=== PATIENT | male | born 1955 | race Caucasian/White ===

== ENCOUNTER 2017-11-07 16:39 | Emergency (ER) | payer MEDICAID ==
[~2017-11-07 16:39] MED LIST: IBUP-14 PO; PANT40TA25 PO
[2017-11-07 17:06] LABS: BASOPHILS % (AUTO) 0.4 % (0.0-5.0); HEMATOCRIT 43.7 % (42-54); LYMPHOCYTES % (AUTO) 9.2 % (21.0-51.0); MEAN CORPUSCULAR HEMOGLOBIN 29.5 pg (27.0-33.0); MEAN CORPUSCULAR HGB CONC 33.7 g/dL (32.0-36.0); MEAN CORPUSCULAR VOLUME 87.6 fL (79-99); MONOCYTES % (AUTO) 2.8 % (3.0-13.0); NEUTROPHILS % (AUTO) 87.6 % (40.0-77.0); PLATELET COUNT (AUTO) 276 K/uL (130-400); RED BLOOD CELL COUNT(AUTO) 4.99 MIL/uL (4.50-6.20); RED CELL DISTRIBUTION WIDTH 14.1 % (11.0-15.5); WHITE BLOOD COUNT (AUTO) 12.1 K/uL (4.8-10.8)
[2017-11-07 17:16] LABS: CARBON DIOXIDE 28 mmol/L (21-32); CHLORIDE 98 mmol/L (101-111); CREATININE 0.9 mg/dL (0.5-1.5); GLOMERULAR FILTR. RATE CALC 91 mL/min (>60); GLUCOSE,RANDOM 142 mg/dL (70-105); POTASSIUM 3.6 mmol/L (3.5-5.1); SODIUM SERUM 136 mmol/L (136-145); UREA NITROGEN, BLOOD 13 mg/dL (7-18)
[2017-11-07] MEDS ORDERED: ONDANSETRON HCL 4 MG/2 ML VIAL ONE ×2 (17:18→19:45)
[2017-11-07] MEDS ORDERED: KETOROLAC TROMETHAMINE 30MG/ML ONE (17:19)
[2017-11-07 17:24] LABS: ALANINE AMINOTRANSFERASE 19 U/L (12-78); ALBUMIN 4.1 g/dL (3.5-5.0); AMYLASE 35 U/L (25-115); ASPARTATE AMINOTRANSFERASE 16 U/L (10-37); BILIRUBIN,TOTAL 0.3 mg/dL (0.2-1.0); LIPASE 79 U/L (114-286)
[2017-11-07 17:27] LABS: ALCOHOL, BLOOD < 3 mg/dL (0-10)
[2017-11-07] MEDS ORDERED: TRAMADOL HCL 50 MG TABLET ONE (19:45)
[2017-11-07 20:07] LABS: APPEARANCE,URINE Clear (CLEAR); BILIRUBIN,URINE Negative (NEGATIVE); COLOR,URINE Yellow (YELLOW); GLUCOSE, URINE (UA) 250 mg/dL (NEGATIVE); KETONES,URINE 40 mg/dL (NEGATIVE); LEUKOCYTE ESTERASE ,URINE Negative (NEGATIVE); NITRATE,URINE Negative (NEGATIVE); OCCULT BLOOD,URINE Negative (NEGATIVE); PROTEIN,URINE POS 2+ (NEGATIVE); UROBILINOGEN,URINE 0.2 mg/dL (0.2-1.0)
[2017-11-07 20:13] LABS: AMPHET/METH SCREEN,URINE NEGATIVE (NEGATIVE); BARBITURATE SCREEN, URINE NEGATIVE (NEGATIVE); BENZODIAZEPINES SCREEN,URINE NEGATIVE (NEGATIVE); CANNABINOID SCREEN,URINE POSITIVE (NEGATIVE); COCAINE SCREEN,URINE NEGATIVE (NEGATIVE); OPIATE SCREEN,URINE NEGATIVE (NEGATIVE); PHENCYCLIDINE SCREEN,URINE NEGATIVE (NEGATIVE)
[2017-11-07 20:14] LABS: BACTERIA,URINE None Seen /HPF (None Seen); RBC,URINE None Seen /HPF (0-1); WBC,URINE 0-1 /HPF (0-1)
[2017-11-07] MEDS ORDERED: HYOSCYAMINE SULFATE 0.125 MG TAB.SUBL SL ONE (20:20)
[2017-11-07] MEDS ORDERED: LEVOFLOXACIN 500 MG TABLET ONE (20:27)
== END 2017-11-07 20:36 | disposition home or self-care (01) ==
LOC: EDH 16:39
DX: A09 Infectious gastroenteritis and colitis, unspecified (principal); R10.84 Generalized abdominal pain; M54.5 Low back pain; I25.10 Atherosclerotic heart disease of native coronary artery without angina pectoris; Z90.49 Acquired absence of other specified parts of digestive tract
CPT/HCPCS: 36415; 51702; 74176; 80053; 80305; 81001; 82150; 82948; 83690; 85025; 87088; 96374; 96375; 96376; 99285; G0480; J1885; J2405 ×2

== ENCOUNTER 2019-08-05 20:43 | Inpatient (IN) | payer MEDICAID ==
[~2019-08-05] VITALS: Ht 170.2 cm; Wt 59.2 kg
[2019-08-05] MEDS ORDERED: ONDANSETRON HCL 4 MG/2 ML VIAL ONE (21:05)
[2019-08-05] MEDS ORDERED: SODIUM CHLORIDE 0.9% 1000ML 1,000 ML IV ONE (21:06)
[2019-08-05 21:10] LABS: BASOPHILS % (AUTO) 1.1 % (0.0-5.0); HEMATOCRIT 46.6 % (42-54); LYMPHOCYTES % (AUTO) 7.5 % (21.0-51.0); MEAN CORPUSCULAR HEMOGLOBIN 29.4 pg (27.0-33.0); MEAN CORPUSCULAR HGB CONC 33.6 g/dL (32.0-36.0); MEAN CORPUSCULAR VOLUME 87.5 fL (79-99); NEUTROPHILS % (AUTO) 88.4 % (40.0-77.0); PLATELET COUNT (AUTO) 241 K/uL (130-400); RED BLOOD CELL COUNT(AUTO) 5.32 MIL/uL (4.50-6.20); RED CELL DISTRIBUTION WIDTH 14.7 % (11.0-15.5)
[2019-08-05 21:21] LABS: POTASSIUM 4.2 mmol/L (3.5-5.1)
[2019-08-05 21:22] LABS: INR 0.92 (0.85-1.15); PROTHROMBIN TIME 9.7 SEC (9.6-11.6)
[2019-08-05 21:25] LABS: ALBUMIN 4.6 g/dL (3.5-5.0); BILIRUBIN,TOTAL 0.4 mg/dL (0.2-1.0)
[2019-08-05] MEDS ORDERED: MORPHINE SULFATE 2 MG/ML 1ML SYG ONE ×2 (21:39→22:08)
[2019-08-05] MEDS ORDERED: ZOSYN 3.375GM+NS 50ML 50 ML IV ONE (22:18)
[2019-08-05 22:33] LABS: APPEARANCE,URINE Cloudy (CLEAR); BILIRUBIN,URINE Small (NEGATIVE); COLOR,URINE Dark Yellow (YELLOW); GLUCOSE, URINE (UA) TRACE mg/dL (NEGATIVE); KETONES,URINE 15 mg/dL (NEGATIVE); LEUKOCYTE ESTERASE ,URINE Negative (NEGATIVE); NITRATE,URINE Negative (NEGATIVE); OCCULT BLOOD,URINE Negative (NEGATIVE); PROTEIN,URINE 300 mg/dL (NEGATIVE)
[2019-08-05 22:49] LABS: AMORPHOUS SEDIMENT,UR Moderate /LPF (None Seen); BACTERIA,URINE None Seen /HPF (None Seen); RBC,URINE None Seen /HPF (0-1); SQUAMOUS EPITHELIAL CELL,UR Few /HPF (0-2); WBC,URINE None Seen /HPF (0-1)
[2019-08-05] MEDS: SODIUM CHLORIDE 0.9% 1000ML 1,000 ML IV SCH (23:41)
[2019-08-05] MEDS ORDERED: ONDANSETRON HCL 4 MG/2 ML VIAL IV PRN (23:45)
[2019-08-05] MEDS ORDERED: LACTULOSE 20 GM/30 ML UDCUP PO PRN (23:45)
[2019-08-05] MEDS ORDERED: ACETAMINOPHEN 325 MG TAB PO PRN ×2 (23:45)
[2019-08-05] MEDS ORDERED: MORPHINE SULFATE 4 MG/1ML SYG IV PRN (23:45)
[2019-08-05] MEDS ORDERED: MAG HYDROX/AL HYDROX/SIMETH ES 30 ML SUSP UDCUP PO PRN (23:45)
[2019-08-06] VITALS: BP 154/80
[2019-08-06] MEDS ORDERED: ONDANSETRON HCL 4 MG/2 ML VIAL ONE (00:02)
[2019-08-06] MEDS ORDERED: FAMOTIDINE/PF 20 MG/2 ML VIAL IV ONE (00:03)
[2019-08-06] MEDS ORDERED: SODIUM CHLORIDE 0.9% 1000ML 1,000 ML IV ONE (00:03)
[2019-08-06] MEDS ORDERED: METRONIDAZOLE 500MG/100ML BAG 100 ML ONE (00:03)
--- NOTE | 2019-08-06 00:40 | NUR ---
ADMISSION NOTE: Admitted to floor via stretcher from ER. AOX3. Placed in bed comfortably. VS checked and recorded. Assessment done. ( See CPOE flow chart for full assessment) Pt. feels weak and irritable when questions asked. Plan of care initiated. Monitored and observed for any unusualities. Still feels pain at this time but manageable. Has FC, irish 16 attached to urobag draining a cloudy yellowish colored urine. Distress not noted.
[2019-08-06 01:27] LABS: AMPHET/METH SCREEN,URINE NEGATIVE (NEGATIVE); BARBITURATE SCREEN, URINE NEGATIVE (NEGATIVE); BENZODIAZEPINES SCREEN,URINE NEGATIVE (NEGATIVE); CANNABINOID SCREEN,URINE POSITIVE (NEGATIVE); COCAINE SCREEN,URINE NEGATIVE (NEGATIVE); OPIATE SCREEN,URINE POSITIVE (NEGATIVE); PHENCYCLIDINE SCREEN,URINE NEGATIVE (NEGATIVE)
[2019-08-06] MEDS ORDERED: PROMETHAZINE HCL 25 MG/ML 1ML AMPULE IM SCH (03:30)
[2019-08-06] MEDS: ZOSYN 3.375GM+NS 50ML 50 ML IV SCH ×3 (05:14→22:06)
[2019-08-06 06:16] LABS: BASOPHILS % (AUTO) 0.5 % (0.0-5.0); EOSINOPHILS % (AUTO) 0.3 % (0.0-8.0); HEMATOCRIT 41.6 % (42-54); LYMPHOCYTES % (AUTO) 7.9 % (21.0-51.0); MEAN CORPUSCULAR HEMOGLOBIN 28.9 pg (27.0-33.0); MEAN CORPUSCULAR HGB CONC 33.3 g/dL (32.0-36.0); MEAN CORPUSCULAR VOLUME 86.6 fL (79-99); NEUTROPHILS % (AUTO) 87.3 % (40.0-77.0); PLATELET COUNT (AUTO) 195 K/uL (130-400); RED CELL DISTRIBUTION WIDTH 14.9 % (11.0-15.5); WHITE BLOOD COUNT (AUTO) 20.3 K/uL (4.8-10.8)
[2019-08-06 06:28] LABS: CREATININE 1.3 mg/dL (0.5-1.5); POTASSIUM 4.2 mmol/L (3.5-5.1)
[2019-08-06] MEDS ORDERED: MORPHINE SULFATE 2 MG/ML 1ML SYG IVP PRN (07:45)
[2019-08-06 08:12] VITALS: BP 92/65
[2019-08-06] MEDS ORDERED: FLU VACC QS2019-20 36MOS UP/PF 60 MCG/0.5 ML ML IM ONE (09:00)
[2019-08-06] MEDS: TAMSULOSIN HCL 0.4 MG CAP.ER.24H PO SCH (10:14)
[2019-08-06] MEDS: FAMOTIDINE/PF 20 MG/2 ML VIAL IV SCH (10:14)
[2019-08-06] MEDS: ENOXAPARIN SODIUM 40 MG/0.4 ML SYRINGE SQ SCH (10:16)
[2019-08-06] MEDS: LIDOCAINE 5% TOPICAL PATCH TP SCH (10:17)
[2019-08-06] MEDS: METRONIDAZOLE 500MG/100ML BAG 100 ML IV SCH ×3 (10:17→16:00)
--- NOTE | 2019-08-06 11:23 | NUR ---
DCP CM met with pt discussed dc plans. Pt is independent prior to admission, lives at home alone. Denies any equipments/services. Feels safe to go back home, still works and drives, friend Gene able to assist with transportation as necessary. DC plan to home once stable. CM to cont to follow up. Addendum: 08/06/19 at 1124 by VENUS PERKINS LVN CM Amended: Links added.
[2019-08-06 12:10] VITALS: BP 89/58
[2019-08-06] MEDS ORDERED: VANCOMYCIN PROTOCOL PER PHARMACY IV SCH (12:30)
[2019-08-06] MEDS: VANCOMYCIN 1GM+NS 250ML 250 ML IV SCH (13:50)
[2019-08-06] MEDS: SODIUM CHLORIDE 0.9% 1000ML 1,000 ML IV SCH ×3 (13:51→22:06)
--- NOTE | 2019-08-06 15:40 | NUR ---
LIVES ALONE Sw met with pt who lives alone and states he is an adult and can do for himself. Pt denies need for any referral or intervention at this time
[2019-08-06 16:40] VITALS: BP 101/68
[2019-08-06 19:23] VITALS: BP 105/70
[2019-08-06 23:25] VITALS: BP 101/66
[2019-08-07] MEDS: METRONIDAZOLE 500MG/100ML BAG 100 ML IV SCH ×3 (00:48→16:37)
[2019-08-07 04:04] VITALS: BP 123/78
[2019-08-07] MEDS: ZOSYN 3.375GM+NS 50ML 50 ML IV SCH ×3 (05:54→22:08)
[2019-08-07 06:10] LABS: BASOPHILS % (AUTO) 0.8 % (0.0-5.0); EOSINOPHILS % (AUTO) 0.6 % (0.0-8.0); HEMATOCRIT 35.9 % (42-54); LYMPHOCYTES % (AUTO) 26.3 % (21.0-51.0); MEAN CORPUSCULAR HEMOGLOBIN 29.5 pg (27.0-33.0); MEAN CORPUSCULAR HGB CONC 33.2 g/dL (32.0-36.0); MEAN CORPUSCULAR VOLUME 88.7 fL (79-99); MONOCYTES % (AUTO) 7.4 % (3.0-13.0); NEUTROPHILS % (AUTO) 64.9 % (40.0-77.0); PLATELET COUNT (AUTO) 157 K/uL (130-400); RED BLOOD CELL COUNT(AUTO) 4.05 MIL/uL (4.50-6.20); RED CELL DISTRIBUTION WIDTH 15.3 % (11.0-15.5); WHITE BLOOD COUNT (AUTO) 11.5 K/uL (4.8-10.8)
[2019-08-07 06:13] LABS: CREATININE 1.2 mg/dL (0.5-1.5); POTASSIUM 3.8 mmol/L (3.5-5.1)
[2019-08-07] MEDS ORDERED: IPRATROPIUM/ALBUTEROL SULFATE 3 ML SOLUTION IH ONE (06:28)
[2019-08-07] MEDS ORDERED: IPRATROPIUM/ALBUTEROL SULFATE 3 ML SOLUTION IH SCH (06:30)
[2019-08-07] MEDS ORDERED: GUAIFENESIN-DM 200/20 MG 10 ML PO SCH (06:30)
--- NOTE | 2019-08-07 06:30 | NUR ---
Frequent cough / inspiratory and expiratory wheezing during auscultation: Reported to hospitalist (CASSIUS Rossi ) thru phone with ff orders: 1.Duoneb IH now and q6hrs 2. Robitussin 10 ml po now and q6hrs RT staff notified. Orders carried out.
[2019-08-07 07:30] VITALS: BP 152/101
[2019-08-07] MEDS: SODIUM CHLORIDE 0.9% 1000ML 1,000 ML IV SCH ×3 (07:41→22:08)
[2019-08-07] MEDS: FLU VACC QUAD 2019-20(6MOS UP) 60 MCG/0.5 ML VIAL IM SCH ×2 (09:00→10:38)
[2019-08-07] MEDS ORDERED: HYDROCODONE/ACETAMINOPHEN 5/325 MG TAB PO PRN (10:00)
[2019-08-07] MEDS ORDERED: TRAMADOL HCL 50 MG TABLET PO PRN (10:00)
[2019-08-07] MEDS ORDERED: LACTOBACILLUS RHAMNOSUS GG 1 EACH CAP.SPRINK PO SCH (10:15)
[2019-08-07] MEDS ORDERED: LEVOFLOXACIN 500 MG TABLET PO SCH (10:15)
[2019-08-07] MEDS: FAMOTIDINE/PF 20 MG/2 ML VIAL IV SCH (10:21)
[2019-08-07] MEDS: TAMSULOSIN HCL 0.4 MG CAP.ER.24H PO SCH (10:22)
[2019-08-07] MEDS: ENOXAPARIN SODIUM 40 MG/0.4 ML SYRINGE SQ SCH (10:22)
[2019-08-07] MEDS: LIDOCAINE 5% TOPICAL PATCH TP SCH (10:23)
[2019-08-07 11:00] VITALS: BP 103/72
[2019-08-07] MEDS: IPRATROPIUM/ALBUTEROL SULFATE 3 ML SOLUTION IH SCH ×3 (11:16→23:18)
[2019-08-07] MEDS: VANCOMYCIN 1GM+NS 250ML 250 ML IV SCH (12:06)
[2019-08-07] MEDS ORDERED: DICYCLOMINE HCL 10 MG/5 ML ML PO SCH (12:15)
[2019-08-07] MEDS ORDERED: DICYCLOMINE HCL 20 MG TAB PO PRN (12:15)
[2019-08-07] MEDS ORDERED: GUAIFENESIN-DM 200/20 MG 10 ML PO PRN (12:30)
[2019-08-07] MEDS ORDERED: LORAZEPAM 0.5 MG TABLET PO SCH (13:00)
[2019-08-07] MEDS: LACTOBACILLUS RHAMNOSUS GG 1 EACH CAP.SPRINK PO SCH ×2 (14:26→22:08)
[2019-08-07] MEDS ORDERED: MORPHINE SULFATE 2 MG/ML 1ML SYG ONE (16:13)
[2019-08-07] MEDS ORDERED: MORPHINE SULFATE 2 MG/ML 1ML SYG IVP PRN (16:15)
[2019-08-07 19:18] VITALS: BP 109/67
[2019-08-08] VITALS (7 sets, daily range): BP systolic 109–155; BP diastolic 68–81
[2019-08-08] MEDS: METRONIDAZOLE 500MG/100ML BAG 100 ML IV SCH ×3 (01:07→16:43)
[2019-08-08 04:34] LABS: BASOPHILS % (AUTO) 0.7 % (0.0-5.0); EOSINOPHILS % (AUTO) 1.3 % (0.0-8.0); HEMATOCRIT 32.8 % (42-54); LYMPHOCYTES % (AUTO) 24.8 % (21.0-51.0); MEAN CORPUSCULAR HGB CONC 34.3 g/dL (32.0-36.0); MEAN CORPUSCULAR VOLUME 87.6 fL (79-99); MONOCYTES % (AUTO) 7.6 % (3.0-13.0); NEUTROPHILS % (AUTO) 65.6 % (40.0-77.0); PLATELET COUNT (AUTO) 161 K/uL (130-400); RED BLOOD CELL COUNT(AUTO) 3.75 MIL/uL (4.50-6.20); RED CELL DISTRIBUTION WIDTH 14.7 % (11.0-15.5); WHITE BLOOD COUNT (AUTO) 9.1 K/uL (4.8-10.8)
[2019-08-08 04:55] LABS: POTASSIUM 3.3 mmol/L (3.5-5.1)
[2019-08-08] MEDS ORDERED: LIDOCAINE HCL-MPF 1% 2ML VIAL IV PRN (05:15)
[2019-08-08] MEDS ORDERED: POTASSIUM CHLORIDE 10% ELIXIR 20 MEQ/15 ML UDCUP PO PRN (05:15)
[2019-08-08] MEDS ORDERED: POTASSIUM CHLORIDE 20MEQ/100ML 100 ML IV PRN (05:15)
[2019-08-08] MEDS: IPRATROPIUM/ALBUTEROL SULFATE 3 ML SOLUTION IH SCH ×4 (06:28→23:05)
[2019-08-08] MEDS: ZOSYN 3.375GM+NS 50ML 50 ML IV SCH ×3 (06:35→21:10)
[2019-08-08] MEDS: POTASSIUM CHLORIDE 20 MEQ ERTAB PO PRN ×3 (06:36→13:30)
[2019-08-08] MEDS: SODIUM CHLORIDE 0.9% 1000ML 1,000 ML IV SCH (06:38)
[2019-08-08] MEDS: FAMOTIDINE/PF 20 MG/2 ML VIAL IV SCH (08:37)
[2019-08-08] MEDS: TAMSULOSIN HCL 0.4 MG CAP.ER.24H PO SCH (08:37)
[2019-08-08] MEDS: ENOXAPARIN SODIUM 40 MG/0.4 ML SYRINGE SQ SCH (08:37)
[2019-08-08] MEDS: LACTOBACILLUS RHAMNOSUS GG 1 EACH CAP.SPRINK PO SCH ×3 (08:37→21:03)
[2019-08-08] MEDS: LIDOCAINE 5% TOPICAL PATCH TP SCH (08:38)
[2019-08-08] MEDS: VANCOMYCIN 1GM+NS 250ML 250 ML IV SCH (13:12)
--- NOTE | 2019-08-08 13:53 | NUR ---
Pt up and walking around the pods with no difficulty, tolerated walking well, no SOB noted, VS stable, nursing will continue to monitor.
[2019-08-08] MEDS: FAMOTIDINE 20MG TAB 20 MG TAB PO SCH (21:03)
[2019-08-09] VITALS (7 sets, daily range): BP systolic 102–139; BP diastolic 42–108
[2019-08-09] MEDS: METRONIDAZOLE 500MG/100ML BAG 100 ML IV SCH ×2 (00:25→08:00)
[2019-08-09] MEDS: IPRATROPIUM/ALBUTEROL SULFATE 3 ML SOLUTION IH SCH ×2 (06:15→11:04)
[2019-08-09] MEDS: ZOSYN 3.375GM+NS 50ML 50 ML IV SCH (06:27)
[2019-08-09 07:06] LABS: BASOPHILS % (AUTO) 0.7 % (0.0-5.0); EOSINOPHILS % (AUTO) 1.8 % (0.0-8.0); HEMATOCRIT 36.8 % (42-54); LYMPHOCYTES % (AUTO) 21.7 % (21.0-51.0); MEAN CORPUSCULAR HEMOGLOBIN 29.8 pg (27.0-33.0); MEAN CORPUSCULAR HGB CONC 33.8 g/dL (32.0-36.0); MEAN CORPUSCULAR VOLUME 88.1 fL (79-99); MONOCYTES % (AUTO) 8.7 % (3.0-13.0); NEUTROPHILS % (AUTO) 67.1 % (40.0-77.0); PLATELET COUNT (AUTO) 174 K/uL (130-400); RED BLOOD CELL COUNT(AUTO) 4.18 MIL/uL (4.50-6.20); RED CELL DISTRIBUTION WIDTH 14.9 % (11.0-15.5); WHITE BLOOD COUNT (AUTO) 8.3 K/uL (4.8-10.8)
[2019-08-09] MEDS ORDERED: FLU VACC QS2019-20 36MOS UP/PF 60 MCG/0.5 ML ML IM ONE (10:00)
[2019-08-09] MEDS: FLU VACC QS2019-20 36MOS UP/PF 60 MCG/0.5 ML ML IM SCH ×2 (10:15→11:08)
[2019-08-09] MEDS ORDERED: METR-172 PO ×2 (10:26→13:21)
[2019-08-09] MEDS ORDERED: LEVO500T89 PO ×2 (10:26→13:21)
[2019-08-09] MEDS ORDERED: METRONIDAZOLE 500 MG TABLET PO SCH (10:30)
[2019-08-09] MEDS ORDERED: LEVOFLOXACIN 500 MG TABLET PO SCH (10:30)
[2019-08-09] MEDS ORDERED: POTASSIUM CHLORIDE 10% ELIXIR 20 MEQ/15 ML UDCUP PO SCH (10:45)
[2019-08-09] MEDS: LACTOBACILLUS RHAMNOSUS GG 1 EACH CAP.SPRINK PO SCH (10:59)
[2019-08-09] MEDS: FAMOTIDINE 20MG TAB 20 MG TAB PO SCH (10:59)
[2019-08-09] MEDS: ENOXAPARIN SODIUM 40 MG/0.4 ML SYRINGE SQ SCH (11:07)
[2019-08-09] MEDS: LIDOCAINE 5% TOPICAL PATCH TP SCH (11:08)
[2019-08-09] MEDS: TAMSULOSIN HCL 0.4 MG CAP.ER.24H PO SCH (11:09)
--- NOTE | 2019-08-09 12:30 | NUR ---
FLU VACCINE NOT GIVEN. ADMINISTERED BY ANOTHER NURSE 2 DAYS AGO.
== END 2019-08-09 13:30 | disposition home or self-care (01) | DRG 720 ==
LOC: EDH 20:43 → EDHIP 20:44 → OBSVTOIN 20:44 → 3BH 08-06 00:06
PROVIDERS: ADMIT Internal Medicine; ATTEND Internal Medicine
DX: A41.9 Sepsis, unspecified organism (principal); N17.0 Acute kidney failure with tubular necrosis; T83.84XA Pain due to genitourinary prosthetic devices, implants and grafts, initial encounter; K57.92 Diverticulitis of intestine, part unspecified, without perforation or abscess without bleeding; G89.29 Other chronic pain; R33.9 Retention of urine, unspecified; K52.9 Noninfective gastroenteritis and colitis, unspecified; M19.90 Unspecified osteoarthritis, unspecified site; Z90.49 Acquired absence of other specified parts of digestive tract; F17.200 Nicotine dependence, unspecified, uncomplicated; N20.0 Calculus of kidney; Y84.6 Urinary catheterization as the cause of abnormal reaction of the patient, or of later complication, without mention of misadventure at the time of the procedure; Z82.49 Family history of ischemic heart disease and other diseases of the circulatory system
CPT/HCPCS: 36415; 71045; 72148; 74176; 76700; 80048; 80053; 80305; 81001; 82270; 82550; 83605; 83690; 84484; 85025; 85610; 85730; 86677; 87088; 93005; 94640; 94664; G0378; J1650; J2270; J2405; J2543; J3370; J3490; J7030; Q2035; Q2036

== ENCOUNTER 2019-09-17 15:27 | Emergency (ER) | payer MEDICAID ==
[~2019-09-17 15:27] MED LIST changes: +LEVO500T89 PO; +METR-172 PO; -PANT40TA25 PO
[2019-09-17 15:48] LABS: BASOPHILS % (AUTO) 0.5 % (0.0-5.0); EOSINOPHILS % (AUTO) 0.1 % (0.0-8.0); HEMATOCRIT 53.1 % (42-54); LYMPHOCYTES % (AUTO) 8.2 % (21.0-51.0); MEAN CORPUSCULAR HEMOGLOBIN 29.2 pg (27.0-33.0); MEAN CORPUSCULAR HGB CONC 33.1 g/dL (32.0-36.0); MEAN CORPUSCULAR VOLUME 88.1 fL (79-99); MONOCYTES % (AUTO) 3.1 % (3.0-13.0); NEUTROPHILS % (AUTO) 88.1 % (40.0-77.0); PLATELET COUNT (AUTO) 259 K/uL (130-400); RED BLOOD CELL COUNT(AUTO) 6.03 MIL/uL (4.50-6.20); RED CELL DISTRIBUTION WIDTH 14.9 % (11.0-15.5); WHITE BLOOD COUNT (AUTO) 20.8 K/uL (4.8-10.8)
[2019-09-17] MEDS ORDERED: MORPHINE SULFATE 4 MG/1ML SYG ONE (15:48)
[2019-09-17] MEDS ORDERED: ONDANSETRON HCL 4 MG/2 ML VIAL ONE ×2 (15:48→15:52)
[2019-09-17] MEDS ORDERED: HYOSCYAMINE SULFATE 0.125 MG TAB.SUBL SL ONE (15:52)
[2019-09-17 16:04] LABS: CREATININE 1.2 mg/dL (0.5-1.5); POTASSIUM 4.4 mmol/L (3.5-5.1)
[2019-09-17 16:19] LABS: ALBUMIN 3.9 g/dL (3.5-5.0); BILIRUBIN,TOTAL 0.3 mg/dL (0.2-1.0); TOTAL PROTEIN, SERUM 7.6 g/dL (6.0-8.3)
[2019-09-17 17:17] LABS: APPEARANCE,URINE CLEAR (CLEAR); BILIRUBIN,URINE SMALL (NEGATIVE); COLOR,URINE YELLOW (YELLOW); GLUCOSE, URINE (UA) NEGATIVE (NEGATIVE); KETONES,URINE 15 mg/dL (NEGATIVE); LEUKOCYTE ESTERASE ,URINE NEGATIVE (NEGATIVE); NITRATE,URINE NEGATIVE (NEGATIVE); OCCULT BLOOD,URINE NEGATIVE (NEGATIVE); PH,URINE 5.5 (5.0-8.0); PROTEIN,URINE 100 mg/dL (NEGATIVE); UROBILINOGEN,URINE 0.2 mg/dL (0.2-1.0)
[2019-09-17 17:25] LABS: AMPHET/METH SCREEN,URINE NEGATIVE (NEGATIVE); BARBITURATE SCREEN, URINE NEGATIVE (NEGATIVE); BENZODIAZEPINES SCREEN,URINE NEGATIVE (NEGATIVE); CANNABINOID SCREEN,URINE POSITIVE (NEGATIVE); COCAINE SCREEN,URINE NEGATIVE (NEGATIVE); OPIATE SCREEN,URINE NEGATIVE (NEGATIVE); PHENCYCLIDINE SCREEN,URINE NEGATIVE (NEGATIVE)
[2019-09-17 17:42] LABS: BACTERIA,URINE Few /HPF (None Seen); RBC,URINE 0-1 /HPF (0-1); SQUAMOUS EPITHELIAL CELL,UR Few /HPF (0-2)
[2019-09-17 17:44] LABS: OTHER CRYSTALS,URINE SODIUM URATES 1+ /LPF (None Seen); URIC ACID CRYSTALS,URINE Rare /LPF (None Seen)
== END 2019-09-17 18:12 | disposition home or self-care (01) ==
LOC: EDH 15:27
DX: R10.9 Unspecified abdominal pain (principal); M19.90 Unspecified osteoarthritis, unspecified site; J20.9 Acute bronchitis, unspecified; Z72.0 Tobacco use
CPT/HCPCS: 36415; 74176; 80053; 80305; 81001; 82150; 83690; 84484; 85025; 93005; 96374; 96375; 99285; G0480; J2270; J2405 ×2

== ENCOUNTER 2019-10-02 08:59 | Emergency (ER) | payer MEDICAID ==
[2019-10-02 09:31] LABS: BASOPHILS % (AUTO) 0.1 % (0.0-5.0); HEMATOCRIT 47.2 % (42-54); LYMPHOCYTES % (AUTO) 11.2 % (21.0-51.0); MEAN CORPUSCULAR HGB CONC 33.3 g/dL (32.0-36.0); MEAN CORPUSCULAR VOLUME 87.2 fL (79-99); MONOCYTES % (AUTO) 3.6 % (3.0-13.0); NEUTROPHILS % (AUTO) 84.8 % (40.0-77.0); PLATELET COUNT (AUTO) 296 K/uL (130-400); RED BLOOD CELL COUNT(AUTO) 5.41 MIL/uL (4.50-6.20); RED CELL DISTRIBUTION WIDTH 14.5 % (11.0-15.5); WHITE BLOOD COUNT (AUTO) 14.3 K/uL (4.8-10.8)
[2019-10-02] MEDS ORDERED: ONDANSETRON HCL 4 MG/2 ML VIAL ONE (09:36)
[2019-10-02] MEDS ORDERED: LORAZEPAM 2 MG/ML 1 ML VIAL ONE (09:37)
[2019-10-02] MEDS ORDERED: SODIUM CHLORIDE 0.9% 1000ML 1,000 ML IV ONE (09:37)
[2019-10-02 09:39] LABS: INR 0.92 (0.85-1.15); PROTHROMBIN TIME 9.7 SEC (9.6-11.6)
[2019-10-02 09:43] LABS: ALBUMIN 4.4 g/dL (3.5-5.0); BILIRUBIN,TOTAL 0.3 mg/dL (0.2-1.0); TOTAL PROTEIN, SERUM 7.5 g/dL (6.0-8.3)
== END 2019-10-02 11:42 | disposition home or self-care (01) ==
LOC: EDH 08:59
DX: F12.29 Cannabis dependence with unspecified cannabis-induced disorder (principal); R11.10 Vomiting, unspecified; M19.90 Unspecified osteoarthritis, unspecified site; Z90.49 Acquired absence of other specified parts of digestive tract; Z98.890 Other specified postprocedural states
CPT/HCPCS: 36415; 71045; 74018; 80053; 82550; 83605; 83690; 84484; 85025; 85610; 85730; 87804 ×2; 93005; 96361; 96374; 96375; 99285; J2060; J2405; J7030

== ENCOUNTER 2019-11-19 06:09 | Day surgery (SDC) | payer MEDICAID ==
[2019-11-17 09:18] VITALS: BP 92/60
[2019-11-17 09:24] LABS: BASOPHILS % (AUTO) 0.7 % (0.0-5.0); EOSINOPHILS % (AUTO) 4.2 % (0.0-8.0); HEMATOCRIT 41.3 % (42-54); LYMPHOCYTES % (AUTO) 24.3 % (21.0-51.0); MEAN CORPUSCULAR HEMOGLOBIN 28.7 pg (27.0-33.0); MEAN CORPUSCULAR HGB CONC 33.2 g/dL (32.0-36.0); MEAN CORPUSCULAR VOLUME 86.6 fL (79-99); MONOCYTES % (AUTO) 8.2 % (3.0-13.0); NEUTROPHILS % (AUTO) 62.3 % (40.0-77.0); PLATELET COUNT (AUTO) 229 K/uL (130-400); RED BLOOD CELL COUNT(AUTO) 4.77 MIL/uL (4.50-6.20); RED CELL DISTRIBUTION WIDTH 13.3 % (11.0-15.5); WHITE BLOOD COUNT (AUTO) 12.4 K/uL (4.8-10.8)
[2019-11-17 09:37] LABS: CREATININE 1.1 mg/dL (0.5-1.5); INR 0.95 (0.85-1.15); PARTIAL THROMBOPLASTIN TIME 25.1 SEC (26.3-35.5)
[2019-11-17 09:50] LABS: APPEARANCE,URINE Clear (CLEAR); BILIRUBIN,URINE Negative (NEGATIVE); COLOR,URINE Yellow (YELLOW); GLUCOSE, URINE (UA) Negative (NEGATIVE); KETONES,URINE Negative (NEGATIVE); LEUKOCYTE ESTERASE ,URINE Negative (NEGATIVE); NITRATE,URINE Negative (NEGATIVE); OCCULT BLOOD,URINE Negative (NEGATIVE); PH,URINE 5.5 (5.0-8.0); PROTEIN,URINE Negative (NEGATIVE)
--- NOTE | 2019-11-18 14:15 | NUR ---
RE: ABNORMAL LABS REPORTED ABNORMAL LABS TO BISI MOREIRA (WBC 12.4, BUN 30, CREAT 1.1). RECEIVED ORDERS TO REPEAT CBC IN AM.
[2019-11-19] VITALS (18 sets, daily range): BP systolic 87–118; BP diastolic 58–81
[~2019-11-19] VITALS: Ht 168.9 cm; Wt 63.8 kg
[~2019-11-19 06:09] MED LIST changes: +AEC81 PO; +ATOR10 PO; -IBUP-14 PO; +ISOS30TA6 PO; -LEVO500T89 PO; +LISI-617 PO; +METO25TA6 PO; -METR-172 PO; +NITR0.4T50 SL; +TICA90TA PO; +VARE1TAB22 PO
[2019-11-19] MEDS ORDERED: SODIUM CHLORIDE 0.9% 1000ML 1,000 ML IV ONE (06:25)
[2019-11-19 06:30] LABS: BASOPHILS % (AUTO) 0.7 % (0.0-5.0); EOSINOPHILS % (AUTO) 4.6 % (0.0-8.0); LYMPHOCYTES % (AUTO) 13.6 % (21.0-51.0); MEAN CORPUSCULAR HEMOGLOBIN 28.8 pg (27.0-33.0); MEAN CORPUSCULAR HGB CONC 33.1 g/dL (32.0-36.0); MONOCYTES % (AUTO) 6.6 % (3.0-13.0); PLATELET COUNT (AUTO) 232 K/uL (130-400); RED BLOOD CELL COUNT(AUTO) 4.83 MIL/uL (4.50-6.20); RED CELL DISTRIBUTION WIDTH 13.3 % (11.0-15.5); WHITE BLOOD COUNT (AUTO) 15.5 K/uL (4.8-10.8)
[2019-11-19] MEDS ORDERED: BIVALIRUDIN 250 MG/VIAL IV ONE (07:14)
[2019-11-19] MEDS ORDERED: MIDAZOLAM HCL 1 MG/ML 2ML VIAL ONE (07:14)
[2019-11-19] MEDS ORDERED: LIDOCAINE HCL 2% 20ML ONE (07:15)
[2019-11-19] MEDS ORDERED: IOHEXOL-350 50ML VIAL IV ONE (07:16)
[2019-11-19] MEDS ORDERED: IOHEXOL 350 MG/ML 100ML INFUS..BTL IV ONE (07:16)
[2019-11-19] MEDS ORDERED: NITROGLYCERIN 2 MG/VIAL VIAL IV ONE (07:17)
[2019-11-19] MEDS ORDERED: FENTANYL CITRATE PF 50 MCG/1 ML 2ML VIAL ONE (07:18)
[2019-11-19] MEDS ORDERED: SODIUM CHLORIDE 0.9% 1000ML 1,000 ML IV SCH (08:26)
[2019-11-19] MEDS ORDERED: NITROGLYCERIN 0.4 MG SL TAB SL PRN (08:30)
[2019-11-19] MEDS ORDERED: GLUCAGON 1MG KIT 1 MG ML IM PRN (08:30)
[2019-11-19] MEDS ORDERED: ACETAMINOPHEN-CODEINE 300/30MG TAB PO PRN (08:30)
[2019-11-19] MEDS ORDERED: DEXTROSE 50%-WATER 50 ML DISP.SYRIN IV PRN (08:30)
[2019-11-19] MEDS ORDERED: ATROPINE SULFATE 0.1 MG/ML 10 ML SYG IVP ONE (09:25)
[2019-11-19] MEDS ORDERED: FENTANYL CITRATE PF 50 MCG/1 ML 2ML VIAL IVP SCH (11:00)
--- NOTE | 2019-11-19 16:35 | NUR ---
DC PT DC HOME WITH FAMILY NO DISTRESS NOTED. PT DENIED ANY PAIN OR DISCOMFORTS
== END 2019-11-19 16:35 | disposition home or self-care (01) ==
LOC: DAH 06:09
PROVIDERS: ATTEND Internal Medicine Cardiovascular Disease
DX: I25.118 Atherosclerotic heart disease of native coronary artery with other forms of angina pectoris (principal); I21.4 Non-ST elevation (NSTEMI) myocardial infarction; I11.0 Hypertensive heart disease with heart failure; I50.23 Acute on chronic systolic (congestive) heart failure; J44.9 Chronic obstructive pulmonary disease, unspecified; F41.9 Anxiety disorder, unspecified; F32.9 Major depressive disorder, single episode, unspecified; F17.210 Nicotine dependence, cigarettes, uncomplicated; E78.5 Hyperlipidemia, unspecified
CPT/HCPCS: 36415 ×2; 71045; 80048; 81003; 85025 ×2; 85610; 85730; 93005; 93454; A4215; A4216; A4221; A4222; A4223 ×3; A4606; A4663; C1725 ×2; C1769; C1876; C1887; C1894 ×2; C9600; J0583; J1644; J2250; J3010 ×2; J3490 ×2; J7030; Q9965; Q9967; 99156; 99157; J0461

== ENCOUNTER 2019-12-05 22:22 | Observation (INO) | payer MEDICAID ==
[~2019-12-05] VITALS: Ht 170.2 cm; Wt 64.0 kg
[~2019-12-05 22:22] MED LIST changes: -LISI-617 PO
[2019-12-05] MEDS ORDERED: DiphenhydrAMINE HCL 50 MG/ML VIAL ONE (22:47)
[2019-12-05] MEDS ORDERED: METOCLOPRAMIDE 10 MG/2 ML VIAL ONE (22:47)
[2019-12-05 22:48] LABS: BASOPHILS % (AUTO) 0.5 % (0.0-5.0); EOSINOPHILS % (AUTO) 1.2 % (0.0-8.0); HEMATOCRIT 39.8 % (42-54); LYMPHOCYTES % (AUTO) 10.8 % (21.0-51.0); MEAN CORPUSCULAR HEMOGLOBIN 28.2 pg (27.0-33.0); MEAN CORPUSCULAR HGB CONC 32.9 g/dL (32.0-36.0); MEAN CORPUSCULAR VOLUME 85.6 fL (79-99); MONOCYTES % (AUTO) 4.2 % (3.0-13.0); PLATELET COUNT (AUTO) 289 K/uL (130-400); RED BLOOD CELL COUNT(AUTO) 4.65 MIL/uL (4.50-6.20); RED CELL DISTRIBUTION WIDTH 13.9 % (11.0-15.5); WHITE BLOOD COUNT (AUTO) 14.7 K/uL (4.8-10.8)
[2019-12-05] MEDS ORDERED: SODIUM CHLORIDE 0.9% 1000ML 1,000 ML IV ONE (22:49)
[2019-12-05] MEDS ORDERED: FAMOTIDINE/PF 20 MG/2 ML VIAL IV ONE (22:49)
[2019-12-05 23:14] LABS: POTASSIUM 3.7 mmol/L (3.5-5.1)
[2019-12-05 23:19] LABS: ALBUMIN 4.3 g/dL (3.5-5.0); BILIRUBIN,TOTAL 0.3 mg/dL (0.2-1.0); TOTAL PROTEIN, SERUM 7.8 g/dL (6.0-8.3)
[2019-12-06 01:16] LABS: BASOPHILS % (AUTO) 0.5 % (0.0-5.0); EOSINOPHILS % (AUTO) 0.2 % (0.0-8.0); HEMATOCRIT 38.1 % (42-54); LYMPHOCYTES % (AUTO) 9.6 % (21.0-51.0); MEAN CORPUSCULAR HEMOGLOBIN 28.4 pg (27.0-33.0); MEAN CORPUSCULAR HGB CONC 33.3 g/dL (32.0-36.0); MEAN CORPUSCULAR VOLUME 85.2 fL (79-99); MONOCYTES % (AUTO) 2.7 % (3.0-13.0); NEUTROPHILS % (AUTO) 86.7 % (40.0-77.0); PLATELET COUNT (AUTO) 289 K/uL (130-400); RED BLOOD CELL COUNT(AUTO) 4.47 MIL/uL (4.50-6.20); RED CELL DISTRIBUTION WIDTH 13.7 % (11.0-15.5); WHITE BLOOD COUNT (AUTO) 12.3 K/uL (4.8-10.8)
[2019-12-06] MEDS ORDERED: ONDANSETRON HCL 4 MG/2 ML VIAL IV PRN (01:30)
[2019-12-06] MEDS: CEFTRIAXONE SODIUM 1 GM IV SCH (01:30)
[2019-12-06] MEDS ORDERED: MORPHINE SULFATE 2 MG/ML 1ML SYG IV PRN (01:30)
[2019-12-06] MEDS ORDERED: LACTULOSE 20 GM/30 ML UDCUP PO PRN (01:30)
[2019-12-06] MEDS ORDERED: ACETAMINOPHEN 325 MG TAB PO PRN ×2 (01:30)
[2019-12-06] MEDS ORDERED: ONDANSETRON HCL 4 MG/2 ML VIAL ONE (01:36)
[2019-12-06 01:54] LABS: BILIRUBIN,URINE Negative (NEGATIVE); COLOR,URINE Yellow (YELLOW); GLUCOSE, URINE (UA) Negative (NEGATIVE); KETONES,URINE 40 mg/dL (NEGATIVE); LEUKOCYTE ESTERASE ,URINE Negative (NEGATIVE); NITRATE,URINE Negative (NEGATIVE); OCCULT BLOOD,URINE Negative (NEGATIVE); PH,URINE 7.5 (5.0-8.0); PROTEIN,URINE Negative (NEGATIVE); UROBILINOGEN,URINE 0.2 mg/dL (0.2-1.0)
[2019-12-06 01:56] LABS: APPEARANCE,URINE CLEAR (CLEAR)
[2019-12-06] MEDS ORDERED: SODIUM CHLORIDE 0.9% 50 ML IV ONE (02:14)
[2019-12-06] MEDS ORDERED: CEFTRIAXONE SODIUM 1 GM ONE (02:14)
--- NOTE | 2019-12-06 02:45 | NUR ---
WOUND CARE RIGHT FOREARM/ELBOW SKIN TEAR X2 , MEDIALLY LOCATED ,MEASURING 2X2 AND 2.5CM ,CLEANSED WITH NS ,BETADINE S FATUMA , COVERED WITH BANDAID, . PT STATED SUSTAINED INJURY WHEN HE FELL AT HOME/ Addendum: 12/07/19 at 0712 by CLAUDY PATEL RN RN Amended: Links added.
[2019-12-06 02:50] VITALS: BP 143/96
[2019-12-06 03:00] LABS: AMPHET/METH SCREEN,URINE NEGATIVE (NEGATIVE); BARBITURATE SCREEN, URINE NEGATIVE (NEGATIVE); BENZODIAZEPINES SCREEN,URINE NEGATIVE (NEGATIVE); CANNABINOID SCREEN,URINE POSITIVE (NEGATIVE); COCAINE SCREEN,URINE NEGATIVE (NEGATIVE); OPIATE SCREEN,URINE NEGATIVE (NEGATIVE); PHENCYCLIDINE SCREEN,URINE NEGATIVE (NEGATIVE)
[2019-12-06 08:00] VITALS: BP 144/84
[2019-12-06] MEDS: ENOXAPARIN SODIUM 40 MG/0.4 ML SYRINGE SQ SCH (09:07)
[2019-12-06] MEDS: FAMOTIDINE 20MG TAB 20 MG TAB PO SCH ×2 (09:07→22:01)
[2019-12-06 11:46] VITALS: BP 157/100
[2019-12-06] MEDS ORDERED: HYDROCODONE/ACETAMINOPHEN 5/325 MG TAB PO PRN (14:45)
[2019-12-06] MEDS ORDERED: KETOROLAC TROMETHAMINE 30MG/ML ONE (14:54)
[2019-12-06] MEDS ORDERED: KETOROLAC TROMETHAMINE 30MG/ML IM PRN (15:00)
[2019-12-06 16:00] VITALS: BP 148/92
--- NOTE | 2019-12-06 19:17 | NUR ---
D/C PLAN CM spoke to pt regarding d/c planning. Pt lives alone. Daughter named Pinky is his provider. States she assists with transportation as needed. Pt states he stays with daughter when feeling ill. Denies having any home health services. Pt has nebulizer at home. CM offered short term snf/rehab as possible d/c option. Pt declined. Plan is to return home. CM to f/u. Addendum: 12/06/19 at 9 by NATHALIA ONTIVEROS CM Amended: Links added.
[2019-12-06 19:27] VITALS: BP 99/59
[2019-12-06] MEDS ORDERED: KETOROLAC TROMETHAMINE 30MG/ML IV PRN (21:00)
[2019-12-06] MEDS ORDERED: LISI-617 PO (22:24)
[2019-12-06 23:49] VITALS: BP 105/72
[2019-12-07] MEDS: CEFTRIAXONE SODIUM 1 GM IV SCH (01:05)
[2019-12-07 03:58] VITALS: BP 105/73
[2019-12-07 06:14] LABS: EOSINOPHILS % (AUTO) 2.5 % (0.0-8.0); HEMATOCRIT 38.8 % (42-54); LYMPHOCYTES % (AUTO) 36.3 % (21.0-51.0); MEAN CORPUSCULAR HEMOGLOBIN 28.6 pg (27.0-33.0); MEAN CORPUSCULAR HGB CONC 33.5 g/dL (32.0-36.0); MEAN CORPUSCULAR VOLUME 85.5 fL (79-99); MONOCYTES % (AUTO) 9.8 % (3.0-13.0); NEUTROPHILS % (AUTO) 50.3 % (40.0-77.0); PLATELET COUNT (AUTO) 263 K/uL (130-400); RED BLOOD CELL COUNT(AUTO) 4.54 MIL/uL (4.50-6.20); RED CELL DISTRIBUTION WIDTH 13.8 % (11.0-15.5); WHITE BLOOD COUNT (AUTO) 7.7 K/uL (4.8-10.8)
[2019-12-07 06:31] LABS: CREATININE 1.2 mg/dL (0.5-1.5); POTASSIUM 3.7 mmol/L (3.5-5.1)
[2019-12-07 08:00] VITALS: BP 115/74
[2019-12-07] MEDS: FAMOTIDINE 20MG TAB 20 MG TAB PO SCH (08:28)
[2019-12-07] MEDS: ENOXAPARIN SODIUM 40 MG/0.4 ML SYRINGE SQ SCH (08:29)
[2019-12-07] MEDS ORDERED: ACET1TAB12 PO (09:37)
[2019-12-07] MEDS ORDERED: AMOX-429 PO (09:37)
[2019-12-07] MEDS ORDERED: ACETAMINOPHEN-CODEINE 300/30MG TAB PO PRN (09:45)
[2019-12-07] MEDS ORDERED: ACETAMINOPHEN-CODEINE 300/30MG TAB PO SCH (09:45)
--- NOTE | 2019-12-07 10:25 | NUR ---
DISCHARGE DISCHARGE INSTRUCTIONS GIVEN TO PATIENT, VERBALIZED UNDERSTANDING. BEING SENT HOME WITH PRESCRIPTIONS FOR TYLENOL #3 AND AUGMENTIN. IV DISCONTINUED. TELEPAK REMOVED. LIST OF FAMILY CARE DOCTORS PROVIDED TO PATIENT.
== END 2019-12-07 11:18 | disposition home or self-care (01) ==
LOC: EDH 22:22 → EDHIP 22:23 → 4DH 12-06 02:34
PROVIDERS: ADMIT Hospitalist; ATTEND Hospitalist
DX: I25.10 Atherosclerotic heart disease of native coronary artery without angina pectoris (principal); I50.9 Heart failure, unspecified; N10 Acute pyelonephritis; R11.2 Nausea with vomiting, unspecified; M19.90 Unspecified osteoarthritis, unspecified site; F12.90 Cannabis use, unspecified, uncomplicated; J44.9 Chronic obstructive pulmonary disease, unspecified; I25.2 Old myocardial infarction; F17.200 Nicotine dependence, unspecified, uncomplicated; Z90.49 Acquired absence of other specified parts of digestive tract; Z98.61 Coronary angioplasty status; Z79.82 Long term (current) use of aspirin; Z79.899 Other long term (current) drug therapy
CPT/HCPCS: 36415 ×3; 74176; 80048; 80053; 80305; 81003; 82550; 83605; 83690; 84484 ×2; 85025 ×3; 87040 ×2; 93005 ×2; 96372 ×2; 96374; 96375 ×2; 99285; G0378 ×34; J0696 ×2; J1200; J1650 ×2; J1885 ×2; J2405 ×2; J2765; J3490; J7030

== ENCOUNTER 2020-01-07 08:39 | Inpatient (IN) | payer MEDICAID ==
[~2020-01-07] VITALS: Ht 170.2 cm; Wt 59.0 kg
[~2020-01-07 08:39] MED LIST changes: +ACET1TAB12 PO; +AMOX-429 PO; +LISI-617 PO
[2020-01-07 09:08] LABS: BASOPHILS % (AUTO) 0.8 % (0.0-5.0); EOSINOPHILS % (AUTO) 3.3 % (0.0-8.0); LYMPHOCYTES % (AUTO) 12.9 % (21.0-51.0); MEAN CORPUSCULAR HEMOGLOBIN 28.8 pg (27.0-33.0); MEAN CORPUSCULAR HGB CONC 32.8 g/dL (32.0-36.0); MEAN CORPUSCULAR VOLUME 87.6 fL (79-99); MONOCYTES % (AUTO) 5.9 % (3.0-13.0); NEUTROPHILS % (AUTO) 76.7 % (40.0-77.0); PLATELET COUNT (AUTO) 245 K/uL (130-400); RED BLOOD CELL COUNT(AUTO) 4.45 MIL/uL (4.50-6.20); RED CELL DISTRIBUTION WIDTH 14.3 % (11.0-15.5); WHITE BLOOD COUNT (AUTO) 13.6 K/uL (4.8-10.8)
[2020-01-07] MEDS ORDERED: KETOROLAC TROMETHAMINE 15MG/ML ONE (09:16)
[2020-01-07] MEDS ORDERED: ONDANSETRON HCL 4 MG/2 ML VIAL ONE (09:16)
[2020-01-07] MEDS ORDERED: SODIUM CHLORIDE 0.9% 1000ML 1,000 ML IV ONE ×2 (09:16→13:18)
[2020-01-07 09:18] LABS: POTASSIUM 4.2 mmol/L (3.5-5.1)
[2020-01-07] MEDS ORDERED: IOHEXOL-350 75 ML VIAL IV ONE (09:21)
[2020-01-07 09:24] LABS: ALBUMIN 3.7 g/dL (3.5-5.0); BILIRUBIN,TOTAL 0.3 mg/dL (0.2-1.0); TOTAL PROTEIN, SERUM 7.2 g/dL (6.0-8.3)
[2020-01-07] MEDS ORDERED: MORPHINE SULFATE 4 MG/1ML SYG ONE (10:47)
[2020-01-07] MEDS ORDERED: LEVOFLOXACIN 750 MG/D5W 150 ML 150 ML ONE (11:15)
[2020-01-07] MEDS: SODIUM CHLORIDE 0.9% 1000ML 1,000 ML IV SCH ×2 (12:16→20:37)
[2020-01-07] MEDS ORDERED: MORPHINE SULFATE 2 MG/ML 1ML SYG IV PRN (12:30)
[2020-01-07] MEDS ORDERED: ONDANSETRON HCL 4 MG/2 ML VIAL IV PRN (12:30)
[2020-01-07] MEDS ORDERED: ACETAMINOPHEN 325 MG TAB PO PRN ×2 (12:30)
[2020-01-07] MEDS ORDERED: METRONIDAZOLE 500MG/100ML BAG 100 ML ONE (12:37)
[2020-01-07] MEDS ORDERED: MORPHINE SULFATE 2 MG/ML 1ML SYG ONE ×2 (13:18→18:40)
[2020-01-07] MEDS ORDERED: KETOROLAC TROMETHAMINE 30MG/ML IV PRN (13:45)
[2020-01-07] MEDS: METRONIDAZOLE 500 MG TABLET PO SCH ×2 (14:00→20:37)
[2020-01-07 14:20] VITALS: BP 105/64
[2020-01-07 20:17] VITALS: BP 159/88
[2020-01-07] MEDS: FAMOTIDINE/PF 20 MG/2 ML VIAL IV SCH (20:37)
[2020-01-08] MEDS ORDERED: LEVOFLOXACIN 500 MG/D5W 100 ML 100 ML IV SCH (02:15)
[2020-01-08 04:00] VITALS: BP 119/73
[2020-01-08 06:09] LABS: BASOPHILS % (AUTO) 0.4 % (0.0-5.0); HEMATOCRIT 35.4 % (42-54); LYMPHOCYTES % (AUTO) 25.1 % (21.0-51.0); MEAN CORPUSCULAR HEMOGLOBIN 28.3 pg (27.0-33.0); MEAN CORPUSCULAR HGB CONC 32.5 g/dL (32.0-36.0); MEAN CORPUSCULAR VOLUME 87.2 fL (79-99); MONOCYTES % (AUTO) 8.6 % (3.0-13.0); NEUTROPHILS % (AUTO) 64.6 % (40.0-77.0); PLATELET COUNT (AUTO) 196 K/uL (130-400); RED BLOOD CELL COUNT(AUTO) 4.06 MIL/uL (4.50-6.20); RED CELL DISTRIBUTION WIDTH 14.5 % (11.0-15.5); WHITE BLOOD COUNT (AUTO) 10.9 K/uL (4.8-10.8)
[2020-01-08] MEDS: MORPHINE SULFATE 2 MG/ML 1ML SYG IVP PRN ×3 (08:21→20:32)
[2020-01-08] MEDS: METRONIDAZOLE 500 MG TABLET PO SCH ×3 (08:21→20:31)
[2020-01-08] MEDS: FAMOTIDINE/PF 20 MG/2 ML VIAL IV SCH ×2 (08:21→20:31)
[2020-01-08] MEDS: SODIUM CHLORIDE 0.9% 1000ML 1,000 ML IV SCH ×2 (08:22→18:16)
[2020-01-08] MEDS: LEVOFLOXACIN 500 MG/D5W 100 ML 100 ML IV SCH (09:00)
[2020-01-08] MEDS ORDERED: LEVOFLOXACIN 750 MG/D5W 150 ML 150 ML IV SCH (09:00)
[2020-01-08 09:19] VITALS: BP 126/74
[2020-01-08 14:23] VITALS: BP 117/72
[2020-01-08] MEDS ORDERED: PEG 3350/NA SULF,BICARB,CL/KCL 4000 ML SOLN PO SCH (16:00)
[2020-01-08 17:12] VITALS: BP 131/72
[2020-01-08 20:20] VITALS: BP 131/78
[2020-01-09] VITALS (12 sets, daily range): BP systolic 100–140; BP diastolic 68–86
[2020-01-09] MEDS: SODIUM CHLORIDE 0.9% 1000ML 1,000 ML IV SCH ×2 (04:16→14:16)
[2020-01-09 04:58] LABS: BASOPHILS % (AUTO) 0.8 % (0.0-5.0); EOSINOPHILS % (AUTO) 3.6 % (0.0-8.0); LYMPHOCYTES % (AUTO) 29.9 % (21.0-51.0); MEAN CORPUSCULAR HEMOGLOBIN 29.4 pg (27.0-33.0); MEAN CORPUSCULAR HGB CONC 33.3 g/dL (32.0-36.0); MEAN CORPUSCULAR VOLUME 88.2 fL (79-99); MONOCYTES % (AUTO) 8.4 % (3.0-13.0); PLATELET COUNT (AUTO) 190 K/uL (130-400); RED BLOOD CELL COUNT(AUTO) 4.08 MIL/uL (4.50-6.20); RED CELL DISTRIBUTION WIDTH 14.4 % (11.0-15.5); WHITE BLOOD COUNT (AUTO) 8.9 K/uL (4.8-10.8)
[2020-01-09 05:01] LABS: ALBUMIN 3.4 g/dL (3.5-5.0); BILIRUBIN,TOTAL 0.4 mg/dL (0.2-1.0); POTASSIUM 3.7 mmol/L (3.5-5.1); TOTAL PROTEIN, SERUM 6.4 g/dL (6.0-8.3)
[2020-01-09] MEDS: MORPHINE SULFATE 2 MG/ML 1ML SYG IVP PRN (07:11)
[2020-01-09] MEDS: LEVOFLOXACIN 500 MG/D5W 100 ML 100 ML IV SCH (08:44)
[2020-01-09] MEDS: FAMOTIDINE/PF 20 MG/2 ML VIAL IV SCH ×2 (08:45→20:43)
[2020-01-09] MEDS: METRONIDAZOLE 500 MG TABLET PO SCH ×3 (08:49→20:42)
[2020-01-09] MEDS ORDERED: PROPOFOL 10 MG/ML 20ML VIAL IV ONE ×2 (11:07→11:10)
[2020-01-09] MEDS ORDERED: LIDOCAINE HCL-MPF 2% 5ML VIAL ONE (11:07)
[2020-01-09] MEDS ORDERED: LEVO500T2 PO (17:19)
[2020-01-09] MEDS ORDERED: METR500T PO (17:19)
--- NOTE | 2020-01-09 18:43 | NUR ---
CM NOTE MET W PATIENT FOR DC PLANNING. PATIENT LIVES ALONE, FRIEND APPEARS ON FACE SHEET AT FIRST CONTACT RITU BAI, AND WILL PROVIDE TRANSPORT, DAUGHTER IS OUT OF STATE. PATIENT STATES INDEPENDENT IN ADLS, USES A CANE , HOME HAS TWO STEPS, PT DRIVES NO MOBLITY ISSUES ALTHOUGH DOES STATE THAT HAS A LOT OF CHRONIC BACK PAIN THAT HE CNANOT GET TREATED- USES HEATING PADS AND NSAIDS BUT DOES NOT GET RELIEF. HERE FOR COLITIS AND BACK PAIN . DCP IS HOME. EXPRESSES DISSATISFACTION WITH HIS PRIMARY PHYSICIANS OUT OF THE HOSPITAL . CM TO FOLLOW Addendum: 01/09/20 at 1848 by BARRY ANTHONY RN CM Amended: Links added.
== END 2020-01-09 20:45 | disposition home or self-care (01) | DRG 248 ==
LOC: EDH 08:39 → EDHIP 08:40 → 4CH 14:06
PROVIDERS: ADMIT Hospitalist; ATTEND Hospitalist
PROC: 0DBB8ZX Excision of Ileum, Via Natural or Artificial Opening Endoscopic, Diagnostic (ICD-10-PCS; principal; 2020-01-09)
DX: A04.9 Bacterial intestinal infection, unspecified (principal); I50.9 Heart failure, unspecified; D64.9 Anemia, unspecified; K57.30 Diverticulosis of large intestine without perforation or abscess without bleeding; F17.210 Nicotine dependence, cigarettes, uncomplicated; F12.90 Cannabis use, unspecified, uncomplicated; I25.10 Atherosclerotic heart disease of native coronary artery without angina pectoris; I25.2 Old myocardial infarction; Z90.49 Acquired absence of other specified parts of digestive tract; Z82.49 Family history of ischemic heart disease and other diseases of the circulatory system
CPT/HCPCS: 36415; 45380; 74177; 80053; 83540; 83550; 83605; 83690; 84484; 85025; 87040; 93005; A4606; G0378; J1885; J1956; J2270; J2405; J2704; J3490; J7030; Q9967

== ENCOUNTER 2020-02-10 11:39 | Emergency (ER) | payer MEDICAID, OTHER ==
[~2020-02-10 11:39] MED LIST changes: -ACET1TAB12 PO; -AMOX-429 PO; +LEVO500T2 PO; +METR500T PO
[2020-02-10] MEDS ORDERED: SODIUM CHLORIDE 0.9% 1000ML 1,000 ML IV ONE (11:40)
[2020-02-10] MEDS ORDERED: ONDANSETRON HCL 4 MG/2 ML VIAL ONE ×2 (11:42→11:52)
[2020-02-10] MEDS ORDERED: FAMOTIDINE/PF 20 MG/2 ML VIAL IV ONE (12:07)
[2020-02-10 12:12] LABS: BASOPHILS % (AUTO) 0.2 % (0.0-5.0); HEMATOCRIT 42.4 % (42-54); LYMPHOCYTES % (AUTO) 12.7 % (21.0-51.0); MEAN CORPUSCULAR HEMOGLOBIN 28.6 pg (27.0-33.0); MEAN CORPUSCULAR HGB CONC 33.5 g/dL (32.0-36.0); MEAN CORPUSCULAR VOLUME 85.5 fL (79-99); MONOCYTES % (AUTO) 3.3 % (3.0-13.0); NEUTROPHILS % (AUTO) 83.4 % (40.0-77.0); PLATELET COUNT (AUTO) 266 K/uL (130-400); RED BLOOD CELL COUNT(AUTO) 4.96 MIL/uL (4.50-6.20); RED CELL DISTRIBUTION WIDTH 13.4 % (11.0-15.5)
[2020-02-10 12:27] LABS: INR 0.88 (0.85-1.15); PARTIAL THROMBOPLASTIN TIME 25.7 SEC (26.3-35.5); PROTHROMBIN TIME 9.6 SEC (9.6-11.6)
[2020-02-10 12:37] LABS: CREATININE 1.3 mg/dL (0.5-1.5); POTASSIUM 4.4 mmol/L (3.5-5.1)
[2020-02-10 12:41] LABS: ALBUMIN 4.9 g/dL (3.5-5.0); BILIRUBIN,TOTAL 0.3 mg/dL (0.2-1.0); TOTAL PROTEIN, SERUM 8.4 g/dL (6.0-8.3)
[2020-02-10] MEDS ORDERED: ASPIRIN 325 MG TABLET ONE (12:42)
[2020-02-10] MEDS ORDERED: MORPHINE SULFATE 4 MG/1ML SYG ONE (12:42)
[2020-02-10 12:51] LABS: APPEARANCE,URINE CLEAR (CLEAR); BILIRUBIN,URINE NEGATIVE (NEGATIVE); COLOR,URINE YELLOW (YELLOW); GLUCOSE, URINE (UA) NEGATIVE (NEGATIVE); KETONES,URINE 15 mg/dL (NEGATIVE); LEUKOCYTE ESTERASE ,URINE NEGATIVE (NEGATIVE); NITRATE,URINE NEGATIVE (NEGATIVE); OCCULT BLOOD,URINE NEGATIVE (NEGATIVE); PROTEIN,URINE 100 mg/dL (NEGATIVE); UROBILINOGEN,URINE 0.2 mg/dL (0.2-1.0)
[2020-02-10 12:52] LABS: B-TYPE NATRIURETIC PEPTIDE 177 pg/mL (0-100)
[2020-02-10 13:00] LABS: AMPHET/METH SCREEN,URINE NEGATIVE (NEGATIVE); BACTERIA,URINE None Seen /HPF (None Seen); BARBITURATE SCREEN, URINE NEGATIVE (NEGATIVE); BENZODIAZEPINES SCREEN,URINE NEGATIVE (NEGATIVE); CANNABINOID SCREEN,URINE POSITIVE (NEGATIVE); COCAINE SCREEN,URINE NEGATIVE (NEGATIVE); OPIATE SCREEN,URINE NEGATIVE (NEGATIVE); PHENCYCLIDINE SCREEN,URINE NEGATIVE (NEGATIVE); RBC,URINE 0-1 /HPF (0-1); SQUAMOUS EPITHELIAL CELL,UR 0-2 /HPF (0-2); WBC,URINE 0-1 /HPF (0-1)
== END 2020-02-10 17:08 | disposition home or self-care (01) ==
LOC: EDH 11:39
DX: R10.10 Upper abdominal pain, unspecified (principal); R07.89 Other chest pain; R11.2 Nausea with vomiting, unspecified; F12.90 Cannabis use, unspecified, uncomplicated; M19.90 Unspecified osteoarthritis, unspecified site; Z90.49 Acquired absence of other specified parts of digestive tract; Z72.0 Tobacco use
CPT/HCPCS: 36415; 71045; 74176; 80053; 80305; 81001; 82550; 83690; 83880; 84484 ×2; 85025; 85610; 85730; 93005 ×2; 96361; 96374; 96375; 99285; J2270; J2405 ×2; J3490; J7030

== ENCOUNTER 2020-03-28 13:04 | Inpatient (IN) | payer MEDICAID ==
[~2020-03-28] VITALS: Ht 170.2 cm; Wt 58.4 kg
[2020-03-28] MEDS ORDERED: KETOROLAC TROMETHAMINE 30MG/ML ONE (13:41)
[2020-03-28] MEDS ORDERED: ONDANSETRON HCL 4 MG/2 ML VIAL ONE (13:43)
[2020-03-28 13:59] LABS: BASOPHILS % (AUTO) 0.4 % (0.0-5.0); EOSINOPHILS % (AUTO) 0.9 % (0.0-8.0); LYMPHOCYTES % (AUTO) 18.5 % (21.0-51.0); MEAN CORPUSCULAR HEMOGLOBIN 29.1 pg (27.0-33.0); MEAN CORPUSCULAR HGB CONC 34.2 g/dL (32.0-36.0); MEAN CORPUSCULAR VOLUME 85.1 fL (79-99); MONOCYTES % (AUTO) 8.4 % (3.0-13.0); NEUTROPHILS % (AUTO) 71.2 % (40.0-77.0); PLATELET COUNT (AUTO) 257 K/uL (130-400); RED BLOOD CELL COUNT(AUTO) 5.05 MIL/uL (4.50-6.20); WHITE BLOOD COUNT (AUTO) 15.9 K/uL (4.8-10.8)
[2020-03-28 14:29] LABS: CREATININE 1.4 mg/dL (0.5-1.5); POTASSIUM 3.7 mmol/L (3.5-5.1)
[2020-03-28 14:35] LABS: ALBUMIN 4.5 g/dL (3.5-5.0); BILIRUBIN,TOTAL 0.6 mg/dL (0.2-1.0); TOTAL PROTEIN, SERUM 8.1 g/dL (6.0-8.3)
[2020-03-28] MEDS ORDERED: MORPHINE SULFATE 4 MG/1ML SYG ONE (14:44)
[2020-03-28] MEDS ORDERED: IOHEXOL 350 MG/ML 100ML INFUS..BTL IV ONE (15:57)
[2020-03-28] MEDS ORDERED: CEFTRIAXONE SODIUM 1 GM ONE (16:28)
[2020-03-28] MEDS ORDERED: HYDRALAZINE HCL 20 MG/ML VIAL IV PRN (16:30)
[2020-03-28] MEDS ORDERED: ONDANSETRON HCL 4 MG/2 ML VIAL IVP PRN (16:30)
[2020-03-28] MEDS ORDERED: ACETAMINOPHEN-CODEINE 300/30MG TAB PO PRN (16:30)
[2020-03-28] MEDS ORDERED: PHENAZOPYRIDINE HCL 200 MG TABLET PO SCH (16:45)
[2020-03-28] MEDS ORDERED: ALBUTEROL SULFATE 0.083% 2.5 MG/3 ML INH IH PRN (16:45)
[2020-03-28] MEDS: FAMOTIDINE/PF 20 MG/2 ML VIAL IV SCH (21:00)
[2020-03-28] MEDS: ZOSYN 3.375GM+NS 50ML 50 ML IV SCH (21:00)
[2020-03-28] MEDS ORDERED: MORPHINE SULFATE 2 MG/ML 1ML SYG ONE (21:56)
[2020-03-28 22:03] LABS: APPEARANCE,URINE Clear (CLEAR); BILIRUBIN,URINE Negative (NEGATIVE); COLOR,URINE Yellow (YELLOW); GLUCOSE, URINE (UA) Negative (NEGATIVE); KETONES,URINE 40 mg/dL (NEGATIVE); LEUKOCYTE ESTERASE ,URINE Negative (NEGATIVE); NITRATE,URINE Negative (NEGATIVE); OCCULT BLOOD,URINE Negative (NEGATIVE); PH,URINE 5.5 (5.0-8.0); PROTEIN,URINE Trace mg/dL (NEGATIVE)
[2020-03-28 22:13] LABS: AMPHET/METH SCREEN,URINE NEGATIVE (NEGATIVE); BARBITURATE SCREEN, URINE NEGATIVE (NEGATIVE); BENZODIAZEPINES SCREEN,URINE NEGATIVE (NEGATIVE); CANNABINOID SCREEN,URINE POSITIVE (NEGATIVE); COCAINE SCREEN,URINE NEGATIVE (NEGATIVE); OPIATE SCREEN,URINE POSITIVE (NEGATIVE); PHENCYCLIDINE SCREEN,URINE NEGATIVE (NEGATIVE)
[2020-03-28 22:17] LABS: BACTERIA,URINE Few /HPF (None Seen); RBC,URINE 0-1 /HPF (0-1); SQUAMOUS EPITHELIAL CELL,UR Rare /HPF (0-2)
[2020-03-28 22:18] LABS: MUCUS,URINE Rare LPF (None Seen); URIC ACID CRYSTALS,URINE Rare /LPF (None Seen)
[2020-03-29] MEDS ORDERED: ONDA-104 PO (00:14)
[2020-03-29 00:25] VITALS: BP 107/71
[2020-03-29] MEDS: TICAGRELOR 90 MG TABLET PO SCH ×3 (00:29→20:57)
[2020-03-29] MEDS: DEXTROSE 5%-LACTATED RINGERS 1,000 ML IV SCH ×3 (00:29→14:32)
[2020-03-29 05:21] VITALS: BP 104/65
[2020-03-29 05:32] LABS: BASOPHILS % (AUTO) 0.5 % (0.0-5.0); EOSINOPHILS % (AUTO) 0.7 % (0.0-8.0); HEMATOCRIT 36.9 % (42-54); LYMPHOCYTES % (AUTO) 30.3 % (21.0-51.0); MEAN CORPUSCULAR HEMOGLOBIN 28.8 pg (27.0-33.0); MEAN CORPUSCULAR HGB CONC 33.9 g/dL (32.0-36.0); MONOCYTES % (AUTO) 8.7 % (3.0-13.0); NEUTROPHILS % (AUTO) 59.4 % (40.0-77.0); PLATELET COUNT (AUTO) 222 K/uL (130-400); RED BLOOD CELL COUNT(AUTO) 4.34 MIL/uL (4.50-6.20); WHITE BLOOD COUNT (AUTO) 10.7 K/uL (4.8-10.8)
[2020-03-29 06:16] LABS: POTASSIUM 3.4 mmol/L (3.5-5.1)
[2020-03-29 07:30] VITALS: BP 103/69
[2020-03-29] MEDS: ZOSYN 3.375GM+NS 50ML 50 ML IV SCH ×2 (08:31→20:56)
[2020-03-29] MEDS: ASPIRIN 81MG TAB.CHEW PO SCH (08:31)
[2020-03-29] MEDS: FAMOTIDINE/PF 20 MG/2 ML VIAL IV SCH ×2 (08:31→20:56)
[2020-03-29] MEDS: ENOXAPARIN SODIUM 30 MG/0.3 ML SQ SCH (08:32)
[2020-03-29 11:00] VITALS: BP 124/70
[2020-03-29] MEDS ORDERED: CEFTRIAXONE SODIUM 1 GM IVP SCH (14:00)
--- NOTE | 2020-03-29 14:25 | NUR ---
DR HOLLAND CONSULTED FOR STENOSIS OF SMA, INTESTINAL ANGINA. LEFT MESSAGE WITH AMANDA. PENDING CB
[2020-03-29] MEDS ORDERED: POTASSIUM CHLORIDE 10% ELIXIR 20 MEQ/15 ML UDCUP PO ONE (14:30)
[2020-03-29 16:00] VITALS: BP 104/63
[2020-03-29] MEDS ORDERED: ISOSORBIDE MONO 30MG TAB SR PO SCH (16:00)
--- NOTE | 2020-03-29 17:00 | NUR ---
DC PLAN VISITED WITH PATIENT. PATIENT LIVES ALONE, INDEPENDENT ABLE TO PERFORM ADL'S. PATIENT HAS NO SERVICES. USES A CANE. PLAN IS TO DC HOME. Addendum: 03/29/20 at 1701 by ANICETO MACK RN CM Amended: Links added.
[2020-03-29] MEDS: MORPHINE SULFATE 2 MG/ML 1ML SYG IVP PRN (17:19)
[2020-03-29 20:00] VITALS: BP 94/60
[2020-03-30] VITALS (7 sets, daily range): BP systolic 91–132; BP diastolic 62–73
--- NOTE | 2020-03-30 07:45 | NUR ---
NOTE AAOX3. DENIES PAIN OR DISCOMFORT. NO DISTRESS OR SOB. BBS CLEAR. HAS COUGH AT TIMES BUT HE IS A HEAVY SMOKER. NO SOB REPORTED OR NOTED. CAME IN WITH C/O ABDOMINAL PAIN AFTER MEALS. CT SCAN SHOWED THICKENING OF URINARY BLADDER. POSSIBLE OUTLET OBSTRUCTION AND ENLARGED PROSTATE. PATIENT STARTED ON FLOMAX. 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 DR HOLLAND CARDIOLOGY WAS CONSULTED AND HE STARTED PATIENT ON IMDUR BUT WILL HAVE DR CALLAHAN, PATIENT'S PYROTECHNICIAN, COME IN TO SEE HIM TODAY. PATIENT REPORTED WORST HEADACHE EVER AND REFUSING TO TAKE ANOTHER DOSE OF IMDUR.
[2020-03-30] MEDS: DEXTROSE 5%-LACTATED RINGERS 1,000 ML IV SCH ×2 (08:30→21:50)
[2020-03-30] MEDS ORDERED: Vitamin B Complex/Vit C/Folic Acid PO SCH (09:00)
[2020-03-30] MEDS: FAMOTIDINE/PF 20 MG/2 ML VIAL IV SCH (10:19)
[2020-03-30] MEDS: TICAGRELOR 90 MG TABLET PO SCH ×2 (10:19→21:11)
[2020-03-30] MEDS: TAMSULOSIN HCL 0.4 MG CAP.ER.24H PO SCH (10:19)
[2020-03-30] MEDS: ZOSYN 3.375GM+NS 50ML 50 ML IV SCH ×2 (10:20→21:11)
[2020-03-30] MEDS: ENOXAPARIN SODIUM 30 MG/0.3 ML SQ SCH (10:20)
[2020-03-30] MEDS: ASPIRIN 81MG TAB.CHEW PO SCH (10:20)
--- NOTE | 2020-03-30 15:58 | NUR ---
NUTRITION EDUCATION RD provided Heart Healthy/Low Cholesterol Nutrition education as Pt reports eats diet high in processed foods. Pt admits to eating unhealthy foods for survival but willing to eat diet higher in fruits and vegetables. RD provided nutrition handout, Pt accepted and verbalized understanding. Addendum: 03/30/20 at [address] RD Amended: Links added.
--- NOTE | 2020-03-30 16:17 | NUR ---
RD NOTIFICATION Pt with Mesenteric ischemia. Pt tolerating Heart healthy diet order. Pt reports some Nausea, no vomiting, and able to keep food down. PO intake at time of visit was 100%. Pt also requesting Ensure TID. Pt reports decreased appetite possibly d/t depression and illness. Pt's has . Minimal help at home as daughter is . Pt reports eating a diet high in processed but he does like fruits and vegetables and willing to eat more. RD provided Heart Healthy/Low Cholesterol diet education. Pt with significant wt loss within 6 months. Tolerating and eating foods at this time. Recommend continue Heart Healthy Diet Order Recommend Ensure TID RD to continue to monitor. Please notify as additional nutrition concerns arise. Thank you. Addendum: 03/30/20 at [address] RD Amended: Links added.
--- NOTE | 2020-03-30 18:30 | NUR ---
NOTE DR CALLAHAN CAME IN TO SEE PATIENT. HE TRIED TO SCHEDULE ANGIOGRAM FOR TOMORROW BUT WAS NOT SUCCESSFUL TO GET A SPOT SO PROCEDURE WILL BE DONE SUNDAY.
[2020-03-30] MEDS: FAMOTIDINE 20MG TAB 20 MG TAB PO SCH (21:11)
[2020-03-31] MEDS ORDERED: TEMAZEPAM 7.5 MG CAPSULE PO ONE (00:39)
--- NOTE | 2020-03-31 00:40 | NUR ---
ROUNDS PATIENT AWAKE AND ALERT. VOICES ALL NEEDS. NO COMPLAINTS OF PAIN VOICED AT THIS TIME. VITALS STABLE. AFEBRILE. TOLERATING IVF WELL. NO NAUSEA OR VOMITING NOTED. PATIENT COMPLAINTS OF INSOMNIA. JEOVANY LUX CALLED AND AWARE. NEW ORDERS RECEIVED FOR RESTORIL 7.5MGT GIVEN PO PER ORDER. PATIENT TOLERATED WELL. FALL PRECAUTIONS IN PLACE. HOB ELEVATED. CALL LIGHT WITHIN REACH. WILL CONTINUE TO BE OBSERVED. Addendum: 03/31/20 at 0145 by ETHAN NICOLE RN RN Amended: Links added.
[2020-03-31] MEDS ORDERED: TEMAZEPAM 7.5 MG CAPSULE PO PRN (00:45)
[2020-03-31 03:30] VITALS: BP 107/70
[2020-03-31 07:30] VITALS: BP 128/80
[2020-03-31] MEDS: TICAGRELOR 90 MG TABLET PO SCH ×2 (08:28→19:47)
[2020-03-31] MEDS: FAMOTIDINE 20MG TAB 20 MG TAB PO SCH ×2 (08:28→19:47)
[2020-03-31] MEDS: TAMSULOSIN HCL 0.4 MG CAP.ER.24H PO SCH (08:28)
[2020-03-31] MEDS: ASPIRIN 81MG TAB.CHEW PO SCH (08:28)
[2020-03-31] MEDS: ZOSYN 3.375GM+NS 50ML 50 ML IV SCH ×2 (08:29→19:47)
[2020-03-31] MEDS: DEXTROSE 5%-LACTATED RINGERS 1,000 ML IV SCH (08:29)
[2020-03-31] MEDS: ENOXAPARIN SODIUM 30 MG/0.3 ML SQ SCH (08:29)
[2020-03-31 11:00] VITALS: BP 132/80
[2020-03-31] MEDS ORDERED: LIDOCAINE 5% TOPICAL PATCH TP SCH (12:30)
[2020-03-31] MEDS ORDERED: HYDROXYZINE HCL 25 MG TABLET PO PRN (14:30)
[2020-03-31 16:00] VITALS: BP 118/71
[2020-03-31 20:16] VITALS: BP 118/74
[2020-03-31] MEDS ORDERED: ATORVASTATIN CALCIUM 40 MG TABLET PO SCH (21:00)
[2020-03-31] MEDS: MORPHINE SULFATE 2 MG/ML 1ML SYG IVP PRN (22:06)
[2020-04-01] VITALS (11 sets, daily range): BP systolic 109–134; BP diastolic 61–82
[2020-04-01] MEDS: DEXTROSE 5%-LACTATED RINGERS 1,000 ML IV SCH (01:17)
[2020-04-01 05:00] LABS: BASOPHILS % (AUTO) 0.9 % (0.0-5.0); EOSINOPHILS % (AUTO) 6.5 % (0.0-8.0); MEAN CORPUSCULAR HGB CONC 33.6 g/dL (32.0-36.0); MEAN CORPUSCULAR VOLUME 86.3 fL (79-99); MONOCYTES % (AUTO) 9.6 % (3.0-13.0); NEUTROPHILS % (AUTO) 49.7 % (40.0-77.0); PLATELET COUNT (AUTO) 231 K/uL (130-400); RED BLOOD CELL COUNT(AUTO) 4.52 MIL/uL (4.50-6.20); RED CELL DISTRIBUTION WIDTH 13.2 % (11.0-15.5); WHITE BLOOD COUNT (AUTO) 8.8 K/uL (4.8-10.8)
[2020-04-01 05:16] LABS: INR 0.87 (0.85-1.15); PARTIAL THROMBOPLASTIN TIME 24.8 SEC (26.3-35.5); PROTHROMBIN TIME 9.4 SEC (9.6-11.6)
[2020-04-01 05:21] LABS: ALBUMIN 3.1 g/dL (3.5-5.0); BILIRUBIN,TOTAL 0.2 mg/dL (0.2-1.0); CREATININE 1.1 mg/dL (0.5-1.5); POTASSIUM 4.4 mmol/L (3.5-5.1); TOTAL PROTEIN, SERUM 6.3 g/dL (6.0-8.3)
[2020-04-01] MEDS: MORPHINE SULFATE 2 MG/ML 1ML SYG IVP PRN (05:49)
[2020-04-01] MEDS: TAMSULOSIN HCL 0.4 MG CAP.ER.24H PO SCH (08:01)
[2020-04-01] MEDS: ASPIRIN 81MG TAB.CHEW PO SCH (08:02)
[2020-04-01] MEDS: FAMOTIDINE 20MG TAB 20 MG TAB PO SCH (08:02)
[2020-04-01] MEDS: ENOXAPARIN SODIUM 30 MG/0.3 ML SQ SCH (08:02)
[2020-04-01] MEDS: TICAGRELOR 90 MG TABLET PO SCH (08:02)
[2020-04-01] MEDS: ZOSYN 3.375GM+NS 50ML 50 ML IV SCH (08:03)
[2020-04-01] MEDS ORDERED: FENTANYL CITRATE PF 50 MCG/1 ML 2ML VIAL ONE (09:53)
[2020-04-01] MEDS ORDERED: IODIXANOL 320 MG/ML 100 ML VIAL ONE (09:53)
[2020-04-01] MEDS ORDERED: MIDAZOLAM HCL 1 MG/ML 2ML VIAL ONE ×2 (09:53→11:22)
[2020-04-01] MEDS ORDERED: HEPARIN SODIUM 1000UNIT/ML 10ML VIAL ONE (09:53)
[2020-04-01] MEDS ORDERED: LIDOCAINE HCL 2% 20ML ONE ×2 (09:53→11:10)
[2020-04-01] MEDS ORDERED: NITROGLYCERIN 2 MG/VIAL VIAL IV ONE (09:54)
[2020-04-01] MEDS ORDERED: SODIUM CHLORIDE 0.9% 1000ML 1,000 ML IV SCH (11:38)
[2020-04-01] MEDS ORDERED: METOPROLOL TARTRATE 1 MG/ML 5ML VIAL IV PRN (11:45)
[2020-04-01] MEDS ORDERED: LIDOCAINE 5% TOPICAL PATCH TP SCH (14:00)
[2020-04-01] MEDS ORDERED: LIDOP TP (14:24)
--- NOTE | 2020-04-01 18:00 | NUR ---
discharge instruction provided to patient . no signs of bleed or swelling to groin incision site .. instructed to patient on importance to not do heavy lifting ,check site for bleed and swelling and color . also let him know in case of an emergency to chucho 911 or go to nearest er . per pt verbalized understanding
[2020-04-02] MEDS ORDERED: LIDOCAINE 5% TOPICAL PATCH TP SCH (09:00)
== END 2020-04-01 18:00 | disposition home or self-care (01) | DRG 463 ==
LOC: EDH 13:04 → EDHIP 13:05 → 3DH 22:25
PROVIDERS: ADMIT Internal Medicine; ATTEND Internal Medicine
PROC: B410YZZ Fluoroscopy of Abdominal Aorta using Other Contrast (ICD-10-PCS; principal; 2020-04-01)
PROC: B412YZZ Fluoroscopy of Hepatic Artery using Other Contrast (ICD-10-PCS; 2020-04-01)
PROC: B414YZZ Fluoroscopy of Superior Mesenteric Artery using Other Contrast (ICD-10-PCS; 2020-04-01)
PROC: B413YZZ Fluoroscopy of Splenic Arteries using Other Contrast (ICD-10-PCS; 2020-04-01)
PROC: B418YZZ Fluoroscopy of Bilateral Renal Arteries using Other Contrast (ICD-10-PCS; 2020-04-01)
DX: N30.90 Cystitis, unspecified without hematuria (principal); I77.4 Celiac artery compression syndrome; I50.9 Heart failure, unspecified; I11.0 Hypertensive heart disease with heart failure; E78.5 Hyperlipidemia, unspecified; R11.2 Nausea with vomiting, unspecified; I25.10 Atherosclerotic heart disease of native coronary artery without angina pectoris; E87.6 Hypokalemia; F17.200 Nicotine dependence, unspecified, uncomplicated; F41.8 Other specified anxiety disorders; G89.29 Other chronic pain; F12.20 Cannabis dependence, uncomplicated; M54.9 Dorsalgia, unspecified; J44.9 Chronic obstructive pulmonary disease, unspecified; Z82.49 Family history of ischemic heart disease and other diseases of the circulatory system; I25.2 Old myocardial infarction; Z95.5 Presence of coronary angioplasty implant and graft; Z90.49 Acquired absence of other specified parts of digestive tract
CPT/HCPCS: 36245; 36415; 71275; 74176; 75726; 80048; 80053; 80305; 81001; 82150; 83605; 83690; 84145; 84484; 85025; 85610; 85730; 87088; 93005; 93975; 94664; 99156; 99157; C1769; C1894; G0378; G0480; J0696; J1644; J1650; J1885; J2250; J2270; J2405; J2543; J3010; J3490; Q9967

== ENCOUNTER 2020-04-12 18:45 | Emergency (ER) | payer MEDICAID ==
[~2020-04-12 18:45] MED LIST changes: -LEVO500T2 PO; +LIDOP TP; -METR500T PO; +ONDA-104 PO
[2020-04-12 20:48] LABS: BASOPHILS % (AUTO) 0.9 % (0.0-5.0); EOSINOPHILS % (AUTO) 4.5 % (0.0-8.0); HEMATOCRIT 43.5 % (42-54); LYMPHOCYTES % (AUTO) 34.9 % (21.0-51.0); MEAN CORPUSCULAR HEMOGLOBIN 29.2 pg (27.0-33.0); MEAN CORPUSCULAR HGB CONC 33.3 g/dL (32.0-36.0); MEAN CORPUSCULAR VOLUME 87.5 fL (79-99); MONOCYTES % (AUTO) 7.2 % (3.0-13.0); NEUTROPHILS % (AUTO) 52.1 % (40.0-77.0); PLATELET COUNT (AUTO) 315 K/uL (130-400); RED BLOOD CELL COUNT(AUTO) 4.97 MIL/uL (4.50-6.20); RED CELL DISTRIBUTION WIDTH 13.7 % (11.0-15.5); WHITE BLOOD COUNT (AUTO) 11.1 K/uL (4.8-10.8)
[2020-04-12 21:07] LABS: ALBUMIN 4.2 g/dL (3.5-5.0); BILIRUBIN,TOTAL 0.2 mg/dL (0.2-1.0); CREATININE 1.1 mg/dL (0.5-1.5); POTASSIUM 5.1 mmol/L (3.5-5.1); TOTAL PROTEIN, SERUM 7.9 g/dL (6.0-8.3)
== END 2020-04-12 21:18 | disposition home or self-care (01) ==
LOC: EDH 18:45
DX: R51 Headache (principal); I25.10 Atherosclerotic heart disease of native coronary artery without angina pectoris; M19.90 Unspecified osteoarthritis, unspecified site; G43.909 Migraine, unspecified, not intractable, without status migrainosus; Z72.0 Tobacco use
CPT/HCPCS: 36415; 70450; 80053; 85025

== ENCOUNTER 2020-09-25 13:48 | Emergency (ER) | payer MEDICAID ==
[2020-09-25] MEDS ORDERED: SODIUM CHLORIDE 0.9% 1000ML 1,000 ML IV ONE (14:55)
[2020-09-25] MEDS ORDERED: MAG HYDROX/AL HYDROX/SIMETH ES 30 ML SUSP UDCUP ONE (14:55)
[2020-09-25] MEDS ORDERED: HALOPERIDOL LACTATE 5 MG/ML VIAL ONE (14:55)
[2020-09-25] MEDS ORDERED: DICYCLOMINE HCL 20 MG TAB ONE (14:57)
[2020-09-25] MEDS ORDERED: LORAZEPAM 2 MG/ML 1 ML VIAL ONE (14:58)
[2020-09-25 15:00] LABS: BASOPHILS % (AUTO) 0.3 % (0.0-5.0); EOSINOPHILS % (AUTO) 0.1 % (0.0-8.0); HEMATOCRIT 42.8 % (42-54); LYMPHOCYTES % (AUTO) 7.4 % (21.0-51.0); MEAN CORPUSCULAR HEMOGLOBIN 29.2 pg (27.0-33.0); MEAN CORPUSCULAR HGB CONC 33.2 g/dL (32.0-36.0); MEAN CORPUSCULAR VOLUME 88.1 fL (79-99); MONOCYTES % (AUTO) 2.4 % (3.0-13.0); NEUTROPHILS % (AUTO) 89.3 % (40.0-77.0); PLATELET COUNT (AUTO) 293 K/uL (130-400); RED BLOOD CELL COUNT(AUTO) 4.86 MIL/uL (4.50-6.20); RED CELL DISTRIBUTION WIDTH 12.9 % (11.0-15.5)
[2020-09-25 15:13] LABS: CREATININE 1.4 mg/dL (0.5-1.5); POTASSIUM 4.2 mmol/L (3.5-5.1)
[2020-09-25 15:18] LABS: ALBUMIN 4.8 g/dL (3.5-5.0); BILIRUBIN,TOTAL 0.2 mg/dL (0.2-1.0); TOTAL PROTEIN, SERUM 8.9 g/dL (6.0-8.3)
== END 2020-09-25 17:00 | disposition home or self-care (01) ==
LOC: EDH 13:48
DX: K29.00 Acute gastritis without bleeding (principal); M19.90 Unspecified osteoarthritis, unspecified site; G43.909 Migraine, unspecified, not intractable, without status migrainosus; Z72.0 Tobacco use
CPT/HCPCS: 36415; 71045; 74176; 80053; 83690; 84484; 85025; 93005; 96365; 96375; 99285; J1630; J2060; J7030

== ENCOUNTER 2020-12-19 18:00 | Emergency (ER) | payer MEDICAID ==
[~2020-12-19 18:00] MED LIST changes: -ISOS30TA6 PO; +ISOS30TA92 PO; -LISI-617 PO; +LISI-809 PO
[2020-12-19 18:31] LABS: BASOPHILS % (AUTO) 0.2 % (0.0-5.0); HEMATOCRIT 39.6 % (42-54); LYMPHOCYTES % (AUTO) 8.8 % (21.0-51.0); MEAN CORPUSCULAR HEMOGLOBIN 28.7 pg (27.0-33.0); MEAN CORPUSCULAR HGB CONC 33.1 g/dL (32.0-36.0); MEAN CORPUSCULAR VOLUME 86.7 fL (79-99); MONOCYTES % (AUTO) 3.1 % (3.0-13.0); NEUTROPHILS % (AUTO) 87.5 % (40.0-77.0); PLATELET COUNT (AUTO) 281 K/uL (130-400); RED BLOOD CELL COUNT(AUTO) 4.57 MIL/uL (4.50-6.20); RED CELL DISTRIBUTION WIDTH 13.9 % (11.0-15.5); WHITE BLOOD COUNT (AUTO) 16.3 K/uL (4.8-10.8)
[2020-12-19 18:43] LABS: CREATININE 1.2 mg/dL (0.5-1.5); POTASSIUM 4.3 mmol/L (3.5-5.1)
[2020-12-19] MEDS ORDERED: DiphenhydrAMINE HCL 50 MG/ML VIAL ONE (19:48)
[2020-12-19] MEDS ORDERED: HALOPERIDOL LACTATE 5 MG/ML VIAL ONE (19:48)
[2020-12-19] MEDS ORDERED: ONDANSETRON HCL 4 MG/2 ML VIAL ONE (19:48)
[2020-12-19] MEDS ORDERED: FAMOTIDINE/PF 20 MG/2 ML VIAL IV ONE (19:49)
[2020-12-19 20:10] LABS: ALBUMIN 4.2 g/dL (3.5-5.0); BILIRUBIN,TOTAL 0.3 mg/dL (0.2-1.0); TOTAL PROTEIN, SERUM 8.5 g/dL (6.0-8.3)
== END 2020-12-19 23:58 | disposition home or self-care (01) ==
LOC: EDH 18:00
DX: R10.84 Generalized abdominal pain (principal); E86.0 Dehydration; R11.2 Nausea with vomiting, unspecified; I25.10 Atherosclerotic heart disease of native coronary artery without angina pectoris; G43.909 Migraine, unspecified, not intractable, without status migrainosus; M19.90 Unspecified osteoarthritis, unspecified site; Z72.0 Tobacco use; Z90.49 Acquired absence of other specified parts of digestive tract
CPT/HCPCS: 36415; 74176; 80053; 82150; 82550; 83690; 84484; 85025; 93005; 96361; 96372; 96374; 96375; 99285; J1200; J1630; J2405; J3490; J7030

== ENCOUNTER 2020-12-27 20:20 | Inpatient (IN) | payer MEDICAID ==
[~2020-12-27] VITALS: Ht 170.2 cm; Wt 69.6 kg
[2020-12-27 20:50] LABS: BASOPHILS % (AUTO) 0.5 % (0.0-5.0); EOSINOPHILS % (AUTO) 0.9 % (0.0-8.0); HEMATOCRIT 38.6 % (42-54); MEAN CORPUSCULAR HEMOGLOBIN 28.9 pg (27.0-33.0); MEAN CORPUSCULAR HGB CONC 33.9 g/dL (32.0-36.0); MONOCYTES % (AUTO) 9.8 % (3.0-13.0); NEUTROPHILS % (AUTO) 65.1 % (40.0-77.0); PLATELET COUNT (AUTO) 280 K/uL (130-400); RED BLOOD CELL COUNT(AUTO) 4.54 MIL/uL (4.50-6.20); RED CELL DISTRIBUTION WIDTH 13.3 % (11.0-15.5); WHITE BLOOD COUNT (AUTO) 13.2 K/uL (4.8-10.8)
[2020-12-27 21:01] LABS: CREATININE 1.2 mg/dL (0.5-1.5); POTASSIUM 4.1 mmol/L (3.5-5.1)
[2020-12-27 21:11] LABS: ALBUMIN 4.1 g/dL (3.5-5.0); BILIRUBIN,TOTAL 0.4 mg/dL (0.2-1.0); TOTAL PROTEIN, SERUM 7.7 g/dL (6.0-8.3)
[2020-12-27] MEDS ORDERED: METOCLOPRAMIDE 10 MG/2 ML VIAL ONE (21:20)
[2020-12-27] MEDS ORDERED: HYDROMORPHONE HCL 0.5 MG/0.5 ML ML ONE (21:21)
[2020-12-27] MEDS ORDERED: SODIUM CHLORIDE 0.9% 500ML 500 ML IV ONE (21:22)
[2020-12-27] MEDS ORDERED: LACTULOSE 20 GM/30 ML UDCUP PO PRN (22:30)
[2020-12-27] MEDS ORDERED: ONDANSETRON HCL 4 MG/2 ML VIAL IV PRN (22:30)
[2020-12-27] MEDS ORDERED: MORPHINE SULFATE 2 MG/ML 1ML SYG IV PRN (22:30)
[2020-12-27] MEDS: SODIUM CHLORIDE 0.9% 1000ML 1,000 ML IV SCH (22:30)
[2020-12-27 22:56] LABS: ALCOHOL, BLOOD < 3 mg/dL (0-10); AMYLASE 141 U/L (25-115); CHOLESTEROL 123 mg/dL (<200); HDL CHOLESTEROL 97 mg/dL (29-71); LDL DIRECT 56 mg/dL (0-99); TRIGLYCERIDES 90 mg/dL (30-200)
[2020-12-27] MEDS ORDERED: SODIUM CHLORIDE 0.9% 1000ML 1,000 ML IV ONE (23:16)
[2020-12-28 04:00] VITALS: BP 141/89
[2020-12-28] MEDS: MORPHINE SULFATE 4 MG/1ML SYG IV PRN ×2 (04:12→09:02)
[2020-12-28 04:29] LABS: APPEARANCE,URINE Clear (CLEAR); BILIRUBIN,URINE Negative (NEGATIVE); COLOR,URINE Yellow (YELLOW); GLUCOSE, URINE (UA) Negative (NEGATIVE); KETONES,URINE Negative (NEGATIVE); LEUKOCYTE ESTERASE ,URINE Negative (NEGATIVE); NITRATE,URINE Negative (NEGATIVE); OCCULT BLOOD,URINE Negative (NEGATIVE); PROTEIN,URINE Negative (NEGATIVE); UROBILINOGEN,URINE 0.2 mg/dL (0.2-1.0)
[2020-12-28 04:37] LABS: AMPHET/METH SCREEN,URINE NEGATIVE (NEGATIVE); BARBITURATE SCREEN, URINE NEGATIVE (NEGATIVE); BENZODIAZEPINES SCREEN,URINE NEGATIVE (NEGATIVE); CANNABINOID SCREEN,URINE POSITIVE (NEGATIVE); COCAINE SCREEN,URINE NEGATIVE (NEGATIVE); OPIATE SCREEN,URINE NEGATIVE (NEGATIVE); PHENCYCLIDINE SCREEN,URINE NEGATIVE (NEGATIVE)
[2020-12-28 07:30] VITALS: BP 144/79
[2020-12-28] MEDS: SODIUM CHLORIDE 0.9% 1000ML 1,000 ML IV SCH ×2 (08:51→18:41)
[2020-12-28] MEDS: FAMOTIDINE/PF 20 MG/2 ML VIAL IV SCH ×2 (08:51→20:20)
[2020-12-28] MEDS: ENOXAPARIN SODIUM 40 MG/0.4 ML SYRINGE SQ SCH (08:52)
[2020-12-28 11:00] VITALS: BP 138/76
[2020-12-28 16:05] VITALS: BP 129/89
[2020-12-28 20:00] VITALS: BP 116/83
[2020-12-29] VITALS (7 sets, daily range): BP systolic 111–135; BP diastolic 72–86
[2020-12-29] MEDS: SODIUM CHLORIDE 0.9% 1000ML 1,000 ML IV SCH ×2 (03:22→07:39)
[2020-12-29 05:14] LABS: EOSINOPHILS % (AUTO) 3.2 % (0.0-8.0); HEMATOCRIT 35.9 % (42-54); LYMPHOCYTES % (AUTO) 23.5 % (21.0-51.0); MEAN CORPUSCULAR HEMOGLOBIN 28.6 pg (27.0-33.0); MEAN CORPUSCULAR HGB CONC 33.7 g/dL (32.0-36.0); MEAN CORPUSCULAR VOLUME 84.9 fL (79-99); MONOCYTES % (AUTO) 9.2 % (3.0-13.0); NEUTROPHILS % (AUTO) 62.5 % (40.0-77.0); PLATELET COUNT (AUTO) 258 K/uL (130-400); RED BLOOD CELL COUNT(AUTO) 4.23 MIL/uL (4.50-6.20); RED CELL DISTRIBUTION WIDTH 13.2 % (11.0-15.5); WHITE BLOOD COUNT (AUTO) 9.5 K/uL (4.8-10.8)
[2020-12-29 05:39] LABS: CREATININE 0.9 mg/dL (0.5-1.5); POTASSIUM 4.3 mmol/L (3.5-5.1)
[2020-12-29] MEDS: ENOXAPARIN SODIUM 40 MG/0.4 ML SYRINGE SQ SCH (09:54)
[2020-12-29] MEDS: FAMOTIDINE/PF 20 MG/2 ML VIAL IV SCH ×2 (09:54→21:00)
[2020-12-29] MEDS ORDERED: IOHEXOL-350 75 ML VIAL IV ONE (20:33)
[2020-12-29] MEDS: MORPHINE SULFATE 4 MG/1ML SYG IV PRN (21:00)
[2020-12-30] MEDS: SODIUM CHLORIDE 0.9% 1000ML 1,000 ML IV SCH (00:30)
[2020-12-30 03:45] VITALS: BP 118/73
[2020-12-30 06:06] LABS: CREATININE 0.9 mg/dL (0.5-1.5); PHOSPHORUS 3.1 mg/dL (2.5-4.9); POTASSIUM 3.7 mmol/L (3.5-5.1); THYROID STIMULATING HORMONE 2.81 uIU/mL (0.36-3.74); URIC ACID 4.6 mg/dL (2.6-7.2)
[2020-12-30 08:01] VITALS: BP 120/76
[2020-12-30] MEDS ORDERED: THIAMINE HCL 100 MG TABLET PO SCH (09:00)
[2020-12-30] MEDS ORDERED: Vitamin B Complex/Vit C/Folic Acid PO SCH (09:00)
[2020-12-30] MEDS: FAMOTIDINE/PF 20 MG/2 ML VIAL IV SCH (09:36)
[2020-12-30] MEDS: ENOXAPARIN SODIUM 40 MG/0.4 ML SYRINGE SQ SCH (09:37)
[2020-12-30] MEDS: MORPHINE SULFATE 4 MG/1ML SYG IV PRN (10:01)
[2020-12-30 11:35] VITALS: BP 125/71
== END 2020-12-30 16:33 | disposition home or self-care (01) | DRG 282 ==
LOC: EDH 20:20 → OBSVTOIN 20:21 → EDHIP 20:21 → INTOOBSV 20:21 → 3DH 12-28 03:25
PROVIDERS: ADMIT Internal Medicine; ATTEND Internal Medicine
DX: K85.90 Acute pancreatitis without necrosis or infection, unspecified (principal); E87.1 Hypo-osmolality and hyponatremia; N28.1 Cyst of kidney, acquired; E87.5 Hyperkalemia; I11.0 Hypertensive heart disease with heart failure; I25.10 Atherosclerotic heart disease of native coronary artery without angina pectoris; I50.9 Heart failure, unspecified; K59.00 Constipation, unspecified; N20.0 Calculus of kidney; G43.909 Migraine, unspecified, not intractable, without status migrainosus; F12.10 Cannabis abuse, uncomplicated; M19.90 Unspecified osteoarthritis, unspecified site; R33.9 Retention of urine, unspecified; I25.2 Old myocardial infarction; Z82.49 Family history of ischemic heart disease and other diseases of the circulatory system; Z87.442 Personal history of urinary calculi; Z90.49 Acquired absence of other specified parts of digestive tract
CPT/HCPCS: 36415; 71045; 74176; 74178; 76770; 80048; 80053; 80061; 80305; 81003; 82150; 83036; 83605; 83690; 83930; 83935; 84100; 84145; 84153; 84443; 84484; 84550; 85025; 86677; 93005; G0378; J1170; J1650; J2270; J2765; J3490; J7030; J7040; Q9967

== ENCOUNTER 2021-01-10 08:35 | Emergency (ER) | payer MEDICAID ==
[2021-01-10] MEDS ORDERED: SODIUM CHLORIDE 0.9% 1000ML 1,000 ML IV ONE (08:36)
[2021-01-10 09:04] LABS: BASOPHILS % (AUTO) 0.6 % (0.0-5.0); EOSINOPHILS % (AUTO) 0.6 % (0.0-8.0); HEMATOCRIT 39.2 % (42-54); LYMPHOCYTES % (AUTO) 19.6 % (21.0-51.0); MEAN CORPUSCULAR HGB CONC 32.1 g/dL (32.0-36.0); MEAN CORPUSCULAR VOLUME 87.1 fL (79-99); NEUTROPHILS % (AUTO) 70.7 % (40.0-77.0); PLATELET COUNT (AUTO) 316 K/uL (130-400); WHITE BLOOD COUNT (AUTO) 8.7 K/uL (4.8-10.8)
[2021-01-10 09:07] LABS: APPEARANCE,URINE Cloudy (CLEAR); BILIRUBIN,URINE Negative (NEGATIVE); COLOR,URINE Yellow (YELLOW); GLUCOSE, URINE (UA) Negative (NEGATIVE); KETONES,URINE Trace mg/dL (NEGATIVE); LEUKOCYTE ESTERASE ,URINE Trace (NEGATIVE); NITRATE,URINE Negative (NEGATIVE); OCCULT BLOOD,URINE Negative (NEGATIVE); PH,URINE 5.5 (5.0-8.0); PROTEIN,URINE Trace mg/dL (NEGATIVE)
[2021-01-10 09:15] LABS: CARBON DIOXIDE 28 mmol/L (21-32); CHLORIDE 99 mmol/L (101-111); GLOMERULAR FILTR. RATE CALC 80 mL/min (>60); GLUCOSE,RANDOM 112 mg/dL (70-105); POTASSIUM 4.2 mmol/L (3.5-5.1); SODIUM SERUM 135 mmol/L (136-145); UREA NITROGEN, BLOOD 21 mg/dL (7-18)
[2021-01-10] MEDS ORDERED: IOHEXOL-350 75 ML VIAL IV ONE (09:15)
[2021-01-10 09:27] LABS: ALANINE AMINOTRANSFERASE 24 U/L (12-78); ALBUMIN 4.1 g/dL (3.5-5.0); ALCOHOL, BLOOD < 3 mg/dL (0-10); ASPARTATE AMINOTRANSFERASE 17 U/L (10-37); BILIRUBIN,TOTAL 0.4 mg/dL (0.2-1.0); CREATINE KINASE, TOTAL 62 U/L (21-232); LIPASE 76 U/L (114-286); THYROID STIMULATING HORMONE 1.42 uIU/mL (0.36-3.74); TOTAL PROTEIN, SERUM 7.8 g/dL (6.0-8.3)
[2021-01-10 09:29] LABS: INR 0.97 (0.85-1.15); PROTHROMBIN TIME 10.6 SEC (9.6-11.6)
[2021-01-10 09:30] LABS: PARTIAL THROMBOPLASTIN TIME 24.8 SEC (26.3-35.5)
[2021-01-10 09:31] LABS: AMPHET/METH SCREEN,URINE NEGATIVE (NEGATIVE); BARBITURATE SCREEN, URINE NEGATIVE (NEGATIVE); BENZODIAZEPINES SCREEN,URINE POSITIVE (NEGATIVE); CANNABINOID SCREEN,URINE POSITIVE (NEGATIVE); COCAINE SCREEN,URINE NEGATIVE (NEGATIVE); OPIATE SCREEN,URINE NEGATIVE (NEGATIVE); PHENCYCLIDINE SCREEN,URINE NEGATIVE (NEGATIVE)
[2021-01-10 09:53] LABS: BACTERIA,URINE Few /HPF (None Seen); RBC,URINE 0-1 /HPF (0-1)
[2021-01-10 09:54] LABS: SQUAMOUS EPITHELIAL CELL,UR 0-2 /HPF (0-2); WBC,URINE 0-1 /HPF (0-1)
[2021-01-10] MEDS ORDERED: MAG HYDROX/AL HYDROX/SIMETH ES 30 ML SUSP UDCUP ONE (10:39)
[2021-01-10] MEDS ORDERED: HYDROMORPHONE HCL 0.5 MG/0.5 ML ML ONE (11:03)
[2021-02-04] MEDS ORDERED: ATOR10 PO (15:24)
[2021-02-04] MEDS ORDERED: LISI-809 PO (15:24)
[2021-02-04] MEDS ORDERED: METO25TA6 PO (15:24)
[2021-02-04] MEDS ORDERED: NITR0.4T50 SL (15:24)
[2021-02-04] MEDS ORDERED: TICA60TA PO (15:24)
[2021-02-04] MEDS ORDERED: AEC81 PO (15:24)
[2021-02-04] MEDS ORDERED: ISOS20TA85 PO (15:24)
[2021-02-04] MEDS ORDERED: TRAZ-187 PO (15:24)
[2021-02-04] MEDS ORDERED: CETI10TA57 PO (15:24)
== END 2021-01-10 12:26 | disposition home or self-care (01) ==
LOC: EDH 08:35
DX: R10.84 Generalized abdominal pain (principal); R11.2 Nausea with vomiting, unspecified; R53.81 Other malaise; G43.909 Migraine, unspecified, not intractable, without status migrainosus; I25.2 Old myocardial infarction; M19.90 Unspecified osteoarthritis, unspecified site; Z72.0 Tobacco use; Z90.49 Acquired absence of other specified parts of digestive tract
CPT/HCPCS: 36415; 71045; 74177; 80053; 80305; 81001; 82550; 83690; 84443; 84484; 85025; 85610; 85730; 93005; 96361 ×2; 96374; 99285; J1170; J7030; Q9967

== ENCOUNTER 2021-02-07 07:47 | Day surgery (SDC) | payer MEDICAID ==
[2021-02-04 13:15] LABS: BASOPHILS % (AUTO) 0.5 % (0.0-5.0); HEMATOCRIT 37.7 % (42-54); LYMPHOCYTES % (AUTO) 23.6 % (21.0-51.0); MEAN CORPUSCULAR HEMOGLOBIN 28.2 pg (27.0-33.0); MEAN CORPUSCULAR HGB CONC 32.1 g/dL (32.0-36.0); MEAN CORPUSCULAR VOLUME 87.9 fL (79-99); MONOCYTES % (AUTO) 10.5 % (3.0-13.0); PLATELET COUNT (AUTO) 314 K/uL (130-400); RED BLOOD CELL COUNT(AUTO) 4.29 MIL/uL (4.50-6.20); RED CELL DISTRIBUTION WIDTH 14.6 % (11.0-15.5); WHITE BLOOD COUNT (AUTO) 11.2 K/uL (4.8-10.8)
[2021-02-04 13:23] LABS: APPEARANCE,URINE Clear (CLEAR); BILIRUBIN,URINE Negative (NEGATIVE); COLOR,URINE Yellow (YELLOW); GLUCOSE, URINE (UA) Negative (NEGATIVE); KETONES,URINE Trace mg/dL (NEGATIVE); LEUKOCYTE ESTERASE ,URINE Negative (NEGATIVE); NITRATE,URINE Negative (NEGATIVE); OCCULT BLOOD,URINE Negative (NEGATIVE); PH,URINE 5.5 (5.0-8.0); PROTEIN,URINE Negative (NEGATIVE); UROBILINOGEN,URINE 0.2 mg/dL (0.2-1.0)
[2021-02-04 13:48] LABS: BACTERIA,URINE Rare /HPF (None Seen); RBC,URINE 0-1 /HPF (0-1); SQUAMOUS EPITHELIAL CELL,UR Rare /HPF (0-2); WBC,URINE 0-1 /HPF (0-1)
[2021-02-04 13:57] LABS: CREATININE 1.2 mg/dL (0.5-1.5); POTASSIUM 3.9 mmol/L (3.5-5.1)
[2021-02-04 13:58] LABS: PARTIAL THROMBOPLASTIN TIME 24.1 SEC (26.3-35.5)
[2021-02-04 14:05] LABS: INR 1.08 (0.85-1.15); PROTHROMBIN TIME 11.7 SEC (9.6-11.6)
[2021-02-04 14:07] VITALS: BP 153/87
[~2021-02-07] VITALS: Ht 170.2 cm; Wt 69.9 kg
[2021-02-07] VITALS (9 sets, daily range): BP systolic 91–124; BP diastolic 55–80
[~2021-02-07 07:47] MED LIST changes: +CETI10TA57 PO; +ISOS20TA85 PO; -ISOS30TA92 PO; -LIDOP TP; -LISI-809 PO; +LISI5TAB21 PO; -ONDA-104 PO; +TICA60TA PO; -TICA90TA PO; +TRAZ-187 PO; -VARE1TAB22 PO
[2021-02-07] MEDS ORDERED: FAMOTIDINE 20MG TAB PO SCH (10:00)
[2021-02-07] MEDS ORDERED: BIVALIRUDIN 250 MG/VIAL IV ONE (11:00)
[2021-02-07] MEDS ORDERED: NITROGLYCERIN 2 MG VIAL IV ONE (11:00)
[2021-02-07] MEDS ORDERED: IOHEXOL-350 50ML VIAL IV ONE (11:00)
[2021-02-07] MEDS ORDERED: IOHEXOL 350 MG/ML 100ML INFUS..BTL IV ONE (11:00)
[2021-02-07] MEDS ORDERED: MIDAZOLAM HCL 1 MG/ML 2ML VIAL ONE (11:01)
[2021-02-07] MEDS ORDERED: FENTANYL CITRATE PF 50 MCG/1 ML 2ML VIAL ONE (11:01)
[2021-02-07] MEDS ORDERED: LIDOCAINE HCL 400MG/20ML VIAL ONE (11:01)
[2021-02-07] MEDS ORDERED: GLUCAGON 1MG KIT 1 MG ML IM PRN (12:15)
[2021-02-07] MEDS ORDERED: NITROGLYCERIN 0.4 MG SL TAB SL PRN (12:15)
[2021-02-07] MEDS ORDERED: METOPROLOL TARTRATE 1 MG/ML 5ML VIAL IV PRN (12:15)
[2021-02-07] MEDS ORDERED: DEXTROSE 50%-WATER 50 ML DISP.SYRIN IV PRN (12:15)
[2021-02-07] MEDS ORDERED: 0.9%NACL 1000ML 1,000 ML IV SCH (12:15)
[2021-02-07] MEDS ORDERED: ACETAMINOPHEN WITH CODEINE 1 TAB TAB ONE (15:52)
[2021-02-07] MEDS ORDERED: ACETAMINOPHEN WITH CODEINE 1 TAB TAB PO PRN (16:30)
== END 2021-02-07 17:05 | disposition home or self-care (01) ==
LOC: DAH 07:47
PROVIDERS: ATTEND Internal Medicine Cardiovascular Disease
DX: I25.110 Atherosclerotic heart disease of native coronary artery with unstable angina pectoris (principal); I11.0 Hypertensive heart disease with heart failure; I50.22 Chronic systolic (congestive) heart failure; E78.5 Hyperlipidemia, unspecified; J44.9 Chronic obstructive pulmonary disease, unspecified; F41.9 Anxiety disorder, unspecified; F32.9 Major depressive disorder, single episode, unspecified; I25.2 Old myocardial infarction; Z95.5 Presence of coronary angioplasty implant and graft; Z87.891 Personal history of nicotine dependence; Z79.01 Long term (current) use of anticoagulants; Z79.899 Other long term (current) drug therapy; Z79.82 Long term (current) use of aspirin
CPT/HCPCS: 36415; 71045; 80048; 81001; 85025; 85610; 85730; 93005; 93458; A4215; A4216; A4221; A4222; A4223 ×3; A4606; A4663; C1894 ×2; J1644; J2250; J3010; J3490 ×2; Q9965; Q9967 ×2; 96360; 96361; 99152; 99153; 99156; 99157; J0583

== ENCOUNTER → 2021-06-03 | Outpatient (CLI) | payer MEDICAID ==
[~2021-06-03] MED LIST changes: +LISI-809 PO; -LISI5TAB21 PO
== END | disposition home or self-care (01) ==
LOC: SHCH 13:46
PROVIDERS: ATTEND Internal Medicine Cardiovascular Disease
DX: I87.2 Venous insufficiency (chronic) (peripheral) (principal); I73.9 Peripheral vascular disease, unspecified
CPT/HCPCS: 93925; 93970

== ENCOUNTER 2022-01-20 13:53 | Observation (INO) | payer MEDICAID ==
[~2022-01-20] VITALS: Ht 170.2 cm; Wt 75.2 kg
[~2022-01-20 13:53] MED LIST changes: -LISI-809 PO; +LISI5TAB21 PO
[2022-01-20 14:10] LABS: BASOPHILS % (AUTO) 0.9 % (0.0-5.0); EOSINOPHILS % (AUTO) 2.2 % (0.0-8.0); LYMPHOCYTES % (AUTO) 28.2 % (21.0-51.0); MEAN CORPUSCULAR HEMOGLOBIN 25.4 pg (27.0-33.0); MEAN CORPUSCULAR HGB CONC 31.3 g/dL (32.0-36.0); NEUTROPHILS % (AUTO) 57.5 % (40.0-77.0); PLATELET COUNT (AUTO) 228 K/uL (130-400); RED BLOOD CELL COUNT(AUTO) 4.69 MIL/uL (4.50-6.20); RED CELL DISTRIBUTION WIDTH 16.9 % (11.0-15.5); WHITE BLOOD COUNT (AUTO) 8.1 K/uL (4.8-10.8)
[2022-01-20 14:18] LABS: CREATININE 0.9 mg/dL (0.5-1.5); POTASSIUM 3.6 mmol/L (3.5-5.1)
[2022-01-20 14:23] LABS: ALBUMIN 3.4 g/dL (3.5-5.0); BILIRUBIN,TOTAL 0.3 mg/dL (0.2-1.0); TOTAL PROTEIN, SERUM 6.9 g/dL (6.0-8.3)
[2022-01-20 14:30] LABS: APPEARANCE,URINE Clear (CLEAR); BILIRUBIN,URINE Negative (NEGATIVE); COLOR,URINE Yellow (YELLOW); GLUCOSE, URINE (UA) Negative (NEGATIVE); KETONES,URINE Trace mg/dL (NEGATIVE); LEUKOCYTE ESTERASE ,URINE Negative (NEGATIVE); NITRATE,URINE Negative (NEGATIVE); OCCULT BLOOD,URINE Negative (NEGATIVE); PH,URINE 5.5 (5.0-8.0); PROTEIN,URINE POS 1+ mg/dL (NEGATIVE); UROBILINOGEN,URINE 0.2 mg/dL (0.2-1.0)
[2022-01-20] MEDS ORDERED: NITROGLYCERIN 1GM OINT 1 INCH/1GM TD ONE (14:30)
[2022-01-20] MEDS ORDERED: ASPIRIN 81MG CHEW TAB PO ONE (14:30)
[2022-01-20 14:38] LABS: AMPHET/METH SCREEN,URINE NEGATIVE (NEGATIVE); BARBITURATE SCREEN, URINE NEGATIVE (NEGATIVE); BENZODIAZEPINES SCREEN,URINE NEGATIVE (NEGATIVE); CANNABINOID SCREEN,URINE POSITIVE (NEGATIVE); COCAINE SCREEN,URINE NEGATIVE (NEGATIVE); OPIATE SCREEN,URINE NEGATIVE (NEGATIVE); PHENCYCLIDINE SCREEN,URINE NEGATIVE (NEGATIVE)
[2022-01-20 14:38] LABS: B-TYPE NATRIURETIC PEPTIDE 16 pg/mL (0-100)
[2022-01-20 14:44] LABS: BACTERIA,URINE Few /HPF (None Seen); RBC,URINE 0-1 /HPF (0-1)
[2022-01-20 14:45] LABS: MUCUS,URINE Few LPF (None Seen); SQUAMOUS EPITHELIAL CELL,UR Rare /HPF (0-2)
[2022-01-20] MEDS ORDERED: ONDANSETRON 4MG INJ ONE (18:11)
[2022-01-20] MEDS: MORPHINE 2 MG SYG IVP PRN ×2 (18:26→22:08)
[2022-01-20] MEDS: CEFTRIAXONE 1G VIAL IVP SCH (19:18)
[2022-01-20] MEDS: ONDANSETRON 4MG INJ IVP PRN ×2 (19:30→22:08)
[2022-01-20 19:43] VITALS: BP 126/69
[2022-01-20] MEDS ORDERED: NORT10CA2 PO (20:12)
[2022-01-20] MEDS ORDERED: OFLO5DRO OD (20:12)
[2022-01-20] MEDS: TICAGRELOR 60 MG PO SCH (20:23)
[2022-01-20] MEDS: METOPROLOL TARTRATE 25 MG TAB PO SCH (20:23)
[2022-01-20 22:56] VITALS: BP 141/92
[2022-01-21] MEDS ORDERED: PROMETHAZINE HCL 25 MG/ML 1ML AMPULE IM ONE (00:30)
[2022-01-21 01:35] LABS: POTASSIUM 3.8 mmol/L (3.5-5.1)
[2022-01-21 01:44] LABS: MAGNESIUM 1.7 mg/dL (1.80-2.40)
[2022-01-21 01:55] LABS: BASOPHILS % (AUTO) 0.5 % (0.0-5.0); EOSINOPHILS % (AUTO) 0.1 % (0.0-8.0); HEMATOCRIT 38.8 % (42-54); LYMPHOCYTES % (AUTO) 11.7 % (21.0-51.0); MEAN CORPUSCULAR HEMOGLOBIN 25.5 pg (27.0-33.0); MEAN CORPUSCULAR HGB CONC 31.7 g/dL (32.0-36.0); MEAN CORPUSCULAR VOLUME 80.3 fL (79-99); MONOCYTES % (AUTO) 4.5 % (3.0-13.0); NEUTROPHILS % (AUTO) 82.9 % (40.0-77.0); PLATELET COUNT (AUTO) 258 K/uL (130-400); RED BLOOD CELL COUNT(AUTO) 4.83 MIL/uL (4.50-6.20); RED CELL DISTRIBUTION WIDTH 16.7 % (11.0-15.5); WHITE BLOOD COUNT (AUTO) 10.5 K/uL (4.8-10.8)
[2022-01-21] MEDS ORDERED: MAGNESIUM 2GM PREMIX 50ML 50 ML IV PRN (02:00)
[2022-01-21 04:17] VITALS: BP 131/70
[2022-01-21] MEDS: MORPHINE 2 MG SYG IVP PRN ×2 (04:59→11:40)
[2022-01-21 08:03] VITALS: BP 157/86
[2022-01-21] MEDS: TICAGRELOR 60 MG PO SCH ×2 (09:00→20:55)
[2022-01-21] MEDS ORDERED: LISINOPRIL 5 MG TABLET PO SCH (09:00)
[2022-01-21] MEDS: METOPROLOL TARTRATE 25 MG TAB PO SCH ×2 (09:20→20:52)
[2022-01-21] MEDS: ONDANSETRON 4MG INJ IVP PRN (11:40)
[2022-01-21 11:51] VITALS: BP 181/75
[2022-01-21 16:00] VITALS: BP 129/83
[2022-01-21] MEDS: CEFTRIAXONE 1G VIAL IVP SCH (17:42)
[2022-01-21 20:00] VITALS: BP 135/80
[2022-01-22 03:45] VITALS: BP 109/74
[2022-01-22 08:00] VITALS: BP 112/85
[2022-01-22] MEDS: METOPROLOL TARTRATE 25 MG TAB PO SCH (09:13)
[2022-01-22] MEDS: TICAGRELOR 60 MG PO SCH (09:16)
[2022-01-22] MEDS ORDERED: METO25TA6 PO (09:45)
[2022-01-22] MEDS ORDERED: TAMS-1 PO (09:50)
[2022-01-22] MEDS ORDERED: TAMSULOSIN HCL 0.4 MG CAP.ER.24H PO SCH (10:00)
[2022-01-22] MEDS ORDERED: BISA5TAB12 PO (10:08)
[2022-01-22] MEDS ORDERED: LUBIPROSTONE 24 MCG CAP PO SCH (10:30)
[2022-01-22] MEDS ORDERED: LACTULOSE 20 GM/30 ML UDCUP PO SCH (10:30)
[2022-01-22] MEDS ORDERED: PHARMACY COMMUNICATION MISC SCH (10:30)
[2022-01-22] MEDS ORDERED: CEFU500T67 PO (10:31)
[2022-01-22 12:00] VITALS: BP 119/86
== END 2022-01-22 13:30 | disposition home or self-care (01) ==
LOC: EDH 13:53 → EDHIP 13:54 → 4DH 18:46
PROVIDERS: ADMIT Internal Medicine; ATTEND Internal Medicine
DX: R07.89 Other chest pain (principal); I25.110 Atherosclerotic heart disease of native coronary artery with unstable angina pectoris; I10 Essential (primary) hypertension; E78.5 Hyperlipidemia, unspecified; R10.9 Unspecified abdominal pain; R14.0 Abdominal distension (gaseous); K59.00 Constipation, unspecified; N13.9 Obstructive and reflux uropathy, unspecified; F41.8 Other specified anxiety disorders; I25.2 Old myocardial infarction; J44.9 Chronic obstructive pulmonary disease, unspecified; N12 Tubulo-interstitial nephritis, not specified as acute or chronic; F10.10 Alcohol abuse, uncomplicated; R29.6 Repeated falls; F17.210 Nicotine dependence, cigarettes, uncomplicated; Z79.899 Other long term (current) drug therapy; Z79.82 Long term (current) use of aspirin; Z95.5 Presence of coronary angioplasty implant and graft
CPT/HCPCS: 36415 ×3; 70450; 71045; 74176; 80048; 80053; 80305; 81001; 83036; 83690; 83735 ×2; 83880; 84145; 84443; 84484 ×4; 85025 ×2; 87088; 93005; 96365; 96366; 96372; 96375; 96376 ×2; 99285; G0378 ×44; J0696 ×2; J2405 ×4; J3475

== ENCOUNTER 2022-04-23 06:53 | Emergency (ER) | payer OTHER, MEDICARE ==
[~2022-04-23] VITALS: Ht 170.2 cm; Wt 74.8 kg
[~2022-04-23 06:53] MED LIST changes: +BISA5TAB12 PO; +CEFU500T67 PO; +NORT10CA2 PO; +OFLO5DRO OD; +PARO7.5C2 PO; +TAMS-1 PO
[2022-04-23] MEDS ORDERED: LACTATED RINGERS 1000ML 1,000 ML IV ONE (07:30)
[2022-04-23] MEDS ORDERED: ONDANSETRON 4MG INJ IVP ONE (07:30)
[2022-04-23] MEDS ORDERED: PANTOPRAZOLE 40 MG/VIAL IVP ONE (07:30)
[2022-04-23 08:08] LABS: BASOPHILS % (AUTO) 0.4 % (0.0-5.0); EOSINOPHILS % (AUTO) 0.4 % (0.0-8.0); HEMATOCRIT 40.2 % (42-54); LYMPHOCYTES % (AUTO) 14.7 % (21.0-51.0); MEAN CORPUSCULAR HEMOGLOBIN 26.9 pg (27.0-33.0); MEAN CORPUSCULAR HGB CONC 32.8 g/dL (32.0-36.0); MONOCYTES % (AUTO) 6.4 % (3.0-13.0); NEUTROPHILS % (AUTO) 77.5 % (40.0-77.0); PLATELET COUNT (AUTO) 284 K/uL (130-400); RED CELL DISTRIBUTION WIDTH 15.6 % (11.0-15.5); WHITE BLOOD COUNT (AUTO) 14.1 K/uL (4.8-10.8)
[2022-04-23 08:41] LABS: ALBUMIN 4.1 g/dL (3.5-5.0); BILIRUBIN,TOTAL 0.2 mg/dL (0.2-1.0); CREATININE 1.1 mg/dL (0.5-1.5); POTASSIUM 3.9 mmol/L (3.5-5.1); TOTAL PROTEIN, SERUM 8.3 g/dL (6.0-8.3)
[2022-04-23 09:57] LABS: AMPHET/METH SCREEN,URINE NEGATIVE (NEGATIVE); BARBITURATE SCREEN, URINE NEGATIVE (NEGATIVE); BENZODIAZEPINES SCREEN,URINE NEGATIVE (NEGATIVE); CANNABINOID SCREEN,URINE POSITIVE (NEGATIVE); COCAINE SCREEN,URINE NEGATIVE (NEGATIVE); OPIATE SCREEN,URINE NEGATIVE (NEGATIVE); PHENCYCLIDINE SCREEN,URINE NEGATIVE (NEGATIVE)
[2022-04-23] MEDS ORDERED: IOHEXOL 350 MG/ML 100ML INFUS..BTL IV ONE (10:15)
[2022-04-23] MEDS ORDERED: FAMO20TA8 PO (11:14)
[2022-04-23] MEDS ORDERED: DICYCLOMINE HCL 10 MG/5 ML ML PO ONE ×2 (11:15→11:30)
[2022-04-23] MEDS ORDERED: MAG/ALUM/SIMETH 30 ML UDCUP ONE (11:15)
[2022-04-23] MEDS ORDERED: LIDOCAINE HCL 2% VISCOUS 15 ML UDCUP ONE (11:15)
[2022-04-23] MEDS ORDERED: LIDOCAINE HCL 2% VISCOUS 15 ML UDCUP PO ONE (11:30)
[2022-04-23] MEDS ORDERED: MAG/ALUM/SIMETH 30 ML UDCUP PO ONE (11:30)
[2022-04-23 11:35] VITALS: BP 140/56
== END 2022-04-23 11:50 | disposition home or self-care (01) ==
LOC: EDH 06:53
DX: K52.9 Noninfective gastroenteritis and colitis, unspecified (principal); D72.829 Elevated white blood cell count, unspecified; I10 Essential (primary) hypertension; J44.9 Chronic obstructive pulmonary disease, unspecified; Z79.82 Long term (current) use of aspirin; Z79.899 Other long term (current) drug therapy; Z90.49 Acquired absence of other specified parts of digestive tract; Z95.5 Presence of coronary angioplasty implant and graft
CPT/HCPCS: 36415; 74177; 80053; 80305; 83690; 84484; 85025; 93005; 96361; 96374; 96375; 99285; C9113; J2405; J7120; Q9967

== ENCOUNTER 2022-04-27 16:20 | Emergency (ER) | payer OTHER, MEDICARE ==
[~2022-04-27] VITALS: Ht 170.2 cm; Wt 75.3 kg
[~2022-04-27 16:20] MED LIST changes: +FAMO20TA8 PO
[2022-04-27] MEDS ORDERED: 0.9%NACL 1000ML 1,000 ML IV ONE (18:00)
[2022-04-27] MEDS ORDERED: MECLIZINE HCL 25 MG TABLET PO ONE (18:00)
[2022-04-27 18:23] LABS: BASOPHILS % (AUTO) 0.6 % (0.0-5.0); EOSINOPHILS % (AUTO) 2.2 % (0.0-8.0); HEMATOCRIT 41.5 % (42-54); LYMPHOCYTES % (AUTO) 23.8 % (21.0-51.0); MEAN CORPUSCULAR HEMOGLOBIN 26.9 pg (27.0-33.0); MEAN CORPUSCULAR HGB CONC 32.3 g/dL (32.0-36.0); MEAN CORPUSCULAR VOLUME 83.2 fL (79-99); MONOCYTES % (AUTO) 7.2 % (3.0-13.0); NEUTROPHILS % (AUTO) 65.8 % (40.0-77.0); PLATELET COUNT (AUTO) 289 K/uL (130-400); RED BLOOD CELL COUNT(AUTO) 4.99 MIL/uL (4.50-6.20); RED CELL DISTRIBUTION WIDTH 15.3 % (11.0-15.5); WHITE BLOOD COUNT (AUTO) 11.8 K/uL (4.8-10.8)
[2022-04-27 18:42] LABS: INR 0.93 (0.85-1.15)
[2022-04-27 18:43] LABS: PARTIAL THROMBOPLASTIN TIME 25.4 SEC (26.3-35.5)
[2022-04-27 18:44] LABS: POTASSIUM 3.6 mmol/L (3.5-5.1)
[2022-04-27 18:52] LABS: ALBUMIN 3.6 g/dL (3.5-5.0); BILIRUBIN,TOTAL 0.4 mg/dL (0.2-1.0); TOTAL PROTEIN, SERUM 7.5 g/dL (6.0-8.3)
[2022-04-27] MEDS ORDERED: MECL-226 PO (20:48)
[2022-04-27] MEDS ORDERED: CIPR7.5D OT (20:48)
[2022-04-27 20:50] VITALS: BP 135/91
[2022-04-27] MEDS ORDERED: CIPROFLOXACIN HCL 0.2%/HYDROCORT 1% 10 ML OTIC SUSP OTIC SCH (21:00)
== END 2022-04-27 20:59 | disposition home or self-care (01) ==
LOC: EDH 16:45
DX: S00.412A Abrasion of left ear, initial encounter (principal); R42 Dizziness and giddiness; E11.9 Type 2 diabetes mellitus without complications; E78.00 Pure hypercholesterolemia, unspecified; I10 Essential (primary) hypertension; Z79.82 Long term (current) use of aspirin; Z79.899 Other long term (current) drug therapy; Z90.49 Acquired absence of other specified parts of digestive tract; X58.XXXA Exposure to other specified factors, initial encounter; Y93.89 Activity, other specified; Y92.89 Other specified places as the place of occurrence of the external cause; Y99.8 Other external cause status
CPT/HCPCS: 36415; 70450; 80053; 84484; 85025; 85610; 85730; 93005; 96360; 96361; 99285; J7030

== ENCOUNTER 2022-05-23 17:50 | Inpatient (IN) | payer MEDICARE ==
[~2022-05-23] VITALS: Ht 170.2 cm; Wt 72.0 kg
[~2022-05-23 17:50] MED LIST changes: +CIPR7.5D OT; +MECL-226 PO
[2022-05-23] MEDS ORDERED: 0.9% NACL 250ML 250 ML IV ONE (18:00)
[2022-05-23] MEDS ORDERED: DICYCLOMINE 20MG (10MG/ML) AMP IM STA (18:16)
[2022-05-23 18:18] LABS: BASOPHILS % (AUTO) 0.2 % (0.0-5.0); HEMATOCRIT 44.5 % (42-54); LYMPHOCYTES % (AUTO) 17.1 % (21.0-51.0); MEAN CORPUSCULAR VOLUME 81.7 fL (79-99); MONOCYTES % (AUTO) 10.1 % (3.0-13.0); NEUTROPHILS % (AUTO) 72.1 % (40.0-77.0); PLATELET COUNT (AUTO) 287 K/uL (130-400); RED BLOOD CELL COUNT(AUTO) 5.45 MIL/uL (4.50-6.20); RED CELL DISTRIBUTION WIDTH 15.5 % (11.0-15.5); WHITE BLOOD COUNT (AUTO) 16.5 K/uL (4.8-10.8)
[2022-05-23 18:29] LABS: CREATININE 3.5 mg/dL (0.5-1.5); POTASSIUM 4.6 mmol/L (3.5-5.1)
[2022-05-23] MEDS ORDERED: FAMOTIDINE 20MG VIAL IV ONE (18:30)
[2022-05-23] MEDS ORDERED: IPRATROPIUM/ALBUTEROL SULFATE 3 ML SOLUTION IH ONE (18:30)
[2022-05-23] MEDS ORDERED: ONDANSETRON 4MG INJ IVP ONE ×2 (18:30→22:00)
[2022-05-23 18:36] LABS: ALBUMIN 4.5 g/dL (3.5-5.0); TOTAL PROTEIN, SERUM 8.6 g/dL (6.0-8.3)
[2022-05-23] MEDS ORDERED: 0.9%NACL 1000ML 1,000 ML IV ONE (22:00)
[2022-05-23] MEDS ORDERED: MORPHINE 2 MG SYG IVP ONE (22:00)
[2022-05-23] MEDS ORDERED: CEFTRIAXONE 1G VIAL IVP ONE (22:30)
[2022-05-23 23:30] LABS: APPEARANCE,URINE CLEAR (CLEAR); BILIRUBIN,URINE NEGATIVE (NEGATIVE); COLOR,URINE YELLOW (YELLOW); GLUCOSE, URINE (UA) NEGATIVE (NEGATIVE); KETONES,URINE NEGATIVE (NEGATIVE); LEUKOCYTE ESTERASE ,URINE NEGATIVE (NEGATIVE); NITRATE,URINE NEGATIVE (NEGATIVE); OCCULT BLOOD,URINE NEGATIVE (NEGATIVE); PROTEIN,URINE 30 mg/dL (NEGATIVE); UROBILINOGEN,URINE 0.2 mg/dL (0.2-1.0)
[2022-05-23] MEDS ORDERED: METOCLOPRAMIDE 10 MG/2 ML VIAL IVP ONE (23:30)
[2022-05-23] MEDS ORDERED: DiphenhydrAMINE HCL 50 MG/ML VIAL IV ONE (23:30)
[2022-05-24] VITALS (7 sets, daily range): BP systolic 120–165; BP diastolic 70–100
[2022-05-24] MEDS ORDERED: ACETAMINOPHEN 325 MG TAB PO PRN (02:00)
[2022-05-24] MEDS: CEFTRIAXONE 1G VIAL IVP SCH (02:00)
[2022-05-24] MEDS ORDERED: ONDANSETRON ODT 4MG TAB SL PRN (02:00)
[2022-05-24] MEDS: DEXTROSE 5 % AND 0.9 % NACL 1,000 ML IV SCH ×3 (03:21→23:34)
[2022-05-24 06:15] LABS: BASOPHILS % (AUTO) 0.4 % (0.0-5.0); EOSINOPHILS % (AUTO) 0.1 % (0.0-8.0); HEMATOCRIT 38.9 % (42-54); MEAN CORPUSCULAR HEMOGLOBIN 27.5 pg (27.0-33.0); MEAN CORPUSCULAR HGB CONC 33.2 g/dL (32.0-36.0); MEAN CORPUSCULAR VOLUME 82.9 fL (79-99); MONOCYTES % (AUTO) 7.6 % (3.0-13.0); NEUTROPHILS % (AUTO) 78.5 % (40.0-77.0); PLATELET COUNT (AUTO) 232 K/uL (130-400); RED BLOOD CELL COUNT(AUTO) 4.69 MIL/uL (4.50-6.20); RED CELL DISTRIBUTION WIDTH 15.5 % (11.0-15.5); WHITE BLOOD COUNT (AUTO) 16.4 K/uL (4.8-10.8)
[2022-05-24 06:24] LABS: CREATININE 2.4 mg/dL (0.5-1.5); MAGNESIUM 2.3 mg/dL (1.80-2.40); POTASSIUM 4.5 mmol/L (3.5-5.1)
[2022-05-24] MEDS ORDERED: ENOXAPARIN SODIUM 30 MG/0.3 ML SQ ONE (08:00)
[2022-05-24] MEDS ORDERED: NITROGLYCERIN 0.4 MG SL TAB SL PRN (10:30)
[2022-05-24] MEDS ORDERED: BISACODYL 5 MG TABLET.DR PO PRN (10:30)
[2022-05-24] MEDS: TAMSULOSIN HCL 0.4 MG CAP.ER.24H PO SCH (20:43)
[2022-05-24] MEDS: ASPIRIN 81 MG EC TAB PO SCH (20:43)
[2022-05-24] MEDS: TRAZODONE HCL 100 MG TABLET PO SCH (20:43)
[2022-05-24] MEDS: ATORVASTATIN 10 MG TABLET PO SCH (20:44)
[2022-05-24] MEDS: METOPROLOL TARTRATE 25 MG TAB PO SCH (20:44)
[2022-05-24] MEDS: TICAGRELOR 60 MG PO SCH (20:47)
[2022-05-24] MEDS: NORTRIPTYLINE HCL 10 MG PO SCH (20:47)
[2022-05-25] MEDS: CEFTRIAXONE 1G VIAL IVP SCH (01:33)
[2022-05-25 04:07] VITALS: BP 121/77
[2022-05-25 08:00] VITALS: BP 132/90
[2022-05-25] MEDS: TRAZODONE HCL 100 MG TABLET PO SCH ×2 (08:45→19:58)
[2022-05-25] MEDS: ASPIRIN 81 MG EC TAB PO SCH ×2 (08:45→19:58)
[2022-05-25] MEDS: ISOSORBIDE MONONITRATE 20 MG TABLET PO SCH (08:46)
[2022-05-25] MEDS: METOPROLOL TARTRATE 25 MG TAB PO SCH ×2 (08:46→19:58)
[2022-05-25] MEDS: FAMOTIDINE 20MG TAB PO SCH (08:47)
[2022-05-25] MEDS: CETIRIZINE HCL 5 MG TABLET PO SCH (08:47)
[2022-05-25] MEDS: PAROXETINE HCL 20 MG TABLET PO SCH (08:47)
[2022-05-25] MEDS: LISINOPRIL 5 MG TABLET PO SCH (08:47)
[2022-05-25] MEDS: TICAGRELOR 60 MG PO SCH ×2 (08:49→21:00)
[2022-05-25 11:11] LABS: HEMATOCRIT 35.2 % (42-54); MEAN CORPUSCULAR HEMOGLOBIN 27.3 pg (27.0-33.0); MEAN CORPUSCULAR HGB CONC 33.2 g/dL (32.0-36.0); MEAN CORPUSCULAR VOLUME 82.1 fL (79-99); RED BLOOD CELL COUNT(AUTO) 4.29 MIL/uL (4.50-6.20); WHITE BLOOD COUNT (AUTO) 10.2 K/uL (4.8-10.8)
[2022-05-25 11:25] LABS: ALBUMIN 3.4 g/dL (3.5-5.0); CREATININE 1.1 mg/dL (0.5-1.5); POTASSIUM 3.8 mmol/L (3.5-5.1); TOTAL PROTEIN, SERUM 6.5 g/dL (6.0-8.3)
[2022-05-25 11:44] VITALS: BP 104/61
[2022-05-25] MEDS ORDERED: MORPHINE 2 MG SYG ONE (14:27)
[2022-05-25 16:00] VITALS: BP 140/75
[2022-05-25] MEDS: DEXTROSE 5 % AND 0.9 % NACL 1,000 ML IV SCH (17:38)
[2022-05-25] MEDS: ATORVASTATIN 10 MG TABLET PO SCH (19:58)
[2022-05-25] MEDS: TAMSULOSIN HCL 0.4 MG CAP.ER.24H PO SCH (19:58)
[2022-05-25 20:00] VITALS: BP 160/94
[2022-05-25] MEDS: MORPHINE 2 MG SYG IVP PRN (20:00)
[2022-05-25] MEDS: NORTRIPTYLINE HCL 10 MG PO SCH (21:00)
[2022-05-26] VITALS (11 sets, daily range): BP systolic 84–156; BP diastolic 53–103
[2022-05-26] MEDS: CEFTRIAXONE 1G VIAL IVP SCH (02:07)
[2022-05-26] MEDS: MORPHINE 2 MG SYG IVP PRN ×4 (02:14→23:15)
[2022-05-26 05:30] LABS: INR 0.93 (0.85-1.15); PROTHROMBIN TIME 9.9 SEC (9.6-11.6)
[2022-05-26 05:31] LABS: PARTIAL THROMBOPLASTIN TIME 24.9 SEC (26.3-35.5)
[2022-05-26] MEDS: ISOSORBIDE MONONITRATE 20 MG TABLET PO SCH ×2 (09:00→17:10)
[2022-05-26] MEDS: CETIRIZINE HCL 5 MG TABLET PO SCH (09:00)
[2022-05-26] MEDS: TICAGRELOR 60 MG PO SCH ×2 (09:00→21:00)
[2022-05-26] MEDS: FAMOTIDINE 20MG TAB PO SCH (09:00)
[2022-05-26] MEDS: ASPIRIN 81 MG EC TAB PO SCH ×2 (09:00→21:10)
[2022-05-26] MEDS: LISINOPRIL 5 MG TABLET PO SCH ×2 (09:00→17:10)
[2022-05-26] MEDS: TRAZODONE HCL 100 MG TABLET PO SCH ×2 (09:06→21:10)
[2022-05-26] MEDS: PAROXETINE HCL 20 MG TABLET PO SCH (09:07)
[2022-05-26] MEDS: METOPROLOL TARTRATE 25 MG TAB PO SCH ×2 (09:07→21:09)
[2022-05-26] MEDS: DEXTROSE 5 % AND 0.9 % NACL 1,000 ML IV SCH ×2 (09:10→23:18)
[2022-05-26 11:38] LABS: HEMATOCRIT 35.7 % (42-54); MEAN CORPUSCULAR HEMOGLOBIN 27.4 pg (27.0-33.0); MEAN CORPUSCULAR HGB CONC 33.3 g/dL (32.0-36.0); MEAN CORPUSCULAR VOLUME 82.1 fL (79-99); RED BLOOD CELL COUNT(AUTO) 4.35 MIL/uL (4.50-6.20); RED CELL DISTRIBUTION WIDTH 14.7 % (11.0-15.5); WHITE BLOOD COUNT (AUTO) 10.2 K/uL (4.8-10.8)
[2022-05-26 11:48] LABS: POTASSIUM 3.8 mmol/L (3.5-5.1)
[2022-05-26] MEDS ORDERED: PROPOFOL 10 MG/ML 20ML VIAL IV ONE (17:58)
[2022-05-26] MEDS ORDERED: LACTULOSE 20 GM/30 ML UDCUP PO SCH (21:00)
[2022-05-26] MEDS: NORTRIPTYLINE HCL 10 MG PO SCH (21:00)
[2022-05-26] MEDS: TAMSULOSIN HCL 0.4 MG CAP.ER.24H PO SCH (21:09)
[2022-05-26] MEDS: ATORVASTATIN 10 MG TABLET PO SCH (21:09)
[2022-05-26] MEDS ORDERED: LACTULOSE 20 GM/30 ML UDCUP PO ONE (23:00)
[2022-05-27 00:15] VITALS: BP 102/59
[2022-05-27] MEDS ORDERED: LACTULOSE 20 GM/30 ML UDCUP PO ONE ×4 (01:00→13:00)
[2022-05-27] MEDS: CEFTRIAXONE 1G VIAL IVP SCH (01:51)
[2022-05-27 04:30] VITALS: BP 115/64
[2022-05-27 05:44] LABS: BASOPHILS % (AUTO) 0.8 % (0.0-5.0); EOSINOPHILS % (AUTO) 4.5 % (0.0-8.0); HEMATOCRIT 33.5 % (42-54); LYMPHOCYTES % (AUTO) 33.8 % (21.0-51.0); MEAN CORPUSCULAR HEMOGLOBIN 27.2 pg (27.0-33.0); MEAN CORPUSCULAR HGB CONC 32.8 g/dL (32.0-36.0); MEAN CORPUSCULAR VOLUME 82.9 fL (79-99); MONOCYTES % (AUTO) 8.8 % (3.0-13.0); NEUTROPHILS % (AUTO) 51.6 % (40.0-77.0); PLATELET COUNT (AUTO) 226 K/uL (130-400); RED BLOOD CELL COUNT(AUTO) 4.04 MIL/uL (4.50-6.20); RED CELL DISTRIBUTION WIDTH 14.6 % (11.0-15.5); WHITE BLOOD COUNT (AUTO) 9.4 K/uL (4.8-10.8)
[2022-05-27 05:51] LABS: CREATININE 1.1 mg/dL (0.5-1.5); POTASSIUM 3.4 mmol/L (3.5-5.1)
[2022-05-27] MEDS: MORPHINE 2 MG SYG IVP PRN ×3 (06:33→18:25)
[2022-05-27 08:00] VITALS: BP 107/79
[2022-05-27] MEDS: TICAGRELOR 60 MG PO SCH ×2 (09:00→21:00)
[2022-05-27] MEDS: CETIRIZINE HCL 5 MG TABLET PO SCH (09:25)
[2022-05-27] MEDS: FAMOTIDINE 20MG TAB PO SCH (09:26)
[2022-05-27] MEDS: TRAZODONE HCL 100 MG TABLET PO SCH ×2 (09:26→23:09)
[2022-05-27] MEDS: ASPIRIN 81 MG EC TAB PO SCH ×2 (09:26→23:09)
[2022-05-27] MEDS: METOPROLOL TARTRATE 25 MG TAB PO SCH ×2 (09:26→23:09)
[2022-05-27] MEDS: PANTOPRAZOLE 40 MG TAB DR PO SCH (09:26)
[2022-05-27] MEDS: PAROXETINE HCL 20 MG TABLET PO SCH (09:26)
[2022-05-27] MEDS: DEXTROSE 5 % AND 0.9 % NACL 1,000 ML IV SCH ×2 (11:36→23:50)
[2022-05-27 12:00] VITALS: BP 124/73
[2022-05-27] MEDS ORDERED: POTASSIUM CHLORIDE 20MEQ/100ML 100 ML IV PRN (14:00)
[2022-05-27] MEDS ORDERED: KCL 20 MEQ ERTAB PO ONE (14:00)
[2022-05-27] MEDS ORDERED: KCL 20 MEQ ERTAB PO PRN (14:00)
[2022-05-27] MEDS ORDERED: LIDOCAINE HCL-MPF 1% 2ML VIAL IV PRN (14:00)
[2022-05-27] MEDS ORDERED: PEG 3350/NA SULF,BICARB,CL/KCL 4000 ML SOLN PO ONE (15:00)
[2022-05-27 16:00] VITALS: BP 140/97
[2022-05-27] MEDS ORDERED: BISACODYL 5 MG TABLET.DR PO SCH (18:00)
[2022-05-27 19:00] VITALS: BP 134/87
[2022-05-27] MEDS: NORTRIPTYLINE HCL 10 MG PO SCH (21:00)
[2022-05-27] MEDS: ATORVASTATIN 10 MG TABLET PO SCH (23:08)
[2022-05-27] MEDS: TAMSULOSIN HCL 0.4 MG CAP.ER.24H PO SCH (23:09)
[2022-05-28] VITALS (21 sets, daily range): BP systolic 99–153; BP diastolic 59–93
[2022-05-28] MEDS: CEFTRIAXONE 1G VIAL IVP SCH (01:54)
[2022-05-28] MEDS: MORPHINE 2 MG SYG IVP PRN ×4 (02:10→22:48)
[2022-05-28 04:39] LABS: HEMATOCRIT 39.2 % (42-54); MEAN CORPUSCULAR HEMOGLOBIN 27.3 pg (27.0-33.0); MEAN CORPUSCULAR HGB CONC 33.2 g/dL (32.0-36.0); MEAN CORPUSCULAR VOLUME 82.2 fL (79-99); RED BLOOD CELL COUNT(AUTO) 4.77 MIL/uL (4.50-6.20); RED CELL DISTRIBUTION WIDTH 14.6 % (11.0-15.5); WHITE BLOOD COUNT (AUTO) 11.7 K/uL (4.8-10.8)
[2022-05-28 05:02] LABS: ALBUMIN 3.6 g/dL (3.5-5.0); MAGNESIUM 1.4 mg/dL (1.80-2.40); POTASSIUM 3.7 mmol/L (3.5-5.1); TOTAL PROTEIN, SERUM 7.2 g/dL (6.0-8.3)
[2022-05-28] MEDS: PANTOPRAZOLE 40 MG TAB DR PO SCH (08:34)
[2022-05-28] MEDS: TRAZODONE HCL 100 MG TABLET PO SCH ×2 (08:34→19:56)
[2022-05-28] MEDS: METOPROLOL TARTRATE 25 MG TAB PO SCH ×2 (08:34→19:56)
[2022-05-28] MEDS: ISOSORBIDE MONONITRATE 20 MG TABLET PO SCH (08:34)
[2022-05-28] MEDS: ASPIRIN 81 MG EC TAB PO SCH ×2 (08:36→19:56)
[2022-05-28] MEDS: CETIRIZINE HCL 5 MG TABLET PO SCH (08:36)
[2022-05-28] MEDS: TICAGRELOR 60 MG PO SCH ×2 (08:36→21:00)
[2022-05-28] MEDS: LISINOPRIL 5 MG TABLET PO SCH (08:36)
[2022-05-28] MEDS: PAROXETINE HCL 20 MG TABLET PO SCH (08:36)
[2022-05-28] MEDS: MAGNESIUM 2GM PREMIX 50ML 50 ML IV PRN (11:05)
[2022-05-28] MEDS: DEXTROSE 5 % AND 0.9 % NACL 1,000 ML IV SCH (13:10)
[2022-05-28] MEDS ORDERED: PROPOFOL 10 MG/ML 20ML VIAL IV ONE (13:46)
[2022-05-28] MEDS ORDERED: 0.9%NACL 1000ML 1,000 ML IV ONE (13:48)
[2022-05-28] MEDS ORDERED: SIMETHICONE 40 MG/0.6 ML ML ONE (13:49)
[2022-05-28] MEDS: TAMSULOSIN HCL 0.4 MG CAP.ER.24H PO SCH (19:56)
[2022-05-28] MEDS: ATORVASTATIN 10 MG TABLET PO SCH (19:56)
[2022-05-28] MEDS: NORTRIPTYLINE HCL 10 MG PO SCH (21:00)
[2022-05-29] MEDS: CEFTRIAXONE 1G VIAL IVP SCH (02:01)
[2022-05-29] MEDS: DEXTROSE 5 % AND 0.9 % NACL 1,000 ML IV SCH ×2 (02:45→15:50)
[2022-05-29 03:53] VITALS: BP 136/72
[2022-05-29 04:33] LABS: HEMATOCRIT 33.6 % (42-54); MEAN CORPUSCULAR HEMOGLOBIN 27.3 pg (27.0-33.0); MEAN CORPUSCULAR VOLUME 82.8 fL (79-99); RED BLOOD CELL COUNT(AUTO) 4.06 MIL/uL (4.50-6.20); RED CELL DISTRIBUTION WIDTH 14.4 % (11.0-15.5); WHITE BLOOD COUNT (AUTO) 11.3 K/uL (4.8-10.8)
[2022-05-29 04:48] LABS: CREATININE 0.9 mg/dL (0.5-1.5); MAGNESIUM 1.8 mg/dL (1.80-2.40); POTASSIUM 3.4 mmol/L (3.5-5.1)
[2022-05-29] MEDS: POTASSIUM CHLORIDE 10% ELIXIR 20 MEQ/15 ML UDCUP PO PRN ×2 (05:24→08:20)
[2022-05-29 07:13] VITALS: BP 151/104
[2022-05-29] MEDS: ASPIRIN 81 MG EC TAB PO SCH (08:17)
[2022-05-29] MEDS: TRAZODONE HCL 100 MG TABLET PO SCH (08:17)
[2022-05-29] MEDS: PAROXETINE HCL 20 MG TABLET PO SCH (08:17)
[2022-05-29] MEDS: LISINOPRIL 5 MG TABLET PO SCH (08:17)
[2022-05-29] MEDS: PANTOPRAZOLE 40 MG TAB DR PO SCH (08:18)
[2022-05-29] MEDS: METOPROLOL TARTRATE 25 MG TAB PO SCH (08:18)
[2022-05-29] MEDS: CETIRIZINE HCL 5 MG TABLET PO SCH (08:19)
[2022-05-29] MEDS: MAGNESIUM 2GM PREMIX 50ML 50 ML IV PRN (08:20)
[2022-05-29] MEDS: ISOSORBIDE MONONITRATE 20 MG TABLET PO SCH (08:20)
[2022-05-29] MEDS: MORPHINE 2 MG SYG IVP PRN ×2 (08:21→14:54)
[2022-05-29] MEDS: TICAGRELOR 60 MG PO SCH (08:21)
[2022-05-29 12:12] VITALS: BP 109/69
== END 2022-05-29 17:45 | disposition home or self-care (01) | DRG 871 ==
LOC: EDH 17:50 → EDHIP 23:57 → 3BH 05-24 02:19
PROVIDERS: ADMIT Internal Medicine Infectious Disease; ATTEND Internal Medicine Infectious Disease
PROC: 0DJ08ZZ Inspection of Upper Intestinal Tract, Via Natural or Artificial Opening Endoscopic (ICD-10-PCS; 2022-05-26)
PROC: 0DJD8ZZ Inspection of Lower Intestinal Tract, Via Natural or Artificial Opening Endoscopic (ICD-10-PCS; principal; 2022-05-28)
DX: A41.50 Gram-negative sepsis, unspecified (principal); K21.01 Gastro-esophageal reflux disease with esophagitis, with bleeding; K29.71 Gastritis, unspecified, with bleeding; K29.81 Duodenitis with bleeding; K57.31 Diverticulosis of large intestine without perforation or abscess with bleeding; N10 Acute pyelonephritis; N17.9 Acute kidney failure, unspecified; D62 Acute posthemorrhagic anemia; Z20.822 Contact with and (suspected) exposure to COVID-19; I10 Essential (primary) hypertension; B96.81 Helicobacter pylori [H. pylori] as the cause of diseases classified elsewhere; E03.9 Hypothyroidism, unspecified; E66.9 Obesity, unspecified; E78.5 Hyperlipidemia, unspecified; E86.0 Dehydration; F17.210 Nicotine dependence, cigarettes, uncomplicated; N20.0 Calculus of kidney; F32.A Depression, unspecified; I25.10 Atherosclerotic heart disease of native coronary artery without angina pectoris; K64.9 Unspecified hemorrhoids; Z96.659 Presence of unspecified artificial knee joint; Z95.5 Presence of coronary angioplasty implant and graft; Z87.442 Personal history of urinary calculi; Z82.49 Family history of ischemic heart disease and other diseases of the circulatory system; Z68.24 Body mass index [BMI] 24.0-24.9, adult
CPT/HCPCS: 36415; 43235; 45378; 71045; 74176; 80048; 80053; 81003; 82270; 82948; 83036; 83690; 83735; 84153; 84484; 85025; 85027; 85610; 85730; 86677; 87635; 93005; 94640; A4606; C9803; G0378; J0500; J0696; J1200; J1650; J2405; J2704; J2765; J3475; J3490; J7030; J7042; J7050

== ENCOUNTER 2022-06-06 08:35 | Emergency (ER) | payer MEDICARE ==
[~2022-06-06] VITALS: Ht 170.2 cm; Wt 66.7 kg
[~2022-06-06 08:35] MED LIST changes: -CEFU500T67 PO; -CIPR7.5D OT; -MECL-226 PO; -OFLO5DRO OD
[2022-06-06 09:02] LABS: HEMATOCRIT 40.6 % (42-54); MEAN CORPUSCULAR HEMOGLOBIN 27.2 pg (27.0-33.0); MEAN CORPUSCULAR HGB CONC 32.8 g/dL (32.0-36.0); RED BLOOD CELL COUNT(AUTO) 4.89 MIL/uL (4.50-6.20); WHITE BLOOD COUNT (AUTO) 13.9 K/uL (4.8-10.8)
[2022-06-06 09:11] LABS: POTASSIUM 3.6 mmol/L (3.5-5.1)
[2022-06-06] MEDS ORDERED: 0.9%NACL 1000ML 1,000 ML IV ONE (09:30)
[2022-06-06 10:39] VITALS: BP 165/88
[2022-06-06 11:06] LABS: APPEARANCE,URINE CLEAR (CLEAR); BILIRUBIN,URINE NEGATIVE (NEGATIVE); COLOR,URINE YELLOW (YELLOW); GLUCOSE, URINE (UA) NEGATIVE (NEGATIVE); KETONES,URINE 5 mg/dL (NEGATIVE); LEUKOCYTE ESTERASE ,URINE NEGATIVE (NEGATIVE); NITRATE,URINE NEGATIVE (NEGATIVE); OCCULT BLOOD,URINE NEGATIVE (NEGATIVE); PH,URINE 6.5 (5.0-8.0); PROTEIN,URINE TRACE mg/dL (NEGATIVE); UROBILINOGEN,URINE 0.2 mg/dL (0.2-1.0)
[2022-06-06] MEDS ORDERED: ONDANSETRON ODT 4MG TAB ONE (11:21)
[2022-06-06] MEDS ORDERED: ONDANSETRON ODT 4MG TAB SL ONE (11:30)
[2022-06-06 11:47] LABS: AMPHET/METH SCREEN,URINE NEGATIVE (NEGATIVE); BENZODIAZEPINES SCREEN,URINE NEGATIVE (NEGATIVE); CANNABINOID SCREEN,URINE POSITIVE (NEGATIVE); COCAINE SCREEN,URINE NEGATIVE (NEGATIVE); PHENCYCLIDINE SCREEN,URINE NEGATIVE (NEGATIVE)
[2022-06-06 12:05] LABS: BACTERIA,URINE Rare /HPF (None Seen); RBC,URINE 0-1 /HPF (0-1); WBC,URINE 0-1 /HPF (0-1)
[2022-06-08 08:15] LABS: OPIATES SCREEN URINE Negative ng/mL (Cutoff=300)
== END 2022-06-06 11:46 | disposition home or self-care (01) ==
LOC: EDH 08:35
DX: A08.4 Viral intestinal infection, unspecified (principal); K21.9 Gastro-esophageal reflux disease without esophagitis; Z79.82 Long term (current) use of aspirin; Z79.899 Other long term (current) drug therapy; Z90.49 Acquired absence of other specified parts of digestive tract; Z95.5 Presence of coronary angioplasty implant and graft
CPT/HCPCS: 99284; 96360; 84484; 80053; 80305; 83690; 85027; 36415; 93005; 81001; J7030

== ENCOUNTER 2022-06-24 09:22 | Emergency (ER) | payer MEDICARE ==
[~2022-06-24] VITALS: Ht 170.2 cm; Wt 77.1 kg
[2022-06-24 09:49] LABS: BASOPHILS % (AUTO) 0.3 % (0.0-5.0); EOSINOPHILS % (AUTO) 0.5 % (0.0-8.0); LYMPHOCYTES % (AUTO) 11.5 % (21.0-51.0); MEAN CORPUSCULAR HEMOGLOBIN 26.9 pg (27.0-33.0); MEAN CORPUSCULAR HGB CONC 32.5 g/dL (32.0-36.0); MEAN CORPUSCULAR VOLUME 82.6 fL (79-99); MONOCYTES % (AUTO) 6.6 % (3.0-13.0); NEUTROPHILS % (AUTO) 80.6 % (40.0-77.0); PLATELET COUNT (AUTO) 280 K/uL (130-400); RED BLOOD CELL COUNT(AUTO) 4.84 MIL/uL (4.50-6.20); RED CELL DISTRIBUTION WIDTH 14.6 % (11.0-15.5); WHITE BLOOD COUNT (AUTO) 17.3 K/uL (4.8-10.8)
[2022-06-24 09:54] LABS: CREATININE 1.1 mg/dL (0.5-1.5); POTASSIUM 3.3 mmol/L (3.5-5.1)
[2022-06-24] MEDS ORDERED: METOCLOPRAMIDE 10 MG/2 ML VIAL IVP ONE (10:00)
[2022-06-24] MEDS ORDERED: DICYCLOMINE HCL 10 MG/5 ML ML PO ONE (10:00)
[2022-06-24] MEDS ORDERED: MAG/ALUM/SIMETH 30 ML UDCUP PO ONE (10:00)
[2022-06-24] MEDS ORDERED: MORPHINE 2 MG SYG IVP ONE (10:00)
[2022-06-24] MEDS ORDERED: 0.9%NACL 1000ML 1,000 ML IV ONE (10:00)
[2022-06-24] MEDS ORDERED: LIDOCAINE HCL 2% VISCOUS 15 ML UDCUP PO ONE (10:00)
[2022-06-24] MEDS ORDERED: ONDANSETRON 4MG INJ IVP ONE (10:00)
[2022-06-24] MEDS ORDERED: IPRATROPIUM/ALBUTEROL SULFATE 3 ML SOLUTION IH ONE ×2 (11:56→12:00)
[2022-06-24 12:59] VITALS: BP 144/87
[2022-06-24] MEDS ORDERED: MORPHINE 4 MG SYG IVP ONE (13:00)
[2022-06-24] MEDS ORDERED: IOHEXOL 350 MG/ML 100ML INFUS..BTL IV ONE (13:04)
[2022-06-24 13:28] LABS: APPEARANCE,URINE CLEAR (CLEAR); BILIRUBIN,URINE NEGATIVE (NEGATIVE); COLOR,URINE YELLOW (YELLOW); GLUCOSE, URINE (UA) NEGATIVE (NEGATIVE); KETONES,URINE 5 mg/dL (NEGATIVE); LEUKOCYTE ESTERASE ,URINE NEGATIVE (NEGATIVE); NITRATE,URINE NEGATIVE (NEGATIVE); OCCULT BLOOD,URINE NEGATIVE (NEGATIVE); PROTEIN,URINE 30 mg/dL (NEGATIVE); UROBILINOGEN,URINE 0.2 mg/dL (0.2-1.0)
[2022-06-24 13:34] LABS: BACTERIA,URINE Rare /HPF (None Seen); RBC,URINE 0-1 /HPF (0-1); SQUAMOUS EPITHELIAL CELL,UR 0-2 /HPF (0-2); WBC,URINE 0-1 /HPF (0-1)
[2022-06-24] MEDS ORDERED: ACET-2079 PO (13:50)
[2022-06-24] MEDS ORDERED: METO10TA41 PO (13:50)
== END 2022-06-24 14:04 | disposition home or self-care (01) ==
LOC: EDH 09:22
DX: R11.2 Nausea with vomiting, unspecified (principal); R10.13 Epigastric pain; K21.9 Gastro-esophageal reflux disease without esophagitis; I25.2 Old myocardial infarction; F17.200 Nicotine dependence, unspecified, uncomplicated; Z90.89 Acquired absence of other organs; Z90.49 Acquired absence of other specified parts of digestive tract; Z79.899 Other long term (current) drug therapy; Z79.82 Long term (current) use of aspirin; Z98.890 Other specified postprocedural states
CPT/HCPCS: 99285; 74177; 96374; 71045; 96375; 96361; 84484; 80053; 85025; 81001; 36415; 96376; 93005; 94640; J7030; J2405; J2270; J2765; Q9967

== ENCOUNTER 2022-06-27 08:04 | Emergency (ER) | payer MEDICARE ==
[~2022-06-27] VITALS: Ht 170.2 cm; Wt 77.1 kg
[~2022-06-27 08:04] MED LIST changes: +ACET-2079 PO; +METO10TA41 PO
[2022-06-27 08:39] LABS: BASOPHILS % (AUTO) 0.4 % (0.0-5.0); EOSINOPHILS % (AUTO) 0.9 % (0.0-8.0); HEMATOCRIT 39.4 % (42-54); LYMPHOCYTES % (AUTO) 11.2 % (21.0-51.0); MEAN CORPUSCULAR HEMOGLOBIN 27.1 pg (27.0-33.0); MEAN CORPUSCULAR HGB CONC 32.5 g/dL (32.0-36.0); MEAN CORPUSCULAR VOLUME 83.5 fL (79-99); MONOCYTES % (AUTO) 7.7 % (3.0-13.0); NEUTROPHILS % (AUTO) 79.2 % (40.0-77.0); PLATELET COUNT (AUTO) 269 K/uL (130-400); RED BLOOD CELL COUNT(AUTO) 4.72 MIL/uL (4.50-6.20); RED CELL DISTRIBUTION WIDTH 14.6 % (11.0-15.5); WHITE BLOOD COUNT (AUTO) 16.1 K/uL (4.8-10.8)
[2022-06-27] MEDS ORDERED: KETOROLAC 15MG/ML VIAL (15MG/ML) IV SCH (09:00)
[2022-06-27] MEDS ORDERED: OXYMETAZOLINE HCL SPRAY 15 ML BOTTLE EN SCH (09:00)
[2022-06-27 09:16] LABS: CREATININE 1.1 mg/dL (0.5-1.5); POTASSIUM 3.5 mmol/L (3.5-5.1)
[2022-06-27 09:21] LABS: ALBUMIN 3.6 g/dL (3.5-5.0); TOTAL PROTEIN, SERUM 7.3 g/dL (6.0-8.3)
[2022-06-27] MEDS ORDERED: ACETAMINOPHEN WITH CODEINE 1 TAB TAB PO ONE (10:00)
[2022-06-27] MEDS ORDERED: ONDANSETRON 4MG INJ IV ONE (10:00)
[2022-06-27] MEDS ORDERED: ONDA4TAB10 PO (10:02)
[2022-06-27] MEDS ORDERED: AZIT500T2 PO (10:02)
[2022-06-27] MEDS ORDERED: ACET-2079 PO (10:02)
[2022-06-27 11:02] VITALS: BP 147/98
== END 2022-06-27 11:06 | disposition home or self-care (01) ==
LOC: EDH 08:04
DX: J20.9 Acute bronchitis, unspecified (principal); B34.9 Viral infection, unspecified; Z20.822 Contact with and (suspected) exposure to COVID-19; K21.9 Gastro-esophageal reflux disease without esophagitis; F17.200 Nicotine dependence, unspecified, uncomplicated; Z79.1 Long term (current) use of non-steroidal anti-inflammatories (NSAID); Z79.82 Long term (current) use of aspirin; Z79.899 Other long term (current) drug therapy; Z90.49 Acquired absence of other specified parts of digestive tract; Z95.5 Presence of coronary angioplasty implant and graft
CPT/HCPCS: 99285; 96374; 71045; 87426; 96375; 84484; 80053; 85025; 87804 ×2; 36415; 93005; J2405; J1885

== ENCOUNTER 2022-07-21 16:44 | Emergency (ER) | payer MEDICARE ==
[~2022-07-21] VITALS: Ht 170.2 cm; Wt 78.9 kg
[~2022-07-21 16:44] MED LIST changes: +AZIT500T2 PO; +ONDA4TAB10 PO
[2022-07-21] MEDS ORDERED: ONDANSETRON 4MG INJ IVP ONE (17:30)
[2022-07-21] MEDS ORDERED: LIDOCAINE HCL 2% VISCOUS 15 ML UDCUP PO ONE (17:30)
[2022-07-21] MEDS ORDERED: FAMOTIDINE 20MG VIAL IV ONE (17:30)
[2022-07-21] MEDS ORDERED: MAG/ALUM/SIMETH 30 ML UDCUP PO ONE (17:30)
[2022-07-21] MEDS ORDERED: DICYCLOMINE HCL 10 MG/5 ML ML PO ONE (17:30)
[2022-07-21 17:31] LABS: BASOPHILS % (AUTO) 0.5 % (0.0-5.0); EOSINOPHILS % (AUTO) 1.6 % (0.0-8.0); HEMATOCRIT 45.7 % (42-54); LYMPHOCYTES % (AUTO) 19.3 % (21.0-51.0); MEAN CORPUSCULAR HEMOGLOBIN 27.2 pg (27.0-33.0); MEAN CORPUSCULAR HGB CONC 33.3 g/dL (32.0-36.0); MEAN CORPUSCULAR VOLUME 81.9 fL (79-99); MONOCYTES % (AUTO) 9.8 % (3.0-13.0); NEUTROPHILS % (AUTO) 68.4 % (40.0-77.0); PLATELET COUNT (AUTO) 282 K/uL (130-400); RED BLOOD CELL COUNT(AUTO) 5.58 MIL/uL (4.50-6.20); WHITE BLOOD COUNT (AUTO) 13.8 K/uL (4.8-10.8)
[2022-07-21 17:47] LABS: CREATININE 1.1 mg/dL (0.5-1.5); POTASSIUM 3.4 mmol/L (3.5-5.1)
[2022-07-21 17:54] LABS: ALBUMIN 4.4 g/dL (3.5-5.0); TOTAL PROTEIN, SERUM 8.5 g/dL (6.0-8.3)
[2022-07-21] MEDS ORDERED: 0.9%NACL 1000ML 1,000 ML IV SCH (18:30)
[2022-07-21] MEDS ORDERED: ACETAMINOPHEN 500 MG TABLET PO ONE (19:00)
[2022-07-21] MEDS ORDERED: ACET-2247 PO (19:05)
[2022-07-21] MEDS ORDERED: DICY20TA2 PO (19:05)
[2022-07-21] MEDS ORDERED: ONDA4TAB10 PO (19:05)
[2022-07-21 20:00] VITALS: BP 121/78
== END 2022-07-21 20:13 | disposition home or self-care (01) ==
LOC: EDH 16:44
DX: K29.70 Gastritis, unspecified, without bleeding (principal); K40.90 Unilateral inguinal hernia, without obstruction or gangrene, not specified as recurrent; F17.200 Nicotine dependence, unspecified, uncomplicated; J44.9 Chronic obstructive pulmonary disease, unspecified; K21.9 Gastro-esophageal reflux disease without esophagitis; I25.2 Old myocardial infarction; G89.29 Other chronic pain; Z90.89 Acquired absence of other organs; Z90.49 Acquired absence of other specified parts of digestive tract; Z98.890 Other specified postprocedural states; Z79.899 Other long term (current) drug therapy; Z79.82 Long term (current) use of aspirin
CPT/HCPCS: 99285; 74176; 96374; 96361; 96375; 80053; 83690; 85025; 36415; 93005; J3490; J7030; J2405

== ENCOUNTER → 2022-08-07 | Outpatient (CLI) | payer MEDICARE ==
[~2022-08-07] MED LIST changes: +ACET-2247 PO; +BISA-189 PO; -BISA5TAB12 PO; +DICY20TA2 PO
== END | disposition home or self-care (01) ==
LOC: LAB 08:52
PROVIDERS: ATTEND Internal Medicine
DX: J44.9 Chronic obstructive pulmonary disease, unspecified (principal); R06.00 Dyspnea, unspecified; R06.02 Shortness of breath; Z72.0 Tobacco use
CPT/HCPCS: 87071; 87116; 87205; 87206

== ENCOUNTER → 2022-08-09 | Outpatient (CLI) | payer MEDICARE ==
[2022-08-09 08:42] LABS: BASOPHILS % (AUTO) 0.7 % (0.0-5.0); EOSINOPHILS % (AUTO) 3.3 % (0.0-8.0); HEMATOCRIT 41.7 % (42-54); LYMPHOCYTES % (AUTO) 20.2 % (21.0-51.0); MEAN CORPUSCULAR HEMOGLOBIN 27.2 pg (27.0-33.0); MEAN CORPUSCULAR HGB CONC 32.1 g/dL (32.0-36.0); MEAN CORPUSCULAR VOLUME 84.8 fL (79-99); MONOCYTES % (AUTO) 10.2 % (3.0-13.0); NEUTROPHILS % (AUTO) 65.2 % (40.0-77.0); PLATELET COUNT (AUTO) 284 K/uL (130-400); RED BLOOD CELL COUNT(AUTO) 4.92 MIL/uL (4.50-6.20); RED CELL DISTRIBUTION WIDTH 15.2 % (11.0-15.5); WHITE BLOOD COUNT (AUTO) 8.2 K/uL (4.8-10.8)
[2022-08-09 08:54] LABS: ALBUMIN 3.4 g/dL (3.5-5.0); POTASSIUM 4.8 mmol/L (3.5-5.1); TOTAL PROTEIN, SERUM 7.4 g/dL (6.0-8.3)
== END | disposition home or self-care (01) ==
LOC: LAB 07:52
PROVIDERS: ATTEND Internal Medicine
DX: R10.84 Generalized abdominal pain (principal)
CPT/HCPCS: 36415; 80053; 85025

== ENCOUNTER → 2022-08-15 | Outpatient (CLI) | payer MEDICARE ==
[~2022-08-15] MED LIST changes: +IOHEXOL 350 MG/ML 100ML INFUS..BTL IV ONE
== END | disposition home or self-care (01) ==
LOC: RAH 08:00
PROVIDERS: ATTEND Internal Medicine Gastroenterology
DX: I70.0 Atherosclerosis of aorta (principal); R10.84 Generalized abdominal pain; R11.0 Nausea
CPT/HCPCS: 74174; Q9967

== ENCOUNTER 2022-10-04 11:26 | Emergency (ER) | payer MEDICARE ==
[~2022-10-04] VITALS: Ht 170.2 cm; Wt 75.7 kg
[~2022-10-04 11:26] MED LIST changes: -IOHEXOL 350 MG/ML 100ML INFUS..BTL IV ONE
[2022-10-04] MEDS ORDERED: HALOPERIDOL INJ 5 MG/ML VIAL IV SCH (12:30)
[2022-10-04] MEDS ORDERED: DiphenhydrAMINE HCL 50 MG/ML VIAL IV ONE (12:30)
[2022-10-04] MEDS ORDERED: 0.9%NACL 1000ML 1,000 ML IV ONE (12:30)
[2022-10-04 12:42] LABS: ALBUMIN 4.2 g/dL (3.5-5.0); POTASSIUM 3.7 mmol/L (3.5-5.1); TOTAL PROTEIN, SERUM 8.3 g/dL (6.0-8.3)
[2022-10-04 12:49] LABS: BASOPHILS % (AUTO) 0.4 % (0.0-5.0); EOSINOPHILS % (AUTO) 0.2 % (0.0-8.0); HEMATOCRIT 43.7 % (42-54); LYMPHOCYTES % (AUTO) 12.9 % (21.0-51.0); MEAN CORPUSCULAR HEMOGLOBIN 27.3 pg (27.0-33.0); MEAN CORPUSCULAR VOLUME 82.8 fL (79-99); MONOCYTES % (AUTO) 4.4 % (3.0-13.0); NEUTROPHILS % (AUTO) 81.7 % (40.0-77.0); PLATELET COUNT (AUTO) 233 K/uL (130-400); RED BLOOD CELL COUNT(AUTO) 5.28 MIL/uL (4.50-6.20); RED CELL DISTRIBUTION WIDTH 14.9 % (11.0-15.5); WHITE BLOOD COUNT (AUTO) 14.2 K/uL (4.8-10.8)
[2022-10-04] MEDS ORDERED: MORPHINE 4 MG SYG IVP ONE (16:30)
[2022-10-04 17:31] VITALS: BP 148/83
== END 2022-10-04 18:03 | disposition home or self-care (01) ==
LOC: EDH 11:26
DX: F12.10 Cannabis abuse, uncomplicated (principal); R10.10 Upper abdominal pain, unspecified; E78.00 Pure hypercholesterolemia, unspecified; I10 Essential (primary) hypertension; F17.200 Nicotine dependence, unspecified, uncomplicated; Z90.49 Acquired absence of other specified parts of digestive tract; Z79.82 Long term (current) use of aspirin; Z79.899 Other long term (current) drug therapy
CPT/HCPCS: 99284; 96374; 96361; 96375; 80053; 83690; 85025; 36415; J1200; J7030; J2270; J1630

== ENCOUNTER 2022-11-10 16:43 | Emergency (ER) | payer MEDICARE ==
[~2022-11-10] VITALS: Ht 175.3 cm; Wt 81.6 kg
[2022-11-10] MEDS ORDERED: ONDANSETRON 4MG INJ IV ONE (17:30)
[2022-11-10] MEDS ORDERED: KETOROLAC 30MG VIAL (30MG/ML) IVP ONE (17:30)
[2022-11-10 17:36] LABS: BASOPHILS % (AUTO) 0.4 % (0.0-5.0); HEMATOCRIT 42.6 % (42-54); LYMPHOCYTES % (AUTO) 9.7 % (21.0-51.0); MEAN CORPUSCULAR HEMOGLOBIN 27.5 pg (27.0-33.0); MEAN CORPUSCULAR HGB CONC 32.9 g/dL (32.0-36.0); MEAN CORPUSCULAR VOLUME 83.7 fL (79-99); MONOCYTES % (AUTO) 3.4 % (3.0-13.0); PLATELET COUNT (AUTO) 241 K/uL (130-400); RED BLOOD CELL COUNT(AUTO) 5.09 MIL/uL (4.50-6.20); RED CELL DISTRIBUTION WIDTH 14.8 % (11.0-15.5); WHITE BLOOD COUNT (AUTO) 13.6 K/uL (4.8-10.8)
[2022-11-10 17:53] LABS: POTASSIUM 3.6 mmol/L (3.5-5.1)
[2022-11-10 18:00] LABS: TOTAL PROTEIN, SERUM 7.8 g/dL (6.0-8.3)
[2022-11-10] MEDS ORDERED: HALOPERIDOL INJ 5 MG/ML VIAL IV SCH (19:00)
[2022-11-10 19:09] VITALS: BP 149/98
== END 2022-11-10 19:34 | disposition home or self-care (01) ==
LOC: EDH 16:43
DX: G89.29 Other chronic pain (principal); R11.2 Nausea with vomiting, unspecified; R10.9 Unspecified abdominal pain; F12.10 Cannabis abuse, uncomplicated; E78.00 Pure hypercholesterolemia, unspecified; F17.210 Nicotine dependence, cigarettes, uncomplicated; I10 Essential (primary) hypertension; K21.9 Gastro-esophageal reflux disease without esophagitis; Z79.899 Other long term (current) drug therapy; Z79.82 Long term (current) use of aspirin; Z90.49 Acquired absence of other specified parts of digestive tract; Z98.890 Other specified postprocedural states
CPT/HCPCS: 99284; 84484; 80053; 83690; 85025; 36415; 96374; 96375; 93005; J2405; J1885

== ENCOUNTER 2022-11-12 11:46 | Emergency (ER) | payer MEDICARE ==
[~2022-11-12] VITALS: Ht 170.2 cm; Wt 81.6 kg
[2022-11-12] MEDS ORDERED: ONDANSETRON 4MG INJ IVP ONE (12:30)
[2022-11-12] MEDS ORDERED: LIDOCAINE HCL 2% VISCOUS 15 ML UDCUP PO ONE (12:30)
[2022-11-12] MEDS ORDERED: 0.9%NACL 1000ML 1,000 ML IV ONE (12:30)
[2022-11-12] MEDS ORDERED: KETOROLAC 30MG VIAL (30MG/ML) IVP ONE (12:30)
[2022-11-12] MEDS ORDERED: BENZONATATE 100 MG CAPSULE PO ONE (12:30)
[2022-11-12] MEDS ORDERED: MAG/ALUM/SIMETH 30 ML UDCUP PO ONE (12:30)
[2022-11-12 12:31] LABS: BASOPHILS % (AUTO) 0.6 % (0.0-5.0); EOSINOPHILS % (AUTO) 0.1 % (0.0-8.0); HEMATOCRIT 43.2 % (42-54); LYMPHOCYTES % (AUTO) 16.4 % (21.0-51.0); MEAN CORPUSCULAR HEMOGLOBIN 27.5 pg (27.0-33.0); MEAN CORPUSCULAR HGB CONC 33.1 g/dL (32.0-36.0); MEAN CORPUSCULAR VOLUME 83.1 fL (79-99); MONOCYTES % (AUTO) 7.7 % (3.0-13.0); NEUTROPHILS % (AUTO) 74.9 % (40.0-77.0); PLATELET COUNT (AUTO) 253 K/uL (130-400); RED CELL DISTRIBUTION WIDTH 14.9 % (11.0-15.5); WHITE BLOOD COUNT (AUTO) 12.8 K/uL (4.8-10.8)
[2022-11-12 12:46] LABS: CARBON DIOXIDE 28 mmol/L (21-32); CHLORIDE 99 mmol/L (101-111); CREATININE 1.1 mg/dL (0.5-1.5); GLOMERULAR FILTR. RATE CALC 71 mL/min (>60); GLUCOSE,RANDOM 122 mg/dL (70-105); POTASSIUM 3.7 mmol/L (3.5-5.1); SODIUM SERUM 136 mmol/L (136-145); UREA NITROGEN, BLOOD 25 mg/dL (7-18)
[2022-11-12 12:50] LABS: ALANINE AMINOTRANSFERASE 25 U/L (12-78); ASPARTATE AMINOTRANSFERASE 32 U/L (10-37); TOTAL PROTEIN, SERUM 7.8 g/dL (6.0-8.3)
[2022-11-12 12:54] LABS: LIPASE < 50 U/L (114-286)
[2022-11-12 14:54] VITALS: BP 159/102
[2022-11-12 14:58] LABS: APPEARANCE,URINE CLOUDY (CLEAR); BILIRUBIN,URINE NEGATIVE (NEGATIVE); COLOR,URINE YELLOW (YELLOW); GLUCOSE, URINE (UA) NEGATIVE (NEGATIVE); KETONES,URINE 20 mg/dL (NEGATIVE); LEUKOCYTE ESTERASE ,URINE NEGATIVE Leu/uL (NEGATIVE); NITRATE,URINE NEGATIVE (NEGATIVE); OCCULT BLOOD,URINE NEGATIVE (NEGATIVE); PROTEIN,URINE 70 mg/dL (NEGATIVE); UROBILINOGEN,URINE 0.2 mg/dL (0.2-1.0)
[2022-11-12 15:15] LABS: BACTERIA,URINE RARE /HPF (None Seen); MUCUS,URINE RARE LPF (None Seen); RBC,URINE 0-1 /HPF (0-1)
[2022-11-12] MEDS ORDERED: FAMO20TA8 PO (15:25)
== END 2022-11-12 15:46 | disposition home or self-care (01) ==
LOC: EDH 11:46
DX: K29.70 Gastritis, unspecified, without bleeding (principal); R10.13 Epigastric pain; F17.200 Nicotine dependence, unspecified, uncomplicated; Z90.49 Acquired absence of other specified parts of digestive tract; Z90.89 Acquired absence of other organs; Z98.890 Other specified postprocedural states; Z79.899 Other long term (current) drug therapy; Z79.82 Long term (current) use of aspirin
CPT/HCPCS: 99284; 84484; 80053; 83690; 85025; 81001; 36415; 71045; 96374; 96361; 96375; J7030; J2405; J1885; 96376

== ENCOUNTER 2022-12-14 18:45 | Inpatient (IN) | payer MEDICARE ==
[~2022-12-14] VITALS: Ht 170.2 cm; Wt 77.2 kg
[2022-12-14] MEDS ORDERED: 0.9%NACL 1000ML 1,000 ML IV SCH ×3 (19:30→22:00)
[2022-12-14] MEDS ORDERED: ONDANSETRON 4MG INJ IV ONE ×2 (19:30→22:30)
[2022-12-14] MEDS ORDERED: ASPIRIN 81MG CHEW TAB PO ONE (19:30)
[2022-12-14 20:04] LABS: BASOPHILS % (AUTO) 0.3 % (0.0-5.0); EOSINOPHILS % (AUTO) 0.1 % (0.0-8.0); LYMPHOCYTES % (AUTO) 8.3 % (21.0-51.0); MEAN CORPUSCULAR HEMOGLOBIN 27.9 pg (27.0-33.0); MEAN CORPUSCULAR HGB CONC 32.8 g/dL (32.0-36.0); MONOCYTES % (AUTO) 7.7 % (3.0-13.0); NEUTROPHILS % (AUTO) 82.8 % (40.0-77.0); PLATELET COUNT (AUTO) 263 K/uL (130-400); RED BLOOD CELL COUNT(AUTO) 5.06 MIL/uL (4.50-6.20); RED CELL DISTRIBUTION WIDTH 14.5 % (11.0-15.5); WHITE BLOOD COUNT (AUTO) 21.9 K/uL (4.8-10.8)
[2022-12-14 20:18] LABS: CREATININE 7.2 mg/dL (0.5-1.5); POTASSIUM 4.5 mmol/L (3.5-5.1)
[2022-12-14 20:26] LABS: B-TYPE NATRIURETIC PEPTIDE 9 pg/mL (0-100)
[2022-12-14 20:27] LABS: TOTAL PROTEIN, SERUM 7.7 g/dL (6.0-8.3)
[2022-12-14] MEDS ORDERED: ZOSYN 3.375GM +NS 50ML IVPB SCH (22:00)
[2022-12-14] MEDS ORDERED: MORPHINE 4 MG SYG IVP ONE (22:30)
[2022-12-15] MEDS ORDERED: KCL 20 MEQ ERTAB PO PRN (01:00)
[2022-12-15] MEDS ORDERED: POTASSIUM CHLORIDE 10% ELIXIR 20 MEQ/15 ML UDCUP PO PRN (01:00)
[2022-12-15] MEDS ORDERED: ACETAMINOPHEN 325 MG TAB PO PRN (01:00)
[2022-12-15] MEDS ORDERED: LIDOCAINE HCL-MPF 1% 2ML VIAL IV PRN (01:00)
[2022-12-15] MEDS ORDERED: POTASSIUM CHLORIDE 20MEQ/100ML 100 ML IV PRN (01:00)
[2022-12-15] MEDS: 0.9%NACL 1000ML 1,000 ML IV SCH ×2 (01:00→21:09)
[2022-12-15 05:04] LABS: BASOPHILS % (AUTO) 0.5 % (0.0-5.0); EOSINOPHILS % (AUTO) 0.5 % (0.0-8.0); LYMPHOCYTES % (AUTO) 15.5 % (21.0-51.0); MEAN CORPUSCULAR HEMOGLOBIN 28.2 pg (27.0-33.0); MEAN CORPUSCULAR HGB CONC 33.4 g/dL (32.0-36.0); MEAN CORPUSCULAR VOLUME 84.3 fL (79-99); MONOCYTES % (AUTO) 8.7 % (3.0-13.0); NEUTROPHILS % (AUTO) 74.2 % (40.0-77.0); PLATELET COUNT (AUTO) 236 K/uL (130-400); RED BLOOD CELL COUNT(AUTO) 4.51 MIL/uL (4.50-6.20); RED CELL DISTRIBUTION WIDTH 14.4 % (11.0-15.5); WHITE BLOOD COUNT (AUTO) 16.9 K/uL (4.8-10.8)
[2022-12-15 05:12] LABS: CREATININE 4.5 mg/dL (0.5-1.5); MAGNESIUM 1.6 mg/dL (1.80-2.40); POTASSIUM 4.4 mmol/L (3.5-5.1)
[2022-12-15 05:13] LABS: APPEARANCE,URINE CLEAR (CLEAR); BILIRUBIN,URINE NEGATIVE (NEGATIVE); COLOR,URINE LIGHT-YELLOW (YELLOW); GLUCOSE, URINE (UA) NEGATIVE (NEGATIVE); KETONES,URINE NEGATIVE (NEGATIVE); LEUKOCYTE ESTERASE ,URINE NEGATIVE Leu/uL (NEGATIVE); NITRATE,URINE NEGATIVE (NEGATIVE); OCCULT BLOOD,URINE NEGATIVE (NEGATIVE); PH,URINE 5.5 (5.0-8.0); PROTEIN,URINE 30 mg/dL (NEGATIVE); UROBILINOGEN,URINE 0.2 mg/dL (0.2-1.0)
[2022-12-15 05:20] LABS: HEMOGLOBIN A1C 5.6 % (4.0-6.0)
[2022-12-15 05:33] LABS: MUCUS,URINE RARE LPF (None Seen); RBC,URINE 0-1 /HPF (0-1); SQUAMOUS EPITHELIAL CELL,UR RARE /HPF (0-2)
[2022-12-15 06:23] VITALS: BP 114/75
[2022-12-15 08:00] VITALS: BP 101/57
[2022-12-15] MEDS: MAGNESIUM 2GM PREMIX 50ML 50 ML IV PRN (09:47)
[2022-12-15 12:00] VITALS: BP 94/60
[2022-12-15] MEDS: ONDANSETRON 4MG INJ IVP PRN (15:10)
[2022-12-15 16:00] VITALS: BP 118/75
[2022-12-15] MEDS: METOCLOPRAMIDE 10 MG/2 ML VIAL IVP SCH (16:27)
[2022-12-15 20:00] VITALS: BP 103/65
[2022-12-16] VITALS: BP 118/57
[2022-12-16 04:00] VITALS: BP 121/77
[2022-12-16 05:58] LABS: HEMATOCRIT 39.5 % (42-54); MEAN CORPUSCULAR HEMOGLOBIN 27.4 pg (27.0-33.0); MEAN CORPUSCULAR HGB CONC 32.2 g/dL (32.0-36.0); MEAN CORPUSCULAR VOLUME 85.1 fL (79-99); RED BLOOD CELL COUNT(AUTO) 4.64 MIL/uL (4.50-6.20); RED CELL DISTRIBUTION WIDTH 14.4 % (11.0-15.5); WHITE BLOOD COUNT (AUTO) 9.6 K/uL (4.8-10.8)
[2022-12-16] MEDS: 0.9%NACL 1000ML 1,000 ML IV SCH ×2 (06:04→19:00)
[2022-12-16] MEDS: METOCLOPRAMIDE 10 MG/2 ML VIAL IVP SCH ×3 (06:05→17:51)
[2022-12-16 06:23] LABS: ALBUMIN 3.1 g/dL (3.5-5.0); CREATININE 1.6 mg/dL (0.5-1.5); PHOSPHORUS 2.3 mg/dL (2.5-4.9); POTASSIUM 4.5 mmol/L (3.5-5.1); TOTAL PROTEIN, SERUM 6.3 g/dL (6.0-8.3)
[2022-12-16 08:00] VITALS: BP 136/90
[2022-12-16 12:00] VITALS: BP 133/80
[2022-12-16] MEDS: ONDANSETRON 4MG INJ IVP PRN (13:10)
[2022-12-16 16:00] VITALS: BP 137/97
[2022-12-16 20:00] VITALS: BP 131/79
[2022-12-17] VITALS (8 sets, daily range): BP systolic 120–140; BP diastolic 60–99
[2022-12-17] MEDS: 0.9%NACL 1000ML 1,000 ML IV SCH ×2 (04:26→22:23)
[2022-12-17] MEDS: METOCLOPRAMIDE 10 MG/2 ML VIAL IVP SCH ×3 (05:57→17:08)
[2022-12-17 06:03] LABS: CREATININE 1.1 mg/dL (0.5-1.5); MAGNESIUM 1.3 mg/dL (1.80-2.40)
[2022-12-17] MEDS: TRAMADOL HCL 50 MG TABLET PO PRN ×2 (07:37→17:14)
[2022-12-17] MEDS: ONDANSETRON 4MG INJ IVP PRN ×2 (07:38→15:27)
[2022-12-17] MEDS: MAGNESIUM 2GM PREMIX 50ML 50 ML IV PRN (07:38)
[2022-12-17] MEDS ORDERED: LIDOCAINE 5% TOPICAL PATCH TP SCH (13:00)
[2022-12-18] VITALS: BP 141/89
[2022-12-18] MEDS: METOCLOPRAMIDE 10 MG/2 ML VIAL IVP SCH ×2 (00:52→08:56)
[2022-12-18 04:00] VITALS: BP 133/88
[2022-12-18 05:12] LABS: HEMATOCRIT 38.3 % (42-54); MEAN CORPUSCULAR HEMOGLOBIN 27.8 pg (27.0-33.0); MEAN CORPUSCULAR HGB CONC 32.4 g/dL (32.0-36.0); MEAN CORPUSCULAR VOLUME 85.9 fL (79-99); RED BLOOD CELL COUNT(AUTO) 4.46 MIL/uL (4.50-6.20); WHITE BLOOD COUNT (AUTO) 9.2 K/uL (4.8-10.8)
[2022-12-18 05:19] LABS: MAGNESIUM 1.4 mg/dL (1.80-2.40); POTASSIUM 3.8 mmol/L (3.5-5.1)
[2022-12-18 08:00] VITALS: BP 137/91
[2022-12-18] MEDS: MAGNESIUM 2GM PREMIX 50ML 50 ML IV PRN (08:58)
[2022-12-18] MEDS: 0.9%NACL 1000ML 1,000 ML IV SCH (08:59)
[2022-12-18] MEDS ORDERED: LIDOCAINE 5% TOPICAL PATCH TP SCH (09:00)
[2022-12-18 12:00] VITALS: BP 131/98
== END 2022-12-18 13:35 | disposition left against medical advice (07) | DRG 391 ==
LOC: EDH 18:45 → EDHIP 12-15 00:48 → 3DH 12-15 06:03
PROVIDERS: ADMIT Internal Medicine Infectious Disease; ATTEND Internal Medicine Infectious Disease
DX: A09 Infectious gastroenteritis and colitis, unspecified (principal); N18.6 End stage renal disease; N17.9 Acute kidney failure, unspecified; I12.0 Hypertensive chronic kidney disease with stage 5 chronic kidney disease or end stage renal disease; Z20.822 Contact with and (suspected) exposure to COVID-19; E86.0 Dehydration; F32.A Depression, unspecified; E66.9 Obesity, unspecified; I25.10 Atherosclerotic heart disease of native coronary artery without angina pectoris; N20.0 Calculus of kidney; Z96.659 Presence of unspecified artificial knee joint; E78.5 Hyperlipidemia, unspecified; F17.200 Nicotine dependence, unspecified, uncomplicated; Z87.442 Personal history of urinary calculi; Z90.49 Acquired absence of other specified parts of digestive tract; Z95.5 Presence of coronary angioplasty implant and graft; Z68.26 Body mass index [BMI] 26.0-26.9, adult
CPT/HCPCS: 36415; 71045; 74176; 76770; 80048; 80053; 81001; 82150; 83036; 83605; 83690; 83735; 83880; 84100; 84484; 85025; 85027; 87040; 87635; 93005; 99291; C9803; G0378; J2270; J2405; J2543; J2765; J3475; J7030

== ENCOUNTER 2023-01-18 16:42 | Emergency (ER) | payer MEDICARE ==
[~2023-01-18] VITALS: Ht 170.2 cm; Wt 73.5 kg
[2023-01-18 17:19] LABS: BASOPHILS % (AUTO) 0.2 % (0.0-5.0); HEMATOCRIT 46.1 % (42-54); LYMPHOCYTES % (AUTO) 8.5 % (21.0-51.0); MEAN CORPUSCULAR HEMOGLOBIN 27.7 pg (27.0-33.0); MEAN CORPUSCULAR HGB CONC 32.5 g/dL (32.0-36.0); MEAN CORPUSCULAR VOLUME 85.2 fL (79-99); MONOCYTES % (AUTO) 4.5 % (3.0-13.0); PLATELET COUNT (AUTO) 318 K/uL (130-400); RED BLOOD CELL COUNT(AUTO) 5.41 MIL/uL (4.50-6.20); RED CELL DISTRIBUTION WIDTH 14.3 % (11.0-15.5); WHITE BLOOD COUNT (AUTO) 18.6 K/uL (4.8-10.8)
[2023-01-18 17:38] LABS: ALANINE AMINOTRANSFERASE 18 U/L (12-78); ALBUMIN 4.6 g/dL (3.5-5.0); ASPARTATE AMINOTRANSFERASE 10 U/L (10-37); CARBON DIOXIDE 27 mmol/L (21-32); CREATININE 1.1 mg/dL (0.5-1.5); GLOMERULAR FILTR. RATE CALC 74 mL/min (>90); GLUCOSE,RANDOM 125 mg/dL (70-105); TOTAL PROTEIN, SERUM 8.7 g/dL (6.0-8.3); UREA NITROGEN, BLOOD 27 mg/dL (7-18)
[2023-01-18 17:39] LABS: LIPASE < 50 U/L (114-286)
[2023-01-18 17:44] LABS: CHLORIDE 98 mmol/L (101-111); POTASSIUM 3.8 mmol/L (3.5-5.1); SODIUM SERUM 134 mmol/L (136-145)
[2023-01-18] MEDS ORDERED: MORPHINE 2 MG SYG IVP ONE (18:00)
[2023-01-18] MEDS ORDERED: 0.9%NACL 1000ML 1,000 ML IV ONE (18:00)
[2023-01-18] MEDS ORDERED: ONDANSETRON 4MG INJ ONE (18:03)
[2023-01-18] MEDS ORDERED: ONDANSETRON 4MG INJ IVP ONE (18:30)
[2023-01-18] MEDS ORDERED: LIDOCAINE HCL 2% VISCOUS 15 ML UDCUP PO ONE (22:00)
[2023-01-18] MEDS ORDERED: MAG/ALUM/SIMETH 30 ML UDCUP ONE (22:05)
[2023-01-18] MEDS ORDERED: DICYCLOMINE HCL 10 MG/5 ML ML PO ONE (22:05)
[2023-01-18 22:13] VITALS: BP 153/62
[2023-01-18] MEDS ORDERED: MAG/ALUM/SIMETH 30 ML UDCUP PO ONE (22:30)
[2023-01-18] MEDS ORDERED: DICYCLOMINE HCL 10 MG/5 ML ML PO SCH (22:30)
== END 2023-01-18 22:14 | disposition home or self-care (01) ==
LOC: EDH 16:42
DX: R10.13 Epigastric pain (principal); Z79.899 Other long term (current) drug therapy; Z79.82 Long term (current) use of aspirin; Z98.890 Other specified postprocedural states; Z90.49 Acquired absence of other specified parts of digestive tract; Z90.89 Acquired absence of other organs; F17.200 Nicotine dependence, unspecified, uncomplicated
CPT/HCPCS: 99285; 74176; 96374; 96361; 96375; 84484; 80053; 83690; 85025; 36415; 93005; J7030; J2405

== ENCOUNTER 2023-01-21 13:16 | Emergency (ER) | payer MEDICARE ==
[~2023-01-21] VITALS: Ht 170.2 cm; Wt 73.5 kg
[2023-01-21] MEDS ORDERED: MAG/ALUM/SIMETH 30 ML UDCUP PO ONE (14:00)
[2023-01-21] MEDS ORDERED: LIDOCAINE HCL 2% VISCOUS 15 ML UDCUP PO ONE (14:00)
[2023-01-21] MEDS ORDERED: ONDANSETRON 4MG TABLET PO ONE (14:00)
[2023-01-21] MEDS ORDERED: DICYCLOMINE HCL 10 MG/5 ML ML PO ONE (14:00)
[2023-01-21] MEDS ORDERED: DICYCLOMINE HCL 20 MG TAB ONE (14:09)
[2023-01-21] MEDS ORDERED: ONDANSETRON ODT 4MG TAB ONE (14:09)
[2023-01-21] MEDS ORDERED: MAG/ALUM/SIMETH 30 ML UDCUP ONE (14:09)
[2023-01-21] MEDS ORDERED: LIDOCAINE HCL 2% VISCOUS 15 ML UDCUP ONE (14:10)
[2023-01-21 15:29] LABS: APPEARANCE,URINE CLEAR (CLEAR); BILIRUBIN,URINE NEGATIVE (NEGATIVE); COLOR,URINE YELLOW (YELLOW); GLUCOSE, URINE (UA) NEGATIVE (NEGATIVE); KETONES,URINE NEGATIVE (NEGATIVE); LEUKOCYTE ESTERASE ,URINE NEGATIVE Leu/uL (NEGATIVE); NITRATE,URINE NEGATIVE (NEGATIVE); OCCULT BLOOD,URINE NEGATIVE (NEGATIVE); PROTEIN,URINE 10 mg/dL (NEGATIVE); UROBILINOGEN,URINE 0.2 mg/dL (0.2-1.0)
[2023-01-21 15:32] LABS: MUCUS,URINE RARE LPF (None Seen); RBC,URINE 0-1 /HPF (0-1); WBC,URINE 0-1 /HPF (0-1)
[2023-01-21 15:37] LABS: BASOPHILS % (AUTO) 0.3 % (0.0-5.0); EOSINOPHILS % (AUTO) 0.4 % (0.0-8.0); HEMATOCRIT 41.7 % (42-54); LYMPHOCYTES % (AUTO) 12.8 % (21.0-51.0); MEAN CORPUSCULAR HEMOGLOBIN 28.3 pg (27.0-33.0); MEAN CORPUSCULAR HGB CONC 33.1 g/dL (32.0-36.0); MEAN CORPUSCULAR VOLUME 85.5 fL (79-99); MONOCYTES % (AUTO) 6.6 % (3.0-13.0); NEUTROPHILS % (AUTO) 79.2 % (40.0-77.0); PLATELET COUNT (AUTO) 278 K/uL (130-400); RED BLOOD CELL COUNT(AUTO) 4.88 MIL/uL (4.50-6.20); RED CELL DISTRIBUTION WIDTH 14.2 % (11.0-15.5)
[2023-01-21 15:47] LABS: POTASSIUM 4.2 mmol/L (3.5-5.1)
[2023-01-21 15:58] LABS: ALBUMIN 3.9 g/dL (3.5-5.0); TOTAL PROTEIN, SERUM 7.4 g/dL (6.0-8.3)
[2023-01-21] MEDS ORDERED: CIPR500T10 PO (16:08)
[2023-01-21] MEDS ORDERED: ONDA4TAB10 PO (16:09)
[2023-01-21 16:55] VITALS: BP 119/63
== END 2023-01-21 16:57 | disposition home or self-care (01) ==
LOC: EDH 13:16
DX: K52.9 Noninfective gastroenteritis and colitis, unspecified (principal); D72.829 Elevated white blood cell count, unspecified; R11.0 Nausea; F17.200 Nicotine dependence, unspecified, uncomplicated; Z79.899 Other long term (current) drug therapy; Z79.82 Long term (current) use of aspirin; Z98.890 Other specified postprocedural states; Z90.49 Acquired absence of other specified parts of digestive tract; Z90.89 Acquired absence of other organs
CPT/HCPCS: 36415; 71045; 80053; 81001; 84484; 85025; 93005

== ENCOUNTER 2023-02-12 12:19 | Emergency (ER) | payer MEDICARE ==
[~2023-02-12] VITALS: Ht 175.3 cm; Wt 81.6 kg
[~2023-02-12 12:19] MED LIST changes: +CIPR500T10 PO
[2023-02-12] MEDS ORDERED: PROMETHAZINE HCL 25 MG/ML 1ML AMPULE IM ONE (12:30)
[2023-02-12] MEDS ORDERED: 0.9%NACL 1000ML 1,000 ML IV SCH (12:30)
[2023-02-12] MEDS ORDERED: LORAZEPAM 2 MG/ML 1 ML VIAL IVP ONE (12:30)
[2023-02-12 13:12] LABS: BASOPHILS % (AUTO) 0.4 % (0.0-5.0); EOSINOPHILS % (AUTO) 0.2 % (0.0-8.0); HEMATOCRIT 46.9 % (42-54); LYMPHOCYTES % (AUTO) 10.3 % (21.0-51.0); MEAN CORPUSCULAR HEMOGLOBIN 27.8 pg (27.0-33.0); MEAN CORPUSCULAR HGB CONC 32.6 g/dL (32.0-36.0); MEAN CORPUSCULAR VOLUME 85.1 fL (79-99); MONOCYTES % (AUTO) 4.7 % (3.0-13.0); NEUTROPHILS % (AUTO) 83.9 % (40.0-77.0); PLATELET COUNT (AUTO) 283 K/uL (130-400); RED BLOOD CELL COUNT(AUTO) 5.51 MIL/uL (4.50-6.20); RED CELL DISTRIBUTION WIDTH 14.6 % (11.0-15.5)
[2023-02-12 13:31] LABS: ALANINE AMINOTRANSFERASE 18 U/L (12-78); ALBUMIN 4.2 g/dL (3.5-5.0); ASPARTATE AMINOTRANSFERASE 15 U/L (10-37); CARBON DIOXIDE 27 mmol/L (21-32); CHLORIDE 102 mmol/L (101-111); CREATININE 1.1 mg/dL (0.5-1.5); GLOMERULAR FILTR. RATE CALC 74 mL/min (>90); GLUCOSE,RANDOM 145 mg/dL (70-105); POTASSIUM 3.8 mmol/L (3.5-5.1); SODIUM SERUM 137 mmol/L (136-145); TOTAL PROTEIN, SERUM 8.1 g/dL (6.0-8.3); UREA NITROGEN, BLOOD 25 mg/dL (7-18)
[2023-02-12 13:39] LABS: LIPASE < 50 U/L (114-286)
[2023-02-12] MEDS ORDERED: KETOROLAC 30MG VIAL (30MG/ML) IVP ONE (14:30)
[2023-02-12 15:12] VITALS: BP 156/38
== END 2023-02-12 16:16 | disposition home or self-care (01) ==
LOC: EDH 12:19
DX: R10.13 Epigastric pain (principal); R11.2 Nausea with vomiting, unspecified; F17.200 Nicotine dependence, unspecified, uncomplicated; Z79.82 Long term (current) use of aspirin; Z79.899 Other long term (current) drug therapy; Z87.11 Personal history of peptic ulcer disease; Z98.890 Other specified postprocedural states
CPT/HCPCS: 99285; 96374; 71045; 96361; 96375; 84484; 80053; 83690; 85025; 36415; 93005; 96372; J7030; J2550; J2060; J1885

== ENCOUNTER 2023-04-06 09:57 | Emergency (ER) | payer MEDICARE ==
[~2023-04-06] VITALS: Ht 170.2 cm; Wt 77.1 kg
[~2023-04-06 09:57] MED LIST changes: -ACET-2079 PO; -ACET-2247 PO; -ATOR10 PO; +ATOR40TA69 PO; -AZIT500T2 PO; -BISA-189 PO; -CETI10TA57 PO; -CIPR500T10 PO; -DICY20TA2 PO; -FAMO20TA8 PO; -ISOS20TA85 PO; -METO10TA41 PO; -METO25TA6 PO; -NITR0.4T50 SL; -NORT10CA2 PO; -ONDA4TAB10 PO; +PANT40TA PO; -PARO7.5C2 PO; -TRAZ-187 PO
[2023-04-06] MEDS ORDERED: ONDANSETRON 4MG INJ IV ONE (10:30)
[2023-04-06] MEDS ORDERED: MORPHINE 4 MG SYG IVP ONE ×2 (10:30→16:30)
[2023-04-06] MEDS ORDERED: 0.9%NACL 1000ML 1,000 ML IV SCH (10:30)
[2023-04-06 10:32] LABS: BASOPHILS % (AUTO) 0.5 % (0.0-5.0); EOSINOPHILS % (AUTO) 0.2 % (0.0-8.0); HEMATOCRIT 46.4 % (42-54); MEAN CORPUSCULAR HEMOGLOBIN 27.7 pg (27.0-33.0); MEAN CORPUSCULAR HGB CONC 31.7 g/dL (32.0-36.0); MEAN CORPUSCULAR VOLUME 87.5 fL (79-99); MONOCYTES % (AUTO) 5.8 % (3.0-13.0); PLATELET COUNT (AUTO) 249 K/uL (130-400); RED CELL DISTRIBUTION WIDTH 15.1 % (11.0-15.5); WHITE BLOOD COUNT (AUTO) 18.4 K/uL (4.8-10.8)
[2023-04-06 10:47] LABS: ALBUMIN 4.1 g/dL (3.5-5.0); POTASSIUM 3.9 mmol/L (3.5-5.1); TOTAL PROTEIN, SERUM 8.2 g/dL (6.0-8.3)
[2023-04-06] MEDS ORDERED: IOHEXOL 350 MG/ML 100ML INFUS..BTL IV ONE (14:09)
[2023-04-06] MEDS ORDERED: KETOROLAC 30MG VIAL (30MG/ML) IVP ONE (15:30)
[2023-04-06 16:39] VITALS: BP 124/74
== END 2023-04-06 16:39 | disposition home or self-care (01) ==
LOC: EDH 09:57
DX: R10.9 Unspecified abdominal pain (principal); J44.9 Chronic obstructive pulmonary disease, unspecified; K21.9 Gastro-esophageal reflux disease without esophagitis; I10 Essential (primary) hypertension; F17.200 Nicotine dependence, unspecified, uncomplicated; Z79.82 Long term (current) use of aspirin; Z79.899 Other long term (current) drug therapy; Z90.49 Acquired absence of other specified parts of digestive tract; Z20.822 Contact with and (suspected) exposure to COVID-19
CPT/HCPCS: 99285; 74177; 96374; 96375; 71045; 87635; 96361; 83735; 84484; 80053; 85025; 87804 ×2; 36415; 93005; C9803; J7030; J2405; J2270 ×2; J1885; Q9967

== ENCOUNTER 2023-04-08 14:28 | Emergency (ER) | payer MEDICARE ==
[~2023-04-08] VITALS: Ht 170.2 cm; Wt 72.6 kg
[2023-04-08 15:02] LABS: BASOPHILS % (AUTO) 0.4 % (0.0-5.0); EOSINOPHILS % (AUTO) 0.3 % (0.0-8.0); HEMATOCRIT 43.9 % (42-54); LYMPHOCYTES % (AUTO) 14.4 % (21.0-51.0); MEAN CORPUSCULAR HEMOGLOBIN 27.9 pg (27.0-33.0); MEAN CORPUSCULAR HGB CONC 32.6 g/dL (32.0-36.0); MEAN CORPUSCULAR VOLUME 85.7 fL (79-99); MONOCYTES % (AUTO) 6.3 % (3.0-13.0); NEUTROPHILS % (AUTO) 78.2 % (40.0-77.0); PLATELET COUNT (AUTO) 246 K/uL (130-400); RED BLOOD CELL COUNT(AUTO) 5.12 MIL/uL (4.50-6.20); RED CELL DISTRIBUTION WIDTH 14.7 % (11.0-15.5); WHITE BLOOD COUNT (AUTO) 16.3 K/uL (4.8-10.8)
[2023-04-08 15:15] LABS: CREATININE 0.9 mg/dL (0.5-1.5); POTASSIUM 3.8 mmol/L (3.5-5.1)
[2023-04-08 15:25] LABS: ALBUMIN 3.7 g/dL (3.5-5.0); MAGNESIUM 1.7 mg/dL (1.80-2.40); TOTAL PROTEIN, SERUM 7.6 g/dL (6.0-8.3)
[2023-04-08] MEDS ORDERED: MORPHINE 4 MG SYG IVP ONE (16:30)
[2023-04-08] MEDS ORDERED: ONDANSETRON 4MG INJ IVP ONE (16:30)
[2023-04-08] MEDS ORDERED: LABETALOL 20MG SYG IV ONE (16:30)
[2023-04-08] MEDS ORDERED: MAGNESIUM 2GM PREMIX 50ML 50 ML IV SCH (17:30)
[2023-04-08] MEDS ORDERED: PANTOPRAZOLE 40 MG/VIAL IVP ONE (17:30)
[2023-04-08 19:22] LABS: APPEARANCE,URINE CLEAR (CLEAR); BILIRUBIN,URINE NEGATIVE (NEGATIVE); COLOR,URINE LIGHT-YELLOW (YELLOW); GLUCOSE, URINE (UA) NEGATIVE (NEGATIVE); KETONES,URINE 10 mg/dL (NEGATIVE); LEUKOCYTE ESTERASE ,URINE 25 Leu/uL (NEGATIVE); NITRATE,URINE NEGATIVE (NEGATIVE); OCCULT BLOOD,URINE MODERATE (NEGATIVE); PROTEIN,URINE 10 mg/dL (NEGATIVE); UROBILINOGEN,URINE 0.2 mg/dL (0.2-1.0)
[2023-04-08 19:37] LABS: BACTERIA,URINE RARE /HPF (None Seen); MUCUS,URINE RARE LPF (None Seen); RBC,URINE 26-50 /HPF (0-1); SQUAMOUS EPITHELIAL CELL,UR RARE /HPF (0-2)
[2023-04-08 20:42] VITALS: BP 152/82
== END 2023-04-08 21:03 | disposition home or self-care (01) ==
LOC: EDH 14:28
DX: G89.29 Other chronic pain (principal); R10.9 Unspecified abdominal pain; J44.9 Chronic obstructive pulmonary disease, unspecified; K21.9 Gastro-esophageal reflux disease without esophagitis; I10 Essential (primary) hypertension; F17.200 Nicotine dependence, unspecified, uncomplicated; Z79.82 Long term (current) use of aspirin; Z79.899 Other long term (current) drug therapy; Z90.49 Acquired absence of other specified parts of digestive tract; Z95.5 Presence of coronary angioplasty implant and graft
CPT/HCPCS: 99285; 96374; 96375; 71045; 83735; 84484; 80053; 83880; 83690; 85025; 87088; 83605; 81001; 36415; 93005; J3475; J2405; J2270; C9113

== ENCOUNTER 2023-04-12 20:24 | Emergency (ER) | payer MEDICARE ==
[~2023-04-12] VITALS: Ht 170.2 cm; Wt 65.3 kg
[2023-04-12] MEDS ORDERED: IBUPROFEN 800 MG TAB PO ONE (21:00)
[2023-04-12 21:01] LABS: BASOPHILS % (AUTO) 0.4 % (0.0-5.0); EOSINOPHILS % (AUTO) 0.9 % (0.0-8.0); HEMATOCRIT 42.1 % (42-54); LYMPHOCYTES % (AUTO) 13.1 % (21.0-51.0); MEAN CORPUSCULAR HEMOGLOBIN 28.2 pg (27.0-33.0); MEAN CORPUSCULAR VOLUME 85.4 fL (79-99); MONOCYTES % (AUTO) 6.3 % (3.0-13.0); NEUTROPHILS % (AUTO) 78.8 % (40.0-77.0); PLATELET COUNT (AUTO) 251 K/uL (130-400); RED BLOOD CELL COUNT(AUTO) 4.93 MIL/uL (4.50-6.20); RED CELL DISTRIBUTION WIDTH 14.9 % (11.0-15.5); WHITE BLOOD COUNT (AUTO) 15.1 K/uL (4.8-10.8)
[2023-04-12 21:21] LABS: CREATININE 0.8 mg/dL (0.5-1.5); POTASSIUM 3.3 mmol/L (3.5-5.1)
[2023-04-12 21:39] LABS: ALBUMIN 3.7 g/dL (3.5-5.0); TOTAL PROTEIN, SERUM 7.2 g/dL (6.0-8.3)
[2023-04-12] MEDS ORDERED: IOHEXOL 350 MG/ML 100ML INFUS..BTL IV ONE (22:55)
[2023-04-13] MEDS ORDERED: ONDA-104 PO (00:44)
[2023-04-13] MEDS ORDERED: OMEP40CA21 PO (00:44)
[2023-04-13 00:55] VITALS: BP 142/88
== END 2023-04-13 01:14 | disposition home or self-care (01) ==
LOC: EDH 20:24
DX: K52.9 Noninfective gastroenteritis and colitis, unspecified (principal); R51.9 Headache, unspecified; I10 Essential (primary) hypertension; F17.200 Nicotine dependence, unspecified, uncomplicated; J44.9 Chronic obstructive pulmonary disease, unspecified; Z90.49 Acquired absence of other specified parts of digestive tract; Z79.82 Long term (current) use of aspirin; Z79.899 Other long term (current) drug therapy; Z98.890 Other specified postprocedural states
CPT/HCPCS: 99285; 84484; 80053; 83690; 85025; 36415; 71045; 70450; 74177; 93005; Q9967

== ENCOUNTER 2023-05-18 14:26 | Emergency (ER) | payer MEDICARE ==
[~2023-05-18 14:26] MED LIST changes: +OMEP40CA21 PO; +ONDA-104 PO
[2023-05-18] MEDS ORDERED: FAMOTIDINE 20MG VIAL IV ONE (15:00)
[2023-05-18] MEDS ORDERED: ONDANSETRON 4MG INJ IVP ONE (15:00)
[2023-05-18] MEDS ORDERED: MORPHINE 4 MG SYG IVP ONE (15:00)
[2023-05-18] MEDS ORDERED: 0.9%NACL 1000ML 1,000 ML IV ONE (15:00)
[2023-05-18 15:37] LABS: BASOPHILS % (AUTO) 0.3 % (0.0-5.0); EOSINOPHILS % (AUTO) 0.1 % (0.0-8.0); HEMATOCRIT 42.3 % (42-54); MEAN CORPUSCULAR HGB CONC 32.2 g/dL (32.0-36.0); MONOCYTES % (AUTO) 5.8 % (3.0-13.0); NEUTROPHILS % (AUTO) 82.3 % (40.0-77.0); PLATELET COUNT (AUTO) 268 K/uL (130-400); RED BLOOD CELL COUNT(AUTO) 4.86 MIL/uL (4.50-6.20); RED CELL DISTRIBUTION WIDTH 14.7 % (11.0-15.5); WHITE BLOOD COUNT (AUTO) 14.6 K/uL (4.8-10.8)
[2023-05-18 15:54] LABS: CREATININE 0.8 mg/dL (0.5-1.5); POTASSIUM 3.8 mmol/L (3.5-5.1)
[2023-05-18 15:58] LABS: ALBUMIN 3.3 g/dL (3.5-5.0); TOTAL PROTEIN, SERUM 7.1 g/dL (6.0-8.3)
[2023-05-18] MEDS ORDERED: IOHEXOL-350 75 ML VIAL IV ONE ×2 (16:08→16:41)
[2023-05-18] MEDS ORDERED: IOHEXOL 350 MG/ML 100ML INFUS..BTL IV ONE (16:11)
[2023-05-18 18:01] LABS: APPEARANCE,URINE CLEAR (CLEAR); BILIRUBIN,URINE NEGATIVE (NEGATIVE); COLOR,URINE LIGHT-YELLOW (YELLOW); GLUCOSE, URINE (UA) NEGATIVE (NEGATIVE); KETONES,URINE 5 mg/dL (NEGATIVE); LEUKOCYTE ESTERASE ,URINE NEGATIVE Leu/uL (NEGATIVE); NITRATE,URINE NEGATIVE (NEGATIVE); OCCULT BLOOD,URINE NEGATIVE (NEGATIVE); PROTEIN,URINE NEGATIVE (NEGATIVE); UROBILINOGEN,URINE 0.2 mg/dL (0.2-1.0)
[2023-05-18] MEDS ORDERED: ONDA4TAB10 PO (18:35)
[2023-05-18 18:54] VITALS: BP 150/88; PULSE 72; RESP 17; O2SAT 96
[2023-05-18] MEDS ORDERED: KETOROLAC 30MG VIAL (30MG/ML) IVP ONE (19:00)
[2023-05-18] MEDS ORDERED: METOCLOPRAMIDE 10 MG/2 ML VIAL IVP ONE (19:00)
== END 2023-05-18 19:02 | disposition home or self-care (01) ==
LOC: EDH 14:26
DX: R10.84 Generalized abdominal pain (principal); R11.2 Nausea with vomiting, unspecified; J44.9 Chronic obstructive pulmonary disease, unspecified; I10 Essential (primary) hypertension; F17.200 Nicotine dependence, unspecified, uncomplicated; Z79.02 Long term (current) use of antithrombotics/antiplatelets; Z79.82 Long term (current) use of aspirin; Z79.899 Other long term (current) drug therapy; Z95.5 Presence of coronary angioplasty implant and graft
CPT/HCPCS: 99285; 74177; 96374; 96375; 96361; 80053; 83690; 85025; 81003; 36415; J3490; J7030; J2405; J2270; J1885; J2765; Q9967 ×2

== ENCOUNTER 2023-06-29 11:22 | Emergency (ER) | payer MEDICARE ==
[~2023-06-29] VITALS: Ht 170.2 cm; Wt 81.6 kg
[~2023-06-29 11:22] MED LIST changes: +ONDA4TAB10 PO
[2023-06-29] MEDS ORDERED: PANTOPRAZOLE 40 MG/VIAL IVP ONE (12:00)
[2023-06-29] MEDS ORDERED: 0.9%NACL 1000ML 2,000 ML IV ONE (12:00)
[2023-06-29] MEDS ORDERED: ONDANSETRON 4MG TABLET PO ONE (12:00)
[2023-06-29] MEDS ORDERED: MORPHINE 4 MG SYG IVP ONE (12:00)
[2023-06-29 13:34] LABS: BASOPHILS # (AUTO) 0.06 K/uL (0.00-0.20); BASOPHILS % (AUTO) 0.5 % (0.0-5.0); EOSINOPHILS # (AUTO) 0.01 K/uL (0.00-0.70); EOSINOPHILS % (AUTO) 0.1 % (0.0-8.0); HEMATOCRIT 41.2 % (42-54); IMMATURE GRANULOCYTE ABSOLUTE 0.07 K/uL (0-1); LYMPHOCYTES # (AUTO) 1.3 K/uL (1.0-4.8); MEAN CORPUSCULAR HEMOGLOBIN 27.7 pg (27.0-33.0); MEAN CORPUSCULAR HGB CONC 32.3 g/dL (32.0-36.0); MEAN CORPUSCULAR VOLUME 85.8 fL (79-99); MONOCYTES # (AUTO) 0.6 K/uL (0.1-1.0); MONOCYTES % (AUTO) 4.4 % (3.0-13.0); NEUTROPHILS # (AUTO) 11.2 K/uL (1.8-7.7); NEUTROPHILS % (AUTO) 84.5 % (40.0-77.0); PLATELET COUNT (AUTO) 253 K/uL (130-400); RED CELL DISTRIBUTION WIDTH 14.6 % (11.0-15.5); WHITE BLOOD COUNT (AUTO) 13.2 K/uL (4.8-10.8)
[2023-06-29 13:40] LABS: CREATININE 0.7 mg/dL (0.5-1.5); POTASSIUM 3.4 mmol/L (3.5-5.1)
[2023-06-29 13:45] LABS: ALBUMIN 3.2 g/dL (3.5-5.0); BILIRUBIN,TOTAL 0.2 mg/dL (0.2-1.0); TOTAL PROTEIN, SERUM 6.9 g/dL (6.0-8.3)
[2023-06-29] MEDS ORDERED: POTASSIUM BICARB/CIT AC 25 MEQ TABLET.EFF PO ONE (14:00)
[2023-06-29] MEDS ORDERED: PANT40TA PO (14:44)
[2023-06-29 16:02] LABS: APPEARANCE,URINE CLEAR (CLEAR); BILIRUBIN,URINE NEGATIVE (NEGATIVE); COLOR,URINE LIGHT-YELLOW (YELLOW); GLUCOSE, URINE (UA) NEGATIVE (NEGATIVE); KETONES,URINE 20 mg/dL (NEGATIVE); LEUKOCYTE ESTERASE ,URINE NEGATIVE Leu/uL (NEGATIVE); NITRATE,URINE NEGATIVE (NEGATIVE); OCCULT BLOOD,URINE NEGATIVE (NEGATIVE); PH,URINE 6.5 (5.0-8.0); PROTEIN,URINE 10 mg/dL (NEGATIVE); UROBILINOGEN,URINE 0.2 mg/dL (0.2-1.0)
[2023-06-29 16:05] LABS: ADD UA MICROSCOPIC YES
[2023-06-29 16:14] LABS: BACTERIA,URINE RARE /HPF (None Seen); MUCUS,URINE RARE LPF (None Seen); RBC,URINE 0-1 /HPF (0-1)
[2023-06-29] MEDS ORDERED: MORPHINE 2 MG SYG IVP ONE (16:30)
[2023-06-29] MEDS ORDERED: ONDANSETRON 4MG INJ IVP ONE (16:30)
[2023-06-29 17:14] VITALS: BP 135/78; PULSE 78; RESP 18; O2SAT 98
== END 2023-06-29 17:16 | disposition home or self-care (01) ==
LOC: EDH 11:22
DX: K29.70 Gastritis, unspecified, without bleeding (principal); I10 Essential (primary) hypertension; J44.9 Chronic obstructive pulmonary disease, unspecified; F17.200 Nicotine dependence, unspecified, uncomplicated; Z79.82 Long term (current) use of aspirin; Z79.899 Other long term (current) drug therapy; Z98.890 Other specified postprocedural states
CPT/HCPCS: 99285; 96374; 96361; 76705; 71045; 96375; 84484; 80053; 83690; 85025; 83605; 81001; 36415; 96376; 93005; Q0162; J2270 ×2; J7030; J2405; C9113

== ENCOUNTER 2023-08-12 10:18 | Emergency (ER) | payer MEDICARE ==
[~2023-08-12] VITALS: Ht 170.2 cm; Wt 59.0 kg
[2023-08-12 10:42] LABS: BASOPHILS % (AUTO) 0.8 % (0.0-5.0); EOSINOPHILS # (AUTO) 0.14 K/uL (0.00-0.70); EOSINOPHILS % (AUTO) 1.1 % (0.0-8.0); IMMATURE GRANULOCYTE ABSOLUTE 0.08 K/uL (0-1); LYMPHOCYTES # (AUTO) 1.7 K/uL (1.0-4.8); LYMPHOCYTES % (AUTO) 13.2 % (21.0-51.0); MEAN CORPUSCULAR HEMOGLOBIN 27.6 pg (27.0-33.0); MEAN CORPUSCULAR HGB CONC 32.4 g/dL (32.0-36.0); MEAN CORPUSCULAR VOLUME 85.1 fL (79-99); MONOCYTES % (AUTO) 7.5 % (3.0-13.0); NEUTROPHILS # (AUTO) 10.1 K/uL (1.8-7.7); NEUTROPHILS % (AUTO) 76.8 % (40.0-77.0); PLATELET COUNT (AUTO) 251 K/uL (130-400); RED BLOOD CELL COUNT(AUTO) 4.82 MIL/uL (4.50-6.20); RED CELL DISTRIBUTION WIDTH 14.7 % (11.0-15.5); WHITE BLOOD COUNT (AUTO) 13.1 K/uL (4.8-10.8)
[2023-08-12 10:52] LABS: POTASSIUM 3.7 mmol/L (3.5-5.1)
[2023-08-12 10:56] LABS: ALBUMIN 3.4 g/dL (3.5-5.0); BILIRUBIN,TOTAL 0.3 mg/dL (0.2-1.0); TOTAL PROTEIN, SERUM 7.1 g/dL (6.0-8.3)
[2023-08-12 14:36] VITALS: BP 130/83; PULSE 70; RESP 16; O2SAT 98
== END 2023-08-12 15:09 | disposition home or self-care (01) ==
LOC: EDH 10:18
DX: F12.188 Cannabis abuse with other cannabis-induced disorder (principal); J44.9 Chronic obstructive pulmonary disease, unspecified; G89.29 Other chronic pain; I10 Essential (primary) hypertension; Z79.899 Other long term (current) drug therapy
CPT/HCPCS: 36415; 80053; 83690; 84484; 85025

== ENCOUNTER 2023-08-30 14:08 | Emergency (ER) | payer MEDICARE ==
[~2023-08-30] VITALS: Ht 170.2 cm; Wt 72.6 kg
[2023-08-30 16:01] LABS: BASOPHILS # (AUTO) 0.03 K/uL (0.00-0.20); BASOPHILS % (AUTO) 0.2 % (0.0-5.0); HEMATOCRIT 41.9 % (42-54); IMMATURE GRANULOCYTE ABSOLUTE 0.05 K/uL (0-1); LYMPHOCYTES # (AUTO) 1.2 K/uL (1.0-4.8); LYMPHOCYTES % (AUTO) 9.1 % (21.0-51.0); MEAN CORPUSCULAR HEMOGLOBIN 27.5 pg (27.0-33.0); MEAN CORPUSCULAR HGB CONC 32.5 g/dL (32.0-36.0); MEAN CORPUSCULAR VOLUME 84.6 fL (79-99); MONOCYTES # (AUTO) 0.7 K/uL (0.1-1.0); MONOCYTES % (AUTO) 5.1 % (3.0-13.0); NEUTROPHILS # (AUTO) 11.3 K/uL (1.8-7.7); NEUTROPHILS % (AUTO) 85.2 % (40.0-77.0); PLATELET COUNT (AUTO) 325 K/uL (130-400); RED BLOOD CELL COUNT(AUTO) 4.95 MIL/uL (4.50-6.20); RED CELL DISTRIBUTION WIDTH 15.4 % (11.0-15.5); WHITE BLOOD COUNT (AUTO) 13.2 K/uL (4.8-10.8)
[2023-08-30 16:30] LABS: POTASSIUM 3.6 mmol/L (3.5-5.1)
[2023-08-30 16:34] LABS: ALBUMIN 4.3 g/dL (3.5-5.0); BILIRUBIN,TOTAL 0.3 mg/dL (0.2-1.0); TOTAL PROTEIN, SERUM 8.8 g/dL (6.0-8.3)
[2023-08-30] MEDS ORDERED: LACT10SO9 PO (17:44)
[2023-08-30] MEDS ORDERED: FAMO-136 PO (17:44)
[2023-08-30 17:58] VITALS: BP 142/90; PULSE 82; RESP 19; O2SAT 97
[2023-08-30] MEDS ORDERED: DICYCLOMINE HCL 10 MG/5 ML ML PO ONE (18:00)
[2023-08-30] MEDS ORDERED: LIDOCAINE HCL 2% VISCOUS 15 ML UDCUP PO ONE (18:00)
[2023-08-30] MEDS ORDERED: MAG/ALUM/SIMETH 30 ML UDCUP PO ONE (18:00)
== END 2023-08-30 18:03 | disposition home or self-care (01) ==
LOC: EDH 14:08
DX: K59.00 Constipation, unspecified (principal); G89.4 Chronic pain syndrome; R10.13 Epigastric pain; J44.9 Chronic obstructive pulmonary disease, unspecified; I10 Essential (primary) hypertension; F17.200 Nicotine dependence, unspecified, uncomplicated; Z79.02 Long term (current) use of antithrombotics/antiplatelets; Z79.82 Long term (current) use of aspirin; Z79.899 Other long term (current) drug therapy; Z95.5 Presence of coronary angioplasty implant and graft
CPT/HCPCS: 36415; 74018; 80053; 85025

== ENCOUNTER 2023-09-02 07:46 | Emergency (ER) | payer MEDICARE ==
[~2023-09-02] VITALS: Ht 170.2 cm; Wt 63.5 kg
[~2023-09-02 07:46] MED LIST changes: +FAMO-136 PO; +LACT10SO9 PO
[2023-09-02] MEDS ORDERED: ONDANSETRON 4MG INJ IVP ONE (09:00)
[2023-09-02] MEDS ORDERED: 0.9% NACL 500ML IV.SOLN 500 ML IV ONE (09:00)
[2023-09-02] MEDS ORDERED: PANTOPRAZOLE 40 MG/VIAL IVP ONE (09:00)
[2023-09-02 09:01] LABS: BASOPHILS # (AUTO) 0.08 K/uL (0.00-0.20); BASOPHILS % (AUTO) 0.8 % (0.0-5.0); EOSINOPHILS # (AUTO) 0.09 K/uL (0.00-0.70); EOSINOPHILS % (AUTO) 0.9 % (0.0-8.0); HEMATOCRIT 40.3 % (42-54); IMMATURE GRANULOCYTE ABSOLUTE 0.04 K/uL (0-1); LYMPHOCYTES # (AUTO) 1.6 K/uL (1.0-4.8); LYMPHOCYTES % (AUTO) 15.8 % (21.0-51.0); MEAN CORPUSCULAR HEMOGLOBIN 27.6 pg (27.0-33.0); MEAN CORPUSCULAR HGB CONC 32.5 g/dL (32.0-36.0); MEAN CORPUSCULAR VOLUME 84.8 fL (79-99); MONOCYTES # (AUTO) 0.9 K/uL (0.1-1.0); MONOCYTES % (AUTO) 8.6 % (3.0-13.0); NEUTROPHILS # (AUTO) 7.6 K/uL (1.8-7.7); NEUTROPHILS % (AUTO) 73.5 % (40.0-77.0); PLATELET COUNT (AUTO) 299 K/uL (130-400); RED BLOOD CELL COUNT(AUTO) 4.75 MIL/uL (4.50-6.20); RED CELL DISTRIBUTION WIDTH 14.9 % (11.0-15.5); WHITE BLOOD COUNT (AUTO) 10.4 K/uL (4.8-10.8)
[2023-09-02 09:16] LABS: POTASSIUM 3.8 mmol/L (3.5-5.1)
[2023-09-02 09:24] LABS: ALBUMIN 3.8 g/dL (3.5-5.0); BILIRUBIN,TOTAL 0.3 mg/dL (0.2-1.0); TOTAL PROTEIN, SERUM 7.8 g/dL (6.0-8.3)
[2023-09-02 09:29] LABS: APPEARANCE,URINE CLEAR (CLEAR); BILIRUBIN,URINE NEGATIVE (NEGATIVE); COLOR,URINE YELLOW (YELLOW); GLUCOSE, URINE (UA) NEGATIVE (NEGATIVE); KETONES,URINE NEGATIVE (NEGATIVE); LEUKOCYTE ESTERASE ,URINE 25 Leu/uL (NEGATIVE); NITRATE,URINE NEGATIVE (NEGATIVE); OCCULT BLOOD,URINE NEGATIVE (NEGATIVE); PROTEIN,URINE 30 mg/dL (NEGATIVE); UROBILINOGEN,URINE 0.2 mg/dL (0.2-1.0)
[2023-09-02 09:34] LABS: ADD UA MICROSCOPIC YES
[2023-09-02 09:36] LABS: BACTERIA,URINE RARE /HPF (None Seen); RBC,URINE 0-1 /HPF (0-1); SQUAMOUS EPITHELIAL CELL,UR RARE /HPF (0-2)
[2023-09-02 09:37] LABS: AMPHET/METH SCREEN,URINE NEGATIVE (NEGATIVE); BARBITURATE SCREEN, URINE NEGATIVE (NEGATIVE); BENZODIAZEPINES SCREEN,URINE NEGATIVE (NEGATIVE); CANNABINOID SCREEN,URINE POSITIVE (NEGATIVE); COCAINE SCREEN,URINE NEGATIVE (NEGATIVE); OPIATE SCREEN,URINE NEGATIVE (NEGATIVE); PHENCYCLIDINE SCREEN,URINE NEGATIVE (NEGATIVE)
[2023-09-02 10:36] VITALS: BP 159/77; PULSE 88; RESP 16; O2SAT 99
== END 2023-09-02 10:40 | disposition home or self-care (01) ==
LOC: EDH 07:46
DX: R11.2 Nausea with vomiting, unspecified (principal); E87.6 Hypokalemia; G89.29 Other chronic pain; R10.9 Unspecified abdominal pain; R11.15 Cyclical vomiting syndrome unrelated to migraine; K21.9 Gastro-esophageal reflux disease without esophagitis; E78.00 Pure hypercholesterolemia, unspecified; E86.0 Dehydration; I10 Essential (primary) hypertension; F17.200 Nicotine dependence, unspecified, uncomplicated; Z79.02 Long term (current) use of antithrombotics/antiplatelets; Z79.82 Long term (current) use of aspirin; Z79.899 Other long term (current) drug therapy; Z90.49 Acquired absence of other specified parts of digestive tract; Z95.5 Presence of coronary angioplasty implant and graft
CPT/HCPCS: 99285; 96374; 96375; 80053; 80305; 83690; 85025; 81001; 36415; 93005; J7040; J2405; C9113

== ENCOUNTER 2023-10-04 09:08 | Emergency (ER) | payer MEDICARE ==
[~2023-10-04] VITALS: Ht 170.2 cm; Wt 66.2 kg
[2023-10-04 09:22] LABS: BASOPHILS # (AUTO) 0.09 K/uL (0.00-0.20); BASOPHILS % (AUTO) 0.7 % (0.0-5.0); EOSINOPHILS % (AUTO) 2.2 % (0.0-8.0); HEMATOCRIT 41.3 % (42-54); IMMATURE GRANULOCYTE ABSOLUTE 0.07 K/uL (0-1); LYMPHOCYTES # (AUTO) 3.8 K/uL (1.0-4.8); LYMPHOCYTES % (AUTO) 28.6 % (21.0-51.0); MEAN CORPUSCULAR HEMOGLOBIN 28.2 pg (27.0-33.0); MEAN CORPUSCULAR HGB CONC 32.4 g/dL (32.0-36.0); MEAN CORPUSCULAR VOLUME 86.9 fL (79-99); MONOCYTES # (AUTO) 1.3 K/uL (0.1-1.0); MONOCYTES % (AUTO) 9.4 % (3.0-13.0); NEUTROPHILS # (AUTO) 7.8 K/uL (1.8-7.7); NEUTROPHILS % (AUTO) 58.6 % (40.0-77.0); PLATELET COUNT (AUTO) 326 K/uL (130-400); RED BLOOD CELL COUNT(AUTO) 4.75 MIL/uL (4.50-6.20); RED CELL DISTRIBUTION WIDTH 15.3 % (11.0-15.5); WHITE BLOOD COUNT (AUTO) 13.3 K/uL (4.8-10.8)
[2023-10-04] MEDS ORDERED: MORPHINE 4 MG SYG IM ONE (09:30)
[2023-10-04 09:41] LABS: ALBUMIN 3.6 g/dL (3.5-5.0); BILIRUBIN,TOTAL 0.1 mg/dL (0.2-1.0); CREATININE 0.8 mg/dL (0.5-1.5); POTASSIUM 3.9 mmol/L (3.5-5.1); TOTAL PROTEIN, SERUM 7.2 g/dL (6.0-8.3)
[2023-10-04] MEDS ORDERED: GABA-529 PO (12:53)
[2023-10-04] MEDS ORDERED: MAGNESIUM OXIDE 400 MG TABLET PO ONE (13:00)
[2023-10-04 13:15] VITALS: BP 139/80; PULSE 76; RESP 16; O2SAT 96
== END 2023-10-04 13:16 | disposition home or self-care (01) ==
LOC: EDH 09:08
DX: G50.0 Trigeminal neuralgia (principal); K02.9 Dental caries, unspecified; E83.42 Hypomagnesemia; E78.00 Pure hypercholesterolemia, unspecified; I10 Essential (primary) hypertension; K21.9 Gastro-esophageal reflux disease without esophagitis; F17.200 Nicotine dependence, unspecified, uncomplicated; Z79.02 Long term (current) use of antithrombotics/antiplatelets; Z79.82 Long term (current) use of aspirin; Z79.899 Other long term (current) drug therapy; Z90.49 Acquired absence of other specified parts of digestive tract; Z95.5 Presence of coronary angioplasty implant and graft
CPT/HCPCS: 99285; 70450; 83735; 80053; 85025; 85651; 86140; 36415; 70487; 96372; 84145; J2270

== ENCOUNTER 2023-11-09 22:04 | Emergency (ER) | payer MEDICARE ==
[~2023-11-09] VITALS: Ht 170.2 cm; Wt 63.5 kg
[~2023-11-09 22:04] MED LIST changes: +GABA-529 PO
[2023-11-09] MEDS ORDERED: HALOPERIDOL INJ 5 MG/ML VIAL ONE (22:13)
[2023-11-09] MEDS ORDERED: ONDANSETRON 4MG INJ IVP ONE (22:30)
[2023-11-09] MEDS ORDERED: HALOPERIDOL INJ 5 MG/ML VIAL IM PRN (22:30)
[2023-11-10 01:00] VITALS: BP 125/62; PULSE 75; RESP 16; O2SAT 99
== END 2023-11-10 01:01 | disposition home or self-care (01) ==
LOC: EDH 22:04
DX: K31.84 Gastroparesis (principal); G89.29 Other chronic pain; R10.9 Unspecified abdominal pain; I10 Essential (primary) hypertension; E78.00 Pure hypercholesterolemia, unspecified; K21.9 Gastro-esophageal reflux disease without esophagitis; F17.200 Nicotine dependence, unspecified, uncomplicated; Z79.82 Long term (current) use of aspirin; Z79.899 Other long term (current) drug therapy; Z90.49 Acquired absence of other specified parts of digestive tract; Z90.89 Acquired absence of other organs; Z98.890 Other specified postprocedural states
CPT/HCPCS: 99284; 96372; J1630

== ENCOUNTER 2023-11-19 14:11 | Emergency (ER) | payer MEDICARE ==
[~2023-11-19] VITALS: Ht 170.2 cm; Wt 63.5 kg
[2023-11-19 15:06] LABS: BASOPHILS % (AUTO) 0.7 % (0.0-5.0); EOSINOPHILS # (AUTO) 0.15 K/uL (0.00-0.70); HEMATOCRIT 42.1 % (42-54); IMMATURE GRANULOCYTE ABSOLUTE 0.05 K/uL (0-1); LYMPHOCYTES # (AUTO) 1.8 K/uL (1.0-4.8); LYMPHOCYTES % (AUTO) 12.2 % (21.0-51.0); MEAN CORPUSCULAR HEMOGLOBIN 27.3 pg (27.0-33.0); MEAN CORPUSCULAR HGB CONC 32.3 g/dL (32.0-36.0); MEAN CORPUSCULAR VOLUME 84.5 fL (79-99); MONOCYTES # (AUTO) 0.8 K/uL (0.1-1.0); MONOCYTES % (AUTO) 5.2 % (3.0-13.0); NEUTROPHILS # (AUTO) 11.7 K/uL (1.8-7.7); NEUTROPHILS % (AUTO) 80.6 % (40.0-77.0); PLATELET COUNT (AUTO) 324 K/uL (130-400); RED BLOOD CELL COUNT(AUTO) 4.98 MIL/uL (4.50-6.20); RED CELL DISTRIBUTION WIDTH 14.1 % (11.0-15.5); WHITE BLOOD COUNT (AUTO) 14.5 K/uL (4.8-10.8)
[2023-11-19 15:16] LABS: CREATININE 0.8 mg/dL (0.5-1.5); POTASSIUM 3.7 mmol/L (3.5-5.1)
[2023-11-19 15:20] LABS: ALBUMIN 3.8 g/dL (3.5-5.0); BILIRUBIN,TOTAL 0.2 mg/dL (0.2-1.0); TOTAL PROTEIN, SERUM 7.5 g/dL (6.0-8.3)
[2023-11-19] MEDS ORDERED: MORPHINE 4 MG SYG IVP ONE (15:30)
[2023-11-19] MEDS ORDERED: LACTATED RINGERS 1000ML 1,000 ML IV ONE (15:30)
[2023-11-19] MEDS ORDERED: ONDANSETRON 4MG INJ IVP ONE (15:30)
[2023-11-19] MEDS ORDERED: FAMOTIDINE 20MG VIAL IV ONE (15:30)
[2023-11-19] MEDS ORDERED: IOHEXOL-350 75 ML VIAL IV ONE (15:44)
[2023-11-19] MEDS ORDERED: HYDROMORPHONE 0.5 MG SYG (0.5MG/0.5ML) IVP ONE (17:47)
[2023-11-19] MEDS ORDERED: METOCLOPRAMIDE 10 MG/2 ML VIAL IVP ONE (17:47)
[2023-11-19] MEDS ORDERED: METO5 PO (18:38)
[2023-11-19 18:56] VITALS: BP 83/42; PULSE 62; RESP 14; O2SAT 98
== END 2023-11-19 18:45 | disposition home or self-care (01) ==
LOC: EDH 14:11
DX: R10.9 Unspecified abdominal pain (principal); K31.84 Gastroparesis; K21.9 Gastro-esophageal reflux disease without esophagitis; E78.00 Pure hypercholesterolemia, unspecified; I10 Essential (primary) hypertension; F17.200 Nicotine dependence, unspecified, uncomplicated; Z79.02 Long term (current) use of antithrombotics/antiplatelets; Z79.82 Long term (current) use of aspirin; Z79.899 Other long term (current) drug therapy; Z87.19 Personal history of other diseases of the digestive system; Z90.49 Acquired absence of other specified parts of digestive tract; Z95.5 Presence of coronary angioplasty implant and graft
CPT/HCPCS: 99285; 74177; 96374; 96375; 96361; 84484; 80053; 83690; 85025; 83605; 36415; J7120; J3490; J2405; J2270; J2765; Q9967; J1170

== ENCOUNTER 2023-12-18 07:14 | Emergency (ER) | payer MEDICARE ==
[~2023-12-18] VITALS: Ht 170.2 cm; Wt 63.5 kg
[~2023-12-18 07:14] MED LIST changes: +METO5 PO
[2023-12-18 07:35] VITALS: BP 156/76; PULSE 77; RESP 18; O2SAT 96
[2023-12-18] MEDS: DiphenhydrAMINE HCL 50 MG/ML VIAL IV ONE (07:41)
[2023-12-18] MEDS: PANTOPRAZOLE 40 MG/VIAL IVP ONE (07:42)
[2023-12-18] MEDS: 0.9% NACL 500ML IV.SOLN 500 ML IV ONE (07:42)
[2023-12-18 07:43] LABS: BASOPHILS # (AUTO) 0.09 K/uL (0.00-0.20); BASOPHILS % (AUTO) 0.8 % (0.0-5.0); EOSINOPHILS # (AUTO) 0.09 K/uL (0.00-0.70); EOSINOPHILS % (AUTO) 0.8 % (0.0-8.0); HEMATOCRIT 40.3 % (42-54); IMMATURE GRANULOCYTE ABSOLUTE 0.03 K/uL (0-1); LYMPHOCYTES # (AUTO) 1.8 K/uL (1.0-4.8); LYMPHOCYTES % (AUTO) 17.3 % (21.0-51.0); MEAN CORPUSCULAR HEMOGLOBIN 27.6 pg (27.0-33.0); MEAN CORPUSCULAR HGB CONC 33.5 g/dL (32.0-36.0); MEAN CORPUSCULAR VOLUME 82.4 fL (79-99); MONOCYTES # (AUTO) 0.6 K/uL (0.1-1.0); MONOCYTES % (AUTO) 5.6 % (3.0-13.0); NEUTROPHILS % (AUTO) 75.2 % (40.0-77.0); PLATELET COUNT (AUTO) 259 K/uL (130-400); RED BLOOD CELL COUNT(AUTO) 4.89 MIL/uL (4.50-6.20); RED CELL DISTRIBUTION WIDTH 14.5 % (11.0-15.5); WHITE BLOOD COUNT (AUTO) 10.7 K/uL (4.8-10.8)
[2023-12-18] MEDS: METOCLOPRAMIDE 10 MG/2 ML VIAL IVP ONE (07:43)
[2023-12-18 07:54] LABS: POTASSIUM 3.8 mmol/L (3.5-5.1)
[2023-12-18 08:08] LABS: BILIRUBIN,TOTAL 0.2 mg/dL (0.2-1.0); MAGNESIUM 1.6 mg/dL (1.80-2.40)
[2023-12-18 08:09] LABS: ALBUMIN 3.7 g/dL (3.5-5.0); TOTAL PROTEIN, SERUM 7.6 g/dL (6.0-8.3)
[2023-12-18] MEDS: MAGNESIUM 2GM PREMIX 50ML 50 ML IV SCH (08:27)
[2023-12-18] MEDS: KETOROLAC 30MG VIAL (30MG/ML) IVP ONE (09:51)
[2023-12-18] MEDS: MORPHINE 2 MG SYG IM ONE (11:12)
[2023-12-18] MEDS: MAG/ALUM/SIMETH 30 ML UDCUP PO ONE (11:35)
[2023-12-18] MEDS: LIDOCAINE HCL 2% VISCOUS 15 ML UDCUP PO ONE (11:35)
== END 2023-12-18 11:45 | disposition home or self-care (01) ==
LOC: EDH 07:14
DX: R10.13 Epigastric pain (principal); R11.15 Cyclical vomiting syndrome unrelated to migraine; E78.00 Pure hypercholesterolemia, unspecified; K21.9 Gastro-esophageal reflux disease without esophagitis; I10 Essential (primary) hypertension; F17.200 Nicotine dependence, unspecified, uncomplicated; Z79.02 Long term (current) use of antithrombotics/antiplatelets; Z79.82 Long term (current) use of aspirin; Z79.899 Other long term (current) drug therapy; Z90.49 Acquired absence of other specified parts of digestive tract; Z95.5 Presence of coronary angioplasty implant and graft
CPT/HCPCS: 99284; 96365; 96375; 96366; 96361; 83735; 84484; 80053; 83690; 85025; 36415; 96372; 93005; J3475; J7040; J1200; J2270; J1885; C9113; J2765

== ENCOUNTER 2023-12-20 08:06 | Emergency (ER) | payer MEDICARE ==
[~2023-12-20] VITALS: Ht 167.6 cm; Wt 63.5 kg
[2023-12-20 09:09] LABS: CREATININE 1.1 mg/dL (0.5-1.5); POTASSIUM 3.6 mmol/L (3.5-5.1)
[2023-12-20 09:31] LABS: BASOPHILS # (AUTO) 0.06 K/uL (0.00-0.20); BASOPHILS % (AUTO) 0.5 % (0.0-5.0); EOSINOPHILS # (AUTO) 0.01 K/uL (0.00-0.70); EOSINOPHILS % (AUTO) 0.1 % (0.0-8.0); HEMATOCRIT 42.3 % (42-54); IMMATURE GRANULOCYTE ABSOLUTE 0.05 K/uL (0-1); LYMPHOCYTES # (AUTO) 2.1 K/uL (1.0-4.8); LYMPHOCYTES % (AUTO) 17.6 % (21.0-51.0); MEAN CORPUSCULAR HEMOGLOBIN 27.1 pg (27.0-33.0); MEAN CORPUSCULAR HGB CONC 32.4 g/dL (32.0-36.0); MEAN CORPUSCULAR VOLUME 83.8 fL (79-99); MONOCYTES # (AUTO) 0.7 K/uL (0.1-1.0); MONOCYTES % (AUTO) 6.1 % (3.0-13.0); NEUTROPHILS % (AUTO) 75.3 % (40.0-77.0); PLATELET COUNT (AUTO) 292 K/uL (130-400); RED BLOOD CELL COUNT(AUTO) 5.05 MIL/uL (4.50-6.20); RED CELL DISTRIBUTION WIDTH 14.4 % (11.0-15.5); WHITE BLOOD COUNT (AUTO) 11.9 K/uL (4.8-10.8)
[2023-12-20 09:34] LABS: CREATININE 1.1 mg/dL (0.5-1.5); POTASSIUM 3.6 mmol/L (3.5-5.1)
[2023-12-20] MEDS: MORPHINE 4 MG SYG IVP ONE (09:34)
[2023-12-20] MEDS: PANTOPRAZOLE 40 MG/VIAL IVP ONE (09:34)
[2023-12-20] MEDS: ONDANSETRON 4MG INJ IVP ONE (09:34)
[2023-12-20] MEDS: 0.9%NACL 1000ML 1,000 ML IV ONE (09:35)
[2023-12-20 09:41] LABS: ALBUMIN 4.1 g/dL (3.5-5.0); BILIRUBIN,TOTAL 0.4 mg/dL (0.2-1.0); TOTAL PROTEIN, SERUM 8.2 g/dL (6.0-8.3)
[2023-12-20 10:09] LABS: APPEARANCE,URINE CLEAR (CLEAR); BILIRUBIN,URINE NEGATIVE (NEGATIVE); COLOR,URINE YELLOW (YELLOW); GLUCOSE, URINE (UA) NEGATIVE (NEGATIVE); KETONES,URINE NEGATIVE (NEGATIVE); LEUKOCYTE ESTERASE ,URINE NEGATIVE Leu/uL (NEGATIVE); NITRATE,URINE NEGATIVE (NEGATIVE); OCCULT BLOOD,URINE NEGATIVE (NEGATIVE); PROTEIN,URINE 70 mg/dL (NEGATIVE); UROBILINOGEN,URINE 0.2 mg/dL (0.2-1.0)
[2023-12-20 10:12] LABS: ADD UA MICROSCOPIC YES
[2023-12-20 10:15] LABS: BACTERIA,URINE RARE /HPF (None Seen); MUCUS,URINE FEW LPF (None Seen); OTHER CASTS, URINE 1 /LPF (None Seen); SQUAMOUS EPITHELIAL CELL,UR RARE /HPF (0-2)
[2023-12-20 13:06] VITALS: BP 166/97; PULSE 77; RESP 18; O2SAT 99
[2023-12-20] MEDS ORDERED: IOHEXOL 350 MG/ML 100ML INFUS..BTL IV ONE (14:05)
[2023-12-20] MEDS: KETOROLAC 30MG VIAL (30MG/ML) IVP ONE (15:46)
[2023-12-20] MEDS: DEXAMETHASONE SOD PHOSPHATE 4 MG/ML 1ML VIAL IVP ONE (15:46)
== END 2023-12-20 16:03 | disposition home or self-care (01) ==
LOC: EDH 08:06
DX: K29.00 Acute gastritis without bleeding (principal); K31.84 Gastroparesis; G89.29 Other chronic pain; M54.50 Low back pain, unspecified; E86.0 Dehydration; F17.210 Nicotine dependence, cigarettes, uncomplicated; E78.00 Pure hypercholesterolemia, unspecified; I10 Essential (primary) hypertension; F17.200 Nicotine dependence, unspecified, uncomplicated; Z79.02 Long term (current) use of antithrombotics/antiplatelets; Z79.82 Long term (current) use of aspirin; Z79.899 Other long term (current) drug therapy; Z95.5 Presence of coronary angioplasty implant and graft
CPT/HCPCS: 99285; 74177; 96374; 96375; 84478; 84484; 80053; 83690; 85025; 87088; 81001; 36415; 93005; 80048; J1100; J7030; J2405; J2270; J1885; C9113; Q9967

== ENCOUNTER → 2024-01-01 | Outpatient (CLI) | payer MEDICARE ==
[2024-01-01] MEDS: REGADENOSON 0.4 MG/5 ML PF SYG IVP ONE (11:57)
== END | disposition home or self-care (01) ==
LOC: SHCH 12-28 08:24
PROVIDERS: ATTEND Internal Medicine Cardiovascular Disease
DX: R94.39 Abnormal result of other cardiovascular function study (principal); I25.10 Atherosclerotic heart disease of native coronary artery without angina pectoris; R07.9 Chest pain, unspecified
CPT/HCPCS: 78452; 96374; 93017; J2785; A9500 ×2

== ENCOUNTER 2024-01-17 16:48 | Emergency (ER) | payer MEDICARE ==
[~2024-01-17] VITALS: Ht 157.5 cm; Wt 59.0 kg
[~2024-01-17 16:48] MED LIST changes: -POLY17PO4 PO
[2024-01-17 17:55] LABS: BASOPHILS # (AUTO) 0.05 K/uL (0.00-0.20); BASOPHILS % (AUTO) 0.4 % (0.0-5.0); EOSINOPHILS # (AUTO) 0.08 K/uL (0.00-0.70); EOSINOPHILS % (AUTO) 0.7 % (0.0-8.0); HEMATOCRIT 41.9 % (42-54); IMMATURE GRANULOCYTE ABSOLUTE 0.04 K/uL (0-1); LYMPHOCYTES # (AUTO) 1.6 K/uL (1.0-4.8); LYMPHOCYTES % (AUTO) 13.9 % (21.0-51.0); MEAN CORPUSCULAR HEMOGLOBIN 27.6 pg (27.0-33.0); MEAN CORPUSCULAR HGB CONC 32.9 g/dL (32.0-36.0); MEAN CORPUSCULAR VOLUME 83.8 fL (79-99); MONOCYTES # (AUTO) 0.4 K/uL (0.1-1.0); MONOCYTES % (AUTO) 3.9 % (3.0-13.0); NEUTROPHILS # (AUTO) 9.1 K/uL (1.8-7.7); NEUTROPHILS % (AUTO) 80.7 % (40.0-77.0); PLATELET COUNT (AUTO) 278 K/uL (130-400); RED CELL DISTRIBUTION WIDTH 14.9 % (11.0-15.5); WHITE BLOOD COUNT (AUTO) 11.2 K/uL (4.8-10.8)
[2024-01-17] MEDS: ONDANSETRON 4MG INJ IVP ONE (17:56)
[2024-01-17] MEDS: LACTATED RINGERS 1000ML 1,000 ML IV ONE (17:56)
[2024-01-17] MEDS: MORPHINE 4 MG SYG IVP ONE (17:57)
[2024-01-17 18:12] LABS: CREATININE 0.9 mg/dL (0.5-1.3); POTASSIUM 3.7 mmol/L (3.5-5.1)
[2024-01-17 18:17] LABS: ALBUMIN 3.9 g/dL (3.5-5.0); BILIRUBIN,TOTAL 0.3 mg/dL (0.2-1.0); TOTAL PROTEIN, SERUM 7.8 g/dL (6.0-8.3)
[2024-01-17] MEDS ORDERED: IOHEXOL 350 MG/ML 100ML INFUS..BTL IV ONE (20:25)
[2024-01-17] MEDS: PROMETHAZINE HCL 25 MG/ML 1ML AMPULE IM ONE (20:39)
[2024-01-17] MEDS: METOCLOPRAMIDE 10 MG/2 ML VIAL IVP ONE (21:11)
[2024-01-17] MEDS ORDERED: POLY17PO4 PO (22:28)
[2024-01-17 23:09] VITALS: BP 144/74; PULSE 79; RESP 18; O2SAT 98
[2024-02-12] MEDS ORDERED: UMEC1DIS IH (14:51)
[2024-02-12] MEDS ORDERED: ALBU18HF7 IH (14:51)
[2024-02-12] MEDS ORDERED: GI COCKTAIL PO (14:51)
[2024-02-12] MEDS ORDERED: NORT10CA2 PO (14:54)
[2024-02-12] MEDS ORDERED: METO10TA3 PO (14:54)
[2024-02-12] MEDS ORDERED: BUPR-74 PO (14:54)
[2024-02-12] MEDS ORDERED: NITR0.4T50 SL (14:54)
== END 2024-01-17 23:21 | disposition home or self-care (01) ==
LOC: EDH 16:48
DX: R10.10 Upper abdominal pain, unspecified (principal); R41.0 Disorientation, unspecified; K21.9 Gastro-esophageal reflux disease without esophagitis; K29.70 Gastritis, unspecified, without bleeding; F17.200 Nicotine dependence, unspecified, uncomplicated; Z79.02 Long term (current) use of antithrombotics/antiplatelets; Z79.82 Long term (current) use of aspirin; Z79.899 Other long term (current) drug therapy; Z90.49 Acquired absence of other specified parts of digestive tract; Z95.5 Presence of coronary angioplasty implant and graft
CPT/HCPCS: 99285; 93306; 74177; 96374; 96375; 96361; 82550; 84484; 80053; 83880; 83690; 85025; 83605; 36415; 93005; 96372; J7120; J2550; J2405; J2270; J2765; Q9967

== ENCOUNTER → 2024-01-17 | Outpatient (CLI) | payer MEDICARE ==
[~2024-01-17] MED LIST changes: +POLY17PO4 PO
== END | disposition home or self-care (01) ==
LOC: SHCH 14:22
PROVIDERS: ATTEND Internal Medicine Cardiovascular Disease
DX: I51.89 Other ill-defined heart diseases (principal); I25.119 Atherosclerotic heart disease of native coronary artery with unspecified angina pectoris; R07.9 Chest pain, unspecified; I10 Essential (primary) hypertension
CPT/HCPCS: 93306

== ENCOUNTER 2024-02-06 00:32 | Emergency (ER) | payer MEDICARE ==
[~2024-02-06 00:32] MED LIST changes: +POLY17PO4 PO
[2024-02-06 01:06] VITALS: BP 118/63; PULSE 71; RESP 18
[2024-02-06] MEDS: METOCLOPRAMIDE 10 MG/2 ML VIAL IVP ONE (01:33)
[2024-02-06] MEDS: DiphenhydrAMINE HCL 50 MG/ML VIAL IV ONE (01:33)
[2024-02-06] MEDS: KETOROLAC 15MG/ML VIAL (15MG/ML) IV ONE (01:34)
[2024-02-06] MEDS ORDERED: IBUP-1493 PO (01:54)
== END 2024-02-06 02:39 | disposition home or self-care (01) ==
LOC: EDH 00:32
DX: G43.909 Migraine, unspecified, not intractable, without status migrainosus (principal); K21.9 Gastro-esophageal reflux disease without esophagitis; F17.200 Nicotine dependence, unspecified, uncomplicated; Z79.82 Long term (current) use of aspirin; Z79.02 Long term (current) use of antithrombotics/antiplatelets; Z79.899 Other long term (current) drug therapy; Z95.5 Presence of coronary angioplasty implant and graft
CPT/HCPCS: 99284; 96374; 96375; J1200; J2765; J1885

== ENCOUNTER 2024-02-11 17:11 | Emergency (ER) | payer MEDICARE ==
[~2024-02-11] VITALS: Ht 170.2 cm; Wt 66.2 kg
[~2024-02-11 17:11] MED LIST changes: +IBUP-1493 PO
[2024-02-11 17:43] LABS: BASOPHILS # (AUTO) 0.05 K/uL (0.00-0.20); BASOPHILS % (AUTO) 0.6 % (0.0-5.0); EOSINOPHILS # (AUTO) 0.57 K/uL (0.00-0.70); EOSINOPHILS % (AUTO) 7.3 % (0.0-8.0); HEMATOCRIT 44.4 % (42-54); IMMATURE GRANULOCYTE ABSOLUTE 0.01 K/uL (0-1); LYMPHOCYTES % (AUTO) 25.7 % (21.0-51.0); MEAN CORPUSCULAR HEMOGLOBIN 28.1 pg (27.0-33.0); MEAN CORPUSCULAR HGB CONC 33.1 g/dL (32.0-36.0); MEAN CORPUSCULAR VOLUME 84.9 fL (79-99); MONOCYTES # (AUTO) 0.8 K/uL (0.1-1.0); MONOCYTES % (AUTO) 9.7 % (3.0-13.0); NEUTROPHILS # (AUTO) 4.5 K/uL (1.8-7.7); NEUTROPHILS % (AUTO) 56.6 % (40.0-77.0); PLATELET COUNT (AUTO) 213 K/uL (130-400); RED BLOOD CELL COUNT(AUTO) 5.23 MIL/uL (4.50-6.20); RED CELL DISTRIBUTION WIDTH 15.8 % (11.0-15.5); WHITE BLOOD COUNT (AUTO) 7.9 K/uL (4.8-10.8)
[2024-02-11 17:52] LABS: CREATININE 1.1 mg/dL (0.5-1.3); POTASSIUM 3.5 mmol/L (3.5-5.1)
[2024-02-11 17:56] LABS: ALBUMIN 3.8 g/dL (3.5-5.0); BILIRUBIN,TOTAL 0.2 mg/dL (0.2-1.0); TOTAL PROTEIN, SERUM 7.6 g/dL (6.0-8.3)
[2024-02-11] MEDS: DICYCLOMINE 20MG (10MG/ML) AMP IM ONE ×2 (20:50)
[2024-02-11] MEDS: HALOPERIDOL INJ 5 MG/ML VIAL IV SCH (20:50)
[2024-02-11] MEDS: FAMOTIDINE 20MG VIAL IV ONE (20:51)
[2024-02-11] MEDS: ONDANSETRON 4MG INJ IVP ONE (20:51)
[2024-02-11] MEDS: HALOPERIDOL INJ 5 MG/ML VIAL ONE (20:51)
[2024-02-11] MEDS: 0.9%NACL 1000ML 1,000 ML IV ONE (20:52)
[2024-02-11 22:08] VITALS: BP 114/82; PULSE 84; RESP 18; O2SAT 97
[2024-02-12] MEDS ORDERED: ALBU18HF7 IH (14:51)
[2024-02-12] MEDS ORDERED: GI COCKTAIL PO (14:51)
[2024-02-12] MEDS ORDERED: UMEC1DIS IH (14:51)
[2024-02-12] MEDS ORDERED: BUPR-74 PO (14:54)
[2024-02-12] MEDS ORDERED: NORT10CA2 PO (14:54)
[2024-02-12] MEDS ORDERED: NITR0.4T50 SL (14:54)
[2024-02-12] MEDS ORDERED: METO10TA3 PO (14:54)
== END 2024-02-11 22:15 | disposition home or self-care (01) ==
LOC: EDH 17:11
DX: G89.29 Other chronic pain (principal); F17.200 Nicotine dependence, unspecified, uncomplicated; R10.9 Unspecified abdominal pain; K21.9 Gastro-esophageal reflux disease without esophagitis; Z79.82 Long term (current) use of aspirin; Z79.84 Long term (current) use of oral hypoglycemic drugs; Z79.899 Other long term (current) drug therapy; Z98.890 Other specified postprocedural states
CPT/HCPCS: 99285; 74176; 96374; 96375; 71045; 84484; 80053; 83690; 85025; 36415; 93005; 96372; J3490; J7030; J1630; J2405; J0500

== ENCOUNTER → 2024-02-12 | Outpatient (CLI) | payer MEDICARE ==
[~2024-02-12] VITALS: Ht 170.2 cm; Wt 63.2 kg
[~2024-02-12] MED LIST changes: +ALBU18HF7 IH; +BUPR-74 PO; +GI COCKTAIL PO; +ISOS30TA92 PO; +METO10TA3 PO; +NITR0.4T50 SL; +NORT10CA2 PO; +UMEC1DIS IH
[2024-02-12 13:14] LABS: INR <= 0.93 (0.85-1.15); PROTHROMBIN TIME 10.3 SEC (9.6-11.6)
[2024-02-12 13:15] LABS: PARTIAL THROMBOPLASTIN TIME 27.8 SEC (26.3-35.5)
[2024-02-12 13:35] VITALS: BP 148/79; PULSE 73; RESP 15
== END | disposition home or self-care (01) ==
LOC: DAH 10:00 → EDSTATUS 12:00
PROVIDERS: ATTEND Internal Medicine Cardiovascular Disease
DX: Z01.812 Encounter for preprocedural laboratory examination (principal); I25.10 Atherosclerotic heart disease of native coronary artery without angina pectoris; R07.9 Chest pain, unspecified
CPT/HCPCS: 36415; 85610; 85730

== ENCOUNTER 2024-02-27 10:13 | Day surgery (SDC) | payer MEDICARE ==
[2024-02-25 11:37] LABS: BASOPHILS # (AUTO) 0.09 K/uL (0.00-0.20); EOSINOPHILS # (AUTO) 0.56 K/uL (0.00-0.70); EOSINOPHILS % (AUTO) 6.2 % (0.0-8.0); HEMATOCRIT 41.6 % (42-54); IMMATURE GRANULOCYTE ABSOLUTE 0.02 K/uL (0-1); LYMPHOCYTES # (AUTO) 2.7 K/uL (1.0-4.8); LYMPHOCYTES % (AUTO) 30.1 % (21.0-51.0); MEAN CORPUSCULAR HEMOGLOBIN 27.3 pg (27.0-33.0); MEAN CORPUSCULAR HGB CONC 32.5 g/dL (32.0-36.0); MONOCYTES # (AUTO) 0.6 K/uL (0.1-1.0); NEUTROPHILS % (AUTO) 55.5 % (40.0-77.0); PLATELET COUNT (AUTO) 283 K/uL (130-400); RED BLOOD CELL COUNT(AUTO) 4.95 MIL/uL (4.50-6.20); RED CELL DISTRIBUTION WIDTH 15.9 % (11.0-15.5); WHITE BLOOD COUNT (AUTO) 9.1 K/uL (4.8-10.8)
[2024-02-25 11:41] LABS: CREATININE 0.9 mg/dL (0.5-1.3); POTASSIUM 3.8 mmol/L (3.5-5.1)
[2024-02-25 11:42] VITALS: BP 120/65; PULSE 77; RESP 19
[2024-02-25 11:43] LABS: INR <= 0.93 (0.85-1.15); PROTHROMBIN TIME 10.3 SEC (9.6-11.6)
[2024-02-25 11:44] LABS: PARTIAL THROMBOPLASTIN TIME 26.3 SEC (26.3-35.5)
[2024-02-27] VITALS (9 sets, daily range): BP systolic 108–154; BP diastolic 66–99; PULSE 65–76; RESP 16–19
[~2024-02-27] VITALS: Ht 170.2 cm; Wt 65.7 kg
[2024-02-27] MEDS ORDERED: LIDOCAINE HCL 400MG/20ML VIAL ONE (12:29)
[2024-02-27] MEDS ORDERED: BIVALIRUDIN 250 MG/VIAL IV ONE (12:29)
[2024-02-27] MEDS ORDERED: IOHEXOL 350 MG/ML 100ML INFUS..BTL IV ONE (12:29)
[2024-02-27] MEDS ORDERED: NITROGLYCERIN 50MG VIAL ONE (12:29)
[2024-02-27] MEDS ORDERED: HEPARIN 10,000 UNIT/10ML (1,000 UNIT/ML) VIAL ONE (12:29)
[2024-02-27] MEDS ORDERED: IOHEXOL-350 50ML VIAL IV ONE (12:29)
[2024-02-27] MEDS ORDERED: MIDAZOLAM HCL 1 MG/ML 2ML VIAL ONE ×2 (13:15→13:22)
[2024-02-27] MEDS ORDERED: FENTANYL CITRATE PF 50 MCG/1 ML 2ML VIAL ONE (13:15)
[2024-02-27] MEDS ORDERED: DEXTROSE 50%-WATER 50 ML DISP.SYRIN IV PRN (14:00)
[2024-02-27] MEDS ORDERED: ACETAMINOPHEN WITH CODEINE 1 TAB TAB PO PRN ×2 (14:00)
[2024-02-27] MEDS ORDERED: 0.9%NACL 1000ML 1,000 ML IV SCH (14:00)
[2024-02-27] MEDS ORDERED: GLUCAGON 1MG KIT 1 MG ML IM PRN (14:00)
== END 2024-02-27 17:00 | disposition home or self-care (01) ==
LOC: DAH 10:13
PROVIDERS: ATTEND Internal Medicine Cardiovascular Disease
DX: I25.118 Atherosclerotic heart disease of native coronary artery with other forms of angina pectoris (principal); I21.4 Non-ST elevation (NSTEMI) myocardial infarction; R42 Dizziness and giddiness; I11.0 Hypertensive heart disease with heart failure; I50.23 Acute on chronic systolic (congestive) heart failure; I87.2 Venous insufficiency (chronic) (peripheral); E78.5 Hyperlipidemia, unspecified; E11.9 Type 2 diabetes mellitus without complications; F17.210 Nicotine dependence, cigarettes, uncomplicated; J44.9 Chronic obstructive pulmonary disease, unspecified; F41.9 Anxiety disorder, unspecified; F32.A Depression, unspecified; I25.2 Old myocardial infarction; Z95.5 Presence of coronary angioplasty implant and graft; Z98.890 Other specified postprocedural states; Z79.02 Long term (current) use of antithrombotics/antiplatelets; Z79.01 Long term (current) use of anticoagulants
CPT/HCPCS: 80048; 85025; 85610; 85730; 36415; 71045; 93005; 93458; C1894 ×2; Q9965; J3010; J3490 ×2; J2250; J1644; Q9967; A4215; A4222; A4221; A4663; A4216; A4606; A4223 ×3; 99156; 99157; J0583

== ENCOUNTER 2024-06-07 07:35 | Emergency (ER) | payer MEDICARE ==
[~2024-06-07] VITALS: Ht 170.2 cm; Wt 65.8 kg
[~2024-06-07 07:35] MED LIST changes: -FAMO-136 PO; -GABA-529 PO; -IBUP-1493 PO; -LACT10SO9 PO; -METO10TA3 PO; -METO5 PO; -OMEP40CA21 PO; -ONDA-104 PO; -ONDA4TAB10 PO; -POLY17PO4 PO
[2024-06-07 08:18] LABS: BASOPHILS # (AUTO) 0.08 K/uL (0.00-0.20); BASOPHILS % (AUTO) 0.5 % (0.0-5.0); EOSINOPHILS # (AUTO) 0.15 K/uL (0.00-0.70); HEMATOCRIT 49.1 % (42-54); IMMATURE GRANULOCYTE ABSOLUTE 0.08 K/uL (0-1); LYMPHOCYTES # (AUTO) 2.6 K/uL (1.0-4.8); LYMPHOCYTES % (AUTO) 16.9 % (21.0-51.0); MEAN CORPUSCULAR HGB CONC 32.6 g/dL (32.0-36.0); MEAN CORPUSCULAR VOLUME 85.8 fL (79-99); MONOCYTES # (AUTO) 0.8 K/uL (0.1-1.0); MONOCYTES % (AUTO) 5.4 % (3.0-13.0); NEUTROPHILS # (AUTO) 11.5 K/uL (1.8-7.7); NEUTROPHILS % (AUTO) 75.7 % (40.0-77.0); PLATELET COUNT (AUTO) 318 K/uL (130-400); RED BLOOD CELL COUNT(AUTO) 5.72 MIL/uL (4.50-6.20); WHITE BLOOD COUNT (AUTO) 15.2 K/uL (4.8-10.8)
[2024-06-07 08:33] LABS: ALBUMIN 4.8 g/dL (3.5-5.0); BILIRUBIN,TOTAL 0.3 mg/dL (0.2-1.0); CREATININE 1.8 mg/dL (0.5-1.3); POTASSIUM 3.8 mmol/L (3.5-5.1); TOTAL PROTEIN, SERUM 9.2 g/dL (6.0-8.3)
[2024-06-07] MEDS: 0.9%NACL 1000ML 1,000 ML IV ONE ×2 (08:38→08:39)
[2024-06-07] MEDS: PANTOPRAZOLE 40 MG/VIAL ONE (08:38)
[2024-06-07] MEDS: MORPHINE 2 MG SYG ONE (08:38)
[2024-06-07] MEDS: ONDANSETRON 4MG INJ ONE (08:38)
[2024-06-07] MEDS: PANTOPRAZOLE 40 MG/VIAL IVP ONE (08:39)
[2024-06-07] MEDS: ONDANSETRON 4MG INJ IVP ONE (08:39)
[2024-06-07] MEDS: MORPHINE 2 MG SYG IVP ONE (08:39)
[2024-06-07] MEDS: MORPHINE 4 MG SYG IVP ONE (11:41)
[2024-06-07 12:23] LABS: APPEARANCE,URINE CLOUDY (CLEAR); BILIRUBIN,URINE NEGATIVE (NEGATIVE); COLOR,URINE YELLOW (YELLOW); GLUCOSE, URINE (UA) 30 mg/dL (NEGATIVE); KETONES,URINE NEGATIVE (NEGATIVE); LEUKOCYTE ESTERASE ,URINE NEGATIVE Leu/uL (NEGATIVE); NITRATE,URINE NEGATIVE (NEGATIVE); PH,URINE 5.5 (5.0-8.0); PROTEIN,URINE 200 mg/dL (NEGATIVE); UROBILINOGEN,URINE 0.2 mg/dL (0.2-1.0)
[2024-06-07 12:29] LABS: ADD UA MICROSCOPIC YES
[2024-06-07 12:32] LABS: HYALINE CASTS, URINE 51-100 /LPF (0-1 /LPF); MUCUS,URINE RARE LPF (None Seen)
[2024-06-07] MEDS: cefTRIAXone 1G VIAL IVPB ONE (12:50)
[2024-06-07] MEDS: TRAMADOL HCL 50 MG TABLET PO ONE (14:58)
[2024-06-07 15:02] VITALS: BP 156/74; PULSE 62; RESP 16; O2SAT 98
[2024-06-07] MEDS ORDERED: CIPR-278 PO (15:06)
[2024-06-07] MEDS ORDERED: TRAM50TA4 PO (15:06)
[2024-06-07 18:08] LABS: AMPHET/METH SCREEN,URINE NEGATIVE (NEGATIVE); BARBITURATE SCREEN, URINE NEGATIVE (NEGATIVE); BENZODIAZEPINES SCREEN,URINE NEGATIVE (NEGATIVE); CANNABINOID SCREEN,URINE POSITIVE (NEGATIVE); COCAINE SCREEN,URINE NEGATIVE (NEGATIVE); OPIATE SCREEN,URINE POSITIVE (NEGATIVE); PHENCYCLIDINE SCREEN,URINE NEGATIVE (NEGATIVE)
== END 2024-06-07 15:23 | disposition home or self-care (01) ==
LOC: EDH 07:35
DX: K22.70 Barrett's esophagus without dysplasia (principal); R11.10 Vomiting, unspecified; F12.90 Cannabis use, unspecified, uncomplicated; G89.29 Other chronic pain; R10.9 Unspecified abdominal pain; F17.200 Nicotine dependence, unspecified, uncomplicated; Z79.899 Other long term (current) drug therapy; Z79.82 Long term (current) use of aspirin; Z90.89 Acquired absence of other organs; Z90.49 Acquired absence of other specified parts of digestive tract; Z95.5 Presence of coronary angioplasty implant and graft; Z87.19 Personal history of other diseases of the digestive system; Z76.5 Malingerer [conscious simulation]
CPT/HCPCS: 99285; 74176; 96365; 96375; 96361; 80053; 80305; 83690; 85025; 87086; 36415; 96376; 93005; 81001; J2270 ×2; J7030; J0696; J2405; J2470

== ENCOUNTER 2024-06-26 10:14 | Emergency (ER) | payer MEDICARE ==
[~2024-06-26] VITALS: Ht 167.6 cm; Wt 68.0 kg
[~2024-06-26 10:14] MED LIST changes: +CIPR-278 PO; +TRAM50TA4 PO
[2024-06-26 10:24] VITALS: O2SAT 98
[2024-06-26] MEDS: ketOROlac 15MG/ML VIAL (15MG/ML) IM STA (11:15)
[2024-06-26] MEDS: HYDROcodone/APAP 5/325 1 TAB TABLET PO STA (11:15)
[2024-06-26] MEDS ORDERED: DOXY100C5 PO (11:19)
[2024-06-26 11:39] VITALS: BP 128/86; PULSE 67; RESP 18; TEMP 97.3
== END 2024-06-26 11:36 | disposition home or self-care (01) ==
LOC: EDH 10:14
DX: S50.862A Insect bite (nonvenomous) of left forearm, initial encounter (principal); I25.10 Atherosclerotic heart disease of native coronary artery without angina pectoris; I10 Essential (primary) hypertension; I25.2 Old myocardial infarction; Z79.899 Other long term (current) drug therapy; Z79.2 Long term (current) use of antibiotics; Z90.49 Acquired absence of other specified parts of digestive tract; Z90.89 Acquired absence of other organs; Z95.5 Presence of coronary angioplasty implant and graft; Z98.890 Other specified postprocedural states; W57.XXXA Bitten or stung by nonvenomous insect and other nonvenomous arthropods, initial encounter; Y93.89 Activity, other specified; Y92.89 Other specified places as the place of occurrence of the external cause; Y99.8 Other external cause status
CPT/HCPCS: 99284; 96372; J1885

== ENCOUNTER 2024-07-02 09:52 | Emergency (ER) | payer MEDICARE ==
[~2024-07-02] VITALS: Ht 170.2 cm; Wt 68.0 kg
[~2024-07-02 09:52] MED LIST changes: +DOXY100C5 PO
[2024-07-02] MEDS: ONDANSETRON 4MG INJ IVP ONE (10:03)
[2024-07-02] MEDS: morPHINE 2 MG SYG IVP ONE ×2 (10:12→11:52)
[2024-07-02] MEDS: 0.9%NACL 1000ML 1,000 ML IV ONE ×2 (10:50→14:12)
[2024-07-02 10:52] LABS: BASOPHILS # (AUTO) 0.06 K/uL (0.00-0.20); BASOPHILS % (AUTO) 0.5 % (0.0-5.0); EOSINOPHILS # (AUTO) 0.01 K/uL (0.00-0.70); EOSINOPHILS % (AUTO) 0.1 % (0.0-8.0); HEMATOCRIT 45.2 % (42-54); IMMATURE GRANULOCYTE ABSOLUTE 0.03 K/uL (0-1); LYMPHOCYTES # (AUTO) 2.8 K/uL (1.0-4.8); LYMPHOCYTES % (AUTO) 20.9 % (21.0-51.0); MEAN CORPUSCULAR HEMOGLOBIN 28.7 pg (27.0-33.0); MEAN CORPUSCULAR VOLUME 87.1 fL (79-99); MONOCYTES % (AUTO) 7.8 % (3.0-13.0); NEUTROPHILS # (AUTO) 9.3 K/uL (1.8-7.7); NEUTROPHILS % (AUTO) 70.5 % (40.0-77.0); PLATELET COUNT (AUTO) 281 K/uL (130-400); RED BLOOD CELL COUNT(AUTO) 5.19 MIL/uL (4.50-6.20); RED CELL DISTRIBUTION WIDTH 14.3 % (11.0-15.5); WHITE BLOOD COUNT (AUTO) 13.2 K/uL (4.8-10.8)
[2024-07-02 10:54] LABS: CREATININE 1.7 mg/dL (0.5-1.3); POTASSIUM 3.9 mmol/L (3.5-5.1)
[2024-07-02 10:58] LABS: ALBUMIN 4.4 g/dL (3.5-5.0); BILIRUBIN,TOTAL 0.5 mg/dL (0.2-1.0); TOTAL PROTEIN, SERUM 8.4 g/dL (6.0-8.3)
[2024-07-02] MEDS: LIDOCAINE HCL 2% VISCOUS 15 ML UDCUP PO ONE ×2 (11:12→11:18)
[2024-07-02] MEDS: DICYCLOMINE HCL 10 MG/5 ML ML PO ONE ×2 (11:12→11:17)
[2024-07-02] MEDS: MAG/ALUM/SIMETH 30 ML UDCUP PO ONE ×3 (11:12→11:19)
[2024-07-02 12:18] LABS: ADD UA MICROSCOPIC YES; APPEARANCE,URINE CLEAR (CLEAR); BILIRUBIN,URINE NEGATIVE (NEGATIVE); COLOR,URINE YELLOW (YELLOW); GLUCOSE, URINE (UA) NEGATIVE (NEGATIVE); KETONES,URINE 20 mg/dL (NEGATIVE); LEUKOCYTE ESTERASE ,URINE NEGATIVE Leu/uL (NEGATIVE); NITRATE,URINE NEGATIVE (NEGATIVE); OCCULT BLOOD,URINE NEGATIVE (NEGATIVE); PH,URINE 5.5 (5.0-8.0); PROTEIN,URINE 70 mg/dL (NEGATIVE); UROBILINOGEN,URINE 0.2 mg/dL (0.2-1.0)
[2024-07-02 12:28] LABS: AMPHET/METH SCREEN,URINE NEGATIVE (NEGATIVE); BARBITURATE SCREEN, URINE NEGATIVE (NEGATIVE); BENZODIAZEPINES SCREEN,URINE NEGATIVE (NEGATIVE); CANNABINOID SCREEN,URINE POSITIVE (NEGATIVE); COCAINE SCREEN,URINE NEGATIVE (NEGATIVE); OPIATE SCREEN,URINE NEGATIVE (NEGATIVE); PHENCYCLIDINE SCREEN,URINE NEGATIVE (NEGATIVE)
[2024-07-02 12:32] LABS: BACTERIA,URINE RARE /HPF (None Seen); MUCUS,URINE RARE LPF (None Seen); SQUAMOUS EPITHELIAL CELL,UR RARE /HPF (0-2)
[2024-07-02 13:39] VITALS: BP 145/90; PULSE 68; RESP 16; TEMP 98.4; O2SAT 94
== END 2024-07-02 15:55 | disposition home or self-care (01) ==
LOC: EDH 09:52
DX: R10.9 Unspecified abdominal pain (principal); I10 Essential (primary) hypertension; N17.9 Acute kidney failure, unspecified; F12.20 Cannabis dependence, uncomplicated; I25.10 Atherosclerotic heart disease of native coronary artery without angina pectoris; K21.9 Gastro-esophageal reflux disease without esophagitis; I25.2 Old myocardial infarction; Z90.49 Acquired absence of other specified parts of digestive tract
CPT/HCPCS: 99285; 74176; 96374; 96361; 96375; 84484; 80053; 80305; 83690; 85025; 87086; 36415; 96376; 93005; 81001; J2270 ×2; J7030; J2405

== ENCOUNTER 2024-08-02 08:29 | Emergency (ER) | payer MEDICARE ==
[~2024-08-02] VITALS: Ht 170.2 cm; Wt 64.9 kg
[2024-08-02 08:34] VITALS: TEMP 98.2
[2024-08-02 09:11] LABS: BASOPHILS # (AUTO) 0.02 K/uL (0.00-0.20); BASOPHILS % (AUTO) 0.2 % (0.0-5.0); HEMATOCRIT 47.2 % (42-54); IMMATURE GRANULOCYTE ABSOLUTE 0.07 K/uL (0-1); LYMPHOCYTES # (AUTO) 1.1 K/uL (1.0-4.8); LYMPHOCYTES % (AUTO) 8.7 % (21.0-51.0); MEAN CORPUSCULAR HGB CONC 32.8 g/dL (32.0-36.0); MEAN CORPUSCULAR VOLUME 85.2 fL (79-99); MONOCYTES # (AUTO) 0.3 K/uL (0.1-1.0); MONOCYTES % (AUTO) 2.4 % (3.0-13.0); NEUTROPHILS # (AUTO) 11.2 K/uL (1.8-7.7); NEUTROPHILS % (AUTO) 88.1 % (40.0-77.0); PLATELET COUNT (AUTO) 298 K/uL (130-400); RED BLOOD CELL COUNT(AUTO) 5.54 MIL/uL (4.50-6.20); RED CELL DISTRIBUTION WIDTH 14.1 % (11.0-15.5); WHITE BLOOD COUNT (AUTO) 12.7 K/uL (4.8-10.8)
[2024-08-02 09:33] LABS: APPEARANCE,URINE CLOUDY (CLEAR); BILIRUBIN,URINE NEGATIVE (NEGATIVE); COLOR,URINE YELLOW (YELLOW); GLUCOSE, URINE (UA) 70 mg/dL (NEGATIVE); KETONES,URINE 40 mg/dL (NEGATIVE); LEUKOCYTE ESTERASE ,URINE NEGATIVE Leu/uL (NEGATIVE); NITRATE,URINE NEGATIVE (NEGATIVE); PROTEIN,URINE 300 mg/dL (NEGATIVE); UROBILINOGEN,URINE 0.2 mg/dL (0.2-1.0)
[2024-08-02 09:34] LABS: ADD UA MICROSCOPIC YES
[2024-08-02 09:36] LABS: CREATININE 1.4 mg/dL (0.5-1.3); POTASSIUM 4.1 mmol/L (3.5-5.1)
[2024-08-02 09:40] LABS: ALBUMIN 4.2 g/dL (3.5-5.0); BILIRUBIN,TOTAL 0.3 mg/dL (0.2-1.0); TOTAL PROTEIN, SERUM 8.6 g/dL (6.0-8.3)
[2024-08-02 09:41] LABS: BACTERIA,URINE FEW /HPF (None Seen); MUCUS,URINE MOD LPF (None Seen); OTHER CASTS, URINE 5 /LPF (None Seen); SQUAMOUS EPITHELIAL CELL,UR RARE /HPF (0-2)
[2024-08-02] MEDS: hydrOXYzine 50MG VIAL 50 MG/ML VIAL IM SCH (10:02)
[2024-08-02 10:25] VITALS: BP 163/94; PULSE 93; RESP 19; O2SAT 96
[2024-08-05] MEDS ORDERED: ASPI1TAB7 PO (18:27)
[2024-08-05] MEDS ORDERED: TRAZ300T2 PO (18:27)
[2024-08-05] MEDS ORDERED: DICY20TA3 PO (18:27)
[2024-08-05] MEDS ORDERED: METO5TAB2 PO (18:27)
[2024-08-05] MEDS ORDERED: TICA90TA PO (18:27)
== END 2024-08-02 10:31 | disposition home or self-care (01) ==
LOC: EDH 08:29
DX: G89.29 Other chronic pain (principal); R10.9 Unspecified abdominal pain; K21.9 Gastro-esophageal reflux disease without esophagitis; E78.00 Pure hypercholesterolemia, unspecified; F17.200 Nicotine dependence, unspecified, uncomplicated; Z90.49 Acquired absence of other specified parts of digestive tract; Z98.890 Other specified postprocedural states; Z79.899 Other long term (current) drug therapy
CPT/HCPCS: 99283; 80053; 83690; 85025; 87086; 81001; 36415; 96372; J3410

== ENCOUNTER 2024-09-10 07:09 | Emergency (ER) | payer MEDICARE ==
[~2024-09-10] VITALS: Ht 170.2 cm; Wt 66.2 kg
[~2024-09-10 07:09] MED LIST changes: +ASPI1TAB7 PO; -CIPR-278 PO; +DICY20TA3 PO; -DOXY100C5 PO; +METO5TAB2 PO; -NORT10CA2 PO; -TICA60TA PO; +TICA90TA PO; -TRAM50TA4 PO; +TRAZ300T2 PO; -UMEC1DIS IH
--- NOTE | 2024-09-10 07:36 | ERN ---
General Chief Complaint: Abdominal Pain Stated Complaint: ABDOMINAL PAIN Time Seen by MD: 07:13 Source: patient History of Present Illness Initial Comments Patient is a 69-year-old male coming in to be evaluated for abdominal pain. Patient states he has a chronic history of abdominal pain and frequently presents with flare-ups. Patient has not had any fever or chills. Patient also localizes the pain to the lower abdominal region. Allergies: Coded Allergies: No Known Drug Allergies (Unverified Allergy, Unknown, 04/13/20) Home Meds Active Scripts Pantoprazole Sodium (Protonix) 40 Mg Tablet.dr, 40 MG PO DAILY, #30 TAB Prov:CELI ESTRELLA V KENNEL MANAGER DOG TRACK 06/29/23 Tamsulosin HCl (Flomax) 0.4 Mg Cap.er.24h, 0.4 MG PO HS for 90 Days, #[address] Prov:NEELAM SCHULZ Jr., MD 01/22/22 Reported Medications Dicyclomine HCl (Dicyclomine HCl) 20 Mg Tablet, 1 TAB PO TID for irritable bowel symptoms for 10 Days, #30 TAB 0 Refills 08/05/24 Metoclopramide HCl (Metoclopramide HCl) 5 Mg Tablet, 1 TAB PO TID for 30 Days, #90 TAB 0 Refills 24 Aspirin/Acetaminophen/Caffeine (Excedrin Migraine Caplet) 250 Mg-250 Mg-65 Mg Tablet, 2 EACH PO Q4HPRN PRN for PAIN LEVEL 1 TO 5, TAB 08/05/24 Ticagrelor (Brilinta) 90 Mg Tablet, 1 TAB PO BID for 30 Days, #60 TAB 0 Refills 08/05/24 Trazodone HCl (Trazodone HCl) 300 Mg Tablet, 1 TAB PO HS for 30 Days, #30 TAB 0 Refills 24 Isosorbide Mononitrate (Isosorbide Mononitrate ER) 30 Mg Tab.er.24h, 30 MG PO DAILY, TAB 02/25/24 Bupropion HCl (Bupropion HCl Sr) 150 Mg Tablet.er, 150 MG PO BID, TAB 02/12/24 Nitroglycerin (Nitroglycerin) 0.4 Mg Tab.subl, 0.4 MG SL AD PRN for CHEST PAIN, TAB.SL 02/12/24 [Gi Cocktail] No Conflict Check, 5 ML PO BID 02/12/24 Albuterol Sulfate (Ventolin Hfa) 90 Mcg Hfa.aer.ad, 2 PUFF IH DAILY, INHALER 02/12/24 Atorvastatin Calcium (LIPITOR) 40 Mg Tablet, 40 MG PO DAILY, TAB 02/20/23 Aspirin (ASPIRIN 81 MG ECTAB) 81 Mg Ectab, 81 MG PO AM, TAB.EC 02/04/21 Lisinopril (Lisinopril) 5 Mg Tablet, 5 MG PO DAILY, TAB 02/04/21 Past Medical History Past Medical History: Heart Disease Medical History Other: HEAD TRAUMA Past Surgical History: Other Surgical History Other: CARDIAC STENTS Family History Family History: Negative Social History Social History: Smokers, Drugs, Lives with family ROS Dictation CONSTITUTIONAL: No chills, no fever, no weakness, no diaphoresis, no malaise. HEAD/FACE: No signs of trauma. EENT: No eye pain, no blurred vision, no tearing, no double vision, no ear pain, no ear discharge, no nose pain, no nasal congestion, no throat pain, no throat swelling, no mouth pain. RESPIRATORY: No cough, no orthopnea, no SOB, no stridor, no wheezing. CARDIOVASCULAR: No chest pain, no edema, no palpitations, no syncope. GASTROINTESTINAL/ABDOMINAL: abdominal pain, no constipation, no diarrhea, no nausea, no vomiting. GENITOURINARY: No abnormal discharge, no dysuria, no frequent urination, no hematuria. No complaints of pain in the genitals. MUSCULOSKELETAL: No back pain, no gout, no joint pain, no joint swelling, no muscle pain, no muscle stiffness, no neck pain. INTEGUMENTARY: No change in color, no change in hair/nails, no dryness, no lesion, no lumps, no rash. NEUROLOGICAL/PSYCH: No anxiety, not depressed, no emotional problem, no headache, no numbness, no pre-existing deficit, no history of seizures, no tremors, no weakness. HEMATOLOGIC/LYMPHATIC: Not anemic, no history of blood clots, no apparent bleeding, no bruising, glands not swollen. All Systems Negative, Except as Noted. Physical Exam Physical Exam Dictation VITAL SIGNS: Reviewed. GENERAL APPEARANCE: Alert, oriented x3, no acute distress, obese. HEAD AND FACE: Non-traumatic. EYES: PERRL, pink conjunctivas, eyelid no trauma, anterior chamber clear. EARS: Pinnas intact and no signs of trauma or erythema. Ear canals clear and no discharge. TMs no erythema. NOSE: No discharge, no bleeding. OROPHARYNX: Mouth normal, teeth no caries, tongue pink. Pharynx clear, no erythema. Tonsils no exudates, no abscesses noted. Mucous membrane moist. NECK: Supple, non-tender, no thyromegaly, no masses, no JVD, no bruits. BREAST: Deferred. CHEST: No tenderness, no crepitus, no paradoxical movement, no retractions. LUNGS: Clear, well-ventilated, symmetric, no rales, no wheezing, no rhonchi, no stridor, good breath sounds bilaterally. HEART: Regular rate, regular rhythm, no murmur, no gallops. VASCULAR: No peripheral edema. ABDOMEN: Soft, positive bowel sounds, nondistended, no guarding, lower abdominal tender, no rebound, no masses no hepatomegaly, no splenomegaly, no Ghosh's sign, no hernias. RECTAL: Deferred. GENITAL: Deferred. NEUROLOGICAL: Normal speech, gross motor function intact, gross sensory function intact. MUSCULOSKELETAL: Neck nontender, full range of motion, back nontender, full range of motion. EXTREMITIES: Nontender, full range of motion. SKIN: Color pink, dry, no turgor, no rash, no lacerations, no abrasions, no contusions. LYMPHATICS: Deferred. Results Laboratory and Microbiology Lab and Micro Result Laboratory Tests Test 09/10/24 07:42 White Blood Count 8.6 K/uL (4.8-10.8) Red Blood Count 4.91 MIL/uL (4.50-6.20) Hemoglobin 14.0 g/dL (14.0-18.0) Hematocrit 42.4 % (42-54) Mean Corpuscular Volume 86.4 fL (79-99) Mean Corpuscular Hemoglobin 28.5 pg (27.0-33.0) Mean Corpuscular Hemoglobin Concent 33.0 g/dL (32.0-36.0) Red Cell Distribution Width 14.3 % (11.0-15.5) Platelet Count 254 K/uL (130-400) Mean Platelet Volume 10.7 fL (7.5-10.5) H Immature Granulocyte % (Auto) 0.5 % (0-1) Neutrophils (%) (Auto) 61.9 % (40.0-77.0) Lymphocytes (%) (Auto) 20.7 % (21.0-51.0) L Monocytes (%) (Auto) 9.7 % (3.0-13.0) Eosinophils (%) (Auto) 6.7 % (0.0-8.0) Basophils (%) (Auto) 0.5 % (0.0-5.0) Neutrophils # (Auto) 5.3 K/uL (1.8-7.7) Lymphocytes # (Auto) 1.8 K/uL (1.0-4.8) Monocytes # (Auto) 0.8 K/uL (0.1-1.0) Eosinophils # (Auto) 0.58 K/uL (0.00-0.70) Basophils # (Auto) 0.04 K/uL (0.00-0.20) Absolute Immature Granulocyte (auto 0.04 K/uL (0-1) Nucleated Red Blood Cells 0.0 % (0.0-0.19) Sodium Level 139 mmol/L (136-145) Potassium Level 3.8 mmol/L (3.5-5.1) Chloride Level 103 mmol/L (101-111) Carbon Dioxide Level 25 mmol/L (21-32) Blood Urea Nitrogen 22 mg/dL (7-18) H Creatinine 1.2 mg/dL (0.5-1.3) Glomerular Filtration Rate Calc 66 mL/min (>90) Random Glucose 120 mg/dL (70-105) H Total Calcium 9.3 mg/dL (8.5-10.1) Total Bilirubin 0.3 mg/dL (0.2-1.0) Aspartate Amino Transf (AST/SGOT) 13 U/L (10-37) Alanine Aminotransferase (ALT/SGPT) 14 U/L (12-78) Alkaline Phosphatase 107 U/L (50-136) Total Creatine Kinase 83 U/L (21-232) Troponin I High Sensitivity 5 ng/L (4-75) Total Protein 7.5 g/dL (6.0-8.3) Albumin 3.9 g/dL (3.5-5.0) Lipase 19 U/L (16-77) Labs Reviewed?: Yes EKG/XRAY/US/CT/MRI EKG Comment 09/10/2024 time 7:43 a.m. Ventricular rate 84 Sinus rhythm [place] [address] wave elevation or depression CT Scan Comment IMAGING REPORT Signed PATIENT: ALEXYS OZUNA MR#: [id number] : 1955 SEX: M AGE: 69 LOCATION: [facility] ORDER 4 STATUS: REG ER REPORT#: [id number] SERVICE 2 REASON: ABD PAIN ORDERING PHYSICIAN: SHAWNEE THOMAS MD PROCEDURE: ABD PEL WO - CT ABDOMEN/PELVIS W/O CONTRAST CT ABDOMEN/PELVIS W/O CONTRAST HISTORY: Abdominal pain COMPARISON: 08/05/2024 TECHNIQUE: Multiple sequential axial images of the abdomen and pelvis were obtained from the dome of the diaphragm through symphysis pubis. Patient was not given contrast through intravenous route. Oral contrast was not given. FINDINGS: No pleural effusion is seen bilaterally. There is no evidence of parenchymal disease or pulmonary nodule of the visualized lower lungs. Degenerative changes of the thoracolumbar spine are present. The heart is not enlarged. Liver measures 15.2 cm. Post cholecystectomy changes are seen. The liver, spleen, adrenal glands and pancreas are unremarkable. There is no evidence of hydronephrosis bilaterally. Minimal bilateral perinephric fat stranding is seen. If there is clinical suspicion for pyelonephritis, urinalysis correlation may be helpful. No evidence of renal stone is seen. Fecal material is seen in the colon. There are normal size retroperitoneal and mesenteric lymph nodes. No ascites is seen. Atherosclerotic changes are present. Appendix is not well seen limiting evaluation. Pelvic sidewalls are symmetric bilaterally. Bladder is poorly distended. IMPRESSION: 1. No acute findings. CT was performed with one or more following dose reduction techniques: automated exposure control, adjustment of the mA and kv according to patient's size, or use of a iterative reconstruction technique. DICTATED BY: KRISTEN WRIGHT MD DATE: 09/10/24821 ELECTRONICALLY SIGNED BY: KRISTEN WRIGHT MD DATE: 09/10/[address] [facility] MDM: Differential diagnosis: Chronic abdominal pain, constipation, GERD Patient is a 69-year-old male coming in to be evaluated for abdominal discomfort. On previous evaluations and previous hospital visits patient has been positive for cannabis. Patient states he is still smoking cannabis. Patient will be discharged with a diagnosis of cannabis abuse with gastritis. ED Course Orders Procedure Category Date Status Time Cbc With Differential LAB 09/10/24 Complete 07:23 Comprehensive LAB 09/10/24 Complete Metabolic Panel 07:23 Troponin I High LAB 09/10/24 Complete Sensitivity 07:23 Urinalysis Profile LAB 09/10/24 Logged 07:23 12 Lead Ekg Tracing- EKG 09/10/24 Resulted Technical 07:23 0.9%Nacl 1000ml (Ns PHA 09/10/24 Complete 1000ml) 07:30 Ketorolac PHA 09/10/24 Complete Tromethamine 15mg/Ml 07:30 Creatine Kinase, Total LAB 09/10/24 Complete 07:23 Ct Abdomen/Pelvis W/O CT 09/10/24 Resulted Contrast 07:23 Lipase LAB 09/10/24 Complete 07:23 Acetaminophen 500mg PHA 09/10/24 Complete Tab (Tylenol 500mg T 08:30 Mag/Alum/Simeth 30ml PHA 09/10/24 Complete (Maalox Plus 30ml) 09:00 Dicyclomine Hcl PHA 09/10/24 Complete (Bentyl 10mg/5ml 09:00 Lidocaine Hcl 2% PHA 09/10/24 Complete Viscous (Lidocaine Hcl 09:00 Ondansetron 4mg Inj PHA 09/10/24 Complete (Zofran 4mg Inj) 10:00 Current Medications Medications (Trade) Dose Ordered Sig/Geovanni Route PRN Reason Start Time Stop Time Status Last Admin Dose Admin Acetaminophen (TYLenol 500MG TAB) 1,000 mg ONCE ONCE PO 09/10/24 08:30 09/10/24 08:31 DC 09/10/24 08:12 Al Hydroxide/Mg Hydroxide (MAALox PLUS 30ML) 30 ml ONCE ONCE PO 09/10/24 09:00 09/10/24 09:01 DC 09/10/24 09:03 Dicyclomine HCl (Bentyl 10mg/5ml Syrup) 10 mg ONCE ONCE PO 09/10/24 09:00 09/10/24 09:01 DC 09/10/24 09:03 Ketorolac Tromethamine (toRADol) 15 mg ONCE ONCE IV 09/10/24 07:30 09/10/24 07:31 DC 09/10/24 07:44 Lidocaine HCl (Lidocaine HCl 2% Viscous) 10 ml ONCE ONCE PO 09/10/24 09:00 09/10/24 09:01 DC 09/10/24 09:03 Ondansetron HCl (zoFRAN 4MG INJ) 4 mg ONCE ONCE IVP 09/10/24 10:00 09/10/24 10:01 DC 09/10/24 09:50 Sodium Chloride 1,000 ml @ 0 mls/hr ONCE ONCE IV 09/10/24 07:30 09/10/24 07:31 DC 09/10/24 07:45 Vital Signs Date Time Temp Pulse Resp B/P (MAP) Pulse Ox O2 Delivery O2 Flow Rate FiO2 09/10/24 09:14 98.1 72 14 157/98 98 Room Air* 0 21 09/10/24 07:29 98.8 87 12 134/71 98 Room Air* 0 21 09/10/24 07:11 99.0 89 16 162/98 98 Room Air* 0 21 09/10/24 07:11 99.0 89 16 162/98 98 Room Air 0 DX & DISP Disposition: Discharge Departure Impression: Primary Impression: Cannabis abuse with other cannabis-induced disorder Additional Impression: Chronic abdominal pain Condition: Stable Additional Instructions: FOLLOW-UP WITH PRIMARY CARE PROVIDER IN 1 TO 2 DAYS. TAKE MEDICATIONS DIRECTED HERE IN THE EMERGENCY ROOM. OKAY TO CONTINUE HOME MEDICATIONS UNLESS OTHERWISE DISCUSSED DURING YOUR VISIT IN THE EMERGENCY ROOM TODAY. RETURN TO YOUR NEAREST EMERGENCY ROOM IF SYMPTOMS WORSEN OR IF THERE IS NO IMPROVEMENT. CALL 911 IF YOU NEED IMMEDIATE ASSISTANCE. TAKE TYLENOL [id number] NEEDED AND IF NO CONTRAINDICATIONS ARE PRESENT. INCREASE ORAL HYDRATION. A WOUND CULTURE OR URINE CULTURE WAS ORDERED HERE IN THE EMERGENCY ROOM DEPARTMENT PLEASE FOLLOW-UP WITH PRIMARY CARE PROVIDER AND ADVISE THEM TO GET REPEAT PORTS FROM OUR FACILITY. IF YOU HAD ANY ERICA WRAP/SPLINTS THAT WERE APPLIED HERE, PLEASE DO NOT REMOVE THEM UNTIL YOU SEE YOUR PRIMARY CARE OR SPECIALTY. Referrals: Referrals: ISAEL ISRAEL MD (PCP) Time of Disposition: 10:07 SHAWNEE THOMAS MD Sep 10, 2024 07:36
[2024-09-10] MEDS: ketOROlac 15MG/ML VIAL (15MG/ML) IV ONE (07:44)
[2024-09-10] MEDS: 0.9%NACL 1000ML 1,000 ML IV ONE (07:45)
[2024-09-10 07:50] LABS: BASOPHILS # (AUTO) 0.04 K/uL (0.00-0.20); BASOPHILS % (AUTO) 0.5 % (0.0-5.0); EOSINOPHILS # (AUTO) 0.58 K/uL (0.00-0.70); EOSINOPHILS % (AUTO) 6.7 % (0.0-8.0); HEMATOCRIT 42.4 % (42-54); IMMATURE GRANULOCYTE ABSOLUTE 0.04 K/uL (0-1); LYMPHOCYTES # (AUTO) 1.8 K/uL (1.0-4.8); LYMPHOCYTES % (AUTO) 20.7 % (21.0-51.0); MEAN CORPUSCULAR HEMOGLOBIN 28.5 pg (27.0-33.0); MEAN CORPUSCULAR VOLUME 86.4 fL (79-99); MONOCYTES # (AUTO) 0.8 K/uL (0.1-1.0); MONOCYTES % (AUTO) 9.7 % (3.0-13.0); NEUTROPHILS # (AUTO) 5.3 K/uL (1.8-7.7); NEUTROPHILS % (AUTO) 61.9 % (40.0-77.0); PLATELET COUNT (AUTO) 254 K/uL (130-400); RED BLOOD CELL COUNT(AUTO) 4.91 MIL/uL (4.50-6.20); RED CELL DISTRIBUTION WIDTH 14.3 % (11.0-15.5); WHITE BLOOD COUNT (AUTO) 8.6 K/uL (4.8-10.8)
--- NOTE | 2024-09-10 07:57 | EKG ---
[facility] Test Date: 2024-09-10 Test Time: 07:43:35 Pat Name: ALEXYS OZUNA Department: [facility] Room: Gender: M [employer] Systems Engineer: [id number] : 1955 Requested By: SHAWNEE THOMAS Order Number: [id number] Reading MD: Ирина Faith Measurements Intervals [place] Rate: 84 P: 72 [place]: 159 QRS: 265 QRSD: 91 T: 64 QT: 399 QTc: 454 Interpretive Statements Sinus rhythm Paired ventricular premature complexes Probable inferior infarct, old Compared to ECG 08/05/2024 08:06:28 Ventricular premature complex(es) now present Myocardial infarct finding still present Electronically Signed On 09-10-2024 09:19:50 POLISH MAKER by Ирина Faith Please click the below link to view image of tracing.
[2024-09-10] MEDS: acetaMINOPHEN 500 MG TABLET PO ONE (08:12)
[2024-09-10 08:13] LABS: ALBUMIN 3.9 g/dL (3.5-5.0); BILIRUBIN,TOTAL 0.3 mg/dL (0.2-1.0); CREATININE 1.2 mg/dL (0.5-1.3); POTASSIUM 3.8 mmol/L (3.5-5.1); TOTAL PROTEIN, SERUM 7.5 g/dL (6.0-8.3)
--- NOTE | 2024-09-10 08:13 | NUR ---
PATIENT STILL HAVING PAIN. MD MADE AWARE. ORDER RECIEVED FOR TYLENOL AND ADMINISTERED.
--- NOTE | 2024-09-10 08:28 | HMCIMG ---
CT ABDOMEN/PELVIS W/O CONTRAST HISTORY: Abdominal pain COMPARISON: 08/05/2024 TECHNIQUE: Multiple sequential axial images of the abdomen and pelvis were obtained from the dome of the diaphragm through symphysis pubis. Patient was not given contrast through intravenous route. Oral contrast was not given. FINDINGS: No pleural effusion is seen bilaterally. There is no evidence of parenchymal disease or pulmonary nodule of the visualized lower lungs. Degenerative changes of the thoracolumbar spine are present. The heart is not enlarged. Liver measures 15.2 cm. Post cholecystectomy changes are seen. The liver, spleen, adrenal glands and pancreas are unremarkable. There is no evidence of hydronephrosis bilaterally. Minimal bilateral perinephric fat stranding is seen. If there is clinical suspicion for pyelonephritis, urinalysis correlation may be helpful. No evidence of renal stone is seen. Fecal material is seen in the colon. There are normal size retroperitoneal and mesenteric lymph nodes. No ascites is seen. Atherosclerotic changes are present. Appendix is not well seen limiting evaluation. Pelvic sidewalls are symmetric bilaterally. Bladder is poorly distended. IMPRESSION: 1. No acute findings. CT was performed with one or more following dose reduction techniques: automated exposure control, adjustment of the mA and kv according to patient's size, or use of a iterative reconstruction technique.
[2024-09-10] MEDS: MAG/ALUM/SIMETH 30 ML UDCUP PO ONE (09:03)
[2024-09-10] MEDS: DICYCLOMINE HCL 10 MG/5 ML ML PO ONE (09:03)
[2024-09-10] MEDS: LIDOCAINE HCL 2% VISCOUS 15 ML UDCUP PO ONE (09:03)
[2024-09-10] MEDS: ondanSETRON 4MG INJ IVP ONE (09:50)
[2024-09-10 10:21] VITALS: BP 147/82; PULSE 74; RESP 18; TEMP 98; O2SAT 97
--- NOTE | 2024-09-10 10:22 | NUR ---
PATIENT REFUSED TO PROVIDE UA
[2024-09-11] MEDS ORDERED: ONDA-243 PO (00:57)
== END 2024-09-10 10:23 | disposition home or self-care (01) ==
LOC: EDH 07:09
DX: F12.188 Cannabis abuse with other cannabis-induced disorder (principal); G89.29 Other chronic pain; R10.9 Unspecified abdominal pain; F17.200 Nicotine dependence, unspecified, uncomplicated; Z79.02 Long term (current) use of antithrombotics/antiplatelets; Z79.899 Other long term (current) drug therapy; Z95.5 Presence of coronary angioplasty implant and graft
CPT/HCPCS: 99285; 74176; 96374; 96361; 96375; 82550; 84484; 80053; 83690; 85025; 36415; 93005; J7030; J2405; J1885

== ENCOUNTER 2024-09-10 19:49 | Emergency (ER) | payer MEDICARE ==
[2024-09-10 19:52] VITALS: BP 162/84; PULSE 74; RESP 16; TEMP 98
--- NOTE | 2024-09-10 20:32 | EKG ---
[facility] Test Date: 2024-09-10 Test Time: 20:30:58 Pat Name: ALEXYS OZUNA Department: [facility] Room: Gender: M Supervisor Heading: [id number] : 1955 Requested By: PRISCILLA FRANKLIN Order Number: [id number] Reading MD: Leta Pickard Measurements Intervals [place] Rate: 84 P: 74 [place]: 156 QRS: 241 QRSD: 96 T: 58 QT: 393 QTc: 466 Interpretive Statements Sinus rhythm Inferior infarct, old Compared to ECG 09/10/2024 07:43:35 Ventricular premature complex(es) no longer present Myocardial infarct finding still present Electronically Signed On 09-11-2024 17:35:10 MARINE RIGGER by Leta Pickard Please click the below link to view image of tracing.
[2024-09-10 21:16] LABS: BASOPHILS # (AUTO) 0.02 K/uL (0.00-0.20); BASOPHILS % (AUTO) 0.2 % (0.0-5.0); EOSINOPHILS # (AUTO) 0.01 K/uL (0.00-0.70); EOSINOPHILS % (AUTO) 0.1 % (0.0-8.0); HEMATOCRIT 39.1 % (42-54); IMMATURE GRANULOCYTE ABSOLUTE 0.04 K/uL (0-1); LYMPHOCYTES # (AUTO) 1.4 K/uL (1.0-4.8); LYMPHOCYTES % (AUTO) 14.4 % (21.0-51.0); MEAN CORPUSCULAR HEMOGLOBIN 28.4 pg (27.0-33.0); MEAN CORPUSCULAR VOLUME 85.9 fL (79-99); MONOCYTES # (AUTO) 0.6 K/uL (0.1-1.0); MONOCYTES % (AUTO) 5.8 % (3.0-13.0); NEUTROPHILS # (AUTO) 7.5 K/uL (1.8-7.7); NEUTROPHILS % (AUTO) 79.1 % (40.0-77.0); PLATELET COUNT (AUTO) 254 K/uL (130-400); RED BLOOD CELL COUNT(AUTO) 4.55 MIL/uL (4.50-6.20); RED CELL DISTRIBUTION WIDTH 14.2 % (11.0-15.5); WHITE BLOOD COUNT (AUTO) 9.4 K/uL (4.8-10.8)
--- NOTE | 2024-09-10 21:26 | ERN ---
ED Note History of Present Illness Stated Complaint: ABDOMINAL PAIN Chief Complaint: Abdominal Pain Time Seen by MD: 20:09 Time Seen by Midlevel: 20:09 Dictation: The patient is a 69-year-old male with a history of hypertension, CAD, appendectomy, cholecystectomy who presents to the emergency department with complaints of generalized abdominal pain, nausea and nonbloody vomiting onset yesterday. Patient reports about 10 episodes of vomiting today. Denies any constipation diarrhea. Denies fevers. Patient was seen here in the morning and was discharged. Allergies: Coded Allergies: No Known Drug Allergies (Unverified Allergy, Unknown, 04/13/20) Home Meds Active Scripts Pantoprazole Sodium (Protonix) 40 Mg Tablet.dr, 40 MG PO DAILY, #30 TAB Prov:CELI ESTRELLA 06/29/23 Tamsulosin HCl (Flomax) 0.4 Mg Cap.er.24h, 0.4 MG PO HS for 90 Days, #90 CAPSULE.DR Prov:NEELAM SCHULZ Jr., MD 01/22/22 Reported Medications Dicyclomine HCl (Dicyclomine HCl) 20 Mg Tablet, 1 TAB PO TID for irritable bowel symptoms for 10 Days, #30 TAB 0 Refills 08/05/24 Metoclopramide HCl (Metoclopramide HCl) 5 Mg Tablet, 1 TAB PO TID for 30 Days, #90 TAB 0 Refills 24 Aspirin/Acetaminophen/Caffeine (Excedrin Migraine Caplet) 250 Mg-250 Mg-65 Mg Tablet, 2 EACH PO Q4HPRN PRN for PAIN LEVEL 1 TO 5, TAB 08/05/24 Ticagrelor (Brilinta) 90 Mg Tablet, 1 TAB PO BID for 30 Days, #60 TAB 0 Refills 08/05/24 Trazodone HCl (Trazodone HCl) 300 Mg Tablet, 1 TAB PO HS for 30 Days, #30 TAB 0 Refills 08/05/24 Isosorbide Mononitrate (Isosorbide Mononitrate ER) 30 Mg Tab.er.24h, 30 MG PO DAILY, TAB 02/25/24 Bupropion HCl (Bupropion HCl Sr) 150 Mg Tablet.er, 150 MG PO BID, TAB 02/12/24 Nitroglycerin (Nitroglycerin) 0.4 Mg Tab.subl, 0.4 MG SL AD PRN for CHEST PAIN, TAB.SL 02/12/24 [Gi Cocktail] No Conflict Check, 5 ML PO BID 02/12/24 Albuterol Sulfate (Ventolin Hfa) 90 Mcg Hfa.aer.ad, 2 PUFF IH DAILY, INHALER 02/12/24 Atorvastatin Calcium (LIPITOR) 40 Mg Tablet, 40 MG PO DAILY, TAB 02/20/23 Aspirin (ASPIRIN 81 MG ECTAB) 81 Mg Ectab, 81 MG PO AM, TAB.EC 02/04/21 Lisinopril (Lisinopril) 5 Mg Tablet, 5 MG PO DAILY, TAB 02/04/21 Past Medical History Past Medical History: CAD, Heart Disease, Hypertension Additional Past Medical Hx: HEAD TRAUMA Surgical History: CABG, Other Surgical History Other: CARDIAC STENTS Family History: Negative Social History: Smokers, Drugs, Lives with family RN Note Reviewed/Agreed w/PFSH: Yes Review of System Dictation Constitutional: Negative for fever,chills, and weight loss Eyes: Negative for injury, pain,redness, and discharge ENT: Negative for injury,pain or swelling Cardiovascular: Negative for chest pain, palpitations, and edema Respiratory: Negative for shortness of breath, cough, and wheezing, Abdomen/GI: Negative for , diarrhea, and constipation positive for abdominal pain, nausea, vomiting Back: Negative for injury and pain : Negative for injury, bleeding and discharge MS/Extremity: Negative for injury and deformity Skin: Negative for rash, and discoloration Neuro: Negative for headache, weakness, numbness, tingling, and seizure Psych: Negative for suicide ideation, homicidal ideation, and hallucinations Initial Vital Sign VS Vital Signs Date Time Temp Pulse Resp B/P (MAP) Pulse Ox O2 Delivery O2 Flow Rate FiO2 09/10/24 19:52 98.1 74 16 162/84 96 Room Air 0 Physical Exam Dictation Vital Signs reviewed General Appearance: Alert, oriented x 3, no acute distress, well developed, nourished. Head and Face: non-traumatic. Eyes: PERRL, pink conjunctivas, eyelid no trauma, anterior chamber with arcus senilis. Ears: Pinnas intact and no signs of trauma or erythema ear canals clear and no discharge TM no erythema Nose: No discharge, no bleeding. Oropharynx: Mouth normal, tongue pink. pharynx clear,no erythema, tonsils no exudates, no abscesses noted, mucous membrane moist Neck: Supple, non-tender, no thyromegaly, no masses, no JVD, no bruits Breast:Deferred Chest:No tenderness, no crepitus, no paradoxical movement, no retractions Lungs:Clear, well-ventilated, symmetric, no rales, no wheezing, no rhonchi, no stridor, good breath sounds bilaterally Heart: Regular rate, regular rhythm, no murmur, no gallops Vascular: no peripheral edema, Abdomen: Soft, positive bowel sounds, nondistended, no guarding, nontender, no rebound, no masses no hepatomegaly, no splenomegaly, no Ghosh's sign, no hernias. Rectal: Deferred Genital: Deferred Neurological: Normal speech, motor function intact, sensory function intact Musculoskeletal: Neck nontender, full range of motion, back nontender, full range of motion, Extremities: nontender, full range of motion Skin: Color pink, dry, no turgor, no rash, no lacerations, no abrasions, no contusions. Lymphatic: Deferred Results (Laboratory/Radiology) Laboratory/Radiology Laboratory Tests Test 09/10/24 20:57 09/10/24 23:47 White Blood Count 9.4 K/uL (4.8-10.8) Red Blood Count 4.55 MIL/uL (4.50-6.20) Hemoglobin 12.9 g/dL (14.0-18.0) L Hematocrit 39.1 % (42-54) L Mean Corpuscular Volume 85.9 fL (79-99) Mean Corpuscular Hemoglobin 28.4 pg (27.0-33.0) Mean Corpuscular Hemoglobin Concent 33.0 g/dL (32.0-36.0) Red Cell Distribution Width 14.2 % (11.0-15.5) Platelet Count 254 K/uL (130-400) Mean Platelet Volume 10.9 fL (7.5-10.5) H Immature Granulocyte % (Auto) 0.4 % (0-1) Neutrophils (%) (Auto) 79.1 % (40.0-77.0) H Lymphocytes (%) (Auto) 14.4 % (21.0-51.0) L Monocytes (%) (Auto) 5.8 % (3.0-13.0) Eosinophils (%) (Auto) 0.1 % (0.0-8.0) Basophils (%) (Auto) 0.2 % (0.0-5.0) Neutrophils # (Auto) 7.5 K/uL (1.8-7.7) Lymphocytes # (Auto) 1.4 K/uL (1.0-4.8) Monocytes # (Auto) 0.6 K/uL (0.1-1.0) Eosinophils # (Auto) 0.01 K/uL (0.00-0.70) Basophils # (Auto) 0.02 K/uL (0.00-0.20) Absolute Immature Granulocyte (auto 0.04 K/uL (0-1) Nucleated Red Blood Cells 0.0 % (0.0-0.19) Sodium Level 135 mmol/L (136-145) L Potassium Level 3.8 mmol/L (3.5-5.1) Chloride Level 102 mmol/L (101-111) Carbon Dioxide Level 23 mmol/L (21-32) Blood Urea Nitrogen 25 mg/dL (7-18) H Creatinine 1.2 mg/dL (0.5-1.3) Glomerular Filtration Rate Calc 66 mL/min (>90) Random Glucose 119 mg/dL (70-105) H Total Calcium 9.1 mg/dL (8.5-10.1) Troponin I High Sensitivity 11 ng/L (4-75) Urine Color YELLOW (YELLOW) Urine Appearance CLEAR (CLEAR) Urine pH 6.0 (5.0-8.0) Urine Specific [place] 1.025 (1.001-1.031) Urine Protein 30 mg/dL (NEGATIVE) H Urine Glucose (UA) NEGATIVE mg/dL (NEGATIVE) Urine Ketones 40 mg/dL (NEGATIVE) H Urine Occult Blood NEGATIVE (NEGATIVE) Urine Nitrate NEGATIVE (NEGATIVE) Urine Bilirubin NEGATIVE mg/dL (NEGATIVE) Urine Urobilinogen 0.2 mg/dL (0.2-1.0) Urine Leukocyte Esterase NEGATIVE Jose Eduardo/uL Urine RBC 0-1 /HPF (0-1) Urine WBC 2-5 /HPF (0-1) H Urine Bacteria None /HPF (None Seen) Urine Opiates Screen NEGATIVE (NEGATIVE) Urine Barbiturates Screen NEGATIVE (NEGATIVE) Urine Phencyclidine Screen NEGATIVE (NEGATIVE) Urine Amphetamines Screen NEGATIVE (NEGATIVE) Urine Benzodiazepines Screen NEGATIVE (NEGATIVE) Urine Cocaine Screen NEGATIVE (NEGATIVE) Urine Marijuana (THC) Screen POSITIVE (NEGATIVE) H REASON: ABD PAIN ORDERING PHYSICIAN: SHAWNEE THOMAS MD PROCEDURE: ABD PEL WO - CT ABDOMEN/PELVIS W/O CONTRAST CT ABDOMEN/PELVIS W/O CONTRAST HISTORY: Abdominal pain COMPARISON: 08/05/2024 TECHNIQUE: Multiple sequential axial images of the abdomen and pelvis were obtained from the dome of the diaphragm through symphysis pubis. Patient was not given contrast through intravenous route. Oral contrast was not given. FINDINGS: No pleural effusion is seen bilaterally. There is no evidence of parenchymal disease or pulmonary nodule of the visualized lower lungs. Degenerative changes of the thoracolumbar spine are present. The heart is not enlarged. Liver measures 15.2 cm. Post cholecystectomy changes are seen. The liver, spleen, adrenal glands and pancreas are unremarkable. There is no evidence of hydronephrosis bilaterally. Minimal bilateral perinephric fat stranding is seen. If there is clinical suspicion for pyelonephritis, urinalysis correlation may be helpful. No evidence of renal stone is seen. Fecal material is seen in the colon. There are normal size retroperitoneal and mesenteric lymph nodes. No ascites is seen. Atherosclerotic changes are present. Appendix is not well seen limiting evaluation. Pelvic sidewalls are symmetric bilaterally. Bladder is poorly distended. IMPRESSION: 1. No acute findings. CT was performed with one or more following dose reduction techniques: automated exposure control, adjustment of the mA and kv according to patient's size, or use of a iterative reconstruction technique. Labs Reviewed?: Yes EKG: (+) rhythm, (+) IN (84) EKG Comment: EKG 09/10/20242029 biliary rate 84, regular rate and rhythm, normal sinus rhythm, no STEMI. ED Course ED Course Orders Procedure Category Date Status Time Cbc With Differential LAB 09/10/24 Complete 20:17 Troponin I High LAB 09/10/24 Complete Sensitivity 20:17 12 Lead Ekg Tracing- EKG 09/10/24 Complete Technical 20:17 0.9%Nacl 1000ml (Ns PHA 09/10/24 In Process 1000ml) 20:30 Morphine 4mg Syg PHA 09/10/24 Complete (Morphine 4mg Syg) 20:30 Ondansetron 4mg Inj PHA 09/10/24 Complete (Zofran 4mg Inj) 20:30 Pantoprazole 40mg Inj PHA 09/10/24 Complete (Protonix 40mg Inj 20:30 Basic Metabolic Panel LAB 09/10/24 Complete 20:17 Urinalysis Profile LAB 09/10/24 Complete 20:19 Drug Screen Urine LAB 09/10/24 Complete 20:19 Current Medications Medications (Trade) Dose Ordered Sig/Geovanni Route PRN Reason Start Time Stop Time Status Last Admin Dose Admin Morphine Sulfate (morPHINE 4MG SYG) 4 mg ONCE ONCE IVP 09/10/24 20:30 09/10/24 20:31 DC 09/10/24 23:42 Ondansetron HCl (zoFRAN 4MG INJ) 4 mg ONCE ONCE IVP 09/10/24 20:30 09/10/24 20:31 DC 09/10/24 23:42 Pantoprazole Sodium (PROTonix 40MG INJ) 40 mg ONCE ONCE IVP 09/10/24 20:30 09/10/24 20:31 DC 09/10/24 23:42 Sodium Chloride 1,000 ml @ 125 mls/hr ONCE ONCE IV 09/10/24 20:30 09/11/24 04:29 09/10/24 23:42 Vital Signs Date Time Temp Pulse Resp B/P (MAP) Pulse Ox O2 Delivery O2 Flow Rate FiO2 09/10/24 19:52 98.1 74 16 162/84 96 Room Air 0 Medical Decision Making MDM The patient is a 69-year-old male with a history of hypertension, CAD, appendectomy, cholecystectomy who presents to the emergency department with complaints of generalized abdominal pain, nausea and nonbloody vomiting onset yesterday. Patient reports about 10 episodes of vomiting today. Denies any constipation diarrhea. Denies fevers. Patient was seen here in the morning and was discharged. CBC showed no leukocytosis, normocytic anemia, chemistry showed mild hyponatremia, renal function unchanged from previous admission, negative troponin, urinalysis with negative nitrites, negative leukocyte esterase, toxicology positive for THC. I reviewed patient's CT from earlier today which revealed no acute findings. Differential diagnosis: Gastroenteritis, electrolyte imbalance, constipation, ACS Need for hospitalization: Patient does not meet criteria for hospitalization. There are no social concerns with this patient. DX & DISP Disposition: Discharge Departure Impression: Primary Impression: Cannabis hyperemesis syndrome concurrent with and due to cannabis abuse Additional Impressions: Drug abuse and dependence, Nausea and vomiting, Abdominal pain, Hyponatremia Condition: Stable Scripts Ondansetron (Ondansetron Odt) 4 Mg Tab.rapdis 1 TAB PO Q6HPRN PRN for nausea/vomiting, #16 TAB 0 Refills Prov: PRISCILLA FRANKLIN 09/11/24 Additional Instructions: FOLLOW-UP WITH PRIMARY CARE PROVIDER IN 1 TO 2 DAYS. TAKE MEDICATIONS DIRECTED HERE IN THE EMERGENCY ROOM. OKAY TO CONTINUE HOME MEDICATIONS UNLESS OTHERWISE DISCUSSED DURING YOUR VISIT IN THE EMERGENCY ROOM TODAY. RETURN TO Y OUR NEAREST EMERGENCY ROOM IF SYMPTOMS WORSEN OR IF THERE IS NO IMPROVEMENT. CALL 911 IF YOU NEED IMMEDIATE ASSISTANCE. TAKE TYLENOL OR MOTRIN [id number] NEEDED AND IF NO CONTRAINDICATIONS ARE PRESENT. INCREASE ORAL HYDRATION. A WOUND CULTURE OR URINE CULTURE WAS ORDERED HERE IN THE EMERGENCY ROOM DEPARTMENT PLEASE FOLLOW-UP WITH PRIMARY CARE PROVIDER AND ADVISE THEM TO GET REPEAT PORTS FROM OUR FACILITY. IF YOU HAD ANY ERICA WRAP/SPLINTS THAT WERE APPLIED HERE, PLEASE DO NOT REMOVE THEM UNTIL YOU SEE YOUR PRIMARY CARE OR SPECIALTY. Referrals: ISAEL ISRAEL MD (PCP) Time of Disposition: 00:56 I have reviewed the case, and I agree with, Diagnosis and Plan PRISCILLA FRANKLIN Sep 10, 2024 21:26
[2024-09-10 21:28] LABS: CREATININE 1.2 mg/dL (0.5-1.3); POTASSIUM 3.8 mmol/L (3.5-5.1)
[2024-09-10] MEDS: ondanSETRON 4MG INJ IVP ONE (23:42)
[2024-09-10] MEDS: PANTOPrazole 40 MG/VIAL IVP ONE (23:42)
[2024-09-10] MEDS: morPHINE 4 MG SYG IVP ONE (23:42)
[2024-09-10] MEDS: 0.9%NACL 1000ML 1,000 ML IV ONE (23:42)
[2024-09-11 00:02] LABS: APPEARANCE,URINE CLEAR (CLEAR); BILIRUBIN,URINE NEGATIVE (NEGATIVE); COLOR,URINE YELLOW (YELLOW); GLUCOSE, URINE (UA) NEGATIVE (NEGATIVE); KETONES,URINE 40 mg/dL (NEGATIVE); LEUKOCYTE ESTERASE ,URINE NEGATIVE Leu/uL (NEGATIVE); NITRATE,URINE NEGATIVE (NEGATIVE); OCCULT BLOOD,URINE NEGATIVE (NEGATIVE); PROTEIN,URINE 30 mg/dL (NEGATIVE); UROBILINOGEN,URINE 0.2 mg/dL (0.2-1.0)
[2024-09-11 00:08] LABS: ADD UA MICROSCOPIC YES
[2024-09-11 00:29] LABS: AMPHET/METH SCREEN,URINE NEGATIVE (NEGATIVE); BARBITURATE SCREEN, URINE NEGATIVE (NEGATIVE); BENZODIAZEPINES SCREEN,URINE NEGATIVE (NEGATIVE); CANNABINOID SCREEN,URINE POSITIVE (NEGATIVE); COCAINE SCREEN,URINE NEGATIVE (NEGATIVE); OPIATE SCREEN,URINE NEGATIVE (NEGATIVE); PHENCYCLIDINE SCREEN,URINE NEGATIVE (NEGATIVE)
[2024-09-11 00:35] LABS: MUCUS,URINE RARE LPF (None Seen); RBC,URINE 0-1 /HPF (0-1)
[2024-09-11] MEDS ORDERED: ONDA-243 PO (00:57)
== END 2024-09-11 01:11 | disposition home or self-care (01) ==
LOC: EDH 19:49
DX: F12.10 Cannabis abuse, uncomplicated (principal); R11.2 Nausea with vomiting, unspecified; R10.84 Generalized abdominal pain; E87.1 Hypo-osmolality and hyponatremia; F17.200 Nicotine dependence, unspecified, uncomplicated; I10 Essential (primary) hypertension; I25.10 Atherosclerotic heart disease of native coronary artery without angina pectoris; Z79.02 Long term (current) use of antithrombotics/antiplatelets; Z79.899 Other long term (current) drug therapy; Z95.1 Presence of aortocoronary bypass graft; Z95.5 Presence of coronary angioplasty implant and graft
CPT/HCPCS: 99284; 81001; 96374 ×2; 99285; 82550; 84484 ×2; 80053; 80305; 83690; 85025 ×2; 36415 ×2; 74176; 96361 ×2; 96375 ×2; 93005 ×2; J7030 ×2; J2405 ×2; J2270; J2470; J1885; 80048

== ENCOUNTER 2025-06-24 06:59 | Emergency (ER) | payer MEDICARE, MEDICAID ==
[~2025-06-24] VITALS: Ht 182.9 cm; Wt 81.6 kg
[~2025-06-24 06:59] MED LIST changes: +ONDA-243 PO; -TAMS-1 PO; +TAMS-55 PO
--- NOTE | 2025-06-24 08:19 | EKG ---
[facility] Test Date: 2025-06-24 Test Time: 07:39:31 Pat Name: ALEXYS OZUNA Department: [facility] Room: Gender: M [employer]: [id number] : 1955 Requested By: COTY SHERIDAN Order Number: [id number] Reading MD: Chemo Calxito Measurements Intervals [place] Rate: 77 P: 76 AK: 151 QRS: 262 QRSD: 86 T: 64 QT: 399 QTc: 451 Interpretive Statements Sinus rhythm Inferior infarct, old Compared to ECG 09/10/2024 20:30:58 No significant changes Electronically Signed On 06-25-2025 17:30:33 CDT by Chemo Calixto Please click the below link to view image of tracing.
[2025-06-24 08:25] LABS: IMMATURE GRANULOCYTE ABSOLUTE 0.05 K/uL (0-1); NUCLEATED RED BLOOD CELLS 0.0 % (0.0-0.19); PLATELET COUNT (AUTO) 239 K/uL (130-400); RED BLOOD CELL COUNT(AUTO) 5.52 MIL/uL (4.50-6.20); RED CELL DISTRIBUTION WIDTH 14.3 % (11.0-15.5); WHITE BLOOD COUNT (AUTO) 15.2 K/uL (4.8-10.8)
[2025-06-24 08:30] LABS: APPEARANCE,URINE CLEAR (CLEAR); GLUCOSE, URINE (UA) NEGATIVE (NEGATIVE); LEUKOCYTE ESTERASE ,URINE 25 Leu/uL (NEGATIVE); NITRATE,URINE NEGATIVE (NEGATIVE); OCCULT BLOOD,URINE +- (TRACE) (NEGATIVE)
[2025-06-24 08:34] LABS: CREATININE 1.0 mg/dL (0.5-1.3); GLOMERULAR FILTR. RATE CALC 82.0 mL/min (>90); GLUCOSE,RANDOM 100.0 mg/dL (70-105); SODIUM SERUM 140.0 mmol/L (136-145); UREA NITROGEN, BLOOD 23.0 mg/dL (7-18)
[2025-06-24 08:39] VITALS: PULSE 94; RESP 22
[2025-06-24 08:40] LABS: ASPARTATE AMINOTRANSFERASE 20.0 U/L (10-37); TOTAL PROTEIN, SERUM 8.1 g/dL (6.0-8.3)
[2025-06-24 08:41] LABS: ADD UA MICROSCOPIC YES
[2025-06-24 08:43] LABS: SQUAMOUS EPITHELIAL CELL,UR Rare /HPF (0-2)
[2025-06-24] MEDS: 0.9% NACL 500ML IV.SOLN 500 ML IV ONE (08:56)
[2025-06-24 08:58] LABS: INFLUENZA TYPE A Negative For Type A (NEGATIVE); INFLUENZA TYPE B Negative For Type B (NEGATIVE)
--- NOTE | 2025-06-24 10:42 | HMCIMG ---
EXAM: CT Abdomen and Pelvis Without IV contrast CLINICAL HISTORY: upper abdominal pain TECHNIQUE: Axial computed tomography images of the abdomen and pelvis without intravenous contrast. CONTRAST: No IV contrast. COMPARISON: CT images from September 10, 2024. FINDINGS: Lung Bases: The visualized lung bases are clear. No focal pulmonary lesion, consolidation, or pleural effusion is seen. Liver: The liver is normal in size, shape, and attenuation. No focal lesion or intrahepatic biliary dilatation is seen. Hepatic vasculature is unremarkable. Gallbladder and Biliary Tree: Gallbladder is not visualized, status post cholecystectomy. No intra- or extrahepatic biliary dilatation. Pancreas: The pancreas is normal in size and contour. No mass, cyst, or peripancreatic collection is seen. Pancreatic duct is not dilated. Spleen: The spleen is normal in size and attenuation. No focal lesion is seen. Adrenal Glands: Both adrenal glands are normal in size and morphology. No focal lesion or mass is identified. Kidneys and Ureters: Both kidneys are normal in size. There is mild bilateral perinephric fat stranding that may reflect renal parenchymal disease, clinical correlation is advised. No hydronephrosis or perinephric collection. There are subcentimeter foci in the right lower pole measuring 6 x 4 mm and in the left lower pole measuring 4 x 2 mm. These may reflect cysts; however warrant further characterization with renal ultrasound. No renal calculi or mass lesion are seen. Ureters are not dilated. Urinary Bladder: The urinary bladder is normal in wall thickness and contour. No intraluminal mass or calculus is seen. Prostate: The prostate is normal in size and configuration with few intraprostatic calcifications. No focal mass or abnormality is identified. Bowel and Mesentery: The bowel loops are normal in caliber and distribution. No evidence of obstruction, mass, or abnormal wall thickening. No free fluid or air is seen. Vasculature: Intimal calcification involving the aorta and its branches is noted. No aneurysm or dissection seen. Other major abdominal vessels are unremarkable. Lymph Nodes: No significant abdominal or pelvic lymphadenopathy is seen. Peritoneum/Retroperitoneum: No free fluid or abnormal soft tissue density is seen. Abdominal Wall: Umbilical hernia with a defect of 6 mm containing omental fat is seen. No evidence of bowel within the hernia sac. No signs of strangulation or obstruction. Bones: Mild degenerative changes are noted. No lytic or sclerotic lesions. No acute fracture. Other Findings: No abnormality detected in the visualized portions of the lower thorax and pelvis. IMPRESSION: 1. No acute intraabdominal or pelvic pathology. 2. Small umbilical hernia containing omental fat, without evidence of strangulation or obstruction. 3. Possible renal cysts, recommend ultrasound correlation. 4. Bilateral perinephric fat stranding may reflect renal parenchymal disease, recommend correlation with laboratory parameters. /Benedict
[2025-06-24] MEDS ORDERED: ONDA-243 PO (11:18)
[2025-06-24] MEDS ORDERED: DICY20TA2 PO (11:18)
--- NOTE | 2025-06-24 11:19 | ERN ---
ED Note History of Present Illness Stated Complaint: ABDOMINAL PAIN Chief Complaint: Abdominal Pain Time Seen by MD: 07:28 Dictation: 70-year-old male presenting to the emergency department with diffuse abdominal pain, nausea vomiting diarrhea no bleeding. Patient has a history of COPD with chronic cough. Allergies: Coded Allergies: No Known Drug Allergies (Unverified Allergy, Unknown, 04/13/20) Home Meds Active Scripts Ondansetron (Ondansetron Odt) 4 Mg Tab.rapdis, 1 TAB PO Q6HPRN PRN for nausea/vomiting, #16 TAB 0 Refills Prov:PRISCILLA FRANKLIN PRIMING MIXTURE CARRIER 09/11/24 Pantoprazole Sodium (Protonix) 40 Mg Tablet.dr, 40 MG PO DAILY, #30 TAB Prov:CELI ESTRELLA V [employer]IMING M[employer]TURE CARRIER 06/29/23 Tamsulosin HCl (Flomax) 0.4 Mg Cap.er.24h, 0.4 MG PO HS for 90 Days, #90 CAPSULE.DR Prov:NEELAM SCHULZ Jr., MD 01/22/22 Reported Medications Dicyclomine HCl (Dicyclomine HCl) 20 Mg Tablet, 1 TAB PO TID for irritable bowel symptoms for 10 Days, #30 TAB 0 Refills 08/05/24 Metoclopramide HCl (Metoclopramide HCl) 5 Mg Tablet, 1 TAB PO TID for 30 Days, #90 TAB 0 Refills 24 Aspirin/Acetaminophen/Caffeine (Excedrin Migraine Caplet) 250 Mg-250 Mg-65 Mg Tablet, 2 EACH PO Q4HPRN PRN for PAIN LEVEL 1 TO 5, TAB 08/05/24 Ticagrelor (Brilinta) 90 Mg Tablet, 1 TAB PO BID for 30 Days, #60 TAB 0 Refills 08/05/24 Trazodone HCl (Trazodone HCl) 300 Mg Tablet, 1 TAB PO HS for 30 Days, #30 TAB 0 Refills 24 Isosorbide Mononitrate (Isosorbide Mononitrate ER) 30 Mg Tab.er.24h, 30 MG PO DAILY, TAB 02/25/24 Bupropion HCl (Bupropion HCl Sr) 150 Mg Tablet.er, 150 MG PO BID, TAB 02/12/24 Nitroglycerin (Nitroglycerin) 0.4 Mg Tab.subl, 0.4 MG SL AD PRN for CHEST PAIN, TAB.SL 02/12/24 [Gi Cocktail] No Conflict Check, 5 ML PO BID 02/12/24 Albuterol Sulfate (Ventolin Hfa) 90 Mcg Hfa.aer.ad, 2 PUFF IH DAILY, INHALER 02/12/24 Atorvastatin Calcium (LIPITOR) 40 Mg Tablet, 40 MG PO DAILY, TAB 02/20/23 Aspirin (ASPIRIN 81 MG ECTAB) 81 Mg Ectab, 81 MG PO AM, TAB.EC 02/04/21 Lisinopril (Lisinopril) 5 Mg Tablet, 5 MG PO DAILY, TAB 02/04/21 Past Medical History Past Medical History: CAD, Heart Disease, Hypertension Additional Past Medical Hx: HEAD TRAUMA Surgical History: CABG, Other Surgical History Other: CARDIAC STENTS Family History: Negative Social History: Smokers, Drugs, Lives with family Review of System Dictation Constitutional: Negative for fever,chills, and weight loss Eyes: Negative for injury, pain,redness, and discharge ENT: Negative for injury,pain or swelling Cardiovascular: Negative for chest pain, palpitations, and edema Respiratory: Per HPI Abdomen/GI: Per HPI MS/Extremity: Negative for injury and deformity Skin: Negative for rash, and discoloration Neuro: Negative for headache, weakness, numbness, tingling, and seizure Psych: Negative for suicide ideation, homicidal ideation, and hallucinations Initial Vital Sign VS Vital Signs Date Time Temp Pulse Resp B/P (MAP) Pulse Ox O2 Delivery O2 Flow Rate FiO2 06/24/25 07:02 98.1 84 16 128/69 96 Room Air 0 06/24/25 08:34 21 Physical Exam Dictation General: awake, alert, NAD Head/Face: Normocephalic, atraumatic Eyes: PERRL, EOMI, vision at baseline ENT: oral cavity clear, TMs clear, no signs of infection Neck: Trachea midline, supple, no nuchal rigidity Cardiovascular: RRR, normal S1/S2, No MRGs, no JVD Respiratory: Coarse bilateral breath sounds Abdomen: Soft, mild diffuse tenderness to palpation non-distended, normal bowel sounds, no guarding or rebound. Skin: Warm, dry, normal turgor, no rash MS/Extremity: Pulses equal, no cyanosis, neurovascular intact, FROM Neuro: COAx4, GCS 15, strength 5/5, CN 2-12 intact, normal cerebellar exam, normal gait, Psych: Normal behavior, mood, and affect normal Results (Laboratory/Radiology) Laboratory/Radiology Laboratory Tests Test 06/24/25 08:05 06/24/25 08:14 Urine Color YELLOW (YELLOW) Urine Appearance CLEAR (CLEAR) Urine pH 6.0 (5.0-8.0) Urine Specific [place] 1.029 (1.001-1.031) Urine Protein 70 mg/dL (NEGATIVE) H Urine Glucose (UA) NEGATIVE mg/dL (NEGATIVE) Urine Ketones 10 mg/dL (NEGATIVE) H Urine Occult Blood +- (TRACE) (NEGATIVE) H Urine Nitrate NEGATIVE (NEGATIVE) Urine Bilirubin NEGATIVE mg/dL (NEGATIVE) Urine Urobilinogen 0.2 mg/dL (0.2-1.0) Urine Leukocyte Esterase 25 Jose Eduardo/uL (NEGATIVE) H Urine RBC 0-1 /HPF (0-1) Urine WBC 6-10 /HPF (0-1) H Urine Squamous Epithelial Cells Rare /HPF (0-2) Urine Bacteria Rare /HPF (None Seen) Influenza Type A Antigen Negative For Type A Influenza Type B Antigen Negative For Type B SARS-CoV-2 Antigen (Rapid) PRESUMPTIVE NEGATIVE White Blood Count 15.2 K/uL (4.8-10.8) H Red Blood Count 5.52 MIL/uL (4.50-6.20) Hemoglobin 15.8 g/dL (14.0-18.0) Hematocrit 47.7 % (42-54) Mean Corpuscular Volume 86.4 fL (79-99) Mean Corpuscular Hemoglobin 28.6 pg (27.0-33.0) Mean Corpuscular Hemoglobin Concent 33.1 g/dL (32.0-36.0) Red Cell Distribution Width 14.3 % (11.0-15.5) Platelet Count 239 K/uL (130-400) Mean Platelet Volume 12.1 fL (7.5-10.5) H Immature Granulocyte % (Auto) 0.3 % (0-1) Neutrophils (%) (Auto) 70.3 % (40.0-77.0) Lymphocytes (%) (Auto) 21.0 % (21.0-51.0) Monocytes (%) (Auto) 8.0 % (3.0-13.0) Eosinophils (%) (Auto) 0.1 % (0.0-8.0) Basophils (%) (Auto) 0.3 % (0.0-5.0) Neutrophils # (Auto) 10.6 K/uL (1.8-7.7) H Lymphocytes # (Auto) 3.2 K/uL (1.0-4.8) Monocytes # (Auto) 1.2 K/uL (0.1-1.0) H Eosinophils # (Auto) 0.02 K/uL (0.00-0.70) Basophils # (Auto) 0.05 K/uL (0.00-0.20) Absolute Immature Granulocyte (auto 0.05 K/uL (0-1) Nucleated Red Blood Cells 0.0 % (0.0-0.19) Sodium Level 140 mmol/L (136-145) Potassium Level 3.8 mmol/L (3.5-5.1) Chloride Level 100 mmol/L (101-111) L Carbon Dioxide Level 34 mmol/L (21-32) H Blood Urea Nitrogen 23 mg/dL (7-18) H Creatinine 1.0 mg/dL (0.5-1.3) Glomerular Filtration Rate Calc 82 mL/min (>90) Random Glucose 100 mg/dL (70-105) Total Calcium 9.6 mg/dL (8.5-10.1) Total Bilirubin 0.3 mg/dL (0.2-1.0) Direct Bilirubin 0.1 mg/dL (0.0-0.3) Aspartate Amino Transf (AST/SGOT) 20 U/L (10-37) Alanine Aminotransferase (ALT/SGPT) 22 U/L (12-78) Alkaline Phosphatase 97 U/L (50-136) Troponin I High Sensitivity 11 ng/L (4-75) Total Protein 8.1 g/dL (6.0-8.3) Albumin 4.0 g/dL (3.5-5.0) Lipase 104 U/L (16-77) H Labs Reviewed?: Yes EKG Comment: Heart rate 77 normal sinus rhythm normal intervals no STEMI ED Course ED Course Orders Procedure Category Date Status Time 12 Lead Ekg Tracing- EKG 06/24/25 Complete Technical 07:29 Basic Metabolic Panel LAB 06/24/25 Complete 07:29 Cbc With Differential LAB 06/24/25 Complete 07:29 Hepatic Function Panel LAB 06/24/25 Complete 07:29 Lipase LAB 06/24/25 Complete 07:29 Troponin I High LAB 06/24/25 Complete Sensitivity 07:29 Urinalysis Profile LAB 06/24/25 Complete 07:29 Ct Abd/Pel Wo Con CT 06/24/25 Resulted Renal/Appy 07:29 Morphine 4mg Syg PHA 06/24/25 Complete (Morphine 4mg Syg) 08:00 Ondansetron 4mg Inj PHA 06/24/25 Complete (Zofran 4mg Inj) 08:00 Ipratropium/Albuterol PHA 06/24/25 Complete Neb (Duoneb) 08:00 0.9% Nacl 500ml PHA 06/24/25 Complete Iv.Soln (Ns 500ml 08:00 Covid19 (Sars Antigen LAB 06/24/25 Complete Rapid) 07:46 Influenza Type A & B, LAB 06/24/25 Complete Rapid 08:29 Culture Urine SAMANTHA 06/24/25 Logged 09:00 Current Medications Medications (Trade) Dose Ordered Sig/Geovanni Route PRN Reason Start Time Stop Time Status Last Admin Dose Admin Albuterol (DUOneb) 1 udvial ONCE ONCE IH 06/24/25 08:00 06/24/25 08:01 DC 06/24/25 08:38 Morphine Sulfate (morPHINE 4MG SYG) 4 mg ONCE ONCE IVP 06/24/25 08:00 06/24/25 08:01 DC 06/24/25 08:57 Ondansetron HCl (zoFRAN 4MG INJ) 4 mg ONCE ONCE IVP 06/24/25 08:00 06/24/25 08:01 DC 06/24/25 08:56 Sodium Chloride 500 ml @ 0 mls/hr ONCE ONCE IV 06/24/25 08:00 06/24/25 08:01 DC 06/24/25 08:56 Vital Signs Date Time Temp Pulse Resp B/P (MAP) Pulse Ox O2 Delivery O2 Flow Rate FiO2 06/24/25 08:39 94 22 06/24/25 08:34 98.4 57 22 122/76 100 Room Air* 0 21 06/24/25 07:02 98.1 84 16 128/69 96 Room Air 0 Medical Decision Making MDM MDM: Differential diagnosis: Rationale: Tests considered and ordered secondary to shared decision making include: Previous outside records reviewed: Old ER visits. Risk of complication and/or morbidity or mortality of patient management: None Medications-Per medication reconciliation Need for hospitalization: Patient does not meet criteria for hospitalization. Need for emergency major/minor surgery: No There are no social concerns with this patient. Prescription drug management Prescriptions will include symptomatic care Patient's prior external medical records from other ER visits were reviewed by me as indicated. Prior testing and results from previous visits were reviewed. Prior tests were taken into account with medical decision making and resource utilization, independent historian/historians were used to obtain complete medical history. I independently interpreted the test that were performed, results were reviewed by me and considered findings on radiology if ordered. Medical management and examination interpretation discussions were had by me with other qualified healthcare professionals as indicated for the patient's care. 70 year Old with diffuse abdominal pain, stable exam negative workup symptoms improved with medications vital signs stable CT scan negative stable for discharge DX & DISP Disposition: Discharge Departure Impression: Primary Impression: Viral gastroenteritis Additional Impression: Abdominal pain Condition: Stable Scripts Ondansetron (Ondansetron Odt) 4 Mg Tab.rapdis 4 MG PO BID for vomiting for 5 Days, #10 TAB Prov: COTY SHERIDAN MD 06/24/25 Dicyclomine HCl (Bentyl) 20 Mg Tab 1 TAB PO BID for irritable bowel symptoms for 5 Days, #10 TAB 0 Refills Prov: COTY SHERIDAN MD 06/24/25 Referrals: SKIP ISRAEL MD (PCP) COTY SHERIDAN MD Jun 24, 2025 11:19
[2025-06-24 11:24] VITALS: BP 153/84; PULSE 88; RESP 22; TEMP 98.4; O2SAT 96
--- NOTE | 2025-06-24 11:47 | NUR ---
PT AAOX3 STABLE NO DISTRESS VITALS WNL NO C/O PAIN NOW, PT GIVEN INSTRUCTIONS FOR HOME TWO RX EMAIL TO PT PHARMACY WILL START TODAY. IV REMOVED INTACT, PT DRIVEN HOME BY DAUGHTER.
== END 2025-06-24 11:48 | disposition home or self-care (01) ==
LOC: EDH 06:59
DX: A08.4 Viral intestinal infection, unspecified (principal); R10.84 Generalized abdominal pain; I25.10 Atherosclerotic heart disease of native coronary artery without angina pectoris; I11.9 Hypertensive heart disease without heart failure; F17.200 Nicotine dependence, unspecified, uncomplicated; Z79.899 Other long term (current) drug therapy; Z95.1 Presence of aortocoronary bypass graft; Z95.5 Presence of coronary angioplasty implant and graft; Z20.822 Contact with and (suspected) exposure to COVID-19
CPT/HCPCS: 99285; 74176; 96374; 96361; 96375; 87426; 80076; 84484; 80048; 83690; 85025; 87086; 87804 ×2; 81001; 36415; 93005; 94640; J7040; J2405; J2270

== ENCOUNTER 2025-07-07 08:18 | Inpatient (IN) | payer MEDICARE, MEDICAID ==
[~2025-07-07] VITALS: Ht 170.2 cm; Wt 69.9 kg
--- NOTE | 2025-07-07 08:25 | ERN ---
General Chief Complaint: Arm Swelling/Redness Stated Complaint: RIGHT ARM PAIN Time Seen by MD: 08:19 Source: patient History of Present Illness Initial Comments Patient is a 70-year-old gentleman coming in with a right upper extremity swelling. Per patient he was recently seen and admitted in the hospital was discharged after a procedure to remove a was performed. Per patient he started noticing a draining in his is upper extremity after procedure and states that he was not able to by some of the medications he was prescribed into today. Allergies: Coded Allergies: No Known Drug Allergies (Unverified Allergy, Unknown, 04/13/20) Home Meds Discontinued Reported Medications Dicyclomine HCl (Dicyclomine HCl) 20 Mg Tablet, 1 TAB PO TID for irritable bowel symptoms for 10 Days, #30 TAB 0 Refills 08/05/24 Metoclopramide HCl (Metoclopramide HCl) 5 Mg Tablet, 1 TAB PO TID for 30 Days, #90 TAB 0 Refills 08/05/24 Aspirin/Acetaminophen/Caffeine (Excedrin Migraine Caplet) 250 Mg-250 Mg-65 Mg Tablet, 2 EACH PO Q4HPRN PRN for PAIN LEVEL 1 TO 5, TAB 08/05/24 Ticagrelor (Brilinta) 90 Mg Tablet, 1 TAB PO BID for 30 Days, #60 TAB 0 Refills 08/05/24 Trazodone HCl (Trazodone HCl) 300 Mg Tablet, 1 TAB PO HS for 30 Days, #30 TAB 0 Refills 08/05/24 Isosorbide Mononitrate (Isosorbide Mononitrate ER) 30 Mg Tab.er.24h, 30 MG PO DAILY, TAB 02/25/24 Bupropion HCl (Bupropion HCl Sr) 150 Mg Tablet.er, 150 MG PO BID, TAB 02/12/24 Nitroglycerin (Nitroglycerin) 0.4 Mg Tab.subl, 0.4 MG SL AD PRN for CHEST PAIN, TAB.SL 02/12/24 [Gi Cocktail] No Conflict Check, 5 ML PO BID 02/12/24 Albuterol Sulfate (Ventolin Hfa) 90 Mcg Hfa.aer.ad, 2 PUFF IH DAILY, INHALER 02/12/24 Atorvastatin Calcium (LIPITOR) 40 Mg Tablet, 40 MG PO DAILY, TAB 02/20/23 Aspirin (ASPIRIN 81 MG ECTAB) 81 Mg Ectab, 81 MG PO AM, TAB.EC 02/04/21 Lisinopril (Lisinopril) 5 Mg Tablet, 5 MG PO DAILY, TAB 02/04/21 Discontinued Scripts Ondansetron (Ondansetron Odt) 4 Mg Tab.rapdis, 4 MG PO BID for vomiting for 5 Days, #10 TAB Prov:COTY SHERIDAN MD 06/24/25 Dicyclomine HCl (Bentyl) 20 Mg Tab, 1 TAB PO BID for irritable bowel symptoms for 5 Days, #10 TAB 0 Refills Prov:COTY SHERIDAN MD 06/24/25 Ondansetron (Ondansetron Odt) 4 Mg Tab.rapdis, 1 TAB PO Q6HPRN PRN for nausea/vomiting, #16 TAB 0 Refills Prov:PRISCILLA FRANKLIN PREP MANAGER 09/11/24 Pantoprazole Sodium (Protonix) 40 Mg Tablet.dr, 40 MG PO DAILY, #30 TAB Prov:CELI ESTRELLA [facility] 06/29/23 Tamsulosin HCl (Flomax) 0.4 Mg Cap.er.24h, 0.4 MG PO HS for 90 Days, #90 CAPSULE. Prov:NEELAM SCHULZ Jr., MD 01/22/22 Past Medical History Past Medical History: CAD, Heart Disease, Hypertension Medical History Other: HEAD TRAUMA Past Surgical History: CABG, Other Surgical History Other: CARDIAC STENTS Family History Family History: Negative Social History Social History: Smokers, Drugs, Lives with family ROS Dictation CONSTITUTIONAL: No chills, no fever, no weakness, no diaphoresis, no malaise. HEAD/FACE: No signs of trauma. EENT: No eye pain, no blurred vision, no tearing, no double vision, no ear pain, no ear discharge, no nose pain, no nasal congestion, no throat pain, no throat swelling, no mouth pain. RESPIRATORY: No cough, no orthopnea, no SOB, no stridor, no wheezing. CARDIOVASCULAR: No chest pain, no edema, no palpitations, no syncope. GASTROINTESTINAL/ABDOMINAL: No abdominal pain, no constipation, no diarrhea, no nausea, no vomiting. GENITOURINARY: No abnormal discharge, no dysuria, no frequent urination, no hematuria. No complaints of pain in the genitals. MUSCULOSKELETAL: No back pain, no gout, no joint pain, no joint swelling, no muscle pain, no muscle stiffness, no neck pain. INTEGUMENTARY: No change in color, no change in hair/nails, no dryness, no lesion, no lumps, no rash. NEUROLOGICAL/PSYCH: No anxiety, not depressed, no emotional problem, no headache, no numbness, no pre-existing deficit, no history of seizures, no tremors, no weakness. HEMATOLOGIC/LYMPHATIC: Not anemic, no history of blood clots, no apparent bleeding, no bruising, glands not swollen. All Systems Negative, Except as Noted. Physical Exam Physical Exam Dictation VITAL SIGNS: Reviewed. GENERAL APPEARANCE: Alert, oriented x3, no acute distress, obese. HEAD AND FACE: Non-traumatic. EYES: PERRL, pink conjunctivas, eyelid no trauma, anterior chamber clear. EARS: Pinnas intact and no signs of trauma or erythema. Ear canals clear and no discharge. TMs no erythema. NOSE: No discharge, no bleeding. OROPHARYNX: Mouth normal, teeth no caries, tongue pink. Pharynx clear, no erythema. Tonsils no exudates, no abscesses noted. Mucous membrane moist. NECK: Supple, non-tender, no thyromegaly, no masses, no JVD, no bruits. BREAST: Deferred. CHEST: No tenderness, no crepitus, no paradoxical movement, no retractions. LUNGS: Clear, well-ventilated, symmetric, no rales, no wheezing, no rhonchi, no stridor, good breath sounds bilaterally. HEART: Regular rate, regular rhythm, no murmur, no gallops. VASCULAR: No peripheral edema. ABDOMEN: Soft, positive bowel sounds, nondistended, no guarding, nontender, no rebound, no masses no hepatomegaly, no splenomegaly, no Ghosh's sign, no hernias. RECTAL: Deferred. GENITAL: Deferred. NEUROLOGICAL: Normal speech, gross motor function intact, gross sensory function intact. MUSCULOSKELETAL: Neck nontender, full range of motion, back nontender, full range of motion. EXTREMITIES: Nontender, full range of motion. SKIN: Color pink, dry, no turgor, no rash, no lacerations, no abrasions, no contusions. LYMPHATICS: Deferred. Results Laboratory and Microbiology Lab and Micro Result Laboratory Tests Test 07/07/25 08:30 White Blood Count 19.3 K/uL (4.8-10.8) H Red Blood Count 4.70 MIL/uL (4.50-6.20) Hemoglobin 13.5 g/dL (14.0-18.0) L Hematocrit 41.0 % (42-54) L Mean Corpuscular Volume 87.2 fL (79-99) Mean Corpuscular Hemoglobin 28.7 pg (27.0-33.0) Mean Corpuscular Hemoglobin Concent 32.9 g/dL (32.0-36.0) Red Cell Distribution Width 15.0 % (11.0-15.5) Platelet Count 261 K/uL (130-400) Mean Platelet Volume 11.2 fL (7.5-10.5) H Immature Granulocyte % (Auto) 0.5 % (0-1) Neutrophils (%) (Auto) 76.1 % (40.0-77.0) Lymphocytes (%) (Auto) 11.2 % (21.0-51.0) L Monocytes (%) (Auto) 8.4 % (3.0-13.0) Eosinophils (%) (Auto) 3.2 % (0.0-8.0) Basophils (%) (Auto) 0.6 % (0.0-5.0) Neutrophils # (Auto) 14.7 K/uL (1.8-7.7) H Lymphocytes # (Auto) 2.2 K/uL (1.0-4.8) Monocytes # (Auto) 1.6 K/uL (0.1-1.0) H Eosinophils # (Auto) 0.62 K/uL (0.00-0.70) Basophils # (Auto) 0.11 K/uL (0.00-0.20) Absolute Immature Granulocyte (auto 0.10 K/uL (0-1) Nucleated Red Blood Cells 0.0 % (0.0-0.19) Sodium Level 137 mmol/L (136-145) Potassium Level 4.2 mmol/L (3.5-5.1) Chloride Level 102 mmol/L (101-111) Carbon Dioxide Level 29 mmol/L (21-32) Blood Urea Nitrogen 21 mg/dL (7-18) H Creatinine 1.0 mg/dL (0.5-1.3) Glomerular Filtration Rate Calc 82 mL/min (>90) Random Glucose 100 mg/dL (70-105) Total Calcium 9.2 mg/dL (8.5-10.1) Labs Reviewed?: Yes MDM MDM: Differential diagnosis: Cellulitis, sepsis, leukocytosis, Rationale: Tests considered and ordered secondary to shared decision making include: Previous outside records reviewed: Old ER visits. Risk of complication and/or morbidity or mortality of patient management: None Medications-Per medication reconciliation Need for hospitalization: Patient does meet criteria for hospitalization. Need for emergency major/minor surgery: No There are no social concerns with this patient. Prescription drug management Prescriptions will include symptomatic care Patient's prior external medical records from other ER visits were reviewed by me as indicated. Prior testing and results from previous visits were reviewed. Prior tests were taken into account with medical decision making and resource utilization, independent historian/historians were used to obtain complete medical history. I independently interpreted the test that were performed, results were reviewed by me and considered findings on radiology if ordered. Medical management and examination interpretation discussions were had by me with other qualified healthcare professionals as indicated for the patient's care. Patient will be admitted under the care of counts include [facility] beds at the [facility]. ED Course Orders Procedure Category Date Status Time Cbc With Differential LAB 07/07/25 Complete 08:22 Basic Metabolic Panel LAB 07/07/25 Complete 08:22 Us Soft Tissue Upper US 07/07/25 Logged Extremity 08:22 Ceftriaxone 1g Vial PHA 07/07/25 Complete (Rocephine 1g Inj) 09:00 Current Medications Medications (Trade) Dose Ordered Sig/Geovanni Route PRN Reason Start Time Stop Time Status Last Admin Dose Admin Ceftriaxone Sodium (ROCEphine 1G INJ) 1 gm ONCE ONCE IVPB 07/07/25 09:00 07/07/25 09:01 DC Vital Signs Date Time Temp Pulse Resp B/P (MAP) Pulse Ox O2 Delivery O2 Flow Rate FiO2 07/07/25 08:23 98.2 89 16 125/71 96 Room Air Critical Care Note Comments Critical Care Procedure Note Authorized and Performed by: me Total critical care time: Approximately 36 minutes Due to a high probability of clinically significant, life threatening deterioration, the patient required my highest level of preparedness to intervene emergently and I personally spent this critical care time directly and personally managing the patient. This critical care time included obtaining a hi story; examining the patient; pulse oximetry; ordering and review of studies; arranging urgent treatment with development of a management plan; evaluation of patient's response to treatment; frequent reassessment; and, discussions with other providers. This critical care time was performed to assess and manage the high probability of imminent, life-threatening deterioration that could result in multi-organ failure. It was exclusive of separately billable procedures and treating other patients and teaching time. Please see MDM section and the rest of the note for further information on patient assessment and treatment. DX & DISP Disposition: Inpatient Decision to Admit Time: 09:13 Departure Impression: Primary Impression: Cellulitis of left arm Additional Impression: Sepsis Condition: Stable Scripts No Active Prescriptions or Reported Meds Referrals: MAYO TANG MD (PCP) SHAWNEE THOMAS MD Jul 07, 2025 08:25
[2025-07-07 08:36] LABS: IMMATURE GRANULOCYTE ABSOLUTE 0.10 K/uL (0-1); NUCLEATED RED BLOOD CELLS 0.0 % (0.0-0.19); PLATELET COUNT (AUTO) 261 K/uL (130-400); RED BLOOD CELL COUNT(AUTO) 4.70 MIL/uL (4.50-6.20); RED CELL DISTRIBUTION WIDTH 15.0 % (11.0-15.5); WHITE BLOOD COUNT (AUTO) 19.3 K/uL (4.8-10.8)
[2025-07-07 08:46] LABS: CREATININE 1.0 mg/dL (0.5-1.3); GLOMERULAR FILTR. RATE CALC 82.0 mL/min (>90); GLUCOSE,RANDOM 100.0 mg/dL (70-105); SODIUM SERUM 137.0 mmol/L (136-145); UREA NITROGEN, BLOOD 21.0 mg/dL (7-18)
--- NOTE | 2025-07-07 10:02 | HMCIMG ---
EXAM: US right lateral wrist region CLINICAL HISTORY: Right upper arm wound TECHNIQUE: Real-time ultrasound scan of the right lateral wrist with 2-D millan scale, color Doppler flow and spectral waveform analysis. COMPARISON: None provided. FINDINGS: Lateral Right Wrist Area: No evidence of soft tissue collection, hematoma, or abscess. No abnormal fluid noted. Vascular Structures: The right radial artery at the lateral right wrist at the evaluated segment with monophasic flow pattern with PSV 27cm/sec. Multilevel atherosclerosis is noted in the right radial artery. 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 No collection or hematoma in the lateral right wrist area. /Alexa
--- NOTE | 2025-07-07 16:10 | NUR ---
DCP:HOME Pt currently lives with daughter Zeynep Garcia [phone]. pt does not have any DME or home health services. Pt does have a provider that goes to the home 4 hrs a day to assist him with all ADLs, home management, and meals. PCP is Dr. Romero. At [place] pt will want to go home and family can assist with transportation. Addendum: 07/07/25 at 1612 by MONSE HURLEY SS Amended: Links added.
--- NOTE | 2025-07-07 21:48 | NUR ---
PATIENT NOT ON ANY MEDS
--- NOTE | 2025-07-07 23:04 | HP ---
[facility] HISTORY & PHYSICAL Date Patient Seen: Jul 07, 2025 Time of Visit: 22:54 Supervising Physician: Dr Devyn Fenton Primary Care Physician: Dr Romero Outpatient Specialists: [ ] Inpatient Consults: [ ] PROBLEM LIST: Cellulitis, right wrist, patient recently underwent right upper extremity arteriogram with balloon angioplasty to radial artery at the level of the wrist last 07/01/2025, POA Hypertension, POA COPD, not in acute exacerbation, POA Hyperlipidemia, POA Tobacco abuse, smoked half pack per day, POA History of CAD PLAN: Admit to medical-surgical floor VS per unit protocol Start patient on IV Zosyn Obtain blood culture Consult wound care nurse Heart healthy diet Smoking cessation DuoNeb q.6 as needed for shortness of breaths Incentive spirometry O2 as needed Facilitate chest x-ray CBC, CMP, magnesium level daily HPI: 70-year-old male with past medical history of COPD, tobacco abuse, hypertension, hyperlipidemia, recent angioplasty to right radial artery who presented to ED with complaint of increasing drainage to incision site that started couple of days ago. There is no associated fever, or worsening edema. In ED ultrasound of the right wrist did not reveal any hematoma or abscess. His CBC significant for WBC of more than 11054, CMP unrevealing for any acute electrolyte or kidney dysfunction. In ED patient was initiated on IV ceftriaxone IV and was given IV fluids. At present patient is currently hemodynamically stable, on room air with appropriate oxygen saturation, denies any headache, confusion, chest pain, shortness of breath, abdominal pain, fever, or difficulty urinating. But complains of pain to right wrist, with occasional cough without phlegm. Patient is a current day smoker, denies any alcohol use, and denies illicit drug use. PAST MEDICAL HX: see above PAST SURGICAL HX: noncontributory SOCIAL HISTORY: See HPI Coded Allergies: No Known Drug Allergies (Unverified Allergy, Unknown, 04/13/20) REVIEW OF SYSTEMS: 12 point ROS reviewed with patient. Pertinent positives mentioned above. Otherwise negative. PHYSICAL EXAM: GENERAL: alert, weak, awake oriented x 3 HEENT: EOMI, Sclera non icteric, moist mucosa NECK: Supple, no JVD, trachea midline LUNGS: Scattered wheezing on auscultation HEART: Regular rate and rhythm. Normal S1 and S2, without murmurs ABD: Abdomen soft, nontender. Bowel sounds present EXT: Yellow discharged on right radial access site, NEURO: Alert and oriented to person, follows commands Vital Signs (last 8hr) Date Time Temp Pulse Resp B/P (MAP) Pulse Ox O2 Delivery O2 Flow Rate FiO2 07/07/25 20:26 98.8 72 20 142/68 96 Room Air* 0 21 07/07/25 16:00 71 20 132/69 95 Room Air* 0 21 LABS: Hematology Labs: Test 07/07/25 08:30 Range/Units White Blood Count 19.3 H 4.8-10.8 K/uL Red Blood Count 4.70 4.50-6.20 MIL/uL Hemoglobin 13.5 L 14.0-18.0 g/dL Hematocrit 41.0 L 42-54 % Mean Corpuscular Volume 87.2 79-99 fL Mean Corpuscular Hemoglobin 28.7 27.0-33.0 pg Mean Corpuscular Hemoglobin Concent 32.9 32.0-36.0 g/dL Red Cell Distribution Width 15.0 11.0-15.5 % Platelet Count 261 130-400 K/uL Mean Platelet Volume 11.2 H 7.5-10.5 fL Immature Granulocyte % (Auto) 0.5 0-1 % Neutrophils (%) (Auto) 76.1 40.0-77.0 % Lymphocytes (%) (Auto) 11.2 L 21.0-51.0 % Monocytes (%) (Auto) 8.4 3.0-13.0 % Eosinophils (%) (Auto) 3.2 0.0-8.0 % Basophils (%) (Auto) 0.6 0.0-5.0 % Neutrophils # (Auto) 14.7 H 1.8-7.7 K/uL Lymphocytes # (Auto) 2.2 1.0-4.8 K/uL Monocytes # (Auto) 1.6 H 0.1-1.0 K/uL Eosinophils # (Auto) 0.62 0.00-0.70 K/uL Basophils # (Auto) 0.11 0.00-0.20 K/uL Absolute Immature Granulocyte (auto 0.10 0-1 K/uL Nucleated Red Blood Cells 0.0 0.0-0.19 % Chemistry Labs: Test 07/07/25 08:30 Range/Units Sodium Level 137 136-145 mmol/L Potassium Level 4.2 3.5-5.1 mmol/L Chloride Level 102 101-111 mmol/L Carbon Dioxide Level 29 21-32 mmol/L Blood Urea Nitrogen 21 H 7-18 mg/dL Creatinine 1.0 0.5-1.3 mg/dL Glomerular Filtration Rate Calc 82 >90 mL/min Random Glucose 100 70-105 mg/dL Total Calcium 9.2 8.5-10.1 mg/dL DIAGNOSTICS / RADIOLOGY RESULTS: EXAM: US right lateral wrist region CLINICAL HISTORY: Right upper arm wound TECHNIQUE: Real-time ultrasound scan of the right lateral wrist with 2-D millan scale, color Doppler flow and spectral waveform analysis. COMPARISON: None provided. FINDINGS: Lateral Right Wrist Area: No evidence of soft tissue collection, hematoma, or abscess. No abnormal fluid noted. Vascular Structures: The right radial artery at the lateral right wrist at the evaluated segment with monophasic flow pattern with PSV 27cm/sec. Multilevel atherosclerosis is noted in the right radial artery. 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 No collection or hematoma in the lateral right wrist area. PLAN NEURO: Minimize central acting medications as possible. Maintain fall precautions, adequate lighting during the day PULMONARY: Supplemental 02 as needed. Maintain aspiration precautions at all times CARDIOVASCULAR: Follow hemodynamics. Vital signs per facility protocol GI & NUTRITION: Continue with nutritional support. Continue stool softeners and laxatives as needed. KIDNEYS & ELECTROLYTES: Strict monitoring of intake, output and overall fluid balance. Avoid nephrotoxic medications to the extent possible. Medications to be dosed according to renal function. Monitor electrolytes and replace as needed ENDOCRINE: Maintain blood glucose between 100-180 at all times. Hypoglycemia protocol in place INFECTIOUS DISEASE: Trend temperature, WBC and procalcitonin level Follow cultures, deescalate antibiotics as soon as possible. Panculture if new onset fever ONCOLOGY/HEMATOLOGY/COAGULATION: Monitor for s/s of bleeding Monitor hemoglobin, coagulation studies as needed SKIN: Pressure ulcer prevention per facility protocol Specialty mattress ORTHO/REHAB: Continue PT/OT Prophylaxis: Continue GI and DVT prophylaxis Code Status: Full Resuscitation Disposition: TBD Supervising physician: KATY Riley APRN Jul 07, 2025 23:03
[2025-07-07] MEDS: ZOSYN 3.375GM +NS 50ML IV SCH (23:25)
--- NOTE | 2025-07-07 23:59 | HMCIMG ---
EXAM: CR Chest, 2 views CLINICAL HISTORY: COPD. COMPARISON: Chest radiograph dated 02/25/2024. FINDINGS: Stable mild COPD. The lungs show no infiltrates or other acute findings. No pleural effusion or pneumothorax. The cardiomediastinal silhouette is within normal limits. No acute osseous abnormality. IMPRESSION: No acute cardiopulmonary process is evident. Stable mild COPD. Compared to the prior study, there is no significant interval change. /[place]
[2025-07-08] VITALS (7 sets, daily range): BP systolic 124–138; BP diastolic 85–86; PULSE 67–84; RESP 16–20; TEMP 98–98.6; O2SAT 96–97
[2025-07-08 06:29] LABS: IMMATURE GRANULOCYTE ABSOLUTE 0.05 K/uL (0-1); NUCLEATED RED BLOOD CELLS 0.0 % (0.0-0.19); PLATELET COUNT (AUTO) 247 K/uL (130-400); RED BLOOD CELL COUNT(AUTO) 4.42 MIL/uL (4.50-6.20); RED CELL DISTRIBUTION WIDTH 14.8 % (11.0-15.5); WHITE BLOOD COUNT (AUTO) 11.3 K/uL (4.8-10.8)
[2025-07-08 07:03] LABS: CREATININE 0.9 mg/dL (0.5-1.3); GLOMERULAR FILTR. RATE CALC 93.0 mL/min (>90); GLUCOSE,RANDOM 86.0 mg/dL (70-105); PHOSPHORUS 4.6 mg/dL (2.5-4.9); SODIUM SERUM 136.0 mmol/L (136-145); UREA NITROGEN, BLOOD 25.0 mg/dL (7-18)
[2025-07-08] MEDS: ENOXAPARIN SODIUM 40 MG/0.4 ML SYRINGE SQ SCH (08:32)
[2025-07-08] MEDS ORDERED: VANCOMYCIN PROTOCOL PER PHARMACY IV SCH (11:30)
[2025-07-08] MEDS: VANCOMYCIN 1G/250ML KIT 250 ML IV SCH (14:44)
--- NOTE | 2025-07-08 17:28 | HMCIMG ---
EXAM: US Duplex right Upper Extremity Arteries. CLINICAL HISTORY: DISCOLORATION RIGHT HAND TECHNIQUE: Real-time ultrasound scan of the arteries of the right upper extremity with 2-D millan scale, color Doppler flow and spectral waveform analysis. COMPARISON: 07/02/25 FINDINGS: Subclavian artery: 68 cm/s with a triphasic waveform. Axillary artery: 71 cm/s with a monophasic waveform. Brachial artery: 86 cm/s with a monophasic waveform. Radial artery: 23 cm/s at the proximal segment with a monophasic waveform with absence of flow in the distal segment, suggestive of thrombosis. Ulnar artery: 82 cm/s with monophasic waveform. There is intimal wall thickening in the right upper limb arteries. IMPRESSION: 1. Absent flow in the distal segment of the right radial artery, suggestive of thrombosis (new appearance). 2. Monophasic waveforms in axillary, brachial, and ulnar arteries (worsening). /[place]
[2025-07-08 18:35] LABS: IMMATURE GRANULOCYTE ABSOLUTE 0.08 K/uL (0-1); NUCLEATED RED BLOOD CELLS 0.0 % (0.0-0.19); PLATELET COUNT (AUTO) 231 K/uL (130-400); RED BLOOD CELL COUNT(AUTO) 4.30 MIL/uL (4.50-6.20); RED CELL DISTRIBUTION WIDTH 14.7 % (11.0-15.5); WHITE BLOOD COUNT (AUTO) 11.7 K/uL (4.8-10.8)
[2025-07-08] MEDS: HYDROcodone/APAP 5/325 1 TAB TABLET PO PRN (19:44)
--- NOTE | 2025-07-08 21:34 | NUR ---
PATIENT ADMITTED TO ROOM 429, REPORT GIVEN TO MONSE MERCER
--- NOTE | 2025-07-08 22:00 | NUR ---
received pt from er with heprin drip infusing at 17units per hour or 11.56mls/hr last ptt at 194 next ptt due at 0143ordered by er heprin on pump infusing.
[2025-07-08] MEDS ORDERED: ACET-2079 PO (23:11)
[2025-07-08] MEDS ORDERED: DICY20TA2 PO (23:11)
[2025-07-08] MEDS ORDERED: APIX5TAB PO (23:11)
[2025-07-08] MEDS ORDERED: ONDA-243 PO (23:11)
[2025-07-08] MEDS ORDERED: ATOR40TA71 PO (23:11)
--- NOTE | 2025-07-08 23:51 | PN ---
[facility] PROGRESS NOTE Date Patient Seen: Jul 08, 2025 Time of Visit: 23:44 Supervising Physician: STEFANI Primary Care Physician: Dr Romero Outpatient Specialists: [ ] Inpatient Consults: [facility] PROBLEM LIST: Cellulitis, right wrist, patient recently underwent right upper extremity arteriogram with balloon angioplasty to radial artery at the level of the wrist last 07/01/2025, POA Hypertension, POA COPD, not in acute exacerbation, POA Hyperlipidemia, POA Tobacco abuse, smoked half pack per day, POA History of CAD S/P Right upper extremity arteriogram with and without papaverine. Balloon angioplasty of the right radial artery at the level of the wrist using 1.5 x 6 mm balloon x2. This was followed by NanoCross balloon catheter 1.5 x 40 mm. Post angioplasty, right radial arteriogram07/01/25 Hypertension. Leukocytosis. Chronic tobacco use. PLAN: Vanco/ Cefepime HEparin gtt , stat arterial US , cardiology consult Statin Follow blood culture Consult wound care nurse Heart healthy diet Smoking cessation DuoNeb q.6 as needed for shortness of breaths Incentive spirometry O2 as needed CBC, CMP, magnesium level daily INTERVAL HISTORY: Patient was seen and examined by me at bedside in ED room 11 . Patient was sitting in stretcher c/o of pain to right upper extremity and discoloration to thumb and index finger. States it was present prior to angioplasty and improved after procedure ,though , is worried given its persistence. Otherwhise noted to have ecchymosis extending from wrist to mid upper arm . No family at bedside during my evaluation . Continues on IV abx therapy. REVIEW OF SYSTEMS: 12 point ROS reviewed with patient. Pertinent positives mentioned above. Otherwise negative. PHYSICAL EXAM: GENERAL: alert, weak, awake oriented x 3 HEENT: EOMI, Sclera non icteric, moist mucosa NECK: Supple, no JVD, trachea midline LUNGS: Scattered wheezing on auscultation HEART: Regular rate and rhythm. Normal S1 and S2, without murmurs ABD: Abdomen soft, nontender. Bowel sounds present EXT: Yellow discharged on right radial access site, erythema and indruation on right wrist ,forearm involved. Ecchymosis to right medial aspect of upper extremity . NEURO: Alert and oriented to person, follows commands Vital Signs (last 8hr) Date Time Temp Pulse Resp B/P (MAP) Pulse Ox O2 Delivery O2 Flow Rate FiO2 9/17/25 23:38 98.1 67 16 124/85 95 Room Air 07/08/25 23:07 Room Air* 0 07/08/25 22:00 98.6 84 20 138/86 100 Room Air 07/08/25 20:34 98.4 76 17 119/77 96 Room Air* 0 21 07/08/25 19:33 83 20 N/A Room Air 07/08/25 19:33 83 20 LABS: Hematology Labs: Test 07/08/25 18:30 Range/Units White Blood Count 11.7 H 4.8-10.8 K/uL Red Blood Count 4.30 L 4.50-6.20 MIL/uL Hemoglobin 12.2 L 14.0-18.0 g/dL Hematocrit 37.1 L 42-54 % Mean Corpuscular Volume 86.3 79-99 fL Mean Corpuscular Hemoglobin 28.4 27.0-33.0 pg Mean Corpuscular Hemoglobin Concent 32.9 32.0-36.0 g/dL Red Cell Distribution Width 14.7 11.0-15.5 % Platelet Count 231 130-400 K/uL Mean Platelet Volume 11.0 H 7.5-10.5 fL Immature Granulocyte % (Auto) 0.7 0-1 % Neutrophils (%) (Auto) 59.5 40.0-77.0 % Lymphocytes (%) (Auto) 25.8 21.0-51.0 % Monocytes (%) (Auto) 7.2 3.0-13.0 % Eosinophils (%) (Auto) 5.7 0.0-8.0 % Basophils (%) (Auto) 1.1 0.0-5.0 % Neutrophils # (Auto) 7.0 1.8-7.7 K/uL Lymphocytes # (Auto) 3.0 1.0-4.8 K/uL Monocytes # (Auto) 0.8 0.1-1.0 K/uL Eosinophils # (Auto) 0.67 0.00-0.70 K/uL Basophils # (Auto) 0.13 0.00-0.20 K/uL Absolute Immature Granulocyte (auto 0.08 0-1 K/uL Nucleated Red Blood Cells 0.0 0.0-0.19 % Chemistry Labs: Test 07/08/25 06:20 07/07/25 23:27 Range/Units Sodium Level 136 136-145 mmol/L Potassium Level 4.6 3.5-5.1 mmol/L Chloride Level 102 101-111 mmol/L Carbon Dioxide Level 27 21-32 mmol/L Blood Urea Nitrogen 25 H 7-18 mg/dL Creatinine 0.9 0.5-1.3 mg/dL Glomerular Filtration Rate Calc 93 >90 mL/min Random Glucose 86 70-105 mg/dL Total Calcium 8.9 8.5-10.1 mg/dL Phosphorus Level 4.6 2.5-4.9 mg/dL Magnesium Level 1.80 1.80-2.40 mg/dL Procalcitonin < 0.05 L 0.05-0.5 ng/mL C-Reactive Protein, Quantitative 28.40 H 0.5-3.0 mg/L Coagulation Labs: Test 07/08/25 18:30 Range/Units Activated Partial Thromboplast Time 29.7 26.3-35.5 SEC DIAGNOSTICS / RADIOLOGY RESULTS: [ ] PLAN NEURO: Minimize central acting medications as possible. Maintain fall precautions, adequate lighting during the day PULMONARY: Supplemental 02 as needed. Maintain aspiration precautions at all times CARDIOVASCULAR: Follow hemodynamics. Vital signs per facility protocol GI & NUTRITION: Continue with nutritional support. Continue stool softeners and laxatives as needed. KIDNEYS & ELECTROLYTES: Strict monitoring of intake, output and overall fluid balance. Avoid nephrotoxic medications to the extent possible. Medications to be dosed according to renal function. Monitor electrolytes and replace as needed ENDOCRINE: Maintain blood glucose between 100-180 at all times. Hypoglycemia protocol in place INFECTIOUS DISEASE: Trend temperature, WBC and procalcitonin level Follow cultures, deescalate antibiotics as soon as possible. Panculture if new onset fever ONCOLOGY/HEMATOLOGY/COAGULATION: Monitor for s/s of bleeding Monitor hemoglobin, coagulation studies as needed SKIN: Pressure ulcer prevention per facility protocol Specialty mattress ORTHO/REHAB: Continue PT/OT Prophylaxis: Continue GI and DVT prophylaxis Code Status: Full Resuscitation Disposition: MONSE CARTWRIGHT Jul 08, 2025 23:51
[2025-07-09] VITALS (12 sets, daily range): BP systolic 101–137; BP diastolic 75–87; PULSE 62–80; RESP 16–20; TEMP 97.6–98; O2SAT 95–97
[2025-07-09 02:15] LABS: IMMATURE GRANULOCYTE ABSOLUTE 0.09 K/uL (0-1); NUCLEATED RED BLOOD CELLS 0.0 % (0.0-0.19); PLATELET COUNT (AUTO) 200 K/uL (130-400); RED BLOOD CELL COUNT(AUTO) 4.10 MIL/uL (4.50-6.20); RED CELL DISTRIBUTION WIDTH 14.6 % (11.0-15.5); WHITE BLOOD COUNT (AUTO) 11.9 K/uL (4.8-10.8)
[2025-07-09 02:29] LABS: ASPARTATE AMINOTRANSFERASE 18.0 U/L (10-37); CREATININE 1.0 mg/dL (0.5-1.3); GLOMERULAR FILTR. RATE CALC 82.0 mL/min (>90); GLUCOSE,RANDOM 98.0 mg/dL (70-105); SODIUM SERUM 138.0 mmol/L (136-145); TOTAL PROTEIN, SERUM 6.1 g/dL (6.0-8.3); UREA NITROGEN, BLOOD 31.0 mg/dL (7-18)
[2025-07-09 02:33] LABS: INR 0.97 (0.85-1.15)
--- NOTE | 2025-07-09 03:00 | NUR ---
ptt 74.9 drawn at 0145 resulted at 0241 spoke with labratory ptt is delayed at times. per protocol ptt requires to drop drip from 17 to 15 or 10.2ml/hr done no bolus required no hold on drip michael frazier rn witnessed.
[2025-07-09 09:03] LABS: INR 0.95 (0.85-1.15)
--- NOTE | 2025-07-09 11:43 | CONS ---
[facility] CARDIOLOGY CONSULTATION NOTE Date Patient Seen: Jul 09, 2025 Time of Visit: 11:27 Reason for Consultation: [Right radial artery thrombosis ] History of Present Illness: 70 year old male patient that follows in cardiology clinic with Dr Kumar, he has a history notable for 02/27/2024 coronary angiogram which noted patent LAD and RCA stents, with no significant disease in any of the other vessels. EF was 60%, no or MR. Recommendations were for medical management. He has a lifelong tobacco habit and [id number] [place] in 2019, with stent placement to the proximal, mid, and distal left circumflex. He had a 75 to 80% RCA lesion identified at that time that was stented October 2019. Lexiscan in December 2023 showed inferior ischemia. Who presented to the emergency department on 07/07/2025 [id number] hour onset of right wrist erythema, and drainage, of note, the patient has a recent admission (06/27/2025) due to right renal artery thrombosis in his currently status post Balloon angioplasty of the right radial artery at the level of the wrist using 1.5 x 6 mm balloon x2. This was followed by NanoCross balloon catheter 1.5 x 40 mm. Post angioplasty, right radial arteriogram on 07/01/2025 , the patient was placed on low-dose anticoagulation , [place] [id number] [id number], right upper extremity Doppler ultrasound revealed absent flow in distal segment of right renal artery, suggestive of thrombosis, with a monophasic waveforms axillary brachial and ulnar arteries. On exam there was no acute ischemia on his right hand, warm to the touch palpable radial and ulnar pulses, with intact sensation. Cardiology was consulted for right renal arteries thrombosis Past Medical History: [Refer to chart ] Past Surgical History: [Refer to HPI] Family History: [Refer to HPI ] Social History: [Refer to HPI ] Habits: [Never] smoker. [Denies] alcohol consumption. [Denies] illicit drug use Review of Systems: A review of12 point system was negative set per HPI Physical Examination: GENERAL: [No acute distress.] HEAD: [Normal with no signs of head trauma.] EYES: [PERRLA, EOMI, conjunctiva and sclera normal.] ENT: [Hearing grossly intact, normal oropharynx.] NECK: [Supple without JVD. There is no tenderness, lymphadenopathy, or masses. No thyromegaly. Normal carotid upstrokes without bruits.] LUNGS: [Clear breath sounds bilaterally. . No wheezes, or rhonchi.] HEART: [Normal rate and rhythm. Normal S1 and S2 without mumurs, gallop or rub.] VASC: [Peripheral pulses +2 bilaterally.] ABD: [Bowel sounds normal, soft, nontender, no masses, no organomegaly. No audible bruits.] : [Not examined] LYMPH: [No lymphadenopathy noted.] EXT: [With the upper extremity, with ecchymosis of the right medial aspect, erythema and induration to the right wrist. Warm to the touch, with a palpable radial ulnar pulses, no acute ischemia with intact sensation SKIN: [No rashes or lesions noted.] NEURO: [Awake, alert, and oriented x3. No focal sensory or strength deficits noted.] Vital Signs (last 8hr) Date Time Temp Pulse Resp B/P (MAP) Pulse Ox O2 Delivery O2 Flow Rate FiO2 07/09/25 09:20 80 20 N/A Room Air 21 07/09/25 08:00 98.1 72 18 130/85 93 Room Air 07/09/25 06:52 72 20 07/09/25 03:42 98.1 62 20 129/76 96 Room Air Laboratory: [ ] Hematology Labs: Test 07/09/25 01:51 Range/Units White Blood Count 11.9 H 4.8-10.8 K/uL Red Blood Count 4.10 L 4.50-6.20 MIL/uL Hemoglobin 11.7 L 14.0-18.0 g/dL Hematocrit 35.6 L 42-54 % Mean Corpuscular Volume 86.8 79-99 fL Mean Corpuscular Hemoglobin 28.5 27.0-33.0 pg Mean Corpuscular Hemoglobin Concent 32.9 32.0-36.0 g/dL Red Cell Distribution Width 14.6 11.0-15.5 % Platelet Count 200 130-400 K/uL Mean Platelet Volume 12.1 H 7.5-10.5 fL Immature Granulocyte % (Auto) 0.8 0-1 % Neutrophils (%) (Auto) 55.2 40.0-77.0 % Lymphocytes (%) (Auto) 26.6 21.0-51.0 % Monocytes (%) (Auto) 9.1 3.0-13.0 % Eosinophils (%) (Auto) 7.2 0.0-8.0 % Basophils (%) (Auto) 1.1 0.0-5.0 % Neutrophils # (Auto) 6.6 1.8-7.7 K/uL Lymphocytes # (Auto) 3.2 1.0-4.8 K/uL Monocytes # (Auto) 1.1 H 0.1-1.0 K/uL Eosinophils # (Auto) 0.86 H 0.00-0.70 K/uL Basophils # (Auto) 0.13 0.00-0.20 K/uL Absolute Immature Granulocyte (auto 0.09 0-1 K/uL Nucleated Red Blood Cells 0.0 0.0-0.19 % Chemistry Labs: Test 07/09/25 01:51 07/08/25 06:20 07/07/25 23:27 Range/Units Sodium Level 138 136-145 mmol/L Potassium Level 4.4 3.5-5.1 mmol/L Chloride Level 105 101-111 mmol/L Carbon Dioxide Level 27 21-32 mmol/L Blood Urea Nitrogen 31 H 7-18 mg/dL Creatinine 1.0 0.5-1.3 mg/dL Glomerular Filtration Rate Calc 82 >90 mL/min Random Glucose 98 70-105 mg/dL Total Calcium 8.7 8.5-10.1 mg/dL Total Bilirubin 0.3 0.2-1.0 mg/dL Aspartate Amino Transf (AST/SGOT) 18 10-37 U/L Alanine Aminotransferase (ALT/SGPT) 37 12-78 U/L Alkaline Phosphatase 63 50-136 U/L Total Protein 6.1 6.0-8.3 g/dL Albumin 2.8 L 3.5-5.0 g/dL Phosphorus Level 4.6 2.5-4.9 mg/dL Magnesium Level 1.80 1.80-2.40 mg/dL Procalcitonin < 0.05 L 0.05-0.5 ng/mL C-Reactive Protein, Quantitative 28.40 H 0.5-3.0 mg/L Coagulation Labs: Test 07/09/25 08:39 Range/Units Prothrombin Time 10.1 9.6-11.6 SEC Prothromb Time International Ratio 0.95 0.85-1.15 Activated Partial Thromboplast Time 32.1 # 26.3-35.5 SEC Diagnostics / Radiology: [Copy/Paste Echos/Imaging Report here] Assessment: [History non-ST elevation [place] September 2019. PTCA and stenting to the proximal, mid, distal left circumflex treated 2.5x38mm [place] and a 2.75 x 8mm [place] stent with 75-80% RCA lesion to be addressed later. Coronary artery disease. Lifelong tobacco abuse, ongoing. Hypertension COPD. Anxiety/depression. September 2019 2-D echo with EF of 52% with basal inferior and inferoseptal hypokinesis. Chronic abdominal pain. PTCA and stent placement to the mid to distal RCA 2.75x38 Xience medicated stent November 19, 2019. February 07, 2021 angiogram with patent RCA and left circumflex stents, 20% distal left main disease, EF 65%. ] Plan: [# right renal artery thrombosis Patient presented to the emergency department 07/07/2025 endorsing right radial exercise discharge, with erythema and induration Patient has a recent admission for right radial artery thrombosis He is status post Balloon angioplasty of the right radial artery at the level of the wrist using 1.5 x 6 mm balloon x2. This was followed by NanoCross balloon catheter 1.5 x 40 mm. 07/01/2025 On this admission he underwent right upper extremity Doppler ultrasound revealed absent flow in distal segment of right renal artery, suggestive of thrombosis, with a monophasic waveforms axillary brachial and ulnar arteries. Currently on heparin drip per protocol. And broad-spectrum antibiotic On exam we noted no acute ischemia with palpable radial and ulnar pulses, warm to the touch with intact sensation Due to the above-mentioned findings were under order a stat CTA of his right arm We will recommend calling back surgical team the performed the patient's right upper extremity angioplasty Thank you for this consult cardiology will continue to follow along ATTESTATION BY PHYSICIAN I have seen and examined the patient, reviewed the above documentation, participated in medical decision making, made necessary modifications, and agree with the treatment plan as documented by my mid-level provider above. MD JOSE RAMON Reyes JAMES R MD Jul 09, 2025 11:43
--- NOTE | 2025-07-09 15:21 | PN ---
[facility] PROGRESS NOTE Date Patient Seen: Jul 09, 2025 Time of Visit: 15:20 Supervising Physician: Colton Primary Care Physician: Dr Romero Outpatient Specialists: [ ] Inpatient Consults: [facility] PROBLEM LIST: Cellulitis, right wrist, patient recently underwent right upper extremity arteriogram with balloon angioplasty to radial artery at the level of the wrist last 07/01/2025, POA Acute Right Radial Artery Thrombosis Hypertension, POA COPD, not in acute exacerbation, POA Hyperlipidemia, POA Tobacco abuse, smoked half pack per day, POA History of CAD S/P Right upper extremity arteriogram with and without papaverine. Balloon angioplasty of the right radial artery at the level of the wrist using 1.5 x 6 mm balloon x2. This was followed by NanoCross balloon catheter 1.5 x 40 mm. Post angioplasty, right radial arteriogram07/01/25 Hypertension. Leukocytosis. Chronic tobacco use. PLAN: Vanco/ Cefepime HEparin gtt , cardiology consulted awaiting recs Statin Follow blood culture Consult wound care nurse Heart healthy diet Smoking cessation DuoNeb q.6 as needed for shortness of breaths Incentive spirometry O2 as needed CBC, CMP, magnesium level daily INTERVAL HISTORY: Patient was seen and examined by me at bedside with daughters in room , on heparin gtt as Arterial US has revealed Absent flow in the distal segment of the right radial artery, suggestive of thrombosis (new appearance). Pain continues reported 05/31 . Continues on IV abx therapy. REVIEW OF SYSTEMS: 12 point ROS reviewed with patient. Pertinent positives mentioned above. Otherwise negative. PHYSICAL EXAM: GENERAL: alert, weak, awake oriented x 3 HEENT: EOMI, Sclera non icteric, moist mucosa NECK: Supple, no JVD, trachea midline LUNGS: Scattered wheezing on auscultation HEART: Regular rate and rhythm. Normal S1 and S2, without murmurs ABD: Abdomen soft, nontender. Bowel sounds present EXT: Yellow discharged on right radial access site, erythema and indruation on right wrist ,forearm involved. Ecchymosis to right medial aspect of upper extremity . NEURO: Alert and oriented to person, follows commands Vital Signs (last 8hr) Date Time Temp Pulse Resp B/P (MAP) Pulse Ox O2 Delivery O2 Flow Rate FiO2 07/09/25 12:00 97.5 69 18 135/87 96 Room Air 07/09/25 09:20 80 20 N/A Room Air 21 07/09/25 08:00 98.1 72 18 130/85 93 Room Air LABS: Hematology Labs: Test 07/09/25 01:51 Range/Units White Blood Count 11.9 H 4.8-10.8 K/uL Red Blood Count 4.10 L 4.50-6.20 MIL/uL Hemoglobin 11.7 L 14.0-18.0 g/dL Hematocrit 35.6 L 42-54 % Mean Corpuscular Volume 86.8 79-99 fL Mean Corpuscular Hemoglobin 28.5 27.0-33.0 pg Mean Corpuscular Hemoglobin Concent 32.9 32.0-36.0 g/dL Red Cell Distribution Width 14.6 11.0-15.5 % Platelet Count 200 130-400 K/uL Mean Platelet Volume 12.1 H 7.5-10.5 fL Immature Granulocyte % (Auto) 0.8 0-1 % Neutrophils (%) (Auto) 55.2 40.0-77.0 % Lymphocytes (%) (Auto) 26.6 21.0-51.0 % Monocytes (%) (Auto) 9.1 3.0-13.0 % Eosinophils (%) (Auto) 7.2 0.0-8.0 % Basophils (%) (Auto) 1.1 0.0-5.0 % Neutrophils # (Auto) 6.6 1.8-7.7 K/uL Lymphocytes # (Auto) 3.2 1.0-4.8 K/uL Monocytes # (Auto) 1.1 H 0.1-1.0 K/uL Eosinophils # (Auto) 0.86 H 0.00-0.70 K/uL Basophils # (Auto) 0.13 0.00-0.20 K/uL Absolute Immature Granulocyte (auto 0.09 0-1 K/uL Nucleated Red Blood Cells 0.0 0.0-0.19 % Chemistry Labs: Test 07/09/25 01:51 07/08/25 06:20 07/07/25 23:27 Range/Units Sodium Level 138 136-145 mmol/L Potassium Level 4.4 3.5-5.1 mmol/L Chloride Level 105 101-111 mmol/L Carbon Dioxide Level 27 21-32 mmol/L Blood Urea Nitrogen 31 H 7-18 mg/dL Creatinine 1.0 0.5-1.3 mg/dL Glomerular Filtration Rate Calc 82 >90 mL/min Random Glucose 98 70-105 mg/dL Total Calcium 8.7 8.5-10.1 mg/dL Total Bilirubin 0.3 0.2-1.0 mg/dL Aspartate Amino Transf (AST/SGOT) 18 10-37 U/L Alanine Aminotransferase (ALT/SGPT) 37 12-78 U/L Alkaline Phosphatase 63 50-136 U/L Total Protein 6.1 6.0-8.3 g/dL Albumin 2.8 L 3.5-5.0 g/dL Phosphorus Level 4.6 2.5-4.9 mg/dL Magnesium Level 1.80 1.80-2.40 mg/dL Procalcitonin < 0.05 L 0.05-0.5 ng/mL C-Reactive Protein, Quantitative 28.40 H 0.5-3.0 mg/L Coagulation Labs: Test 07/09/25 13:27 07/09/25 08:39 Range/Units Activated Partial Thromboplast Time 44.2 #H 26.3-35.5 SEC Prothrombin Time 10.1 9.6-11.6 SEC Prothromb Time International Ratio 0.95 0.85-1.15 DIAGNOSTICS / RADIOLOGY RESULTS: [ ] PLAN NEURO: Minimize central acting medications as possible. Maintain fall precautions, adequate lighting during the day PULMONARY: Supplemental 02 as needed. Maintain aspiration precautions at all times CARDIOVASCULAR: Follow hemodynamics. Vital signs per facility protocol GI & NUTRITION: Continue with nutritional support. Continue stool softeners and laxatives as needed. KIDNEYS & ELECTROLYTES: Strict monitoring of intake, output and overall fluid balance. Avoid nephrotoxic medications to the extent possible. Medications to be dosed according to renal function. Monitor electrolytes and replace as needed ENDOCRINE: Maintain blood glucose between 100-180 at all times. Hypoglycemia protocol in place INFECTIOUS DISEASE: Trend temperature, WBC and procalcitonin level Follow cultures, deescalate antibiotics as soon as possible. Panculture if new onset fever ONCOLOGY/HEMATOLOGY/COAGULATION: Monitor for s/s of bleeding Monitor hemoglobin, coagulation studies as needed SKIN: Pressure ulcer prevention per facility protocol Specialty mattress ORTHO/REHAB: Continue PT/OT Prophylaxis: Continue GI and DVT prophylaxis Code Status: Full Resuscitation Disposition: [facility] CARTWRIGHT Jul 09, 2025 15:21
[2025-07-10] VITALS (10 sets, daily range): BP systolic 124–154; BP diastolic 69–81; PULSE 66–88; RESP 16–20; TEMP 97.5–98.1; O2SAT 93–98
--- NOTE | 2025-07-10 11:46 | PN ---
[facility] PROGRESS NOTE Date Patient Seen: Jul 10, 2025 Time of Visit: 11:45 Supervising Physician: FLOR Primary Care Physician: Dr Romero Outpatient Specialists: [ ] Inpatient Consults: [facility] PROBLEM LIST: Cellulitis, right wrist, patient recently underwent right upper extremity arteriogram with balloon angioplasty to radial artery at the level of the wrist last 07/01/2025, POA Acute Right Radial Artery Thrombosis Hypertension, POA COPD, not in acute exacerbation, POA Hyperlipidemia, POA Tobacco abuse, smoked half pack per day, POA History of CAD S/P Right upper extremity arteriogram with and without papaverine. Balloon angioplasty of the right radial artery at the level of the wrist using 1.5 x 6 mm balloon x2. This was followed by NanoCross balloon catheter 1.5 x 40 mm. Post angioplasty, right radial arteriogram07/01/25 Hypertension. Leukocytosis. Chronic tobacco use. PLAN: Vanco/ Cefepime HEparin gtt , cardiology consulted-CTA of Upper extremity. Pulses are noted on RUE . Consult team who performed procedure - Radiologist in [employer] , Pepito Bro to be contacted contingent on CTA results Statin Follow blood culture Consult wound care nurse Heart healthy diet Smoking cessation DuoNeb q.6 as needed for shortness of breaths Incentive spirometry O2 as needed CBC, CMP, magnesium level daily INTERVAL HISTORY: Patient was seen and examined by me at bedside with daughters in room , on heparin gtt US arterial :L Absent flow in the distal segment of the right radial artery, suggestive of thrombosis (new appearance). Cardio consulted and recommending . CTA of Upper extremity . Pain continues reported 05/31 . Continues on IV abx therapy. REVIEW OF SYSTEMS: 12 point ROS reviewed with patient. Pertinent positives mentioned above. Otherwise negative. PHYSICAL EXAM: GENERAL: alert, weak, awake oriented x 3 HEENT: EOMI, Sclera non icteric, moist mucosa NECK: Supple, no JVD, trachea midline LUNGS: Scattered wheezing on auscultation HEART: Regular rate and rhythm. Normal S1 and S2, without murmurs ABD: Abdomen soft, nontender. Bowel sounds present EXT: Yellow discharged on right radial access site, erythema and indruation on right wrist ,forearm involved. Ecchymosis to right medial aspect of upper extremity . NEURO: Alert and oriented to person, follows commands Vital Signs (last 8hr) Date Time Temp Pulse Resp B/P (MAP) Pulse Ox O2 Delivery O2 Flow Rate FiO2 07/10/25 08:00 97.5 68 18 138/75 94 Room Air 07/10/25 06:34 76 20 07/10/25 06:34 76 20 N/A Room Air 21 LABS: Hematology Labs: Test 07/09/25 01:51 Range/Units White Blood Count 11.9 H 4.8-10.8 K/uL Red Blood Count 4.10 L 4.50-6.20 MIL/uL Hemoglobin 11.7 L 14.0-18.0 g/dL Hematocrit 35.6 L 42-54 % Mean Corpuscular Volume 86.8 79-99 fL Mean Corpuscular Hemoglobin 28.5 27.0-33.0 pg Mean Corpuscular Hemoglobin Concent 32.9 32.0-36.0 g/dL Red Cell Distribution Width 14.6 11.0-15.5 % Platelet Count 200 130-400 K/uL Mean Platelet Volume 12.1 H 7.5-10.5 fL Immature Granulocyte % (Auto) 0.8 0-1 % Neutrophils (%) (Auto) 55.2 40.0-77.0 % Lymphocytes (%) (Auto) 26.6 21.0-51.0 % Monocytes (%) (Auto) 9.1 3.0-13.0 % Eosinophils (%) (Auto) 7.2 0.0-8.0 % Basophils (%) (Auto) 1.1 0.0-5.0 % Neutrophils # (Auto) 6.6 1.8-7.7 K/uL Lymphocytes # (Auto) 3.2 1.0-4.8 K/uL Monocytes # (Auto) 1.1 H 0.1-1.0 K/uL Eosinophils # (Auto) 0.86 H 0.00-0.70 K/uL Basophils # (Auto) 0.13 0.00-0.20 K/uL Absolute Immature Granulocyte (auto 0.09 0-1 K/uL Nucleated Red Blood Cells 0.0 0.0-0.19 % Chemistry Labs: Test 07/09/25 01:51 Range/Units Sodium Level 138 136-145 mmol/L Potassium Level 4.4 3.5-5.1 mmol/L Chloride Level 105 101-111 mmol/L Carbon Dioxide Level 27 21-32 mmol/L Blood Urea Nitrogen 31 H 7-18 mg/dL Creatinine 1.0 0.5-1.3 mg/dL Glomerular Filtration Rate Calc 82 >90 mL/min Random Glucose 98 70-105 mg/dL Total Calcium 8.7 8.5-10.1 mg/dL Total Bilirubin 0.3 0.2-1.0 mg/dL Aspartate Amino Transf (AST/SGOT) 18 10-37 U/L Alanine Aminotransferase (ALT/SGPT) 37 12-78 U/L Alkaline Phosphatase 63 50-136 U/L Total Protein 6.1 6.0-8.3 g/dL Albumin 2.8 L 3.5-5.0 g/dL Coagulation Labs: Test 07/10/25 08:45 07/09/25 08:39 Range/Units Activated Partial Thromboplast Time 69.2 H 26.3-35.5 SEC Prothrombin Time 10.1 9.6-11.6 SEC Prothromb Time International Ratio 0.95 0.85-1.15 DIAGNOSTICS / RADIOLOGY RESULTS: [ ] PLAN NEURO: Minimize central acting medications as possible. Maintain fall precautions, adequate lighting during the day PULMONARY: Supplemental 02 as needed. Maintain aspiration precautions at all times CARDIOVASCULAR: Follow hemodynamics. Vital signs per facility protocol GI & NUTRITION: Continue with nutritional support. Continue stool softeners and laxatives as needed. KIDNEYS & ELECTROLYTES: Strict monitoring of intake, output and overall fluid balance. Avoid nephrotoxic medications to the extent possible. Medications to be dosed according to renal function. Monitor electrolytes and replace as needed ENDOCRINE: Maintain blood glucose between 100-180 at all times. Hypoglycemia protocol in place INFECTIOUS DISEASE: Trend temperature, WBC and procalcitonin level Follow cultures, deescalate antibiotics as soon as possible. Panculture if new onset fever ONCOLOGY/HEMATOLOGY/COAGULATION: Monitor for s/s of bleeding Monitor hemoglobin, coagulation studies as needed SKIN: Pressure ulcer prevention per facility protocol Specialty mattress ORTHO/REHAB: Continue PT/OT Prophylaxis: Continue GI and DVT prophylaxis Code Status: Full Resuscitation Disposition: MONSE CARTWRIGHT Jul 10, 2025 11:46
[2025-07-10] MEDS ORDERED: IOHEXOL 350 MG/ML 100ML INFUS..BTL IV ONE ×2 (13:14→13:17)
--- NOTE | 2025-07-10 15:14 | PN ---
[facility] CARDIOLOGY PROGRESS NOTE Date Patient Seen: Jul 10, 2025 Time of Visit: 15:11 Interval History: [No acute events overnight , the patients symptoms are relatively unchanged , he has a preserved motor and neuro function of his RIGHT upper extremity, pending =RT upper extremity results ] Physical Examination: GENERAL: [No acute distress.] HEAD: [Normal with no signs of head trauma.] EYES: [PERRLA, EOMI, conjunctiva and sclera normal.] ENT: [Hearing grossly intact, normal oropharynx.] NECK: [Supple without JVD. There is no tenderness, lymphadenopathy, or masses. No thyromegaly. Normal carotid upstrokes without bruits.] LUNGS: [Clear breath sounds bilaterally. . No wheezes, or rhonchi.] HEART: [Normal rate and rhythm. Normal S1 and S2 without mumurs, gallop or rub.] VASC: [Peripheral pulses +2 bilaterally.] ABD: [Bowel sounds normal, soft, nontender, no masses, no organomegaly. No audible bruits.] : [Not examined] LYMPH: [No lymphadenopathy noted.] EXT: [With the upper extremity, with ecchymosis of the right medial aspect, erythema and induration to the right wrist. Warm to the touch, with a palpable radial ulnar pulses, no acute ischemia with intact sensation SKIN: [No rashes or lesions noted.] NEURO: [Awake, alert, and oriented x3. No focal sensory or strength deficits noted.] Laboratory: [ ] Hematology Labs: Test 07/09/25 01:51 Range/Units White Blood Count 11.9 H 4.8-10.8 K/uL Red Blood Count 4.10 L 4.50-6.20 MIL/uL Hemoglobin 11.7 L 14.0-18.0 g/dL Hematocrit 35.6 L 42-54 % Mean Corpuscular Volume 86.8 79-99 fL Mean Corpuscular Hemoglobin 28.5 27.0-33.0 pg Mean Corpuscular Hemoglobin Concent 32.9 32.0-36.0 g/dL Red Cell Distribution Width 14.6 11.0-15.5 % Platelet Count 200 130-400 K/uL Mean Platelet Volume 12.1 H 7.5-10.5 fL Immature Granulocyte % (Auto) 0.8 0-1 % Neutrophils (%) (Auto) 55.2 40.0-77.0 % Lymphocytes (%) (Auto) 26.6 21.0-51.0 % Monocytes (%) (Auto) 9.1 3.0-13.0 % Eosinophils (%) (Auto) 7.2 0.0-8.0 % Basophils (%) (Auto) 1.1 0.0-5.0 % Neutrophils # (Auto) 6.6 1.8-7.7 K/uL Lymphocytes # (Auto) 3.2 1.0-4.8 K/uL Monocytes # (Auto) 1.1 H 0.1-1.0 K/uL Eosinophils # (Auto) 0.86 H 0.00-0.70 K/uL Basophils # (Auto) 0.13 0.00-0.20 K/uL Absolute Immature Granulocyte (auto 0.09 0-1 K/uL Nucleated Red Blood Cells 0.0 0.0-0.19 % Chemistry Labs: Test 07/09/25 01:51 Range/Units Sodium Level 138 136-145 mmol/L Potassium Level 4.4 3.5-5.1 mmol/L Chloride Level 105 101-111 mmol/L Carbon Dioxide Level 27 21-32 mmol/L Blood Urea Nitrogen 31 H 7-18 mg/dL Creatinine 1.0 0.5-1.3 mg/dL Glomerular Filtration Rate Calc 82 >90 mL/min Random Glucose 98 70-105 mg/dL Total Calcium 8.7 8.5-10.1 mg/dL Total Bilirubin 0.3 0.2-1.0 mg/dL Aspartate Amino Transf (AST/SGOT) 18 10-37 U/L Alanine Aminotransferase (ALT/SGPT) 37 12-78 U/L Alkaline Phosphatase 63 50-136 U/L Total Protein 6.1 6.0-8.3 g/dL Albumin 2.8 L 3.5-5.0 g/dL Coagulation Labs: Test 07/10/25 08:45 07/09/25 08:39 Range/Units Activated Partial Thromboplast Time 69.2 H 26.3-35.5 SEC Prothrombin Time 10.1 9.6-11.6 SEC Prothromb Time International Ratio 0.95 0.85-1.15 Diagnostics / Radiology: [Copy/Paste Echos/Imaging Report here] Impression and Plan: [Assessment: [History non-ST elevation MS September 2019. PTCA and stenting to the proximal, mid, distal left circumflex treated 2.5x38mm Ryan and a 2.75 x 8mm [place]ff stent with 75-80% RCA lesion to be addressed later. Coronary artery disease. Lifelong tobacco abuse, ongoing. Hypertension COPD. Anxiety/depression. September 2019 2-D echo with EF of 52% with basal inferior and inferoseptal hypo kinesis. Chronic abdominal pain. PTCA and stent placement to the mid to distal RCA 2.75x38 Xience medicated stent November 19, 2019. February 07, 2021 angiogram with patent RCA and left circumflex stents, 20% distal left main disease, EF 65%. ] Plan: [# right renal artery thrombosis Patient presented to the emergency department 07/07/2025 endorsing right radial exercise discharge, with erythema and induration Patient has a recent admission for right radial artery thrombosis He is status post Balloon angioplasty of the right radial artery at the level of the wrist using 1.5 x 6 mm balloon x2. This was followed by NanoCross balloon catheter 1.5 x 40 mm. 07/01/2025 On this admission he underwent right upper extremity Doppler ultrasound revealed absent flow in distal segment of right renal artery, suggestive of thrombosis, with a monophasic waveforms axillary brachial and ulnar arteries. Currently on heparin drip per protocol. And broad-spectrum antibiotic On exam we noted no acute ischemia with palpable radial and ulnar pulses, warm to the touch with intact sensation Due to the above-mentioned findings were under order a stat CTA of his right arm pending results We will recommend calling back IR that performed the patient's right upper extremity angioplasty Thank you for this consult cardiology will continue to follow along ] ATTESTATION BY PHYSICIAN I have seen and examined the patient, reviewed the above documentation, participated in medical decision making, made necessary modifications, and agree with the treatment plan as documented by my mid-level provider above. MD JOSE RAMON Reyes JAMES R MD Jul 10, 2025 15:14
[2025-07-10] MEDS: VANCOMYCIN 1G/250ML KIT 250 ML IV SCH (16:41)
[2025-07-11] VITALS (12 sets, daily range): BP systolic 105–142; BP diastolic 75–88; PULSE 70–88; RESP 18–20; TEMP 97.4–98.3; O2SAT 94–96
[2025-07-11 06:09] LABS: IMMATURE GRANULOCYTE ABSOLUTE 0.06 K/uL (0-1); NUCLEATED RED BLOOD CELLS 0.0 % (0.0-0.19); PLATELET COUNT (AUTO) 278 K/uL (130-400); RED BLOOD CELL COUNT(AUTO) 4.45 MIL/uL (4.50-6.20); RED CELL DISTRIBUTION WIDTH 14.4 % (11.0-15.5); WHITE BLOOD COUNT (AUTO) 12.0 K/uL (4.8-10.8)
[2025-07-11 06:22] LABS: CREATININE 0.8 mg/dL (0.5-1.3); GLOMERULAR FILTR. RATE CALC 96.0 mL/min (>90); GLUCOSE,RANDOM 101.0 mg/dL (70-105); SODIUM SERUM 134.0 mmol/L (136-145); UREA NITROGEN, BLOOD 20.0 mg/dL (7-18)
--- NOTE | 2025-07-11 10:36 | HMCIMG ---
CT ANGIO UP EXT INDICATION: arterial thrombosis , right upper extremity CONTRAST: 200 cc of Omnipaque 350 CT was performed with one or more of the following dose reduction techniques: automated exposure control, adjustment of the mA and/or kV according to patient size, or use of iterative reconstruction technique. Technique: Pre and postcontrast CT scans were performed. MIP and volume rendered 3-D reconstructions were obtained in addition to multiplanar reconstructions FINDINGS: CTA of the right upper extremity demonstrate a right upper extremity including the right subclavian artery right axillary artery and right brachial artery and the trifurcation vessels including the radial artery ulnar artery and interosseous artery are patent. There is no evidence of any thrombosis identified. The right ulnar artery near the wrist appears to BE mildly diminutive. IMPRESSION: Normal right upper extremity arteriogram as described above.
--- NOTE | 2025-07-11 16:47 | PN ---
[facility] PROGRESS NOTE Date Patient Seen: Jul 11, 2025 Time of Visit: 16:43 Supervising Physician: MICHELLE RYA MD Primary Care Physician: Dr Romero Outpatient Specialists: [ ] Inpatient Consults: [facility] PROBLEM LIST: Cellulitis of the right upper extremity Thrombosis of the right arterial artery Status post arteriogram with balloon angioplasty of the right radial artery 07/01/2025 Hypertension Underlying COPD without exacerbation Tobacco use disorder Coronary artery disease INTERVAL HISTORY: Patient is seen and evaluated by me at bedside and the events of the last 24 hours noted Complains of pain to the right upper extremity, pain level 6/10 As per patient, pain has improved in the last 48 hours Complains of numbness and tingling of the right upper extremity Complains of weakness of the right upper extremity Patient remains on heparin drip, afebrile, no report of bleeding. Good appetite, no constipation He is on room air, voiding, no urgency or dysuria. Denies hematuria. REVIEW OF SYSTEMS: 12 point ROS reviewed with patient. Pertinent positives mentioned above. Otherwise negative. PHYSICAL EXAM: GENERAL: alert, weak, awake oriented x 3 HEENT: EOMI, Sclera non icteric, moist mucosa NECK: Supple, no JVD, trachea midline LUNGS: Scattered wheezing on auscultation HEART: Regular rate and rhythm. Normal S1 and S2, without murmurs ABD: Abdomen soft, nontender. Bowel sounds present EXT: Ecchymosis and hyperemia of the right upper extremity extending from the hand to the biceps with tenderness and edema 2+ NEURO: Alert and oriented to person, follows commands Vital Signs (last 8hr) Date Time Temp Pulse Resp B/P (MAP) Pulse Ox O2 Delivery O2 Flow Rate FiO2 07/11/25 12:00 98.2 86 18 120/77 92 Room Air 07/11/25 11:21 70 20 N/A Room Air 21 07/11/25 11:21 70 20 LABS: Hematology Labs: Test 07/11/25 06:01 Range/Units White Blood Count 12.0 H 4.8-10.8 K/uL Red Blood Count 4.45 L 4.50-6.20 MIL/uL Hemoglobin 12.8 L 14.0-18.0 g/dL Hematocrit 37.5 L 42-54 % Mean Corpuscular Volume 84.3 79-99 fL Mean Corpuscular Hemoglobin 28.8 27.0-33.0 pg Mean Corpuscular Hemoglobin Concent 34.1 32.0-36.0 g/dL Red Cell Distribution Width 14.4 11.0-15.5 % Platelet Count 278 # 130-400 K/uL Mean Platelet Volume 11.1 H 7.5-10.5 fL Immature Granulocyte % (Auto) 0.5 0-1 % Neutrophils (%) (Auto) 57.2 40.0-77.0 % Lymphocytes (%) (Auto) 25.9 21.0-51.0 % Monocytes (%) (Auto) 9.6 3.0-13.0 % Eosinophils (%) (Auto) 6.0 0.0-8.0 % Basophils (%) (Auto) 0.8 0.0-5.0 % Neutrophils # (Auto) 6.9 1.8-7.7 K/uL Lymphocytes # (Auto) 3.1 1.0-4.8 K/uL Monocytes # (Auto) 1.2 H 0.1-1.0 K/uL Eosinophils # (Auto) 0.72 H 0.00-0.70 K/uL Basophils # (Auto) 0.10 0.00-0.20 K/uL Absolute Immature Granulocyte (auto 0.06 0-1 K/uL Nucleated Red Blood Cells 0.0 0.0-0.19 % Chemistry Labs: Test 07/11/25 06:01 Range/Units Sodium Level 134 L 136-145 mmol/L Potassium Level 3.9 3.5-5.1 mmol/L Chloride Level 101 101-111 mmol/L Carbon Dioxide Level 26 21-32 mmol/L Blood Urea Nitrogen 20 H 7-18 mg/dL Creatinine 0.8 0.5-1.3 mg/dL Glomerular Filtration Rate Calc 96 >90 mL/min Random Glucose 101 70-105 mg/dL Total Calcium 8.7 8.5-10.1 mg/dL Coagulation Labs: Test 07/11/25 14:30 Range/Units Activated Partial Thromboplast Time 74.5 H 26.3-35.5 SEC PLAN Pending evaluation and intervention by Interventional Radiology on Sunday We will continue heparin drip Continue pain management NEURO: Minimize central acting medications as possible. Maintain fall precautions, adequate lighting during the day PULMONARY: Supplemental 02 as needed. Maintain aspiration precautions at all times CARDIOVASCULAR: Follow hemodynamics. Vital signs per facility protocol GI & NUTRITION: Continue with nutritional support. Continue stool softeners and laxatives as needed. KIDNEYS & ELECTROLYTES: Strict monitoring of intake, output and overall fluid balance. Avoid nephrotoxic medications to the extent possible. Medications to be dosed according to renal function. Monitor electrolytes and replace as needed ENDOCRINE: Maintain blood glucose between 100-180 at all times. Hypoglycemia protocol in place INFECTIOUS DISEASE: Trend temperature, WBC and procalcitonin level Follow cultures, deescalate antibiotics as soon as possible. Panculture if new onset fever ONCOLOGY/HEMATOLOGY/COAGULATION: Monitor for s/s of bleeding Monitor hemoglobin, coagulation studies as needed SKIN: Pressure ulcer prevention per facility protocol Specialty mattress ORTHO/REHAB: Continue PT/OT Prophylaxis: Continue GI and DVT prophylaxis Code Status: Full Resuscitation Disposition: LTAC I personally scribed for MICHELLE RAY MD ([email or web address]) on 07/11/25 at 16:47. Electronically submitted by Kyaw Trinidad ([email or web address]). MICHELLE RAY MD Jul 11, 2025 16:47
[2025-07-11 23:38] LABS: INR 0.96 (0.85-1.15)
[2025-07-12] VITALS (11 sets, daily range): BP systolic 122–157; BP diastolic 83–98; PULSE 69–81; RESP 17–20; TEMP 97.7–98.5; O2SAT 95–96
--- NOTE | 2025-07-12 12:28 | NUR ---
MD ROUNDING DR RAY HERE AND CHANGES WERE MADE TO PATIENTS CURRENT PAIN REGIMEN MD EXPLAINED TO PATIENT DOSAGE AND FREQUENCY OF PRN PAIN MEDS LEADING UP TO DISCHARGE.
--- NOTE | 2025-07-12 21:39 | PN ---
[facility] PROGRESS NOTE Date Patient Seen: Jul 12, 2025 Time of Visit: 21:36 Supervising Physician: MICHELLE RAY MD Primary Care Physician: Dr Romero Outpatient Specialists: [ ] Inpatient Consults: [facility] PROBLEM LIST: Cellulitis of the right upper extremity Thrombosis of the right arterial artery Status post arteriogram with balloon angioplasty of the right radial artery 07/01/2025 Hypertension Underlying COPD without exacerbation Tobacco use disorder Coronary artery disease INTERVAL HISTORY: patient requesting Dilaudid every 2 hours for pain management He is awake and alert, no acute distress and on room air Good appetite, no constipation Voiding, no urgency or dysuria Up and walking, no headaches or dizziness No report of bleeding, remains on heparin drip Pending procedure by interventional radiology REVIEW OF SYSTEMS: 12 point ROS reviewed with patient. Pertinent positives mentioned above. Othe rwise negative. PHYSICAL EXAM: GENERAL: alert, weak, awake oriented x 3 HEENT: EOMI, Sclera non icteric, moist mucosa NECK: Supple, no JVD, trachea midline LUNGS: Scattered wheezing on auscultation HEART: Regular rate and rhythm. Normal S1 and S2, without murmurs ABD: Abdomen soft, nontender. Bowel sounds present EXT: Ecchymosis and hyperemia much improved, no edema noted. Distal pulses present peripherally NEURO: Alert and oriented to person, follows commands Vital Signs (last 8hr) Date Time Temp Pulse Resp B/P (MAP) Pulse Ox O2 Delivery O2 Flow Rate FiO2 07/12/25 20:00 97.9 69 18 122/86 94 Room Air 07/12/25 18:23 81 18 N/A Room Air 21 07/12/25 18:23 81 17 07/12/25 16:00 98.4 77 18 124/98 96 Room Air LABS: Hematology Labs: Test 07/11/25 06:01 Range/Units White Blood Count 12.0 H 4.8-10.8 K/uL Red Blood Count 4.45 L 4.50-6.20 MIL/uL Hemoglobin 12.8 L 14.0-18.0 g/dL Hematocrit 37.5 L 42-54 % Mean Corpuscular Volume 84.3 79-99 fL Mean Corpuscular Hemoglobin 28.8 27.0-33.0 pg Mean Corpuscular Hemoglobin Concent 34.1 32.0-36.0 g/dL Red Cell Distribution Width 14.4 11.0-15.5 % Platelet Count 278 # 130-400 K/uL Mean Platelet Volume 11.1 H 7.5-10.5 fL Immature Granulocyte % (Auto) 0.5 0-1 % Neutrophils (%) (Auto) 57.2 40.0-77.0 % Lymphocytes (%) (Auto) 25.9 21.0-51.0 % Monocytes (%) (Auto) 9.6 3.0-13.0 % Eosinophils (%) (Auto) 6.0 0.0-8.0 % Basophils (%) (Auto) 0.8 0.0-5.0 % Neutrophils # (Auto) 6.9 1.8-7.7 K/uL Lymphocytes # (Auto) 3.1 1.0-4.8 K/uL Monocytes # (Auto) 1.2 H 0.1-1.0 K/uL Eosinophils # (Auto) 0.72 H 0.00-0.70 K/uL Basophils # (Auto) 0.10 0.00-0.20 K/uL Absolute Immature Granulocyte (auto 0.06 0-1 K/uL Nucleated Red Blood Cells 0.0 0.0-0.19 % Chemistry Labs: Test 07/11/25 06:01 Range/Units Sodium Level 134 L 136-145 mmol/L Potassium Level 3.9 3.5-5.1 mmol/L Chloride Level 101 101-111 mmol/L Carbon Dioxide Level 26 21-32 mmol/L Blood Urea Nitrogen 20 H 7-18 mg/dL Creatinine 0.8 0.5-1.3 mg/dL Glomerular Filtration Rate Calc 96 >90 mL/min Random Glucose 101 70-105 mg/dL Total Calcium 8.7 8.5-10.1 mg/dL Coagulation Labs: Test 07/12/25 05:38 07/11/25 23:22 Range/Units Activated Partial Thromboplast Time 55.8 H 26.3-35.5 SEC Prothrombin Time 10.2 9.6-11.6 SEC Prothromb Time International Ratio 0.96 0.85-1.15 PLAN Interventional Radiology procedure on Sunday Decrease Dilaudid to every 6 hours for breakthrough pain We will continue heparin drip NEURO: Minimize central acting medications as possible. Maintain fall precautions, adequate lighting during the day PULMONARY: Supplemental 02 as needed. Maintain aspiration precautions at all times CARDIOVASCULAR: Follow hemodynamics. Vital signs per facility protocol GI & NUTRITION: Continue with nutritional support. Continue stool softeners and laxatives as needed. KIDNEYS & ELECTROLYTES: Strict monitoring of intake, output and overall fluid balance. Avoid nephrotoxic medications to the extent possible. Medications to be dosed according to renal function. Monitor electrolytes and replace as needed ENDOCRINE: Maintain blood glucose between 100-180 at all times. Hypoglycemia protocol in place INFECTIOUS DISEASE: Trend temperature, WBC and procalcitonin level Follow cultures, deescalate antibiotics as soon as possible. Panculture if new onset fever ONCOLOGY/HEMATOLOGY/COAGULATION: Monitor for s/s of bleeding Monitor hemoglobin, coagulation studies as needed SKIN: Pressure ulcer prevention per facility protocol Specialty mattress ORTHO/REHAB: Continue PT/OT Prophylaxis: Continue GI and DVT prophylaxis Code Status: Full Resuscitation Disposition: LTAC I personally scribed for MICHELLE RAY MD ([email or web address]) on 07/12/25 at 21:39. Electronically submitted by Kyaw Trinidad ([facility]). MICHELLE RAY MD Jul 12, 2025 21:39
--- NOTE | 2025-07-12 23:52 | NUR ---
PATIENT REFUSE TYLENOL #3 AT THIS MOMENT AND STATED HE IS FINE FOR RIGHT NOW AND WILL WAIT FOR THE NEXT DOSE OF DILAUDID.
[2025-07-13] VITALS (7 sets, daily range): BP systolic 108–129; BP diastolic 76–86; PULSE 75–89; RESP 18; TEMP 98–98.8; O2SAT 95–96
--- NOTE | 2025-07-13 08:40 | NUR ---
DR. APONTE CONSULT CONTACTED [facility], SPOKE WITH LANCE. PER LANCE, IS AWARE OF REQUEST FOR CONSULT, HOWEVER COULD NOT ADVISE ETA ON ROUNDING. WILL REMIND MD OF "CONSULT". PRIMARY NOTIFIED.
--- NOTE | 2025-07-13 09:36 | NUR ---
DR. FADI APONTE ROUNDED AT BEDSIDE AND EVALUATED PATIENT. PER DR. APONTE, NO FURTHER INVASIVE INTERVENTION PLANNED AT THIS TIME. STATED HE OPENED UP CIRCULATION ON PREVIOUS ADMISSION AND NO CELLULITIS NOTED TO SITE. PER DR. APONTE, CONSULT WITH WOUND CARE FOR POSSIBLE WATER/AQUA THERAPY TO INCREASE CIRCULATION. PATIENT TO FOLLOW UP IN 1-2 MONTHS OUTPATIENT TO SEE IF NEEDING FURTHER INTERVENTION AND MONITORING. CONTINUE TO MONITOR. ORDERS PLACED AND CARRIED OUT. PRIMARY NOTIFIED.
--- NOTE | 2025-07-13 09:55 | NUR ---
PAIN MEDICATION PATIENT WAS COMPLAINING OF PAIN TO THE RIGHT HAND. WHEN PATIENT WAS OFFERED TYLENOL WITH CODEINE PRESCRIBED, HE REFUSED STATING THAT HE WAS AWARE THAT THE DILAUDID WAS DISCONTINUED AND THAT "IF WE WEREN'T GOING TO GIVE HIM WHAT HE NEEDS, WHERE ARE MY DISCHARGE PAPERS". THE PATIENT WAS EDUCATED AGAIN TO WHY THE DILAUDID NEEDED TO BE DISCONTINUED, THE PATIENT WAS STILL AGGRESSIVE AND CONTINUED TO STATE THAT WE ARE NOT MEETING HIS NEEDS
--- NOTE | 2025-07-13 11:24 | NUR ---
HEPARIN DRIP HEPARIN DRIP STOPPED PER MD ORDERS. ELIQUIS STARTED TAKEN FROM HOME MEDICATION REGIMEN. WILL CONTINUE TO MONITOR.
[2025-07-13] MEDS ORDERED: AMOX1TAB16 PO (13:12)
[2025-07-13] MEDS ORDERED: LINE600T11 PO (13:12)
--- NOTE | 2025-07-13 14:56 | NUR ---
DR ALBRIGHT AT [address] ALBRIGHT ABOUT CARDIOLOGY CLEARANCE. DR ALBRIGHT RELAYED THAT HE SIGNED OFF TO FOLLOW UP OUTPATIENT 1-2 WEEKS AFTER DISCHARGE
--- NOTE | 2025-07-13 15:20 | NUR ---
WOUND CARE APPOINTMENT CONTACTED [facility], SPOKE WITH GRAYSON AND NOTIFIED OF MD'S RECOMMENDATIONS FOR WATER/AQUA THERAPY OUTPATIENT. PER MRS. GALICIA, DUE TO PATIENT'S INSURANCE WOULD NEED AUTHORIZATION FROM INSURANCE AND A REFERRAL FROM PRIMARY MD. PATIENT NOTIFIED AND VOICED UNDERSTANDING. CONTACT INFORMATION GIVEN TO PATIENT TO SCHEDULE APPOINTMENT ONCE OBTAINED REQUIRED DOCUMENTS. NO APPOINTMENT MADE.
--- NOTE | 2025-07-13 15:27 | NUR ---
DISCHARGE DISCHARGE ORDERS FOR PATIENT TO BE DISCHARGED HOME OBTAINED. DISCHARGE INSTRUCTIONS AND DOCUMENTATION GIVEN TO PATIENT AT BEDSIDE. VOICED UNDERSTANDING. IV DISCONTINUED BY RUSLAN MERCADO, CATHETER INTACT, NO S/S OF INFECTION NOTED TO SITE. PATIENT TOLERATED WELL. BANDS REMOVED PRIOR TO DISCHARGE. PATIENT PENDING TRANSPORTATION.
--- NOTE | 2025-07-13 18:55 | DS ---
[facility] DISCHARGE SUMMARY Date Patient Seen: Jul 13, 2025 Time of Visit: 18:42 Supervising Physician: Tashi Gonzales MD Primary Care Physician: Dr Romero Outpatient Specialists: [ ] Inpatient Consults: [facility] PROBLEM LIST: Cellulitis of the right upper extremity Thrombosis of the right arterial artery ruled out Per CTA on 07/10/25- on eliquis Status post arteriogram with balloon angioplasty of the right radial artery 07/01/2025 Hypertension Underlying COPD without exacerbation Tobacco use disorder Coronary artery disease HOSPITAL COURSE: HPI This is a 70-year-old male with a past medical history of COPD, tobacco abuse, hypertension, hyperlipidemia, reason right radial artery angioplasty on 07/01/25 who presented to the ED on 07/07/25 with complaints of increasing drainage from his right radial artery angioplasty incision site of the past several days. He denies fever worsening edema or since systemic symptoms. The ED ultrasound of the right wrist revealed no hematoma or abscess. CBC them resume count greater than 19 K CMP showed no acute electrolyte or renal dysfunction. He was started on IV Rocephin and IV fluids. He was admitted to the medical floor on telemetry and Cardiology was consulted for possible recurrent radial artery thrombosis noting prior admission for the same issue. Cardiology concern for right radial artery thrombosis he was started on a heparin drip protocol. Imaging of the right upper extremity Doppler ultrasound shows absent flow in distal right radial artery monophasic waveforms consistent with thrombosis. CTA was recommended by Cardiology seen and right extremity CTA without on 06/2025 which showed patent right subclavian axillary brachial radial ulnar and interosseous artery no thrombosis identified. Right ulnar artery near the wrist noted to be diminutive. Final impression number right upper extremity arteriogram. No abscess or deep infection noted. Broad-spectrum antibiotics were continued empirically. Hydrotherapy recommended by IR as outpatient. Patient remained stable. No evidence of thrombosis versus infection. Discharge planned for home with outpatient wound care follow hydrotherapy arranged. CHRONIC PROBLEMS: continue previous management per PCP unless otherwise indicated WASHER REPAIRMAN FINDINGS/RECOMMENDATIONS: as above PROCEDURES: as mentioned above Pt hemodynamically stable and afebrile at time of discharge. PCP notified of patients admission, hospital course and discharge. New Medications: Amoxicillin/Potassium Clav (Amox Tr-K Clv 875-125 mg Tab) 875 Mg-125 Mg Tablet 1 TAB PO BID for 10 Days, #20 TAB 0 Refills Linezolid (Zyvox) 600 Mg Tablet 1 TAB PO BID for 7 Days, #14 TAB 0 Refills with food Continued Medications: Acetaminophen with Codeine (Acetaminophen-Cod #3 Tablet) 300 Mg-30 Mg Tablet 1 TAB PO Q6HPRN PRN for PAIN LEVEL 1 TO 5 Apixaban (Eliquis) 5 Mg Tablet 1 TAB PO BID Atorvastatin Calcium (Atorvastatin Calcium) 40 Mg Tablet 1 TAB PO HS Ondansetron (Ondansetron Odt) 4 Mg Tab.rapdis 0.5 TAB PO Q6HPRN PRN for NAUSEA/VOMITING Discontinued Medications: Dicyclomine HCl (Bentyl) 20 Mg Tab 1 TAB PO QID PHYSICAL EXAM: GENERAL: alert, weak, awake oriented x 3 HEENT: EOMI, Sclera non icteric, moist mucosa NECK: Supple, no JVD, trachea midline LUNGS: Scattered wheezing on auscultation HEART: Regular rate and rhythm. Normal S1 and S2, without murmurs ABD: Abdomen soft, nontender. Bowel sounds present EXT: Ecchymosis and hyperemia much improved, no edema noted. Distal pulses present peripherally. cap refill < 2 seconds to bilateral hands all fingers. NEURO: Alert and oriented to person, follows commands FOLLOW-UP: Follow-up with PCP in 2-3 days RECOMMENDATIONS: See Discharge Instructions This case was seen and discussed with my supervising physician. More than 30 minutes spent on discharge process, including evaluation of the patient, discussion with nursing staff, medication reconciliation and follow-up appointments ATTESTATION BY PHYSICIAN I reviewed the documentation, medical decision making, and treatment plan as noted by the mid-level provider above. I agree with the findings and plan of care. Tashi Gonzales MD, NELLY J CINDER CRANE OPERATOR Jul 13, 2025 18:55
== END 2025-07-13 17:30 | disposition home or self-care (01) | DRG 603 ==
LOC: EDH 08:18 → EDHIP 22:53 → 4AH 07-08 21:30
PROVIDERS: ADMIT Internal Medicine Critical Care Medicine; ATTEND Internal Medicine Critical Care Medicine
DX: L03.113 Cellulitis of right upper limb (principal); J44.9 Chronic obstructive pulmonary disease, unspecified; I25.10 Atherosclerotic heart disease of native coronary artery without angina pectoris; I10 Essential (primary) hypertension; E78.5 Hyperlipidemia, unspecified; D72.829 Elevated white blood cell count, unspecified; F41.9 Anxiety disorder, unspecified; F32.A Depression, unspecified; I25.2 Old myocardial infarction; G89.29 Other chronic pain; Z95.1 Presence of aortocoronary bypass graft; Z95.5 Presence of coronary angioplasty implant and graft; F17.200 Nicotine dependence, unspecified, uncomplicated; Z79.01 Long term (current) use of anticoagulants
CPT/HCPCS: 36415; 71045; 73206; 76882; 80048; 80053; 80202; 83735; 84100; 84145; 85025; 85610; 85730; 86140; 87040; 87086; 87186; 93931; 94640; 94664; 96374; 96375; 99291; G0378; J0692; J0696; J1171; J1644; J1650; J2543; J3373; Q9967

== ENCOUNTER 2025-09-22 07:18 | Emergency (ER) | payer MEDICARE, MEDICAID ==
[~2025-09-22] VITALS: Ht 170.2 cm; Wt 69.9 kg
--- NOTE | 2025-09-22 07:55 | NUR ---
PT NOT ABLE TO GIVE URINE SAMPLE AT THIS TIME
--- NOTE | 2025-09-22 08:02 | ERN ---
General Chief Complaint: Abdominal Pain Stated Complaint: ABD PAIN/ NAUSEA/ VOMITING Time Seen by MD: 07:21 Source: patient History of Present Illness Initial Comments My patient, 70-year-old male, presented to the ED with complaint of abdominal pain. He states that he starting having crampy abdominal pain yesterday after taking Tylenol codeine. Pain was associated with nausea and multiple episodes of vomiting. He describes vomitus as yellowish colored. He denies fever, diarrhea or cough. He states that he often uses marijuana. Timing/Duration: 24 hours Severity: mild Associated Symptoms: nausea/vomiting Allergies: Coded Allergies: No Known Drug Allergies (Unverified Allergy, Unknown, 04/13/20) Home Meds Active Scripts Linezolid (Zyvox) 600 Mg Tablet, 1 TAB PO BID for 7 Days, #14 TAB 0 Refills with food [facility] 07/13/25 Amoxicillin/Potassium Clav (Amox Tr-K Clv 875-125 mg Tab) 875 Mg-125 Mg Tablet, 1 TAB PO BID for 10 Days, #20 TAB 0 Refills Prov:PIEDAD TAY [facility] 07/13/25 Reported Medications Atorvastatin Calcium (Atorvastatin Calcium) 40 Mg Tablet, 1 TAB PO HS 07/08/25 Ondansetron (Ondansetron Odt) 4 Mg Tab.rapdis, 0.5 TAB PO Q6HPRN PRN for NAUSEA/VOMITING 07/08/25 Apixaban (Eliquis) 5 Mg Tablet, 1 TAB PO BID 07/08/25 Acetaminophen with Codeine (Acetaminophen-Cod #3 Tablet) 300 Mg-30 Mg Tablet, 1 TAB PO Q6HPRN PRN for PAIN LEVEL 1 TO 5 07/08/25 Past Medical History Past Medical History: CAD, Heart Disease, Hypertension Medical History Other: HEAD TRAUMA Past Surgical History: CABG, Other Surgical History Other: CARDIAC STENTS Family History Family History: Negative Social History Social History: Smokers, Drugs, Lives with family Constitutional: (-) chills, (-) diaphoresis, (-) fever, (-) malaise, (-) weakness, (-) other documentation EENTM: (-) eye pain, (-) blurred vision, (-) tearing, (-) double vision, (-) ear pain, (-) ear discharge, (-) nose pain, (-) nose congestion, (-) throat pain, (-) Throat swelling, (-) mouth pain, (-) tooth pain, (-) mouth swelling, (-) other documentation Respiratory: (-) cough, (-) orthopnea, (-) short of breath, (-) stridor, (-) wheezing, (-) other documentation Cardiovascular: (-) chest pain, (-) edema, (-) palpitations, (-) syncope, (-) dyspnea on exertion, (-) other documentation Gastrointestinal/Abdominal: (+) nausea, (+) vomiting, (+) abdominal pain; (-) diarrhea, (-) abdominal distention, (-) constipation, (-) rectal bleeding, (-) dark stool/melena, (-) other documentation Genitourinary: (-) penile discharge, (-) dysuria, (-) frequency, (-) hematuria, (-) pain, (-) other documentation Musculoskeletal: (-) Neck pain, (-) back pain, (-) Flank Pain, (-) joint pain, (-) joint swelling, (-) muscle pain, (-) muscle stiffness, (-) gout, (-) other documentation Skin: (-) laceration, (-) contusion, (-) abrasion, (-) abscess, (-) rash, (-) change in color, (-) change in hair, (-) change in nails, (-) diaphoresis, (-) dryness, (-) other documentation Neuro: (-) altered mental status, (-) headache, (-) syncope, (-) paralysis, (-) numbness, (-) seizure, (-) pre-existing deficit, (-) tremors, (-) weakness, (-) dizziness, (-) slurred speech, (-) vertigo, (-) other documentation Psych: (-) depression, (-) suicidal ideation, (-) anxiety, (-) emotional problems, (-) auditory hallucinations, (-) visual hallucinations Hematologic/Lymphatic: (-) anemia, (-) blood clots, (-) easy bleeding, (-) easy bruising, (-) swollen glands, (-) other documentation Immunological/Allergic: (-) food allergy, (-) grass allergy, (-) mold allergy, (-) pollen allergy, (-) HIV/AIDS, (-) transplant, (-) othe documentation Physical Exam General Appearance: (+) mild distress Orientation: (+) alert, (+) oriented x 3 Head/Face Trauma: No Eye: bilateral eye normal inspection Ear, Nose, Throat: (+) hearing grossly normal, (+) normal ENT inspection, (+) moist mucous membraine, (+) normal pharynx Neck: (+) normal inspection, (+) supple, (+) full range of motion Respiratory: (+) chest non-tender, (+) lungs clear Heart: (+) regular, (+) no gallop Vascular: (+) no edema, (+) normal peripheral pulse, (+) no JVD Gastrointestinal: (+) soft, (+) no organomegaly, (+) bowel sound present Extremities: (+) normal range of motion, (+) non-tender, (+) other (Ulcer on right thumb) Neurologic/Psychiatric: (+) normal speech, (+) no motor defecits, (+) no sensory deficits Skin: (+) normal color Results Laboratory and Microbiology Lab and Micro Result Laboratory Tests Test 09/22/25 08:18 09/22/25 09:45 White Blood Count 9.2 K/uL (4.8-10.8) Red Blood Count 5.03 MIL/uL (4.50-6.20) Hemoglobin 14.1 g/dL (14.0-18.0) Hematocrit 42.8 % (42-54) Mean Corpuscular Volume 85.1 fL (79-99) Mean Corpuscular Hemoglobin 28.0 pg (27.0-33.0) Mean Corpuscular Hemoglobin Concent 32.9 g/dL (32.0-36.0) Red Cell Distribution Width 14.1 % (11.0-15.5) Platelet Count 246 K/uL (130-400) Mean Platelet Volume 11.0 fL (7.5-10.5) H Nucleated Red Blood Cells 0.0 % (0.0-0.19) Sodium Level 136 mmol/L (136-145) Potassium Level 3.9 mmol/L (3.5-5.1) Chloride Level 103 mmol/L (101-111) Carbon Dioxide Level 25 mmol/L (21-32) Blood Urea Nitrogen 20 mg/dL (7-18) H Creatinine 0.8 mg/dL (0.5-1.3) Glomerular Filtration Rate Calc 96 mL/min (>90) Random Glucose 122 mg/dL (70-105) H Total Calcium 9.2 mg/dL (8.5-10.1) Troponin I High Sensitivity 9 ng/L (4-75) Serum Alcohol < 3 mg/dL (0-10) Urine Color YELLOW (YELLOW) Urine Appearance CLEAR (CLEAR) Urine pH 6.0 (5.0-8.0) Urine Specific [place] 1.026 (1.001-1.031) Urine Protein 50 mg/dL (NEGATIVE) H Urine Glucose (UA) NEGATIVE mg/dL (NEGATIVE) Urine Ketones NEGATIVE mg/dL (NEGATIVE) Urine Occult Blood NEGATIVE (NEGATIVE) Urine Nitrate NEGATIVE (NEGATIVE) Urine Bilirubin NEGATIVE mg/dL (NEGATIVE) Urine Urobilinogen 0.2 mg/dL (0.2-1.0) Urine Leukocyte Esterase NEGATIVE Jose Eduardo/uL Urine RBC None Seen /HPF (0-1) Urine WBC 0-1 /HPF (0-1) Urine Squamous Epithelial Cells Rare /HPF (0-2) Urine Bacteria None Seen /HPF (None Seen) Urine Opiates Screen POSITIVE (NEGATIVE) H Urine Barbiturates Screen NEGATIVE (NEGATIVE) Urine Phencyclidine Screen NEGATIVE (NEGATIVE) Urine Amphetamines Screen NEGATIVE (NEGATIVE) Urine Benzodiazepines Screen NEGATIVE (NEGATIVE) Urine Cocaine Screen NEGATIVE (NEGATIVE) Urine Marijuana (THC) Screen POSITIVE (NEGATIVE) H EKG/XRAY/US/CT/MRI X-RAY Comment PATIENT: ALEXYS OZUNA MR#: [id number] : 1955 SEX: M AGE: 70 LOCATION: [facility] ORDER 4 STATUS: REG ER REPORT#: [id number] SERVICE 08 REASON: Crampy abdominal pain with episodes of nausea ORDERING PHYSICIAN: HOLGER POSEY MD PROCEDURE: ABD 1VW - ABD 1VW EXAM: CR Abdomen, 2 View. CLINICAL HISTORY: Crampy abdominal pain with episodes of nausea COMPARISON: None provided. FINDINGS: BOWEL: The bowel gas pattern is within normal limits. PERITONEUM/SOFT TISSUES: No free air evident. No pathologic appearing calcification. BONES: No aggressive appearing osseous lesion seen. IMPRESSION: The bowel gas pattern is within normal limits. /[place] DICTATED BY: WILMER VARGAS Jr., MD DATE: 09/22/251024 ELECTRONICALLY SIGNED BY: WILMER VARGAS Jr., MD DATE: 09/22/251024 MDM MDM: Differential diagnosis: Cannabinoid hyperemesis syndrome My patient, 70 year male, presented to the ED with complaint of crampy abdominal pain, associated with nausea and multiple episodes of vomiting. * CBC, BMP were ordered which were unremarkable. * Troponin was negative. * Abdominal x-ray was ordered which ruled out any acute intra-abdominal pat hology. * Patient's UA profile was negative. * Urine drug screen showed positive marijuana as well as positive opioids. * Patient was given IV fluid bolus, ondansetron for vomiting as well as Tylenol. * Patient is tolerating oral intake. * He is being discharged with instructions to reduce his marijuana intake and ultimately avoid it. ED Course Orders Procedure Category Date Status Time Cbc Without LAB 09/22/25 Complete Differential 08:02 Basic Metabolic Panel LAB 09/22/25 Complete 08:02 Abd 1vw RAD 09/22/25 Resulted 08:02 Troponin I High LAB 09/22/25 Complete Sensitivity 08:02 Urinalysis Profile LAB 09/22/25 Complete 08:02 Drug Screen Urine LAB 09/22/25 Complete 08:02 Alcohol, Blood LAB 09/22/25 Complete 08:02 Acetaminophen 500mg PHA 09/22/25 Complete Tab (Tylenol 500mg T 08:30 Ondansetron 4mg PHA 09/22/25 Complete Tablet (Zofran 4mg 08:30 0.9% Nacl 500ml PHA 09/22/25 Complete Iv.Soln (Ns 500ml 08:30 0.9% Nacl 500ml PHA 09/22/25 Complete Iv.Soln (Ns 500ml 09:00 Current Medications Medications (Trade) Dose Ordered Sig/Geovanni Route PRN Reason Start Time Stop Time Status Last Admin Dose Admin Acetaminophen (TYLenol 500MG TAB) 500 mg ONCE ONCE PO 09/22/25 08:30 09/22/25 08:31 DC 09/22/25 08:18 Ondansetron HCl (zoFRAN 4MG TABLET) 4 mg ONCE ONCE PO 09/22/25 08:30 09/22/25 08:31 DC 09/22/25 08:18 Sodium Chloride 500 ml @ 0 mls/hr Q0M IV 09/22/25 08:30 09/22/25 08:51 DC Sodium Chloride 500 ml @ 0 mls/hr Q0M ONCE IV 09/22/25 09:00 09/22/25 09:01 DC Vital Signs Date Time Temp Pulse Resp B/P (MAP) Pulse Ox O2 Delivery O2 Flow Rate FiO2 09/22/25 08:18 97.3 09/22/25 07:57 97.3 94 20 141/94 97 Room Air* 0 21 09/22/25 07:21 97.3 111 22 131/89 99 Room Air DX & DISP Disposition: Discharge Departure Impression: Primary Impression: Cannabis hyperemesis syndrome concurrent with and due to cannabis dependence Critical Time: 45 minutes Condition: Stable Additional Instructions: FOLLOW-UP WITH PRIMARY CARE PROVIDER IN 1 TO 2 DAYS. TAKE MEDICATIONS DIRECTED HERE IN THE EMERGENCY ROOM. OKAY TO CONTINUE HOME MEDICATIONS UNLESS OTHERWISE DISCUSSED DURING YOUR VISIT IN THE EMERGENCY ROOM TODAY. RETURN TO YOUR NEAREST EMERGENCY ROOM IF SYMPTOMS WORSEN OR IF THERE IS NO IMPROVEMENT. CALL 911 IF YOU NEED IMMEDIATE ASSISTANCE. TAKE TYLENOL [id number] NEEDED AND IF NO CONTRAINDICATIONS ARE PRESENT. INCREASE ORAL HYDRATION. A WOUND CULTURE OR URINE CULTURE WAS ORDERED HERE IN THE EMERGENCY ROOM DEPARTMENT PLEASE FOLLOW-UP WITH PRIMARY CARE PROVIDER AND ADVISE THEM TO GET REPORTS FROM OUR FACILITY. IF YOU HAD ANY ERICA WRAP/SPLINTS THAT WERE APPLIED HERE, PLEASE DO NOT REMOVE THEM UNTIL YOU SEE YOUR PRIMARY CARE OR SPECIALTY. Referrals: Referrals: SKIP ISRAEL MD (PCP) Time of Disposition: 10:32 I have reviewed, & agreed with my scribe's, documentation. I have reviewed the case, and I agree with, Diagnosis and Plan I have examined patient, & reviewed all documents, & agreed W/ the Diagnosis, and Plan HOLGER POSEY MD Sep 22, 2025 08:02 SHAWNEE THOMAS MD Sep 22, 2025 10:32
[2025-09-22 08:21] LABS: NUCLEATED RED BLOOD CELLS 0.0 % (0.0-0.19); PLATELET COUNT (AUTO) 246.0 K/uL (130-400); RED BLOOD CELL COUNT(AUTO) 5.03 MIL/uL (4.50-6.20); RED CELL DISTRIBUTION WIDTH 14.1 % (11.0-15.5); WHITE BLOOD COUNT (AUTO) 9.2 K/uL (4.8-10.8)
[2025-09-22] MEDS ORDERED: 0.9% NACL 500ML IV.SOLN 500 ML IV SCH (08:30)
[2025-09-22 08:33] LABS: CREATININE 0.8 mg/dL (0.5-1.3); GLOMERULAR FILTR. RATE CALC 96 mL/min (>90); GLUCOSE,RANDOM 122 mg/dL (70-105); SODIUM SERUM 136 mmol/L (136-145); UREA NITROGEN, BLOOD 20 mg/dL (7-18)
[2025-09-22 08:41] LABS: ALCOHOL, BLOOD < 3 mg/dL (0-10)
[2025-09-22 09:18] VITALS: TEMP 97.3
--- NOTE | 2025-09-22 09:25 | HMCIMG ---
EXAM: CR Abdomen, 2 View. CLINICAL HISTORY: Crampy abdominal pain with episodes of nausea COMPARISON: None provided. FINDINGS: BOWEL: The bowel gas pattern is within normal limits. PERITONEUM/SOFT TISSUES: No free air evident. No pathologic appearing calcification. BONES: No aggressive appearing osseous lesion seen. IMPRESSION: The bowel gas pattern is within normal limits. /[place]
[2025-09-22 09:57] LABS: APPEARANCE,URINE CLEAR (CLEAR); GLUCOSE, URINE (UA) NEGATIVE (NEGATIVE); LEUKOCYTE ESTERASE ,URINE NEGATIVE Leu/uL (NEGATIVE); NITRATE,URINE NEGATIVE (NEGATIVE); OCCULT BLOOD,URINE NEGATIVE (NEGATIVE)
[2025-09-22 10:02] LABS: AMPHET/METH SCREEN,URINE NEGATIVE (NEGATIVE); BARBITURATE SCREEN, URINE NEGATIVE (NEGATIVE); CANNABINOID SCREEN,URINE POSITIVE (NEGATIVE); COCAINE SCREEN,URINE NEGATIVE (NEGATIVE)
[2025-09-22 10:05] LABS: ADD UA MICROSCOPIC YES
[2025-09-22 10:18] LABS: SQUAMOUS EPITHELIAL CELL,UR Rare /HPF (0-2)
[2025-09-22] MEDS: 0.9% NACL 500ML IV.SOLN 500 ML IV ONE (10:39)
[2025-09-22 10:55] VITALS: BP 144/82; PULSE 98; RESP 18; TEMP 97.4; O2SAT 97
== END 2025-09-22 10:53 | disposition home or self-care (01) ==
LOC: EDH 07:18
DX: R11.16 Cannabis hyperemesis syndrome (principal); F12.29 Cannabis dependence with unspecified cannabis-induced disorder; I10 Essential (primary) hypertension; I25.10 Atherosclerotic heart disease of native coronary artery without angina pectoris; F17.200 Nicotine dependence, unspecified, uncomplicated; Z95.1 Presence of aortocoronary bypass graft; Z79.01 Long term (current) use of anticoagulants; Z95.5 Presence of coronary angioplasty implant and graft; Z79.899 Other long term (current) drug therapy
CPT/HCPCS: 99284; 84484; 80048; 80305; 85027; 36415; 74018; 81001; Q0162